=== PATIENT | female | born 1940 | race American Indian/Alaskan Native ===

== ENCOUNTER 2017-03-07 00:56 | Emergency (ER) | payer MEDICARE, BC ==
[2017-03-07 00:58] VITALS: BMI 25.7
[2017-03-07 01:17] VITALS: BP 161/82; PULSE 57; RESP 18; TEMP 97.8; O2SAT 100
--- NOTE | 2017-03-07 01:38 | ED PDOC ---
Arrival/HPI - General Historian: Patient - History of Present Illness Time/Duration: > week Symptom Onset: Gradual Symptom Course: Worsening <Mariajose Ramirez - Last Filed: 03/07/17 01:46> <Ivan Mercedes - Last Filed: 03/07/17 02:29> - General Chief Complaint: Allergic Reaction Time Seen by Provider: 03/07/17 01:20 - History of Present Illness Narrative History of Present Illness (Text): 03/07/17 01:46 Patient is a 76 y/o with pmh of hld, dm, H/O cad with stents presenting with 2 weeks of itchy rash. patient states the itchiness firsts started on the scalp, then moved to the arms. States she bough a cream at the [facility] with no relief. Patient lives by herself, not sure if she has bed bugs or scabies. Patient states the rash started after she visited a dental office. Patient denies new detergent, now soaps or perfume. Denies camping. Patient denies shortness of breath, cp, n/v/d, denies fever or chills. (Mariajose Ramirez) Past Medical History - Provider Review Nursing Documentation Reviewed: Yes - Travel History Have you recently traveled outside [place] w/in the past 3 mons?: No - Past History Past History: No Previous - Infectious Disease Hx of Infectious Diseases: None - Tetanus Immunization Tetanus Immunization: Unknown - Cardiac Hx Cardiac Disorders: Yes Hx Angina: Yes Hx Hypertension: Yes Hx Pacemaker: No - Pulmonary Hx Respiratory Disorders: No Hx Asthma: No Hx Bronchitis: No Hx Chronic Obstructive Pulmonary Disease (COPD): No Hx Emphysema: No Hx Respiratory Aspiration: No Hx Respiratory Tract Infection: No Hx Sleep Apnea: No Hx Tuberculosis: No - Neurological Hx Neurological Disorder: No - HEENT Hx HEENT Disorder: No (tinnitus, [place]) Hx Blind: No Hx Cataracts: No Hx Deafness: No Hx Difficulty Chewing: No Hx Epistaxis: No Hx Glaucoma: No Hx Macular Degeneration: No - Renal Hx Renal Disorder: No Hx Dialysis: No Hx Kidney Stones: No Hx Neurogenic Bladder: No Hx Pyelonephritis: No Hx Renal Cancer: No Hx Renal Failure: No - Endocrine/Metabolic Hx Endocrine Disorders: Yes Hx Adrenal Cancer: No Hx Diabetes Insipidus: No Hx Diabetes Mellitus Type 1: No Hx Diabetes Mellitus Type 2: Yes Hx Hyperthyroidism: Yes Hx Hypothyroidism: No Hx Systemic Lupus Erythematosus: No Other/Comment: thyroid nodule - Hematological/Oncological Hx Blood Disorders: Yes (blood transfusion 2010) Hx AIDS: No Hx Anemia: No Hx Cancer: No Hx Chemotherapy: No Hx Cirrhosis: No Hx Hepatitis A: No Hx Hepatitis B: No Hx Hepatitis C: No Hx Metastasis: No Hx Shingles: No Hx Unexplained Bleeding: No - Integumentary Hx Dermatological Disorder: No Hx Basal Cell Carcinoma: No Hx Eczema: No Hx Melanoma: No Hx Psoriasis: No Hx Squamous Cell Carcinoma: No - Musculoskeletal/Rheumatological Hx Musculoskeletal Disorders: No Hx Falls: No - Gastrointestinal Hx Gastrointestinal Disorders: No Hx Colostomy: No Hx Crohn's Disease: No Hx Diverticulitis: Yes Hx Gall Bladder Disease: No Hx Gastroesophageal Reflux: No Hx Gastrointestinal Ulcer: No Hx Ileostomy: No Hx Liver Failure: No Hx Pancreatitis: No HX Swallowing Problems: No - Genitourinary/Gynecological Hx Genitourinary Disorders: No Hx Hematuria: No Hx Incontinence: No Hx Prostate Problems: No Hx Sexually Transmitted Diseases: No Hx Urinary Tract Infection: No - Psychiatric Hx Psychophysiologic Disorder: No Hx Emotional Abuse: No Hx Physical Abuse: No Hx Substance Use: No - Surgical History Hx Cardiac Catheterization: Yes (stents x3) Hx Gastric Bypass Surgery: Yes (2008) Other/Comment: Thyroid mass - procedure yesterday 03/20/15, had bx. Stents to legs, ptca 2009, 2010 and 2011 total 3 stents - Anesthesia Hx Anesthesia: Yes Hx Anesthesia Reactions: No Hx Malignant Hyperthermia: No - Suicidal Assessment Feels Threatened In Home Enviroment: No <Mariajose Ramirez - Last Filed: 03/07/17 01:46> Family/Social History - Physician Review Nursing Documentation Reviewed: Yes Family/Social History: No Known Family HX Smoking Status: Never Smoked Hx Alcohol Use: No Hx Substance Use: No Hx Substance Use Treatment: No <Mariajose Ramirez - Last Filed: 03/07/17 01:46> Allergies/Home Meds <Mariajose Ramirez - Last Filed: 03/07/17 01:46> <Ivan Mercedes - Last Filed: 03/07/17 02:29> Allergies/Adverse Reactions: Allergies No Known Allergies Allergy (Verified 05/25/16 14:02) Home Medications: Home Meds Medication Instructions Recorded Confirmed Atorvastatin [Lipitor] 10 mg PO HS 03/04/12 05/25/16 Pantoprazole Sodium [Protonix] 40 mg PO QPM 12/02/12 05/25/16 Insulin Regular, Human [Humulin R] 3 units SC DAILY PRN 08/22/13 05/25/16 Enalapril Maleate [Enalapril] 5 mg PO DAILY 10/02/15 05/25/16 Review of Systems - Review of Systems Constitutional: Normal Eyes: Normal ENT: Normal Respiratory: Normal Cardiovascular: Normal Gastrointestinal: Normal Genitourinary Female: Normal Musculoskeletal: Normal Skin: Rash, Pruritis Neurological: Normal Endocrine: Normal Hemo/Lymphatic: Normal Psychiatric: Normal <Mariajose Ramirez - Last Filed: 03/07/17 01:46> Physical Exam Vital Signs Reviewed: Yes Temperature: Afebrile Blood Pressure: Hypertensive Pulse: Regular Respiratory Rate: Normal Appearance: Positive for: Well-Appearing, Non-Toxic, Comfortable Pain Distress: None Mental Status: Positive for: Alert and Oriented X 3 - Systems Exam Head: Present: Atraumatic, Normocephalic Pupils: Present: PERRL Extroacular Muscles: Present: EOMI Conjunctiva: Present: Normal Mouth: Present: Moist Mucous Membranes Neck: Present: Normal Range of Motion Respiratory/Chest: Present: Clear to Auscultation, Good Air Exchange. No: Respiratory Distress, Accessory Muscle Use Cardiovascular: Present: Regular Rate and Rhythm, Normal S1, S2. No: Murmurs Abdomen: Present: Normal Bowel Sounds. No: Tenderness, Distention Upper Extremity: Present: Normal Inspection. No: Cyanosis, Edema Lower Extremity: Present: Normal Inspection. No: Edema Neurological: Present: GCS=15 Skin: Present: Warm, Dry, Rashes (multiple indurated rashes on the forearm, some close to the axillary region, some are healing, minimal drainage. ) <Mariajose Ramirez - Last Filed: 03/07/17 01:46> Medical Decision Making Re-evaluation Time: 01:55 Reassessment Condition: Unchanged <Mariajose Ramirez - Last Filed: 03/07/17 01:46> <Ivan Mercedes - Last Filed: 03/07/17 02:29> ED Course and Treatment: 03/07/17 01:53 76 y/o with pmh of DM presenting with rash and pruritus of the forearm and scalp. Allergic reaction versus bug bites versus MRSA 2nd to compromised skin integrity. Plan: Po doxy, and keflex. Atarax for pruritus. and reevaluate, dispo. Discussed with Dr Mercedes. (Mariajose Ramirez) 03/07/17 02:29 Patient seen and examined with resident. Agree with above. (Iavn Mercedes) - Medication Orders Current Medication Orders: Discontinued Medications Cephalexin Monohydrate (Keflex) 500 mg PO STAT STA PRN Reason: Protocol Stop: 03/07/17 01:37 Last Admin: 03/07/17 01:56 Dose: 500 mg Doxycycline Hyclate (Doryx) 100 mg PO STAT STA PRN Reason: Protocol Stop: 03/07/17 01:37 Last Admin: 03/07/17 01:56 Dose: 100 mg Hydroxyzine HCl (Atarax) 25 mg PO ONCE ONE Stop: 03/07/17 01:39 Last Admin: 03/07/17 01:56 Dose: 25 mg - PA / FILAMENT COIL WINDER / Resident Statement CARROLL has reviewed & agrees with the documentation as recorded. / has examined the patient and agrees with the treatment plan. <Ivan Mercedes - Last Filed: 03/07/17 02:29> Disposition/Present on Arrival - Present on Arrival Any Indicators Present on Arrival: No History of DVT/PE: No History of Uncontrolled Diabetes: No Urinary Catheter: No History of Decub. Ulcer: No History Surgical Site Infection Following: None - Disposition Have Diagnosis and Disposition been Completed?: Yes Disposition Time: 02:00 Patient Plan: Discharge <Mariajose Ramirez - Last Filed: 03/07/17 01:46> <Ivan Mercedes - Last Filed: 03/07/17 02:29> - Disposition Diagnosis: Rash and nonspecific skin eruption Disposition: HOME/ ROUTINE Condition: STABLE Discharge Instructions (ExitCare): Dermatitis (ED) Additional Instructions: Please take the antibiotics as prescribed . Take the antibiotic with yogurt to avoid diarrhea. Take atarax every 6-8 hrs as needed for itchiness. Follow up with PMD Might need to check your house for possibility of bed bugs or scabies. Go to the nearest emergency room if you experience chest pain, fever, if the wound is getting worst, getting bigger or draining pus. Prescriptions: Cephalexin [Keflex] 500 mg PO TID #15 capsule Doxycycline Hyclate 100 mg PO BID #10 cap hydrOXYzine HCl [Atarax] 25 mg PO Q6H PRN #20 tab PRN Reason: Itching / Pruritus
== END 2017-03-07 02:41 | disposition home or self-care (01) ==
LOC: ED 00:56
DX: R21 Rash and other nonspecific skin eruption (principal)

== ENCOUNTER 2018-01-27 11:40 | Observation (INO) | payer MEDICARE, BC ==
[2018-01-27 11:59] VITALS: BMI 27.4
--- NOTE | 2018-01-27 12:07 | ED PDOC ---
Arrival/HPI - General Time Seen by Provider: 01/27/18 11:59 Historian: Patient - History of Present Illness Narrative History of Present Illness (Text): 01/27/18 12:04 77yo female with PMHx of IDDM, hypertension and hyperlipdemia who was bib EMS for syncopal episode this morning. Patient states she had a syncopal episode while eating breakfast in a restaurant this morning. States she had syncope and collapse on top of the table where she was eating. States she did not have any symptoms prior to having the syncopal episode. She admits to tinnitus, but states it has been ongoing for a while now. Denies headache, focal weakness, recent URI, nausea, vomiting, chest pain, SOB, any other complaint. Past Medical History - Provider Review Nursing Documentation Reviewed: Yes - Past History Past History: No Previous - Infectious Disease Hx of Infectious Diseases: None - Tetanus Immunization Tetanus Immunization: Unknown - Cardiac Hx Cardiac Disorders: Yes Hx Angina: Yes Hx Hypertension: Yes Hx Pacemaker: No - Pulmonary Hx Respiratory Disorders: No Hx Asthma: No Hx Bronchitis: No Hx Chronic Obstructive Pulmonary Disease (COPD): No Hx Emphysema: No Hx Respiratory Aspiration: No Hx Respiratory Tract Infection: No Hx Sleep Apnea: No Hx Tuberculosis: No - Neurological Hx Neurological Disorder: No - HEENT Hx HEENT Disorder: No (tinnitus, [place]) Hx Blind: No Hx Cataracts: No Hx Deafness: No Hx Difficulty Chewing: No Hx Epistaxis: No Hx Glaucoma: No Hx Macular Degeneration: No - Renal Hx Renal Disorder: No Hx Dialysis: No Hx Kidney Stones: No Hx Neurogenic Bladder: No Hx Pyelonephritis: No Hx Renal Cancer: No Hx Renal Failure: No - Endocrine/Metabolic Hx Endocrine Disorders: Yes Hx Adrenal Cancer: No Hx Diabetes Insipidus: No Hx Diabetes Mellitus Type 1: No Hx Diabetes Mellitus Type 2: Yes Hx Hyperthyroidism: Yes Hx Hypothyroidism: No Hx Systemic Lupus Erythematosus: No Other/Comment: thyroid nodule - Hematological/Oncological Hx Blood Disorders: Yes (blood transfusion 2010) Hx AIDS: No Hx Anemia: No Hx Cancer: No Hx Chemotherapy: No Hx Cirrhosis: No Hx Hepatitis A: No Hx Hepatitis B: No Hx Hepatitis C: No Hx Metastasis: No Hx Shingles: No Hx Unexplained Bleeding: No - Integumentary Hx Dermatological Disorder: No Hx Basal Cell Carcinoma: No Hx Eczema: No Hx Melanoma: No Hx Psoriasis: No Hx Squamous Cell Carcinoma: No - Musculoskeletal/Rheumatological Hx Musculoskeletal Disorders: No Hx Falls: No - Gastrointestinal Hx Gastrointestinal Disorders: No Hx Colostomy: No Hx Crohn's Disease: No Hx Diverticulitis: Yes Hx Gall Bladder Disease: No Hx Gastroesophageal Reflux: No Hx Gastrointestinal Ulcer: No Hx Ileostomy: No Hx Liver Failure: No Hx Pancreatitis: No HX Swallowing Problems: No - Genitourinary/Gynecological Hx Genitourinary Disorders: No Hx Hematuria: No Hx Incontinence: No Hx Prostate Problems: No Hx Sexually Transmitted Diseases: No Hx Urinary Tract Infection: No - Psychiatric Hx Psychophysiologic Disorder: No Hx Emotional Abuse: No Hx Physical Abuse: No Hx Substance Use: No - Surgical History Hx Cardiac Catheterization: Yes (stents x3) Hx Gastric Bypass Surgery: Yes (2008) Other/Comment: Thyroid mass - procedure yesterday 03/20/15, had bx. Stents to legs, ptca 2009, 2010 and 2011 total 3 stents - Anesthesia Hx Anesthesia: Yes Hx Anesthesia Reactions: No Hx Malignant Hyperthermia: No - Suicidal Assessment Feels Threatened In Home Enviroment: No Family/Social History - Physician Review Nursing Documentation Reviewed: Yes Family/Social History: Unknown Family HX Smoking Status: Never Smoked Hx Alcohol Use: No Hx Substance Use: No Hx Substance Use Treatment: No Allergies/Home Meds Allergies/Adverse Reactions: Allergies No Known Allergies Allergy (Verified 05/25/16 14:02) Home Medications: Home Meds Medication Instructions Recorded Confirmed Atorvastatin [Lipitor] 10 mg PO HS 03/04/12 01/27/18 Insulin Regular, Human [Humulin R] 3 units SC DAILY PRN 08/22/13 01/27/18 Enalapril Maleate [Enalapril] 5 mg PO DAILY 10/02/15 01/27/18 Pantoprazole Sodium [Protonix] 40 mg PO HS 01/27/18 01/27/18 Review of Systems - Physician Review All systems were reviewed & negative as marked: Yes - Review of Systems Constitutional: Normal Eyes: Normal ENT: Normal Respiratory: Normal Cardiovascular: Normal Gastrointestinal: Normal Genitourinary Female: Normal Musculoskeletal: Normal Skin: Normal Neurological: absent: Dizziness (syncope) Endocrine: Normal Hemo/Lymphatic: Normal Psychiatric: Normal Physical Exam Vital Signs Reviewed: Yes Vital Signs Temp Pulse Resp BP Pulse Ox 01/27/18 16:31 59 L 18 138/81 100 01/27/18 14:14 57 L 18 140/94 H 100 01/27/18 12:30 97.9 F 64 17 133/78 98 Temperature: Afebrile Blood Pressure: Normal Pulse: Regular Respiratory Rate: Normal Appearance: Positive for: Well-Appearing, Non-Toxic, Comfortable Pain Distress: None Mental Status: Positive for: Alert and Oriented X 3 - Systems Exam Head: Present: Atraumatic, Normocephalic Pupils: Present: PERRL Extroacular Muscles: Present: EOMI Conjunctiva: Present: Normal Mouth: Present: Moist Mucous Membranes Neck: Present: Normal Range of Motion Respiratory/Chest: Present: Clear to Auscultation, Good Air Exchange. No: Respiratory Distress, Accessory Muscle Use Cardiovascular: Present: Regular Rate and Rhythm, Normal S1, S2. No: Murmurs Abdomen: No: Tenderness, Distention, Peritoneal Signs Back: Present: Normal Inspection Upper Extremity: Present: Normal Inspection. No: Cyanosis, Edema Lower Extremity: Present: Normal Inspection. No: Edema Neurological: Present: GCS=15, CN II-XII Intact, Speech Normal, Motor Func Grossly Intact, Normal Sensory Function, Normal Cerebellar Funct, Norm Deep Tendon Reflexes, Memory Normal, Normal 2Pt Descrimination, Other (No focal neurological deficit) Skin: Present: Warm, Dry, Normal Color. No: Rashes Psychiatric: Present: Alert, Oriented x 3, Normal Insight, Normal Concentration Medical Decision Making ED Course and Treatment: 01/27/18 19:24 PT presented for stated history. She was neurologically intact in ED. Lab was reviewed, H/H was comparable to previous labs. Mild leukocyte was noted in her urine, but she is asymptomatic. Will not treat at this time. Case was DW Dr. Thomas when she was in ED and pt was placed on OBS for syncope. EKG NSR; LVH with nonspecific T wave abnormality @ 75bpm Head CT - Negative CXR NAD - Lab Interpretations Lab Results: 01/27/18 13:57 01/27/18 13:57 Lab Results 01/27/18 13:57: Sodium 144, Potassium 4.3, Chloride 109 H, Carbon Dioxide 25, Anion Gap 15, BUN 27 H, Creatinine 1.1, Est GFR ( Amer) 58, Est GFR (Non- Af Amer) 48, Random Glucose 149 H, Calcium 8.5, Total Bilirubin 0.3, AST 23, ALT 22, Alkaline Phosphatase 78, Lactate Dehydrogenase 532, Total Creatine Kinase 119, Troponin I < 0.01, Total Protein 7.1, Albumin 4.0, Globulin 3.1, Albumin/Globulin Ratio 1.3 01/27/18 13:57: Urine Color Yellow, Urine Appearance Clear, Urine pH 6.0, Ur Specific [place] 1.025, Urine Protein 30 H, Urine Glucose (UA) Negative, Urine Ketones Trace H, Urine Blood Negative, Urine Nitrate Negative, Urine Bilirubin Negative, Urine Urobilinogen 0.2, Ur Leukocyte Esterase Small H, Urine RBC 0 - 2 , Urine WBC 5 - 10, Ur Epithelial Cells 4 - 5, Urine Bacteria Mod 01/27/18 13:57: PT 12.1, INR 1.06, APTT 31.0 01/27/18 13:57: WBC 7.9 D, RBC 3.23 L, Hgb 9.2 L, Hct 29.1 L, MCV 90.1, MCH 28.5, MCHC 31.6, RDW 13.5, Plt Count 207, MPV 10.6, Gran % 84.7 H, Lymph % (Auto ) 10.2 L, [place] % (Auto) 4.9, Eos % (Auto) 0.1 L, Baso % (Auto) 0.1, Gran # 6.72 H, Lymph # (Auto) 0.8 L, [place] # (Auto) 0.4, Eos # (Auto) 0.0, Baso # (Auto) 0.01 01/27/18 12:26: POC Glucose (mg/dL) 175 H - RAD Interpretation Radiology Orders: 01/27/18 12:00 CHEST PORTABLE [RAD] Stat 01/27/18 12:01 HEAD W/O CONTRAST [CT] Stat Disposition/Present on Arrival - Present on Arrival Any Indicators Present on Arrival: No History of DVT/PE: No History of Uncontrolled Diabetes: No Urinary Catheter: No History of Decub. Ulcer: No History Surgical Site Infection Following: None - Disposition Have Diagnosis and Disposition been Completed?: Yes Diagnosis: Syncope, UTI (urinary tract infection), Anemia Disposition: HOSPITALIZED Disposition Time: 14:00 Patient Plan: Admission Patient Problems: Current Active Problems Problem Status Onset Syncope Acute UTI (urinary tract infection) Acute Condition: FAIR
--- NOTE | 2018-01-27 13:43 | CT ---
PROCEDURE: CT HEAD WITHOUT CONTRAST. HISTORY: syncope COMPARISON: 10/02/2015 TECHNIQUE: Axial computed tomography images were obtained through the head/brain without intravenous contrast. Radiation dose: Total exam DLP = 859 mGy-cm. This CT exam was performed using one or more of the following dose reduction techniques: Automated exposure control, adjustment of the mA and/or kV according to patient size, and/or use of iterative reconstruction technique. FINDINGS: HEMORRHAGE: No intracranial hemorrhage. BRAIN: No mass effect or edema. Chronic microvascular changes are seen in the periventricular white matter and basal ganglia. Moderate atrophy. No acute findings VENTRICLES: Unremarkable. No hydrocephalus. CALVARIUM: Unremarkable. PARANASAL SINUSES: Unremarkable as visualized. No significant inflammatory changes. MASTOID AIR CELLS: Unremarkable as visualized. No inflammatory changes. OTHER FINDINGS: None. IMPRESSION: No acute findings
--- NOTE | 2018-01-27 14:21 | RAD ---
HISTORY: admission COMPARISON: 10/02/2015 FINDINGS: LUNGS: No active pulmonary disease. PLEURA: No significant pleural effusion identified, no pneumothorax apparent. CARDIOVASCULAR: Normal. OSSEOUS STRUCTURES: No significant abnormalities. VISUALIZED UPPER ABDOMEN: Normal. OTHER FINDINGS: None. IMPRESSION: No active disease.
[2018-01-27 14:30] LABS: BASO # 0.01 K/mm3 (0.0-2.0); BASO % 0.1 % (0.0-3.0); EOS % 0.1 % (1.5-5.0); GRAN # 6.72 (1.4-6.5); GRAN % 84.7 % (50.0-68.0); HEMOGLOBIN 9.2 g/dL (12.0-16.0); LYMPH # 0.8 (1.2-3.4); LYMPH % 10.2 % (22.0-35.0); MEAN CELL VOLUME 90.1 fl (80.0-105.0); MEAN CORPUSCULAR HEMOGLOBIN 28.5 pg (25.0-35.0); MEAN CORPUSCULAR HGB CONC 31.6 g/dl (31.0-37.0); MEAN PLATELET VOLUME 10.6 fl (7.0-11.0); MONO # 0.4 (0.1-0.6); MONO % 4.9 % (1.0-6.0); RBC 3.23 10^6/uL (3.5-6.1); RED CELL DISTRIBUTION WIDTH 13.5 % (11.5-14.5); WHITE BLOOD COUNT 7.9 10^3/ul (4.5-11.0)
[2018-01-27 14:36] LABS: URINE BILIRUBIN NEGATIVE (NEGATIVE); URINE BLOOD NEGATIVE (NEGATIVE); URINE GLUCOSE (UA) NEGATIVE (NEGATIVE); URINE LEUKOCYTE ESTERASE SMALL Leu/uL (NEGATIVE); URINE PROTEIN 30 mg/dL (<30 mg/dL); URINE UROBILINOGEN 0.2 E.U./dL (<1 E.U./dL)
[2018-01-27 14:40] LABS: INR 1.06 (0.93-1.08); PROTHROMBIN TIME 12.1 SECONDS (9.4-12.5)
[2018-01-27 14:42] LABS: URINE APPEARANCE CLEAR (CLEAR); URINE COLOR YELLOW (YELLOW)
[2018-01-27 14:53] LABS: ALB/GLOB RATIO 1.3 (1.1-1.8); ALT/SGPT 22 U/L (7-56); AST/SGOT 23 U/L (14-36); BLOOD UREA NITROGEN 27 mg/dL (7-21); CALCIUM 8.5 mg/dL (8.4-10.5); GFR AFRICAN-AMERICAN 58; GFR NON-AFRICAN AMERICAN 48
[2018-01-27 14:59] LABS: URINE RBC 0 - 2 /hpf (0-2)
[2018-01-27 15:00] LABS: URINE BACTERIA MOD (NEG)
[2018-01-27 15:04] LABS: TROPONIN I < 0.01 ng/mL
[2018-01-27 20:57] LABS: IRON 57 ug/dL (45-180)
[2018-01-27 21:06] LABS: % IRON SATURATION 16 % (20-55); TOTAL IRON BINDING CAPACITY 367 ug/dL (265-497)
[2018-01-27] MEDS: Insulin Reg-LOW-Coverage SC SCH (21:38)
--- NOTE | 2018-01-27 22:38 | HP ---
DATE OF EXAM: 01/27/2018 PLACE OF EVALUATION: [facility] [place] [facility]. HISTORY OF PRESENT ILLNESS: This 77-year-old female was examined in the [facility] [place] [facility] after presenting with a complaint of syncope; earlier this morning, she was eating breakfast in a restaurant, she collapsed on top of her table where she was eating. She denied any prior symptoms to the syncopal event. She denied chest pain, shortness of breath, palpitation or vertigo. PAST MEDICAL HISTORY: Significant for insulin-dependent diabetes mellitus, hypertension, peripheral vascular disease, stable atherosclerotic heart disease, hyperlipidemia and she is status post a gastric bypass surgery in the distant past. OUTPATIENT MEDICATIONS: Included Protonix, insulin, enalapril and Lipitor. REVIEW OF SYSTEMS: HEAD REVIEW: Denied any seizure or stroke. EYE REVIEW: Denied any change in visual acuity. EAR REVIEW: Denied hearing loss. THROAT REVIEW: Denied swallowing difficulty. NECK REVIEW: Denied stiffness. CARDIAC REVIEW: Has chronic hypertension. PULMONARY: No cough. No hemoptysis. GI: Peptic ulcer disease with GERD status post bariatric surgery for morbid obesity. : No dysuria. SKIN: No rash. VASCULAR: No claudication. PSYCHOLOGICAL: Chronic anxiety. NEUROLOGICAL: No stroke. SOCIAL HISTORY: She is a nondrinker, nonsmoker, non IV drug misuser. 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 SURGICAL HISTORY: Significant for stents in legs for vascular insufficiency, coronary artery stents for atherosclerotic heart disease in the past. FAMILY HISTORY: Noncontributory. ALLERGIES: SHE DENIED ALLERGIES TO MEDICATION. PHYSICAL EXAMINATION: VITAL SIGNS: Temperature 97.9, respirations 17, pulse 64, blood pressure 133/78 with a pulse ox of 98% room air. HEENT: Head was normocephalic, atraumatic. Eyes showed no icterus. Ears clear. Throat, noninjected. NECK: Supple. HEART: Was regular S1, S2. No pathological rubs, murmurs or gallops. LUNGS: Clear to auscultation. ABDOMEN: Was soft, nontender. There was no palpable organomegaly. No rebound, no guarding. No tenderness. EXTREMITIES: Showed no clubbing, no cyanosis, no edema. SKIN: Her skin was without rash. NEUROLOGICAL: Exam was grossly intact. PSYCHOLOGICAL: Alert and oriented x3. VASCULAR: Legs warm to touch. EKG was reviewed. It showed a normal sinus rhythm with nonspecific ST-T waves with a cardiac pulse rate of [address] beats per minute. Head CT was reviewed. It showed no evidence of intracranial hemorrhage or stroke. Chest x-ray was reviewed. It showed no infiltrate, no congestive heart failure, no pneumothorax, no pleural effusions. LABORATORY DATA: Showed sodium 144, K 4.3, chloride 109, bicarb 25, BUN 27, creatinine 1.1, random blood sugar 175. All liver function testings were normal including bilirubin 0.3, AST 23, ALT 22, alk phos 78. CPK was normal at 119 with a troponin less than 0.01. White blood cell count 7900, hemoglobin 9.2, hematocrit 29.1, platelet count 207,000. PT/INR 1.06, PTT 31. Urinalysis was reviewed. It showed 30 mg/dL of protein with moderate bacteria. Urine culture was sent from the ER. IMPRESSION: This 77-year-old female with a syncopal event while eating in a restaurant earlier this morning with no prodromal symptomatology in a woman with history of bariatric surgery for morbid obesity, history of stable atherosclerotic heart disease with coronary artery stents in her past and also with history of hyperlipidemia, chronic hypertension, insulin-dependent diabetes mellitus, now with a normochromic normocytic anemia. PLAN: The plan as outlined with patient, nursing and emergency room staff will be to admit this patient to the cardiac unit. She will have a ferritin, folic acid, iron, TIBC and vitamin B12 level drawn presently. I have requested a hemoglobin A1c level stat as well as a fasting lipid panel to be done 5:00 a.m. in the morning. We will obtain the results of urine culture. She will be started on regular low-dose insulin protocol a.c. meals and at bedtime., Lipitor 20 mg p.o. daily, Pepcid 20 mg p.o. b.i.d., Zestril 5 mg p.o. daily, Tylenol 650 p.o. every 6 hours p.r.n. pain or temperature greater than 101 and Zofran 4 mg IV every 6 hours p.r.n. nausea and vomiting. She will be placed on heart-healthy diet with moderate carbohydrate restriction. Fall risk protocol and physical therapy will be ordered for ambulation safety. A consultation with Neurology has been requested regarding this syncopal event and patient will require hospitalization pending further workup and clearance by Neurology given her presentation earlier today. Greater than 75 minutes was spent in the care management, review of labs, orders, x-rays, scans and outlining of treatment plan for this patient today. All questions were answered. Jacqueline Thomas MD MTDD
[2018-01-27] MEDS ORDERED: Pneumococcal 23-Valent Vaccine IM ONE (23:05)
[2018-01-27] MEDS ORDERED: Sodium Chloride 0.9% 1,000 ML IV SCH (23:45)
[2018-01-28] MEDS ORDERED: Pantoprazole 40 mg EC Tab PO STA (00:23)
[2018-01-28 00:34] LABS: HEMOGLOBIN 7.6 g/dL (12.0-16.0); MEAN CELL VOLUME 89.7 fl (80.0-105.0); MEAN CORPUSCULAR HEMOGLOBIN 28.9 pg (25.0-35.0); MEAN CORPUSCULAR HGB CONC 32.2 g/dl (31.0-37.0); MEAN PLATELET VOLUME 9.7 fl (7.0-11.0); RBC 2.63 10^6/uL (3.5-6.1); RED CELL DISTRIBUTION WIDTH 13.6 % (11.5-14.5); WHITE BLOOD COUNT 5.6 10^3/ul (4.5-11.0)
[2018-01-28] MEDS: Sodium Chloride 0.9% 1,000 ML IV SCH ×3 (01:11→22:33)
[2018-01-28] MEDS: Pantoprazole 40mg/100mL NS 40 MG/100 ML BAG IVPB SCH ×5 (01:16→22:31)
--- NOTE | 2018-01-28 01:34 | CP.PCM.CON ---
<Mariajose Ramirez - Last Filed: 01/28/18 02:20> History of Present Illness - History of Present Illness History of Present Illness: ICU consult note for Dr Salinas. Reason for consult: hematemsis and hematochezia. Patient is a 77 y/o with pmh of CAD with stents? in the past, hld, htn, IDDM, chronic anemia, h/o anastamotic ulcer s/p gastric bypass, esophageal diverticulum ( seen on EGD in 2010) who initially presented s/p syncopal episode while in the restaurant. Patient states in the morning while eating ( toast, eggs and coffee, denies fish), she noticed large amount of blood from her mouth and nose, then she passed out after. Patient was admitted to tele floor. This AM, nurse's aid noted patient vomiting large clots of blood. Patient states she also had bloody bowel movement this morning. Denied pain with defecation. Repeat cbc revealed dropped in h/h by almost 2 units, thus icu is consulted for evaluation. Patient is lying comfortably on the bed, Denies cp or sob. Denies nausea, vomiting or diarrhea. Denies prior episodes of hematemesis or hematochezia. Denies dizziness, admits to feeling fatigued. No headache or weakness. States she felt diaphoretic while on the toiled. Denies history of asa, plavix and other NSAID use for years. States she only takes Tylenol prn for headache. PMHx: as stated above PSHx: gastric bypass, cardiac cath 2011, egd/colonoscopy spanning from 2010 and 2012. Social: denies tobacco, alcohol and illicit drug use. FMHx: non contributory. Home meds: reviewed, as per emr. Review of Systems - Constitutional Constitutional: Fatigue. absent: Anorexia, Chills, Fever, Headache, Lethargy, Malaise, Night Sweats - EENT Eyes: absent: Change in Vision Ears: absent: Disequilibrium, Dizziness Nose/Mouth/Throat: absent: Nasal Discharge, Sore Throat - Cardiovascular Cardiovascular: absent: Chest Pain, Chest Pain at Rest, Claudication, Diaphoresis, Dyspnea, Edema - Respiratory Respiratory: absent: Cough, Dyspnea, Hemoptysis, Wheezing, Snoring, Stridor - Gastrointestinal Gastrointestinal: Hematemesis, Hematochezia. absent: Abdominal Pain, Belching, Bloating, Change in Bowel Habits, Constipation, Cramping, Diarrhea, Dyspepsia, Heartburn, Loose Stools, Melena, Nausea, Vomiting - Genitourinary Genitourinary: Dysuria. absent: Pyuria - Musculoskeletal Musculoskeletal: absent: Back Pain, Muscle Weakness - Integumentary Integumentary: absent: Jaundice - Neurological Neurological: absent: Disequilibrium, Dizziness, Numbness, Headaches - Psychiatric Psychiatric: absent: Anxiety, Change in Appetite, Confusion, Depression - Endocrine Endocrine: absent: Polydipsia, Polyphagia, Polyuria - Hematologic/Lymphatic Hematologic: absent: Easy Bleeding, Easy Bruising Past Patient History - Infectious Disease Hx of Infectious Diseases: None - Tetanus Immunizations Tetanus Immunization: Unknown - Past Social History Smoking Status: Never Smoked Alcohol: None Drugs: Denies Home Situation {Lives}: With Family - CARDIAC Hx Cardiac Disorders: Yes Hx Angina: Yes Hx Hypercholesterolemia: Yes Hx Hypertension: Yes Hx Pacemaker: No - PULMONARY Hx Respiratory Disorders: No Hx Asthma: No Hx Bronchitis: No Hx Chronic Obstructive Pulmonary Disease (COPD): No Hx Emphysema: No Hx Respiratory Aspiration: No Hx Respiratory Tract Infection: No Hx Sleep Apnea: No Hx Tuberculosis: No - NEUROLOGICAL Hx Neurological Disorder: Yes Hx Dizziness: Yes (syncope 5-8-18) - HEENT Hx HEENT Problems: No (tinnitus, knik) Hx Blind: No Hx Cataracts: No Hx Deafness: No Hx Difficulty Chewing: No Hx Epistaxis: No Hx Glaucoma: No Hx Macular Degeneration: No - RENAL Hx Chronic Kidney Disease: No Hx Dialysis: No Hx Kidney Stones: No Hx Neurogenic Bladder: No Hx Pyelonephritis: No Hx Renal (Kidney) Cancer: No Hx Renal Failure: No - ENDOCRINE/METABOLIC Hx Endocrine Disorders: Yes Hx Adrenal Cancer: No Hx Diabetes Insipidus: No Hx Diabetes Mellitus Type 1: No Hx Diabetes Mellitus Type 2: Yes Hx Hyperthyroidism: Yes Hx Hypothyroidism: No Hx Systemic Lupus Erythematosus: No Other/Comment: thyroid nodule-mass with bx - HEMATOLOGICAL/ONCOLOGICAL Hx Blood Disorders: Yes (blood transfusion 2010) Hx AIDS: No Hx Anemia: No Hx Cancer: No Hx Chemotherapy: No Hx Cirrhosis: No Hx Hepatitis A: No Hx Hepatitis B: No Hx Hepatitis C: No Hx Metastesis: No Hx Shingles: No Hx Unexplained Bleeding: No - INTEGUMENTARY Hx Dermatological Problems: No Hx Basil Cell: No Hx Eczema: No Hx Melanoma: No Hx Psoriasis: No Hx Squamous Cell: No - MUSCULOSKELETAL/RHEUMATOLOGICAL Hx Musculoskeletal Disorders: No Hx Falls: No - GASTROINTESTINAL Hx Gastrointestinal Disorders: Yes (gastric bypass-2009 pt denies) Hx Colostomy: No Hx Crohn's Disease: No Hx Diverticulitis: Yes Hx Gall Bladder Disease: No Hx Gastroesophageal Reflux: No Hx Ileostomy: No Hx Liver Failure: No Hx Pancreatitis: No HX Swallowing Problems: No - GENITOURINARY/GYNECOLOGICAL Hx Genitourinary Disorders: No Hx Hematuria: No Hx Incontinence: No Hx Sexually Transmitted Disorders: No Hx Urinary Tract Infection: No - PSYCHIATRIC Hx Psychophysiologic Disorder: No Hx Emotional Abuse: No Hx Physical Abuse: No Hx Substance Use: No - SURGICAL HISTORY Hx Surgeries: Yes Hx Cardiac Catheterization: Yes (stents x3) Hx Gastric Bypass Surgery: Yes (2008) Other/Comment: Thyroid mass - procedure yesterday 03/20/15, had bx. Stents to legs, ptca 2009, 2010 and 2011 total 3 stents - ANESTHESIA Hx Anesthesia: Yes Hx Anesthesia Reactions: No Hx Malignant Hyperthermia: No Meds Allergies/Adverse Reactions: Allergies Allergy/AdvReac Type Severity Reaction Status Date / Time No Known Allergies Allergy Verified 01/27/18 21:25 - Medications Medications: Current Medications Acetaminophen (Tylenol 325mg Tab) 650 mg PO Q6H PRN PRN Reason: Fever >100.4 F Atorvastatin Calcium (Lipitor) 10 mg PO DIN [facility] Last Admin: 01/27/18 20:59 Dose: 10 mg Pantoprazole Sodium (Protonix 40mg Ivpb) 40 mg in 100 mls @ 20 mls/hr IVPB .Q5H [facility] Last Admin: 01/28/18 01:16 Dose: 20 mls/hr Sodium Chloride (Sodium Chloride 0.9%) 1,000 mls @ 150 mls/hr IV .Q6H40M [facility] Last Admin: 01/28/18 01:11 Dose: Not Given Insulin Human Regular (Humulin R Low) 0 units SC ACHS [facility] PRN Reason: Protocol Last Admin: 01/27/18 21:38 Dose: Not Given Levofloxacin/Dextrose (Levaquin 750mg) 750 mg IVPB DAILY [facility] PRN Reason: Protocol Lisinopril (Zestril) 5 mg PO DAILY [facility] Ondansetron HCl (Zofran Inj) 4 mg IVP Q6H PRN PRN Reason: Nausea/Vomiting Physical Exam - Constitutional Appears: No Acute Distress - Head Exam Head Exam: ATRAUMATIC, NORMAL INSPECTION, NORMOCEPHALIC - Eye Exam Eye Exam: EOMI, Normal appearance, PERRL. absent: Scleral icterus (pale sclera. ) - ENT Exam ENT Exam: Mucous Membranes Dry - Neck Exam Neck exam: Positive for: Normal Inspection - Respiratory Exam Respiratory Exam: Clear to Auscultation Bilateral, NORMAL BREATHING PATTERN. absent: Rales, Rhonchi, Wheezes, Respiratory Distress, Stridor - Cardiovascular Exam Cardiovascular Exam: REGULAR RHYTHM, RRR, +S1, +S2. absent: Bradycardia, Tachycardia, Diastolic murmur, Gallop, JVD, Rubs, Systolic Murmur - GI/Abdominal Exam GI & Abdominal Exam: Normal Bowel Sounds, Soft. absent: Bruit, Diminished Bowel Sounds, Distended, Guarding, Hyperactive Bowel Sounds, Rebound, Rigid, Tenderness - Rectal Exam Rectal Exam: Bloody Stool, NORMAL INSPECTION. absent: Hemorrhoids, Fecal Impaction - Extremities Exam Extremities exam: Positive for: normal inspection. Negative for: pedal edema, tenderness - Back Exam Back exam: NORMAL INSPECTION - Neurological Exam Neurological exam: Alert, Oriented x3, Reflexes Normal - Psychiatric Exam Psychiatric exam: Normal Affect, Normal Mood - Skin Skin Exam: Dry, Intact, Pallor, Warm Results - Vital Signs Recent Vital Signs: Last Vital Signs Temp 98.3 F 01/27/18 22:50 Pulse 80 01/27/18 22:50 Resp 17 01/27/18 22:50 BP 127/68 01/27/18 22:50 Pulse Ox 100 01/27/18 18:00 - Labs Result Diagrams: 01/28/18 00:28 01/27/18 13:57 Labs: Laboratory Results - last 24 hr 01/27/18 01/27/18 01/28/18 14:04 21:37 00:28 WBC 5.6 D RBC 2.63 L Hgb 7.6 L Hct 23.6 L MCV 89.7 MCH 28.9 MCHC 32.2 RDW 13.6 Plt Count 167 MPV 9.7 POC Glucose (mg/dL) 152 H 116 H Assessment & Plan - Assessment and Plan (Free Text) Assessment: Patient is a 77 y/o with pmh of CAD with stents? in the past, hld, htn, IDDM, chronic anemia, h/o anastomotic ulcer s/p gastric bypass, esophageal diverticulum ( seen on EGD in 2010), initially admitted post syncopal episode and icu is being consulted due to episodes of hematemesis and hematochezia. Patient was noted to have acute drop in hgb from 9.2 to 7.6. Currently hemodynamically stable. Patient is to be transferred to icu for further monitoring and management. Plan: Neuro: a&ox3, alert and awake, speaking in full sentences. Pulm: stable, supplemental O2 prn to maintain O2 sat above 90%. Head of bed above 30 degrees. Cardiac: h/o CAD with ?stents, and htn- denies asa and plavix. On lipitor. BP currently stable, will maintain MAP above 65%. ID: [id number]- will start levaquin, urine culture pending. GI: Possible upper Gi bleeding likely due to gastric/ duodenal/ esophageal ulcers ,versus variceal bleed, versus fistula, AVM, r/o malignancy, r/o superimposed lower Gi bleeding. - Gi consulted, spoke to Dr Yoder, hold off of gastric lavage. - started on ppi drip, zofran prn for nausea/vomiting, NPO. - Surgery is consulted as per primary. - Patient getting transfuse 2 unites of prbc. Heme- acute on chronic anemia likely due to upper gi bleeding. - acute drop of hgb - will type and cross, and transfuse 2 units of prbc. - plt and coags appears normal, anemia work up sent. - will continue to monitor closely, cbc q4h. ENDO- h/o IDDM2- continue insulin sliding scale. RENAL- stable renal function, will monitor and prevent liza. - On NS hydration at 150 ml/hr. DVT prophylaxis: VTE device. Patient seen, examined and case discussed with Dr Salinas. - Date & Time Date: 01/28/18 Time: 01:50 <Cruz Salinas Q - Last Filed: 01/28/18 03:27> Meds - Medications Medications: Current Medications Acetaminophen (Tylenol 325mg Tab) 650 mg PO Q6H PRN PRN Reason: Fever >100.4 F Atorvastatin Calcium (Lipitor) 10 mg PO DIN [facility] Last Admin: 01/27/18 20:59 Dose: 10 mg Pantoprazole Sodium (Protonix 40mg Ivpb) 40 mg in 100 mls @ 20 mls/hr IVPB .Q5H [facility] Last Admin: 01/28/18 01:16 Dose: 20 mls/hr Sodium Chloride (Sodium Chloride 0.9%) 1,000 mls @ 150 mls/hr IV .Q6H40M [facility] Last Admin: 01/28/18 01:11 Dose: Not Given Insulin Human Regular (Humulin R Low) 0 units SC ACHS [facility] PRN Reason: Protocol Last Admin: 01/27/18 21:38 Dose: Not Given Levofloxacin/Dextrose (Levaquin 750mg) 750 mg IVPB Q48H [facility] PRN Reason: Protocol Last Admin: 01/28/18 02:10 Dose: 750 mg Lisinopril (Zestril) 5 mg PO DAILY [facility] Ondansetron HCl (Zofran Inj) 4 mg IVP Q6H PRN PRN Reason: Nausea/Vomiting Last Admin: 01/28/18 03:09 Dose: 4 mg Results - Vital Signs Recent Vital Signs: Last Vital Signs Temp 98 F 01/28/18 03:15 Pulse 75 01/28/18 03:15 Resp 26 H 01/28/18 03:15 BP 140/73 01/28/18 03:15 Pulse Ox 99 01/28/18 00:01 - Labs Result Diagrams: 01/28/18 00:28 01/27/18 13:57 Labs: Laboratory Results - last 24 hr 01/27/18 01/27/18 01/28/18 14:04 21:37 00:28 WBC 5.6 D RBC 2.63 L Hgb 7.6 L Hct 23.6 L MCV 89.7 MCH 28.9 MCHC 32.2 RDW 13.6 Plt Count 167 MPV 9.7 POC Glucose (mg/dL) 152 H 116 H Blood Type Antibody Screen Crossmatch BBK History Checked 01/28/18 00:28 WBC RBC Hgb Hct MCV MCH MCHC RDW Plt Count MPV POC Glucose (mg/dL) Blood Type O POSITIVE Antibody Screen Negative Crossmatch See Detail BBK History Checked Patient has bt Attending/Attestation - Attestation I have personally seen and examined this patient.: Yes I have fully participated in the care of the patient.: Yes I have reviewed all pertinent clinical information: Yes Notes (Text): 01/28/18 03:27 I agree with the above mentioned note and exam by the resident with the addition /exception of the followin77 y/o female with a PMHx IDDM, htn, CAD + PVD s/p PCI, gastric bypass surgery, history of a GI bleed and peptic ulcer disease was admitted to the hospital earlier today secondary to an episode of unexplained syncope. Patient does not recall the events, however documentation on her medical record appear to show that the patient may have had an episode of hematemesis causing her syncope. Patient had an episode of melena followed by an episode of vomiting of Bright red blood while on the telemetry floor. Her SBP was measured to be in the 130's prior to these episodes and in the low 100's afterwards. Patient was transferred to the ICU for closer monitoring, initiation and maintenance of a PPI IV drip, NPO and is pending evaluation by GI services. The medical unit secretary discussed the case with Dr. Yoder and he recommended not to perform gastric lavage at this time. Patient had an EGD done in 2012 showing esophageal diverticulum and ulcers without signs of bleeding. Patient will be transfused to keep her hgb >8 and monitored closely. Case discussed with Dr. Butt (House doctor) who notified me of the patient's current symptoms labs and images available to me have been reviewed thus far total time of care: 45 minutes
[2018-01-28] MEDS ORDERED: levoFLOXacin 750 mg in D5W 150 ML BAG IVPB SCH (01:40)
--- NOTE | 2018-01-28 01:42 | CP.PCM.PN ---
Subjective - Date & Time of Evaluation Date of Evaluation: 01/27/18 Time of Evaluation: 11:40 - Subjective Subjective: Pt seen at the request of her RN who stated pt had a large amount of bright bloody vomitus with clots of blood followed by a bowel movement with dark blood in it. Pt was admitted for a syncopal episode. VS are stable PMH:CAD,S/P stent placement,gastric bypass,hypercholestrolemia,HTN,thyroid nodule biopsy Objective - Vital Signs/Intake and Output Vital Signs (last 24 hours): Temp Pulse Resp BP Pulse Ox 98.3 F 80 17 127/68 100 01/27/18 22:50 01/27/18 22:50 01/27/18 22:50 01/27/18 22:50 01/27/18 18:00 - Medications Medications: Current Medications Acetaminophen (Tylenol 325mg Tab) 650 mg PO Q6H PRN PRN Reason: Fever >100.4 F Atorvastatin Calcium (Lipitor) 10 mg PO DIN [facility] Last Admin: 01/27/18 20:59 Dose: 10 mg Pantoprazole Sodium (Protonix 40mg Ivpb) 40 mg in 100 mls @ 20 mls/hr IVPB .Q5H [facility] Last Admin: 01/28/18 01:16 Dose: 20 mls/hr Sodium Chloride (Sodium Chloride 0.9%) 1,000 mls @ 150 mls/hr IV .Q6H40M [facility] Last Admin: 01/28/18 01:11 Dose: Not Given Insulin Human Regular (Humulin R Low) 0 units SC ACHS [facility] PRN Reason: Protocol Last Admin: 01/27/18 21:38 Dose: Not Given Levofloxacin/Dextrose (Levaquin 750mg) 750 mg IVPB DAILY [facility] PRN Reason: Protocol Lisinopril (Zestril) 5 mg PO DAILY [facility] Ondansetron HCl (Zofran Inj) 4 mg IVP Q6H PRN PRN Reason: Nausea/Vomiting - Labs Labs: 01/28/18 00:28 PT 12.1 SECONDS (9.4-12.5) 01/27/18 13:57 INR 1.06 (0.93-1.08) 01/27/18 13:57 APTT 31.0 Seconds (25.1-36.5) 01/27/18 13:57 - Constitutional Appears: No Acute Distress, Chronically Ill - Head Exam Head Exam: ATRAUMATIC, NORMAL INSPECTION, NORMOCEPHALIC - Eye Exam Eye Exam: PERRL - ENT Exam ENT Exam: Mucous Membranes Moist - Neck Exam Neck Exam: Normal Inspection - Respiratory Exam Respiratory Exam: Clear to Ausculation Bilateral, NORMAL BREATHING PATTERN - Cardiovascular Exam Cardiovascular Exam: REGULAR RHYTHM - GI/Abdominal Exam GI & Abdominal Exam: Soft, Tenderness, Diminished Bowel Sounds Additional comments: No guarding or rebound - Extremities Exam Extremities Exam: Normal Inspection. absent: Calf Tenderness - Neurological Exam Neurological Exam: Alert, Awake, Oriented x3 - Psychiatric Exam Psychiatric exam: Anxious - Skin Skin Exam: Dry, Warm Assessment and Plan - Assessment and Plan (Free Text) Assessment: GI Bleed. Anemia. Plan: CBC,Blood for type and cross match ordered stat. Normal saline at 100cc/hr started. Pt is to be kept NPO. Protonix ordered. Follow up : Hgb showed a drop from 9.2 to 7.6. Will order blood transfusion. Dr Salinas called to see if he would accept pt to ICU.He saw pt,accepted her to ICU. Dr Thomas notified. Dr Yoder and Dr Carpenter to be consulted.
--- NOTE | 2018-01-28 04:39 | CP.PCM.CON ---
History of Present Illness - History of Present Illness History of Present Illness: General Surgery Consult Note for Dr. Malone (covering for Dr. Carpenter) Reason for consult: GI bleed (hematemesis and hematochezia) 77 F with PMH of CAD, HLD, HTN, DM, chronic anemia, hx of marginal ulcer s/p gastric bypass, esophageal diverticulum who [place] [facility] [place]opal episode yesterday morning while at a restaurant. Patient states she was eating when she noticed large amount of blood from her mouth/nose and subsequently passed out. In the ER, patient was found to be anemic (Hgb 9.2). Patient was admitted to telemetry. Around 1:00, the house doctor was paged for a episode of hematemesis with clots present. At that same time, patient also had an episode of hemaochezia. CBC was drawn and reveal a drop in Hgb from 9.2 to 7.6. Patient was transferred to ICU and ordered two units of PRBC. Admits to fatigue and malaise. Denies fever/chills, chest pain, SOB, abdominal pain. Denies history of plavix use but occasionally takes ASA/Tylenol for headaches and pain. PMD: Dr. Thomas PMH: CAD, HLD, HTN, DM, chronic anemia, hx of marginal ulcer s/p gastric bypass , esophageal diverticulum Meds: As per EMR Allergy: NKDA PSH: gastric bypass, cardiac cath (2011), egd/colonoscopy (2010, 2012). Social: denies tobacco/EtOH/illicit drug use. FH: non-contributory Review of Systems - Review of Systems All systems: reviewed and no additional remarkable complaints except (as per HPI ) Past Patient History - Infectious Disease Hx of Infectious Diseases: None - Tetanus Immunizations Tetanus Immunization: Unknown - Past Social History Smoking Status: Never Smoked Alcohol: None Drugs: Denies Home Situation {Lives}: With Family - CARDIAC Hx Cardiac Disorders: Yes Hx Angina: Yes Hx Hypercholesterolemia: Yes Hx Hypertension: Yes Hx Pacemaker: No - PULMONARY Hx Respiratory Disorders: No Hx Asthma: No Hx Bronchitis: No Hx Chronic Obstructive Pulmonary Disease (COPD): No Hx Emphysema: No Hx Respiratory Aspiration: No Hx Respiratory Tract Infection: No Hx Sleep Apnea: No Hx Tuberculosis: No - NEUROLOGICAL Hx Neurological Disorder: Yes Hx Dizziness: Yes (syncope 5-8-18) - HEENT Hx HEENT Problems: No (tinnitus, eek) Hx Blind: No Hx Cataracts: No Hx Deafness: No Hx Difficulty Chewing: No Hx Epistaxis: No Hx Glaucoma: No Hx Macular Degeneration: No - RENAL Hx Chronic Kidney Disease: No Hx Dialysis: No Hx Kidney Stones: No Hx Neurogenic Bladder: No Hx Pyelonephritis: No Hx Renal (Kidney) Cancer: No Hx Renal Failure: No - ENDOCRINE/METABOLIC Hx Endocrine Disorders: Yes Hx Adrenal Cancer: No Hx Diabetes Insipidus: No Hx Diabetes Mellitus Type 1: No Hx Diabetes Mellitus Type 2: Yes Hx Hyperthyroidism: Yes Hx Hypothyroidism: No Hx Systemic Lupus Erythematosus: No Other/Comment: thyroid nodule-mass with bx - HEMATOLOGICAL/ONCOLOGICAL Hx Blood Disorders: Yes (blood transfusion 2010) Hx AIDS: No Hx Anemia: No Hx Cancer: No Hx Chemotherapy: No Hx Cirrhosis: No Hx Hepatitis A: No Hx Hepatitis B: No Hx Hepatitis C: No Hx Metastesis: No Hx Shingles: No Hx Unexplained Bleeding: No - INTEGUMENTARY Hx Dermatological Problems: No Hx Basil Cell: No Hx Eczema: No Hx Melanoma: No Hx Psoriasis: No Hx Squamous Cell: No - MUSCULOSKELETAL/RHEUMATOLOGICAL Hx Musculoskeletal Disorders: No Hx Falls: No - GASTROINTESTINAL Hx Gastrointestinal Disorders: Yes (gastric bypass-2008 pt denies) Hx Colostomy: No Hx Crohn's Disease: No Hx Diverticulitis: Yes Hx Gall Bladder Disease: No Hx Gastroesophageal Reflux: No Hx Ileostomy: No Hx Liver Failure: No Hx Pancreatitis: No HX Swallowing Problems: No - GENITOURINARY/GYNECOLOGICAL Hx Genitourinary Disorders: No Hx Hematuria: No Hx Incontinence: No Hx Sexually Transmitted Disorders: No Hx Urinary Tract Infection: No - PSYCHIATRIC Hx Psychophysiologic Disorder: No Hx Emotional Abuse: No Hx Physical Abuse: No Hx Substance Use: No - SURGICAL HISTORY Hx Surgeries: Yes Hx Cardiac Catheterization: Yes (stents x3) Hx Gastric Bypass Surgery: Yes (2008) Other/Comment: Thyroid mass - procedure yesterday 03/20/15, had bx. Stents to legs, ptca 2009, 2010 and 2011 total 3 stents - ANESTHESIA Hx Anesthesia: Yes Hx Anesthesia Reactions: No Hx Malignant Hyperthermia: No Meds Allergies/Adverse Reactions: Allergies Allergy/AdvReac Type Severity Reaction Status Date / Time No Known Allergies Allergy Verified 01/27/18 21:25 - Medications Medications: Current Medications Acetaminophen (Tylenol 325mg Tab) 650 mg PO Q6H PRN PRN Reason: Fever >100.4 F Atorvastatin Calcium (Lipitor) 10 mg PO DIN [facility] Last Admin: 01/27/18 20:59 Dose: 10 mg Pantoprazole Sodium (Protonix 40mg Ivpb) 40 mg in 100 mls @ 20 mls/hr IVPB .Q5H [facility] Last Admin: 01/28/18 01:16 Dose: 20 mls/hr Sodium Chloride (Sodium Chloride 0.9%) 1,000 mls @ 150 mls/hr IV .Q6H40M [facility] Last Admin: 01/28/18 01:11 Dose: Not Given Insulin Human Regular (Humulin R Low) 0 units SC ACHS [facility] PRN Reason: Protocol Last Admin: 01/27/18 21:38 Dose: Not Given Levofloxacin/Dextrose (Levaquin 750mg) 750 mg IVPB Q48H [facility] PRN Reason: Protocol Last Admin: 01/28/18 02:10 Dose: 750 mg Lisinopril (Zestril) 5 mg PO DAILY [facility] Ondansetron HCl (Zofran Inj) 4 mg IVP Q6H PRN PRN Reason: Nausea/Vomiting Last Admin: 01/28/18 03:09 Dose: 4 mg Physical Exam - Constitutional Appears: No Acute Distress - Head Exam Head Exam: ATRAUMATIC, NORMOCEPHALIC - Eye Exam Eye Exam: EOMI, Normal appearance Pupil Exam: PERRL - ENT Exam ENT Exam: Mucous Membranes Moist - Neck Exam Neck exam: Positive for: Normal Inspection - Respiratory Exam Respiratory Exam: NORMAL BREATHING PATTERN - Cardiovascular Exam Cardiovascular Exam: REGULAR RHYTHM, +S1, +S2 - GI/Abdominal Exam GI & Abdominal Exam: Normal Bowel Sounds, Soft. absent: Distended, Firm, Rigid , Tenderness Additional comments: scar from previous [employer] surgery - Extremities Exam Extremities exam: Positive for: normal capillary refill, pedal pulses present. Negative for: calf tenderness - Back Exam Back exam: absent: CVA tenderness (L), CVA tenderness (R) - Neurological Exam Neurological exam: Alert, CN II-XII Intact, Oriented x3 - Psychiatric Exam Psychiatric exam: Normal Affect, Normal Mood - Skin Skin Exam: Dry, Intact, Normal Color, Warm Results - Vital Signs Recent Vital Signs: Last Vital Signs Temp 98.2 F 01/28/18 04:15 Pulse 72 01/28/18 04:15 Resp 15 01/28/18 04:15 BP 136/67 01/28/18 04:15 Pulse Ox 100 01/28/18 03:50 - Labs Result Diagrams: 01/28/18 20:10 01/28/18 05:30 Labs: Laboratory Results - last 24 hr 01/27/18 01/27/18 01/28/18 14:04 21:37 00:28 WBC 5.6 D RBC 2.63 L Hgb 7.6 L Hct 23.6 L MCV 89.7 MCH 28.9 MCHC 32.2 RDW 13.6 Plt Count 167 MPV 9.7 POC Glucose (mg/dL) 152 H 116 H Blood Type Antibody Screen Crossmatch BBK History Checked 01/28/18 00:28 WBC RBC Hgb Hct MCV MCH MCHC RDW Plt Count MPV POC Glucose (mg/dL) Blood Type O POSITIVE Antibody Screen Negative Crossmatch See Detail BBK History Checked Patient has bt Assessment & Plan - Assessment and Plan (Free Text) Assessment: 77 F with syncope and GI bleed Plan: -NPO -IV fluids -Monitor Hgb -Transfuse PRN -Strict I's & O's -f/u GI recommendations -Monitor for Bloody bowel movements -Will Discuss with Dr. Malone (covering for Dr. Carpenter) Hunter Kaur PGY1
[2018-01-28 06:54] LABS: MEAN CELL VOLUME 87.6 fl (80.0-105.0); MEAN PLATELET VOLUME 11.5 fl (7.0-11.0); RBC 3.14 10^6/uL (3.5-6.1); RED CELL DISTRIBUTION WIDTH 14.2 % (11.5-14.5); WHITE BLOOD COUNT 5.7 10^3/ul (4.5-11.0)
[2018-01-28 07:01] LABS: HEMOGLOBIN 8.8 g/dL (12.0-16.0)
[2018-01-28 07:04] VITALS: TEMP 98.2
--- NOTE | 2018-01-28 07:06 | CP.PCM.CON ---
History of Present Illness - History of Present Illness History of Present Illness: Neurology Consult note for Dr. Caceres Reason for consult: syncope 77yo female PMHx CAD with stents?, PAD with stents? (not on any anticoagulation at home as per patient), HTN, HLD, IDDM, Chronic anemia, Anastamotic ulcer s/p gastric bypass, esophageal diverticulum (seen on EGD in 2010) who initially presented to [facility] s/p syncopal episode on 01/27. Patient reports she was at a restaurant and eating a regular meal when she noticed a large amount of blood from her mouth and nose. She then tried to get up when she had an episode of LOC and hit her head on the table when doing so. She reported she "blacked out" and does not recall what occurred until EMS came. Patient reports when she " woke up" she was oriented to place and self and was not confused. She denied any biting of the tongue and bladder/bowel incontinence. In the ER patient was found to be anemic (Hgb 9.2) and was admitted to TELE. However when on the floors patient was noted to be vomiting large clots of blood and she had a bloody BM. Patient denied any pain with defecation at that time. STAT CBC was drawn and revealed a drop in Hgb from 9.2 to 7.6. Patient was transferred to ICU and was ordered 2U PRBC to be transfused. This morning patient was seen and examined at bedside. She was lying comfortably at rest and denied any recurrent episodes of hematemesis/ hematochezia. Patient denied any generalized or focal weakness, headaches, dizziness, or blurry vision. Nursing denied any acute events overnight or any episodes of altered mentation in the patient. On complete ROS patient denied fever, chills, chest pain, palpitations, SOB, cough, abdominal pain, nausea, vomiting, bowel/bladder complaints, pain/swelling in her legs bilaterally. She has been NPO and is eager to eat. PMHx: CAD with stents?, PAD with stents? (not on any anticoagulation at home as per patient), HLD, HTN, IDDM, chronic anemia, hx of marginal ulcer s/p gastric bypass, esophageal diverticulum (seen on EGD in 2010) PSurgHx: gastric bypass, cardiac cath 2011, egd/colonoscopy spanning from 2010 and 2012. Meds: pls see chart ALL: NKDA SocHx: denies tobacco, alcohol and illicit drug use. FamHx: non contributory. PMD: Dr. Thomas Review of Systems - Review of Systems All systems: reviewed and no additional remarkable complaints except Review of Systems: as per HPI Past Patient History - Infectious Disease Hx of Infectious Diseases: None - Tetanus Immunizations Tetanus Immunization: Unknown - Past Social History Smoking Status: Never Smoked Alcohol: None Drugs: Denies Home Situation {Lives}: With Family - CARDIAC Hx Cardiac Disorders: Yes Hx Angina: Yes Hx Hypercholesterolemia: Yes Hx Hypertension: Yes Hx Pacemaker: No - PULMONARY Hx Respiratory Disorders: No Hx Asthma: No Hx Bronchitis: No Hx Chronic Obstructive Pulmonary Disease (COPD): No Hx Emphysema: No Hx Respiratory Aspiration: No Hx Respiratory Tract Infection: No Hx Sleep Apnea: No Hx Tuberculosis: No - NEUROLOGICAL Hx Neurological Disorder: Yes Hx Dizziness: Yes (syncope 01-27-18) - HEENT Hx HEENT Problems: No (tinnitus, [place]) Hx Blind: No Hx Cataracts: No Hx Deafness: No Hx Difficulty Chewing: No Hx Epistaxis: No Hx Glaucoma: No Hx Macular Degeneration: No - RENAL Hx Chronic Kidney Disease: No Hx Dialysis: No Hx Kidney Stones: No Hx Neurogenic Bladder: No Hx Pyelonephritis: No Hx Renal (Kidney) Cancer: No Hx Renal Failure: No - ENDOCRINE/METABOLIC Hx Endocrine Disorders: Yes Hx Adrenal Cancer: No Hx Diabetes Insipidus: No Hx Diabetes Mellitus Type 1: No Hx Diabetes Mellitus Type 2: Yes Hx Hyperthyroidism: Yes Hx Hypothyroidism: No Hx Systemic Lupus Erythematosus: No Other/Comment: thyroid nodule-mass with bx - HEMATOLOGICAL/ONCOLOGICAL Hx Blood Disorders: Yes (blood transfusion 2010) Hx AIDS: No Hx Anemia: No Hx Cancer: No Hx Chemotherapy: No Hx Cirrhosis: No Hx Hepatitis A: No Hx Hepatitis B: No Hx Hepatitis C: No Hx Metastesis: No Hx Shingles: No Hx Unexplained Bleeding: No - INTEGUMENTARY Hx Dermatological Problems: No Hx Basil Cell: No Hx Eczema: No Hx Melanoma: No Hx Psoriasis: No Hx Squamous Cell: No - MUSCULOSKELETAL/RHEUMATOLOGICAL Hx Musculoskeletal Disorders: No Hx Falls: No - GASTROINTESTINAL Hx Gastrointestinal Disorders: Yes (gastric bypass-2008 pt denies) Hx Colostomy: No Hx Crohn's Disease: No Hx Diverticulitis: Yes Hx Gall Bladder Disease: No Hx Gastroesophageal Reflux: No Hx Ileostomy: No Hx Liver Failure: No Hx Pancreatitis: No HX Swallowing Problems: No - GENITOURINARY/GYNECOLOGICAL Hx Genitourinary Disorders: No Hx Hematuria: No Hx Incontinence: No Hx Sexually Transmitted Disorders: No Hx Urinary Tract Infection: No - PSYCHIATRIC Hx Psychophysiologic Disorder: No Hx Emotional Abuse: No Hx Physical Abuse: No Hx Substance Use: No - SURGICAL HISTORY Hx Surgeries: Yes Hx Cardiac Catheterization: Yes (stents x3) Hx Gastric Bypass Surgery: Yes (2008) Other/Comment: Thyroid mass - procedure yesterday 03/20/15, had bx. Stents to legs, ptca 2009, 2010 and 2011 total 3 stents - ANESTHESIA Hx Anesthesia: Yes Hx Anesthesia Reactions: No Hx Malignant Hyperthermia: No Meds Allergies/Adverse Reactions: Allergies Allergy/AdvReac Type Severity Reaction Status Date / Time No Known Allergies Allergy Verified 01/27/18 21:25 - Medications Medications: Current Medications Acetaminophen (Tylenol 325mg Tab) 650 mg PO Q6H PRN PRN Reason: Fever >100.4 F Last Admin: 01/28/18 06:44 Dose: 650 mg Atorvastatin Calcium (Lipitor) 10 mg PO DIN [facility] Last Admin: 01/27/18 20:59 Dose: 10 mg Pantoprazole Sodium (Protonix 40mg Ivpb) 40 mg in 100 mls @ 20 mls/hr IVPB .Q5H [facility] Last Admin: 01/28/18 05:47 Dose: 20 mls/hr Sodium Chloride (Sodium Chloride 0.9%) 1,000 mls @ 150 mls/hr IV .Q6H40M [facility] Last Admin: 01/28/18 01:11 Dose: Not Given Insulin Human Regular (Humulin R Low) 0 units SC ACHS [facility] PRN Reason: Protocol Last Admin: 01/27/18 21:38 Dose: Not Given Levofloxacin/Dextrose (Levaquin 750mg) 750 mg IVPB Q48H [facility] PRN Reason: Protocol Last Admin: 01/28/18 02:10 Dose: 750 mg Lisinopril (Zestril) 5 mg PO DAILY [facility] Ondansetron HCl (Zofran Inj) 4 mg IVP Q6H PRN PRN Reason: Nausea/Vomiting Last Admin: 01/28/18 03:09 Dose: 4 mg Physical Exam - Constitutional Appears: Non-toxic, No Acute Distress - Head Exam Head Exam: ATRAUMATIC, NORMAL INSPECTION, NORMOCEPHALIC - Eye Exam Eye Exam: EOMI, Normal appearance, PERRL. absent: Conjunctival injection, Scleral icterus Pupil Exam: NORMAL ACCOMODATION, PERRL - ENT Exam ENT Exam: Mucous Membranes Moist - Neck Exam Neck exam: Positive for: Full Rom, Normal Inspection. Negative for: Lymphadenopathy - Respiratory Exam Respiratory Exam: NORMAL BREATHING PATTERN. absent: Respiratory Distress - Cardiovascular Exam Cardiovascular Exam: +S1, +S2. absent: Bradycardia, Tachycardia - GI/Abdominal Exam GI & Abdominal Exam: Soft. absent: Tenderness - Rectal Exam Rectal Exam: Deferred - Extremities Exam Extremities exam: Positive for: normal capillary refill, normal inspection, pedal pulses present. Negative for: pedal edema, tenderness - Neurological Exam Neurological exam: Alert, CN II-XII Intact, Oriented x3 - Expanded Neurological Exam Expanded Neurological exam: Protecting the Airway Patient oriented to: person, place, time Speech: Fluid Speech Cranial nerves: EOM's Intact: Normal, Facial Palsey w/Forehead Movement: Normal , Facial Palsey w/o Forehead Movement: Normal, Facial Sensation: Normal, Gag Reflex: Normal, Nystagmus: Normal, Tongue Deviation: Normal Cerebellar Function: Finger to Nose: Normal Upper motor neuron: Josue Neglect: Normal, Pronator Drift: Normal, Sensory Extinction: Normal Neuro motor strength exam: Left Upper Extremity: 5, Right Upper Extremity: 5, Left Lower Extremity: 5, Right Lower Extremity: 5 Coma Scale Eye Opening: SPONTANEOUS Coma Scale Motor Response: OBEYS COMMANDS Coma Scale Verbal: Oriented Coma Scale Total: 15 - Psychiatric Exam Psychiatric exam: Normal Affect, Normal Mood - Skin Skin Exam: Dry, Intact, Normal Color, Warm Results - Vital Signs Recent Vital Signs: Last Vital Signs Temp 98.2 F 01/28/18 06:00 Pulse 68 01/28/18 06:50 Resp 23 01/28/18 06:50 BP 148/68 01/28/18 06:00 Pulse Ox 100 01/28/18 06:50 - Labs Result Diagrams: 01/28/18 12:10 01/28/18 05:30 Labs: Laboratory Results - last 24 hr 01/27/18 01/27/18 01/28/18 14:04 21:37 00:28 WBC 5.6 D RBC 2.63 L Hgb 7.6 L Hct 23.6 L MCV 89.7 MCH 28.9 MCHC 32.2 RDW 13.6 Plt Count 167 MPV 9.7 POC Glucose (mg/dL) 152 H 116 H Blood Type Antibody Screen Crossmatch BBK History Checked 01/28/18 01/28/18 00:28 05:30 WBC 5.7 RBC 3.14 L Hgb 8.8 L Hct 27.5 L MCV 87.6 MCH 28.0 MCHC 32.0 RDW 14.2 Plt Count 199 MPV 11.5 H POC Glucose (mg/dL) Blood Type O POSITIVE Antibody Screen Negative Crossmatch See Detail BBK History Checked Patient has bt Assessment & Plan - Assessment and Plan (Free Text) Assessment: 77yo female PMHx CAD with stents?, PAD with stents? (not on any anticoagulation at home as per patient), HTN, HLD, IDDM, Chronic anemia, Anastamotic ulcer s/p gastric bypass, esophageal diverticulum (seen on EGD in 2010) who initially presented to [facility] s/p syncopal episode on 01/27. Patient was originally admitted to [facility] but hospital course was complicated with acute anemia secondary to hematemesis and hematochezia and patient was transferred to ICU. Neurology was consulted for syncopal episode. Plan: -Head CT on admission: unremarkable and no evidence of acute intracranial bleed -syncope likely secondary to acute anemia -patient is on protonix gtt and has responded to PRBC transfusion -continue management as per ICU team Neurology will sign off at this time Please reconsult as needed Discussed with Dr. Morris Buenrostro PGY2
[2018-01-28 07:16] LABS: BLOOD UREA NITROGEN 30 mg/dL (7-21); CALCIUM 8.2 mg/dL (8.4-10.5); GFR AFRICAN-AMERICAN > 60; GFR NON-AFRICAN AMERICAN 54; HDL CHOLESTEROL 34 mg/dL (29-60); INR 1.11 (0.93-1.08); PARTIAL THROMBOPLASTIN TIME 30.2 Seconds (25.1-36.5); PROTHROMBIN TIME 12.8 SECONDS (9.4-12.5)
[2018-01-28 07:26] LABS: LDL CHOLESTEROL 83 mg/dL (0-129)
--- NOTE | 2018-01-28 08:18 | CARD ---
APPROVED REPORT EKG Measurement Heart [id number] <Conclusion> Normal sinus rhythm Voltage criteria for left ventricular hypertrophy PRWP Nonspecific T wave abnormality
[2018-01-28 10:25] LABS: HEMOGLOBIN 9.7 g/dL (12.0-16.0); MEAN CORPUSCULAR HEMOGLOBIN 28.6 pg (25.0-35.0); MEAN CORPUSCULAR HGB CONC 32.9 g/dl (31.0-37.0); RBC 3.39 10^6/uL (3.5-6.1); RED CELL DISTRIBUTION WIDTH 14.3 % (11.5-14.5)
--- NOTE | 2018-01-28 11:28 | CP.PCM.CON ---
<Sujey Tafoya - Last Filed: 01/28/18 14:00> History of Present Illness - History of Present Illness History of Present Illness: Seen and examined at the bedside earlier today, chart was reviewed. Request for GI consult is for GI bleed. HPI: This is a 69-year-old female with a past medical history of diabetes mellitus, hypertension, gastric bypass, chronic anemia and coronary artery disease status post stent brought to [facility] for syncopal episode Friday while at a restaurant. The patient not certain but was told that she vomited large amount at the restaurant it appeared red, the patient reported that she had vásquez Jell -O. Yesterday while on telemetry the patient had an episode of hematemesis with blood clots and also reported abdominal cramps and had bowel movement mixed with blood. The patient denies any nausea, further hematemesis or blood from rectum. No complaints of any abdominal pain except when palpated and epigastric area. No complaints of any shortness of breath, chest pain, dyspepsia or unintentional weight loss. Patient denies any use of NSAIDs, reports using Tylenol to help her sleep. In review of her records her last endoscopy was 01/20/2013 found to have esophageal diverticulum, status post gastric bypass, gastritis and esophagitis. Biopsies were negative for Tinoco' s esophagus and no H. pylori. Colonoscopy was 01/25/2013 found to have diverticulosis. 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 She reports that she has been stressed lately. Ct head is negative for bleed or infarct Past medical history: Hyperlipidemia, hypertension, diabetes mellitus, chronic anemia, coronary artery disease status post stent, history of marginal ulcer, status post gastric bypass Past surgical history: Gastric bypass 2006, cardiac catheterization, EGD/ colonoscopy most recently his 2012 Allergies: No known drug allergies Medications: Reviewed as per MAR Family history: Noncontributory Social history: Denies tobacco use, EtOH or illicit drugs ROS: Systems review took positive findings see HPI Past Patient History - Infectious Disease Hx of Infectious Diseases: None - Tetanus Immunizations Tetanus Immunization: Unknown - Past Social History Smoking Status: Never Smoked Alcohol: None Drugs: Denies Home Situation {Lives}: With Family - CARDIAC Hx Cardiac Disorders: Yes Hx Angina: Yes Hx Hypercholesterolemia: Yes Hx Hypertension: Yes Hx Pacemaker: No - PULMONARY Hx Respiratory Disorders: No Hx Asthma: No Hx Bronchitis: No Hx Chronic Obstructive Pulmonary Disease (COPD): No Hx Emphysema: No Hx Respiratory Aspiration: No Hx Respiratory Tract Infection: No Hx Sleep Apnea: No Hx Tuberculosis: No - NEUROLOGICAL Hx Neurological Disorder: Yes Hx Dizziness: Yes (syncope 5-8-18) - HEENT Hx HEENT Problems: No (tinnitus, [place]) Hx Blind: No Hx Cataracts: No Hx Deafness: No Hx Difficulty Chewing: No Hx Epistaxis: No Hx Glaucoma: No Hx Macular Degeneration: No - RENAL Hx Chronic Kidney Disease: No Hx Dialysis: No Hx Kidney Stones: No Hx Neurogenic Bladder: No Hx Pyelonephritis: No Hx Renal (Kidney) Cancer: No Hx Renal Failure: No - ENDOCRINE/METABOLIC Hx Endocrine Disorders: Yes Hx Adrenal Cancer: No Hx Diabetes Insipidus: No Hx Diabetes Mellitus Type 1: No Hx Diabetes Mellitus Type 2: Yes Hx Hyperthyroidism: Yes Hx Hypothyroidism: No Hx Systemic Lupus Erythematosus: No Other/Comment: thyroid nodule-mass with bx - HEMATOLOGICAL/ONCOLOGICAL Hx Blood Disorders: Yes (blood transfusion 2010) Hx AIDS: No Hx Anemia: No Hx Cancer: No Hx Chemotherapy: No Hx Cirrhosis: No Hx Hepatitis A: No Hx Hepatitis B: No Hx Hepatitis C: No Hx Metastesis: No Hx Shingles: No Hx Unexplained Bleeding: No - INTEGUMENTARY Hx Dermatological Problems: No Hx Basil Cell: No Hx Eczema: No Hx Melanoma: No Hx Psoriasis: No Hx Squamous Cell: No - MUSCULOSKELETAL/RHEUMATOLOGICAL Hx Musculoskeletal Disorders: No Hx Falls: No - GASTROINTESTINAL Hx Gastrointestinal Disorders: Yes (gastric bypass-2008 pt denies) Hx Colostomy: No Hx Crohn's Disease: No Hx Diverticulitis: Yes Hx Gall Bladder Disease: No Hx Gastroesophageal Reflux: No Hx Ileostomy: No Hx Liver Failure: No Hx Pancreatitis: No HX Swallowing Problems: No - GENITOURINARY/GYNECOLOGICAL Hx Genitourinary Disorders: No Hx Hematuria: No Hx Incontinence: No Hx Sexually Transmitted Disorders: No Hx Urinary Tract Infection: No - PSYCHIATRIC Hx Psychophysiologic Disorder: No Hx Emotional Abuse: No Hx Physical Abuse: No Hx Substance Use: No - SURGICAL HISTORY Hx Surgeries: Yes Hx Cardiac Catheterization: Yes (stents x3) Hx Gastric Bypass Surgery: Yes (2008) Other/Comment: Thyroid mass - procedure yesterday 03/20/15, had bx. Stents to legs, ptca 2009, 2010 and 2011 total 3 stents - ANESTHESIA Hx Anesthesia: Yes Hx Anesthesia Reactions: No Hx Malignant Hyperthermia: No Meds Allergies/Adverse Reactions: Allergies Allergy/AdvReac Type Severity Reaction Status Date / Time No Known Allergies Allergy Verified 01/27/18 21:25 - Medications Medications: Current Medications Acetaminophen (Tylenol 325mg Tab) 650 mg PO Q6H PRN PRN Reason: Fever >100.4 F Last Admin: 01/28/18 06:44 Dose: 650 mg Atorvastatin Calcium (Lipitor) 10 mg PO DIN [facility] Last Admin: 01/27/18 20:59 Dose: 10 mg Pantoprazole Sodium (Protonix 40mg Ivpb) 40 mg in 100 mls @ 20 mls/hr IVPB .Q5H [facility] Last Admin: 01/28/18 10:10 Dose: 20 mls/hr Sodium Chloride (Sodium Chloride 0.9%) 1,000 mls @ 150 mls/hr IV .Q6H40M [facility] Last Admin: 01/28/18 01:11 Dose: Not Given Insulin Human Regular (Humulin R Low) 0 units SC ACHS [facility] PRN Reason: Protocol Last Admin: 01/27/18 21:38 Dose: Not Given Levofloxacin/Dextrose (Levaquin 750mg) 750 mg IVPB Q48H [facility] PRN Reason: Protocol Last Admin: 01/28/18 02:10 Dose: 750 mg Lisinopril (Zestril) 5 mg PO DAILY [facility] Ondansetron HCl (Zofran Inj) 4 mg IVP Q6H PRN PRN Reason: Nausea/Vomiting Last Admin: 01/28/18 03:09 Dose: 4 mg Physical Exam - Constitutional Appears: No Acute Distress - Head Exam Head Exam: NORMOCEPHALIC - Eye Exam Eye Exam: Normal appearance. absent: Scleral icterus - ENT Exam ENT Exam: Mucous Membranes Moist - Neck Exam Neck exam: Positive for: Normal Inspection - Respiratory Exam Respiratory Exam: NORMAL BREATHING PATTERN. absent: Respiratory Distress - Cardiovascular Exam Cardiovascular Exam: +S1, +S2 - GI/Abdominal Exam GI & Abdominal Exam: Normal Bowel Sounds, Soft, Tenderness (epigastric). absent : Guarding, Organomegaly, Rebound - Rectal Exam Rectal Exam: absent: Black Stool, Bloody Stool Additional comments: no mass palpated, stool on glove appear dark, no melena - Extremities Exam Extremities exam: Positive for: pedal pulses present. Negative for: calf tenderness, pedal edema - Neurological Exam Neurological exam: Alert, Oriented x3 - Skin Skin Exam: Dry, Warm Results - Vital Signs Recent Vital Signs: Last Vital Signs Temp 98.2 F 01/28/18 06:00 Pulse 68 01/28/18 06:50 Resp 23 01/28/18 06:50 BP 148/68 01/28/18 06:00 Pulse Ox 100 01/28/18 06:50 - Labs Result Diagrams: 01/28/18 12:10 01/28/18 05:30 Labs: Laboratory Results - last 24 hr 01/27/18 01/27/18 01/28/18 14:04 21:37 00:28 WBC 5.6 D RBC 2.63 L Hgb 7.6 L Hct 23.6 L MCV 89.7 MCH 28.9 MCHC 32.2 RDW 13.6 Plt Count 167 MPV 9.7 PT INR APTT Sodium Potassium Chloride Carbon Dioxide Anion Gap BUN Creatinine Est GFR ( Amer) Est GFR (Non-Af Amer) POC Glucose (mg/dL) 152 H 116 H Random Glucose Calcium Magnesium Triglycerides Cholesterol LDL Cholesterol Direct HDL Cholesterol Blood Type Antibody Screen Crossmatch BBK History Checked 01/28/18 01/28/18 01/28/18 00:28 05:30 05:30 WBC 5.7 RBC 3.14 L Hgb 8.8 L Hct 27.5 L MCV 87.6 MCH 28.0 MCHC 32.0 RDW 14.2 Plt Count 199 MPV 11.5 H PT INR APTT Sodium 144 Potassium 4.5 Chloride 108 H Carbon Dioxide 26 Anion Gap 15 BUN 30 H Creatinine 1.0 Est GFR ( Amer) > 60 Est GFR (Non-Af Amer) 54 POC Glucose (mg/dL) Random Glucose 176 H Calcium 8.2 L Magnesium 1.9 Triglycerides 158 Cholesterol 153 LDL Cholesterol Direct 83 HDL Cholesterol 34 Blood Type O POSITIVE Antibody Screen Negative Crossmatch See Detail BBK History Checked Patient has bt 01/28/18 01/28/18 05:30 06:00 WBC 6.0 RBC 3.39 L Hgb 9.7 L Hct 29.5 L MCV 87.0 MCH 28.6 MCHC 32.9 RDW 14.3 Plt Count 171 MPV 11.0 PT 12.8 H INR 1.11 H APTT 30.2 Sodium Potassium Chloride Carbon Dioxide Anion Gap BUN Creatinine Est GFR ( Amer) Est GFR (Non-Af Amer) POC Glucose (mg/dL) Random Glucose Calcium Magnesium Triglycerides Cholesterol LDL Cholesterol Direct HDL Cholesterol Blood Type Antibody Screen Crossmatch BBK History Checked Assessment & Plan - Assessment and Plan (Free Text) Assessment: Assessment: Syncopal episode GI bleed, status post hematemesis/hematochezia, differential PUD, angiodyspalsia Acute on chronic anemia, status post 2 units of packed RBC History of gastric bypass, w/ h/o of anastomotic ulcer esophageal diverticulum Coronary artery disease status post stent Hypertension Diabetes mellitus Plan: Nothing by mouth, continue IV fluids for hydration On protonix drip Monitor H&H and for overt GI bleed on IV antibiotics Follow-up urine culture Plan for EGD for further evaluation Discussed plan with patient in ICU team. Thank you for this consult and for allowing us to participate in your patient's care, further recommendations based on clinical course. Seen and discussed with Dr. Yoder. <Paige Yoder V - Last Filed: 01/29/18 12:34> Meds - Medications Medications: Current Medications Acetaminophen (Tylenol 325mg Tab) 650 mg PO Q6H PRN PRN Reason: Fever >100.4 F Last Admin: 01/28/18 06:44 Dose: 650 mg Atorvastatin Calcium (Lipitor) 10 mg PO DIN [facility] Last Admin: 01/28/18 15:59 Dose: 10 mg Pantoprazole Sodium (Protonix 40mg Ivpb) 40 mg in 100 mls @ 20 mls/hr IVPB .Q5H [facility] Last Admin: 01/28/18 22:31 Dose: 20 mls/hr Sodium Chloride (Sodium Chloride 0.9%) 1,000 mls @ 150 mls/hr IV .Q6H40M [facility] Last Admin: 01/28/18 22:33 Dose: 150 mls/hr Insulin Human Regular (Humulin R Low) 0 units SC ACHS [facility] PRN Reason: Protocol Last Admin: 01/28/18 22:46 Dose: Not Given Levofloxacin/Dextrose (Levaquin 750mg) 750 mg IVPB Q48H [facility] PRN Reason: Protocol Last Admin: 01/28/18 02:10 Dose: 750 mg Lisinopril (Zestril) 5 mg PO DAILY [facility] Ondansetron HCl (Zofran Inj) 4 mg IVP Q6H PRN PRN Reason: Nausea/Vomiting Last Admin: 01/28/18 03:09 Dose: 4 mg Results - Vital Signs Recent Vital Signs: Last Vital Signs Temp 98.2 F 01/28/18 18:00 Pulse 67 01/28/18 22:00 Resp 18 01/28/18 18:00 BP 145/48 L 01/28/18 18:00 Pulse Ox 100 01/28/18 18:00 - Labs Result Diagrams: 01/28/18 20:10 01/28/18 05:30 Labs: Laboratory Results - last 24 hr 01/28/18 01/28/18 01/28/18 00:28 00:28 05:30 WBC 5.6 D RBC 2.63 L Hgb 7.6 L Hct 23.6 L MCV 89.7 MCH 28.9 MCHC 32.2 RDW 13.6 Plt Count 167 MPV 9.7 PT INR APTT Sodium 144 Potassium 4.5 Chloride 108 H Carbon Dioxide 26 Anion Gap 15 BUN 30 H Creatinine 1.0 Est GFR ( Amer) > 60 Est GFR (Non-Af Amer) 54 POC Glucose (mg/dL) Random Glucose 176 H Calcium 8.2 L Magnesium 1.9 Triglycerides 158 Cholesterol 153 LDL Cholesterol Direct 83 HDL Cholesterol 34 Blood Type O POSITIVE Antibody Screen Negative Crossmatch See Detail BBK History Checked Patient has bt 01/28/18 01/28/18 01/28/18 05:30 05:30 06:00 WBC 5.7 6.0 RBC 3.14 L 3.39 L Hgb 8.8 L 9.7 L Hct 27.5 L 29.5 L MCV 87.6 87.0 MCH 28.0 28.6 MCHC 32.0 32.9 RDW 14.2 14.3 Plt Count 199 171 MPV 11.5 H 11.0 PT 12.8 H INR 1.11 H APTT 30.2 Sodium Potassium Chloride Carbon Dioxide Anion Gap BUN Creatinine Est GFR ( Amer) Est GFR (Non-Af Amer) POC Glucose (mg/dL) Random Glucose Calcium Magnesium Triglycerides Cholesterol LDL Cholesterol Direct HDL Cholesterol Blood Type Antibody Screen Crossmatch BBK History Checked 01/28/18 01/28/18 01/28/18 11:42 12:10 16:52 WBC 5.8 RBC 3.32 L Hgb 9.5 L Hct 28.8 L MCV 86.7 MCH 28.6 MCHC 33.0 RDW 14.3 Plt Count 160 MPV 11.3 H PT INR APTT Sodium Potassium Chloride Carbon Dioxide Anion Gap BUN Creatinine Est GFR ( Amer) Est GFR (Non-Af Amer) POC Glucose (mg/dL) 107 94 Random Glucose Calcium Magnesium Triglycerides Cholesterol LDL Cholesterol Direct HDL Cholesterol Blood Type Antibody Screen Crossmatch BBK History Checked 01/28/18 20:10 WBC 5.9 RBC 3.35 L Hgb 9.8 L Hct 29.1 L MCV 86.9 MCH 29.3 MCHC 33.7 RDW 14.4 Plt Count 159 MPV 10.9 PT INR APTT Sodium Potassium Chloride Carbon Dioxide Anion Gap BUN Creatinine Est GFR ( Amer) Est GFR (Non-Af Amer) POC Glucose (mg/dL) Random Glucose Calcium Magnesium Triglycerides Cholesterol LDL Cholesterol Direct HDL Cholesterol Blood Type Antibody Screen Crossmatch BBK History Checked Attending/Attestation - Attestation I have personally seen and examined this patient.: Yes I have fully participated in the care of the patient.: Yes I have reviewed all pertinent clinical information: Yes Notes (Text): This is an addendum to GI progress report dictated by Sujey Tafoya APN.The patient was seen and examined earlier. Medical records, lab studies, imagings were reviewed. Last 24 hours events reviewed. Agreed with the above treatment plan as outlined in Sujey Tafoya APN's notes the with the addition of the following History of anastomotic ulcers Status post gastric bypass History of anemia On examination abdomen soft no tenderness. 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
[2018-01-28 12:07] LABS: FERRITIN 10.8 ng/mL
[2018-01-28 12:38] LABS: HEMOGLOBIN 9.5 g/dL (12.0-16.0); MEAN CELL VOLUME 86.7 fl (80.0-105.0); MEAN CORPUSCULAR HEMOGLOBIN 28.6 pg (25.0-35.0); MEAN PLATELET VOLUME 11.3 fl (7.0-11.0); RBC 3.32 10^6/uL (3.5-6.1); RED CELL DISTRIBUTION WIDTH 14.3 % (11.5-14.5); WHITE BLOOD COUNT 5.8 10^3/ul (4.5-11.0)
--- NOTE | 2018-01-28 13:08 | CP.CCUPN ---
<Joey Baird - Last Filed: 01/28/18 13:00> CCU Subjective - Physician Review Subjective (Free Text): ICU Progress Note Pt seen and examined at bedside. No acute events since ICU admission. Pt denies any further episodes of hematemesis or BRBPR in ICU. Pt denied CP, SOB, n/v/d, abdominal pain, fever, chills, GONZALES, dizziness, or fatigue. CCU Objective - Vital Signs / Intake & Output Intake and Output (Last 8hrs): Intake & Output 01/27/18 01/28/18 01/28/18 22:59 06:59 14:59 Intake Total 325 0 Output Total 200 Balance 125 0 Weight 72.575 kg 68.266 kg Intake: Blood Product 325 0 Red Blood Cells Cpd As1 325 Lr Unit [id number] Red Blood Cells Cpd As1 0 0 Lr Unit [id number] Output: Urine 200 Urine, Voided 200 Other: Voiding Method Toilet # Voids Urine, Voided 2 - Physical Exam Head: Positive for: Atraumatic, Normocephalic Pupils: Positive for: PERRL Extroacular Muscles: Positive for: EOMI Conjunctiva: Positive for: Normal Mouth: Positive for: Moist Mucous Membranes Neck: Positive for: Normal Range of Motion Respiratory/Chest: Positive for: Clear to Auscultation, Good Air Exchange. Negative for: Respiratory Distress, Accessory Muscle Use, Wheezes, Rales Cardiovascular: Positive for: Regular Rate and Rhythm, Normal S1, S2. Negative for: Murmurs Abdomen: Negative for: Tenderness, Distention, Peritoneal Signs Back: Positive for: Normal Inspection Upper Extremity: Positive for: Normal Inspection. Negative for: Cyanosis, Edema Lower Extremity: Positive for: Normal Inspection. Negative for: Edema Neurological: Positive for: GCS=15, CN II-XII Intact, Speech Normal, Motor Func Grossly Intact, Normal Sensory Function, Normal Cerebellar Funct, Norm Deep Tendon Reflexes, Memory Normal, Normal 2Pt Descrimination, Other (No focal neurological deficit) Skin: Positive for: Warm, Dry, Normal Color. Negative for: Rashes Psychiatric: Positive for: Alert, Oriented x 3, Normal Insight, Normal Concentration - Medications Active Medications: Active Medications Generic Name Dose Route Start Last Admin Trade Name Freq PRN Reason Stop Dose Admin Acetaminophen 650 mg 01/27/18 19:58 01/28/18 06:44 Tylenol 325mg Tab PO 650 mg Q6H PRN Administration Fever >100.4 F Atorvastatin Calcium 10 mg 01/27/18 20:00 01/27/18 20:59 Lipitor PO 10 mg DIN AKI Administration Pantoprazole Sodium 40 mg in 100 mls @ 20 mls/hr 01/28/18 01:15 01/28/18 10: 10 Protonix 40mg Ivpb IVPB 20 mls/hr .Q5H AKI Administration Sodium Chloride 1,000 mls @ 150 mls/hr 01/28/18 01:08 01/28/18 01:11 Sodium Chloride 0.9% IV Not Given .Q6H40M [facility] Insulin Human Regular 0 units 01/27/18 22:00 01/27/18 21:38 Humulin R Low SC Not Given ACHS [facility] Protocol Levofloxacin/Dextrose 750 mg 01/28/18 01:40 01/28/18 02:10 Levaquin 750mg IVPB 750 mg Q48H [facility] Administration Protocol Lisinopril 5 mg 01/28/18 10:00 Zestril PO DAILY [facility] Ondansetron HCl 4 mg 01/27/18 19:58 01/28/18 03:09 Zofran Inj IVP 4 mg Q6H PRN Administration Nausea/Vomiting - Patient Studies Lab Studies: Lab Studies 01/28/18 01/28/18 01/28/18 Range/Units 12:10 11:42 06:00 WBC 5.8 6.0 (4.5-11.0) 10^3/ul RBC 3.32 L 3.39 L (3.5-6.1) 10^6/uL Hgb 9.5 L 9.7 L (12.0-16.0) g/dL Hct 28.8 L 29.5 L (36.0-48.0) % MCV 86.7 87.0 (80.0-105.0) fl MCH 28.6 28.6 (25.0-35.0) pg MCHC 33.0 32.9 (31.0-37.0) g/dl RDW 14.3 14.3 (11.5-14.5) % Plt Count 160 171 (120.0-450.0) 10^3/uL MPV 11.3 H 11.0 (7.0-11.0) fl PT (9.4-12.5) SECONDS INR (0.93-1.08) APTT (25.1-36.5) Seconds Sodium (132-148) mmol/L Potassium (3.6-5.0) mmol/L Chloride (98-107) mmol/L Carbon Dioxide (21-33) mmol/L Anion Gap (10-20) BUN (7-21) mg/dL Creatinine (0.7-1.2) mg/dl Est GFR ( Amer) Est GFR (Non-Af Amer) POC Glucose (mg/dL) 107 (65-110) mg/dL Random Glucose (70-110) mg/dL Calcium (8.4-10.5) mg/dL Magnesium (1.7-2.2) mg/dL Triglycerides (35-160) mg/dL Cholesterol (130-200) mg/dL LDL Cholesterol Direct (0-129) mg/dL HDL Cholesterol (29-60) mg/dL Blood Type Antibody Screen Crossmatch BBK History Checked 01/28/1818 01/28/18 Range/Units 05:30 05:30 05:30 WBC 5.7 (4.5-11.0) 10^3/ul RBC 3.14 L (3.5-6.1) 10^6/uL Hgb 8.8 L (12.0-16.0) g/dL Hct 27.5 L (36.0-48.0) % MCV 87.6 (80.0-105.0) fl MCH 28.0 (25.0-35.0) pg MCHC 32.0 (31.0-37.0) g/dl RDW 14.2 (11.5-14.5) % Plt Count 199 (120.0-450.0) 10^3/uL MPV 11.5 H (7.0-11.0) fl PT 12.8 H (9.4-12.5) SECONDS INR 1.11 H (0.93-1.08) APTT 30.2 (25.1-36.5) Seconds Sodium 144 (132-148) mmol/L Potassium 4.5 (3.6-5.0) mmol/L Chloride 108 H (98-107) mmol/L Carbon Dioxide 26 (21-33) mmol/L Anion Gap 15 (10-20) BUN 30 H (7-21) mg/dL Creatinine 1.0 (0.7-1.2) mg/dl Est GFR ( Amer) > 60 Est GFR (Non-Af Amer) 54 POC Glucose (mg/dL) (65-110) mg/dL Random Glucose 176 H (70-110) mg/dL Calcium 8.2 L (8.4-10.5) mg/dL Magnesium 1.9 (1.7-2.2) mg/dL Triglycerides 158 (35-160) mg/dL Cholesterol 153 (130-200) mg/dL LDL Cholesterol Direct 83 (0-129) mg/dL HDL Cholesterol 34 (29-60) mg/dL Blood Type Antibody Screen Crossmatch BBK History Checked 01/28/18 01/28/18 01/27/18 Range/Units 00:28 00:28 21:37 WBC 5.6 D (4.5-11.0) 10^3/ul RBC 2.63 L (3.5-6.1) 10^6/uL Hgb 7.6 L (12.0-16.0) g/dL Hct 23.6 L (36.0-48.0) % MCV 89.7 (80.0-105.0) fl MCH 28.9 (25.0-35.0) pg MCHC 32.2 (31.0-37.0) g/dl RDW 13.6 (11.5-14.5) % Plt Count 167 (120.0-450.0) 10^3/uL MPV 9.7 (7.0-11.0) fl PT (9.4-12.5) SECONDS INR (0.93-1.08) APTT (25.1-36.5) Seconds Sodium (132-148) mmol/L Potassium (3.6-5.0) mmol/L Chloride (98-107) mmol/L Carbon Dioxide (21-33) mmol/L Anion Gap (10-20) BUN (7-21) mg/dL Creatinine (0.7-1.2) mg/dl Est GFR ( Amer) Est GFR (Non-Af Amer) POC Glucose (mg/dL) 116 H (65-110) mg/dL Random Glucose (70-110) mg/dL Calcium (8.4-10.5) mg/dL Magnesium (1.7-2.2) mg/dL Triglycerides (35-160) mg/dL Cholesterol (130-200) mg/dL LDL Cholesterol Direct (0-129) mg/dL HDL Cholesterol (29-60) mg/dL Blood Type O POSITIVE Antibody Screen Negative Crossmatch See Detail BBK History Checked Patient has bt 01/27/18 Range/Units 14:04 WBC (4.5-11.0) 10^3/ul RBC (3.5-6.1) 10^6/uL Hgb (12.0-16.0) g/dL Hct (36.0-48.0) % MCV (80.0-105.0) fl MCH (25.0-35.0) pg MCHC (31.0-37.0) g/dl RDW (11.5-14.5) % Plt Count (120.0-450.0) 10^3/uL MPV (7.0-11.0) fl PT (9.4-12.5) SECONDS INR (0.93-1.08) APTT (25.1-36.5) Seconds Sodium (132-148) mmol/L Potassium (3.6-5.0) mmol/L Chloride (98-107) mmol/L Carbon Dioxide (21-33) mmol/L Anion Gap (10-20) BUN (7-21) mg/dL Creatinine (0.7-1.2) mg/dl Est GFR ( Amer) Est GFR (Non-Af Amer) POC Glucose (mg/dL) 152 H (65-110) mg/dL Random Glucose (70-110) mg/dL Calcium (8.4-10.5) mg/dL Magnesium (1.7-2.2) mg/dL Triglycerides (35-160) mg/dL Cholesterol (130-200) mg/dL LDL Cholesterol Direct (0-129) mg/dL HDL Cholesterol (29-60) mg/dL Blood Type Antibody Screen Crossmatch BBK History Checked Laboratory Results - last 24 hr 01/27/18 01/27/18 01/28/18 14:04 21:37 00:28 WBC 5.6 D RBC 2.63 L Hgb 7.6 L Hct 23.6 L MCV 89.7 MCH 28.9 MCHC 32.2 RDW 13.6 Plt Count 167 MPV 9.7 PT INR APTT Sodium Potassium Chloride Carbon Dioxide Anion Gap BUN Creatinine Est GFR ( Amer) Est GFR (Non-Af Amer) POC Glucose (mg/dL) 152 H 116 H Random Glucose Calcium Magnesium Triglycerides Cholesterol LDL Cholesterol Direct HDL Cholesterol Blood Type Antibody Screen Crossmatch BBK History Checked 01/28/18 01/28/18 01/28/18 00:28 05:30 05:30 WBC 5.7 RBC 3.14 L Hgb 8.8 L Hct 27.5 L MCV 87.6 MCH 28.0 MCHC 32.0 RDW 14.2 Plt Count 199 MPV 11.5 H PT INR APTT Sodium 144 Potassium 4.5 Chloride 108 H Carbon Dioxide 26 Anion Gap 15 BUN 30 H Creatinine 1.0 Est GFR ( Amer) > 60 Est GFR (Non-Af Amer) 54 POC Glucose (mg/dL) Random Glucose 176 H Calcium 8.2 L Magnesium 1.9 Triglycerides 158 Cholesterol 153 LDL Cholesterol Direct 83 HDL Cholesterol 34 Blood Type O POSITIVE Antibody Screen Negative Crossmatch See Detail BBK History Checked Patient has bt 01/28/18 01/28/18 01/28/18 05:30 06:00 11:42 WBC 6.0 RBC 3.39 L Hgb 9.7 L Hct 29.5 L MCV 87.0 MCH 28.6 MCHC 32.9 RDW 14.3 Plt Count 171 MPV 11.0 PT 12.8 H INR 1.11 H APTT 30.2 Sodium Potassium Chloride Carbon Dioxide Anion Gap BUN Creatinine Est GFR ( Amer) Est GFR (Non-Af Amer) POC Glucose (mg/dL) 107 Random Glucose Calcium Magnesium Triglycerides Cholesterol LDL Cholesterol Direct HDL Cholesterol Blood Type Antibody Screen Crossmatch BBK History Checked 01/28/18 12:10 WBC 5.8 RBC 3.32 L Hgb 9.5 L Hct 28.8 L MCV 86.7 MCH 28.6 MCHC 33.0 RDW 14.3 Plt Count 160 MPV 11.3 H PT INR APTT Sodium Potassium Chloride Carbon Dioxide Anion Gap BUN Creatinine Est GFR ( Amer) Est GFR (Non-Af Amer) POC Glucose (mg/dL) Random Glucose Calcium Magnesium Triglycerides Cholesterol LDL Cholesterol Direct HDL Cholesterol Blood Type Antibody Screen Crossmatch BBK History Checked Fingerstick Blood Sugar Results: 116 Critical Care Progress Note - Nutrition Nutrition: Nutrition Category Date Time Status NPO Diet [DIET] Diets 01/28/18 Breakfast Ordered Assessment/Plan - Assessment and Plan (Free Text) Assessment: Patient is a 77 y/o with pmh of CAD with stents? in the past, hld, htn, IDDM, chronic anemia, h/o anastomotic ulcer s/p gastric bypass, esophageal diverticulum ( seen on EGD in 2010), initially admitted post syncopal episode. Patient transferred to the ICU for hypovolemic shock 2/2 hematemesis and hematochezia. Patient was noted to have acute drop in hgb from 9.2 to 7.6 and was transfused 2 units appropriate response. Currently hemodynamically stable and awaiting endscopy with GI. Plan: Neuro: - a&ox3, alert and awake, speaking in full sentences - Maintain normothermia Pulm: - stable, supplemental O2 prn to maintain O2 sat above 90%. - Head of bed above 30 degrees. CV: - h/o CAD with ?stents and htn- denies asa and plavix - Cont lipitor - Holding lisinopril - BP currently stable, will maintain MAP above 65% - Cont NS at 150 ml/hr ID: - UA shows mild UTI - Urine cultures pending - Levaquin Day 1 GI: - Possible upper GI bleed - EGD in 2010 showed anastomic ulcer s/p gastric bypass and esophageal diverticulum - Colonscopy in 2012 showed diverticulosis - GI consulted, endoscopy pending - Cont PPI drip, zofran prn for nausea/vomiting - NPO - Surgery is consulted as per primary Heme: - Transfused 2 units pRBC with appropriate response - Monitor H/H, cbc q4h - SCDs for DVT PPx - Hemodynamically stable Endo: - h/o IDDM2- continue insulin sliding scale. - Maintiain euglycemia Renal: - On NS hydration at 150 ml/hr. - Maintain euvolemia Patient seen, examined and case discussed with Dr. Caro. Brenton Baird, PGY1 <Idris Caro - Last Filed: 01/28/18 15:29> CCU Objective - Vital Signs / Intake & Output Vital Signs (Last 4 hours): Vital Signs Temp Pulse Resp BP Pulse Ox 01/28/18 14:36 73 19 113/62 100 01/28/18 14:06 98.2 F 59 L 20 150/75 100 01/28/18 13:46 98.1 F 68 15 142/68 01/28/18 13:29 98.2 F 59 L 16 139/64 01/28/18 13:10 66 L 01/28/18 13:00 159/69 H 100 01/28/18 12:50 100 01/28/18 12:40 100 01/28/18 12:30 93 L 01/28/18 12:20 100 01/28/18 12:10 65 L 01/28/18 12:00 130/62 100 01/28/18 11:50 93 L 01/28/18 11:40 97 01/28/18 11:30 100 Intake and Output (Last 8hrs): Intake & Output 01/28/18 01/28/18 01/28/18 06:59 14:59 22:59 Intake Total 325 0 Output Total 200 Balance 125 0 Weight 150 lb 8 oz Intake: Blood Product 325 0 Red Blood Cells Cpd As1 0 Lr Unit [id number] Red Blood Cells Cpd As1 325 Lr Unit [id number] Red Blood Cells Cpd As1 0 0 Lr Unit [id number] Output: Urine 200 Urine, Voided 200 Other: # Voids Urine, Voided 2 - Medications Active Medications: Active Medications Generic Name Dose Route Start Last Admin Trade Name Freq PRN Reason Stop Dose Admin Acetaminophen 650 mg 01/27/18 19:58 01/28/18 06:44 Tylenol 325mg Tab PO 650 mg Q6H PRN Administration Fever >100.4 F Atorvastatin Calcium 10 mg 01/27/18 20:00 01/27/18 20:59 Lipitor PO 10 mg DIN AKI Administration Pantoprazole Sodium 40 mg in 100 mls @ 20 mls/hr 01/28/18 01:15 01/28/18 10: 10 Protonix 40mg Ivpb IVPB 20 mls/hr .Q5H [facility] Administration Sodium Chloride 1,000 mls @ 150 mls/hr 01/28/18 01:08 01/28/18 01:11 Sodium Chloride 0.9% IV Not Given .Q6H40M [facility] Insulin Human Regular 0 units 01/27/18 22:00 01/28/18 14:58 Humulin R Low SC Not Given ACHS [facility] Protocol Levofloxacin/Dextrose 750 mg 01/28/18 01:40 01/28/18 02:10 Levaquin 750mg IVPB 750 mg Q48H [facility] Administration Protocol Lisinopril 5 mg 01/28/18 10:00 Zestril PO DAILY [facility] Ondansetron HCl 4 mg 01/27/18 19:58 01/28/18 03:09 Zofran Inj IVP 4 mg Q6H PRN Administration Nausea/Vomiting - Patient Studies Lab Studies: Lab Studies 01/28/18 01/28/18 01/28/18 Range/Units 12:10 11:42 06:00 WBC 5.8 6.0 (4.5-11.0) 10^3/ul RBC 3.32 L 3.39 L (3.5-6.1) 10^6/uL Hgb 9.5 L 9.7 L (12.0-16.0) g/dL Hct 28.8 L 29.5 L (36.0-48.0) % MCV 86.7 87.0 (80.0-105.0) fl MCH 28.6 28.6 (25.0-35.0) pg MCHC 33.0 32.9 (31.0-37.0) g/dl RDW 14.3 14.3 (11.5-14.5) % Plt Count 160 171 (120.0-450.0) 10^3/uL MPV 11.3 H 11.0 (7.0-11.0) fl PT (9.4-12.5) SECONDS INR (0.93-1.08) APTT (25.1-36.5) Seconds Sodium (132-148) mmol/L Potassium (3.6-5.0) mmol/L Chloride (98-107) mmol/L Carbon Dioxide (21-33) mmol/L Anion Gap (10-20) BUN (7-21) mg/dL Creatinine (0.7-1.2) mg/dl Est GFR ( Amer) Est GFR (Non-Af Amer) POC Glucose (mg/dL) 107 (65-110) mg/dL Random Glucose (70-110) mg/dL Calcium (8.4-10.5) mg/dL Magnesium (1.7-2.2) mg/dL Triglycerides (35-160) mg/dL Cholesterol (130-200) mg/dL LDL Cholesterol Direct (0-129) mg/dL HDL Cholesterol (29-60) mg/dL Blood Type Antibody Screen Crossmatch BBK History Checked 01/28/18 01/28/18 01/28/18 Range/Units 05:30 05:30 05:30 WBC 5.7 (4.5-11.0) 10^3/ul RBC 3.14 L (3.5-6.1) 10^6/uL Hgb 8.8 L (12.0-16.0) g/dL Hct 27.5 L (36.0-48.0) % MCV 87.6 (80.0-105.0) fl MCH 28.0 (25.0-35.0) pg MCHC 32.0 (31.0-37.0) g/dl RDW 14.2 (11.5-14.5) % Plt Count 199 (120.0-450.0) 10^3/uL MPV 11.5 H (7.0-11.0) fl PT 12.8 H (9.4-12.5) SECONDS INR 1.11 H (0.93-1.08) APTT 30.2 (25.1-36.5) Seconds Sodium 144 (132-148) mmol/L Potassium 4.5 (3.6-5.0) mmol/L Chloride 108 H (98-107) mmol/L Carbon Dioxide 26 (21-33) mmol/L Anion Gap 15 (10-20) BUN 30 H (7-21) mg/dL Creatinine 1.0 (0.7-1.2) mg/dl Est GFR ( Amer) > 60 Est GFR (Non-Af Amer) 54 POC Glucose (mg/dL) (65-110) mg/dL Random Glucose 176 H (70-110) mg/dL Calcium 8.2 L (8.4-10.5) mg/dL Magnesium 1.9 (1.7-2.2) mg/dL Triglycerides 158 (35-160) mg/dL Cholesterol 153 (130-200) mg/dL LDL Cholesterol Direct 83 (0-129) mg/dL HDL Cholesterol 34 (29-60) mg/dL Blood Type Antibody Screen Crossmatch BBK History Checked 01/28/18 01/28/18 01/27/18 Range/Units 00:28 00:28 21:37 WBC 5.6 D (4.5-11.0) 10^3/ul RBC 2.63 L (3.5-6.1) 10^6/uL Hgb 7.6 L (12.0-16.0) g/dL Hct 23.6 L (36.0-48.0) % MCV 89.7 (80.0-105.0) fl MCH 28.9 (25.0-35.0) pg MCHC 32.2 (31.0-37.0) g/dl RDW 13.6 (11.5-14.5) % Plt Count 167 (120.0-450.0) 10^3/uL MPV 9.7 (7.0-11.0) fl PT (9.4-12.5) SECONDS INR (0.93-1.08) APTT (25.1-36.5) Seconds Sodium (132-148) mmol/L Potassium (3.6-5.0) mmol/L Chloride (98-107) mmol/L Carbon Dioxide (21-33) mmol/L Anion Gap (10-20) BUN (7-21) mg/dL Creatinine (0.7-1.2) mg/dl Est GFR ( Amer) Est GFR (Non-Af Amer) POC Glucose (mg/dL) 116 H (65-110) mg/dL Random Glucose (70-110) mg/dL Calcium (8.4-10.5) mg/dL Magnesium (1.7-2.2) mg/dL Triglycerides (35-160) mg/dL Cholesterol (130-200) mg/dL LDL Cholesterol Direct (0-129) mg/dL HDL Cholesterol (29-60) mg/dL Blood Type O POSITIVE Antibody Screen Negative Crossmatch See Detail BBK History Checked Patient has bt Laboratory Results - last 24 hr 01/27/18 01/28/18 01/28/18 21:37 00:28 00:28 WBC 5.6 D RBC 2.63 L Hgb 7.6 L Hct 23.6 L MCV 89.7 MCH 28.9 MCHC 32.2 RDW 13.6 Plt Count 167 MPV 9.7 PT INR APTT Sodium Potassium Chloride Carbon Dioxide Anion Gap BUN Creatinine Est GFR ( Amer) Est GFR (Non-Af Amer) POC Glucose (mg/dL) 116 H Random Glucose Calcium Magnesium Triglycerides Cholesterol LDL Cholesterol Direct HDL Cholesterol Blood Type O POSITIVE Antibody Screen Negative Crossmatch See Detail BBK History Checked Patient has bt 01/28/18 01/28/18 01/28/18 05:30 05:30 05:30 WBC 5.7 RBC 3.14 L Hgb 8.8 L Hct 27.5 L MCV 87.6 MCH 28.0 MCHC 32.0 RDW 14.2 Plt Count 199 MPV 11.5 H PT 12.8 H INR 1.11 H APTT 30.2 Sodium 144 Potassium 4.5 Chloride 108 H Carbon Dioxide 26 Anion Gap 15 BUN 30 H Creatinine 1.0 Est GFR ( Amer) > 60 Est GFR (Non-Af Amer) 54 POC Glucose (mg/dL) Random Glucose 176 H Calcium 8.2 L Magnesium 1.9 Triglycerides 158 Cholesterol 153 LDL Cholesterol Direct 83 HDL Cholesterol 34 Blood Type Antibody Screen Crossmatch BBK History Checked 01/28/18 01/28/18 01/28/18 06:00 11:42 12:10 WBC 6.0 5.8 RBC 3.39 L 3.32 L Hgb 9.7 L 9.5 L Hct 29.5 L 28.8 L MCV 87.0 86.7 MCH 28.6 28.6 MCHC 32.9 33.0 RDW 14.3 14.3 Plt Count 171 160 MPV 11.0 11.3 H PT INR APTT Sodium Potassium Chloride Carbon Dioxide Anion Gap BUN Creatinine Est GFR ( Amer) Est GFR (Non-Af Amer) POC Glucose (mg/dL) 107 Random Glucose Calcium Magnesium Triglycerides Cholesterol LDL Cholesterol Direct HDL Cholesterol Blood Type Antibody Screen Crossmatch BBK History Checked Critical Care Progress Note - Nutrition Nutrition: Nutrition Category Date Time Status NPO Diet [DIET] Diets 01/28/18 Breakfast Ordered Attending/Attestation - Attestation I have personally seen and examined this patient.: Yes I have fully participated in the care of the patient.: Yes I have reviewed all pertinent clinical information: Yes Notes (Text): 01/28/18 15:27 77 yo female with massive upper GI bleed, now fluid resuscitated, 2 U PRBC transfused, Hb stabilzied, EGD done. 3 high risk lesions. Continue protonix drip , NPO, IVF, serial CBC. At present time hemodynamically and respiratory stanley stable. ccm time 40 min
[2018-01-28] MEDS ORDERED: Propofol 10 mg/ml Inj (20 ML) ONE (14:08)
[2018-01-28] MEDS ORDERED: Midazolam 2 MG/2 ML VIAL ONE (14:08)
[2018-01-28 14:16] VITALS: O2SAT 100
[2018-01-28] MEDS: Insulin Reg-LOW-Coverage SC SCH ×4 (14:57→22:46)
--- NOTE | 2018-01-28 18:09 | PN ---
DATE: 01/28/2018 CRITICAL CARE PROGRESS NOTE SUBJECTIVE: This 77-year-old female was examined in bed 6 of the Critical Care Unit in the presence of her nurse Aruna, registered nurse. The patient was transferred to the Intensive Care last evening after experiencing hematemesis and melena, having been admitted with a syncopal episode and also being noted to be markedly weak and deconditioned. The patient at present is lying in her bed. She is receiving 2 units of packed red blood cells. She is in normal sinus rhythm on the [employer] and is complaining of weakness and fatigue. PHYSICAL EXAMINATION: VITAL SIGNS: Temperature 98.2, respirations 24, pulse 68, blood pressure 148/68 and pulse ox 100%, 2 liters nasal O2. HEENT: Head: Normocephalic, atraumatic. Eyes: No icterus. Ears: Clear. Throat: Noninjected. NECK: Supple. HEART: Regular S1, S2. LUNGS: Clear. ABDOMEN: Soft. EXTREMITIES: No edema. SKIN: Without rash. NEUROLOGICAL: Grossly intact. PSYCHOLOGIC: Anxiety. VASCULAR: Legs warm to touch. LABORATORY DATA: White count 5600, hemoglobin 7.6, hematocrit 23.6, platelets 167,000. PT/INR 1.11, PTT 30.2. Chemistry: Sodium 144, K 4.5, chloride 108, bicarb 26, BUN 30, creatinine 1, random blood sugar 176. Iron 57, TIBC 367, percent saturation 16, ferritin 10.8, cholesterol 153, LDL 83, HDL 34, triglycerides 158, magnesium level normal at 1.9. Urinalysis showed moderate bacteria. Urine cultures are pending. Head CT was reviewed, it showed no evidence of hemorrhage or infarct. EKG was reviewed, it showed normal sinus rhythm with nonspecific ST-T wave changes and chest x-ray was reviewed showed no infiltrate, no atelectasis, no congestive heart failure, no pleural effusions or pneumothorax. IMPRESSION AND PLAN: This is a 77-year-old female admitted with syncope and iron-deficiency anemia, who had an episode of hematemesis and melena last night and now feels weak, deconditioned and is in need of blood cell transfusion as well as endoscopic evaluation by Gastroenterology to determine source of bleeding, also the patient will require surgical consultation. Patient is in the Critical Care Unit. She will have CBC every 4 hours x3. She will have blood cell transfusion as indicated. We are awaiting the results of urine culture and MRSA culture of the nares. She will continue on regular low-dose insulin protocol before meals and at bedtime, Lipitor 10 mg p.o. daily, Protonix 40 mg IV drip. She was resuscitated with 0.9 saline at 150 mL/hour. She will continue on Zestril 5 mg p.o. daily, Zofran 4 mg IV every 6 hours p.r.n. nausea and vomiting. She remains n.p.o. She remains on fall and aspiration precautions and is wearing antiembolism stockings to both lower extremities. Based on her clinical progress, additional testing and interventions will be entertained. Greater than 60 minutes was spent in the care management, review of labs, orders, x-rays and discussion with consultants as outlined above. All questions were answered. Jacqueline Thomas MD MTDD
[2018-01-28 20:21] LABS: HEMOGLOBIN 9.8 g/dL (12.0-16.0); MEAN CELL VOLUME 86.9 fl (80.0-105.0); MEAN CORPUSCULAR HEMOGLOBIN 29.3 pg (25.0-35.0); MEAN CORPUSCULAR HGB CONC 33.7 g/dl (31.0-37.0); MEAN PLATELET VOLUME 10.9 fl (7.0-11.0); RBC 3.35 10^6/uL (3.5-6.1); RED CELL DISTRIBUTION WIDTH 14.4 % (11.5-14.5); WHITE BLOOD COUNT 5.9 10^3/ul (4.5-11.0)
[2018-01-29 04:48] VITALS: BP 137/73; PULSE 66; RESP 102
--- NOTE | 2018-01-29 04:49 | CP.PCM.PN ---
Subjective - Date & Time of Evaluation Date of Evaluation: 01/29/18 Time of Evaluation: 04:00 - Subjective Subjective: AMA Note Patient was seen and examined at bedside. Pt is adamant about leaving against medical advice. She claims she has been disrespected and mistreated, however the nursing staff has been attentive to any calls for help and offered services that the patient refused at times. Pt has insight into her illness and is aware of the conditions that have been closely monitored in the ICU. Pt son was called and made aware of the patient's decision and attempts were made by the staff and the son in encouraging the patient to remain in the ICU to continue treatments and care. Patient was counselled on her condition and the treatments being provided to her, and that any abrupt cessation of close monitoring and treatment could result in grave harm, including ultimately . The patient understood the risks of leaving against medical advice. The nursing staff witnessed these conversations. However, the patient remained adamant about leaving and ultimately did so. Patient was walked to the security desk where a cab was called on her behalf. Objective - Vital Signs/Intake and Output Vital Signs (last 24 hours): Temp Pulse Resp BP Pulse Ox 98.2 F 67 18 145/48 L 100 01/28/18 18:00 01/28/18 22:00 01/28/18 18:00 01/28/18 18:00 01/28/18 18:00 Intake and Output: 01/28/18 01/29/18 18:59 06:59 Intake Total 2150 Balance 2150 - Medications Medications: Current Medications Acetaminophen (Tylenol 325mg Tab) 650 mg PO Q6H PRN PRN Reason: Fever >100.4 F Last Admin: 01/28/18 06:44 Dose: 650 mg Atorvastatin Calcium (Lipitor) 10 mg PO DIN [facility] Last Admin: 01/28/18 15:59 Dose: 10 mg Pantoprazole Sodium (Protonix 40mg Ivpb) 40 mg in 100 mls @ 20 mls/hr IVPB .Q5H [facility] Last Admin: 01/28/18 22:31 Dose: 20 mls/hr Sodium Chloride (Sodium Chloride 0.9%) 1,000 mls @ 150 mls/hr IV .Q6H40M [facility] Last Admin: 01/28/18 22:33 Dose: 150 mls/hr Insulin Human Regular (Humulin R Low) 0 units SC ACHS AKI PRN Reason: Protocol Last Admin: 01/28/18 22:46 Dose: Not Given Levofloxacin/Dextrose (Levaquin 750mg) 750 mg IVPB Q48H AKI PRN Reason: Protocol Last Admin: 01/28/18 02:10 Dose: 750 mg Lisinopril (Zestril) 5 mg PO DAILY [facility] Ondansetron HCl (Zofran Inj) 4 mg IVP Q6H PRN PRN Reason: Nausea/Vomiting Last Admin: 01/28/18 03:09 Dose: 4 mg - Labs Labs: 01/28/18 20:10 01/28/18 05:30 PT 12.8 SECONDS (9.4-12.5) H 01/28/18 05:30 INR 1.11 (0.93-1.08) H 01/28/18 05:30 APTT 30.2 Seconds (25.1-36.5) 01/28/18 05:30 - Constitutional Appears: No Acute Distress - Head Exam Head Exam: ATRAUMATIC, NORMAL INSPECTION, NORMOCEPHALIC - Eye Exam Eye Exam: EOMI, Normal appearance, PERRL Pupil Exam: NORMAL ACCOMODATION, PERRL - ENT Exam ENT Exam: Mucous Membranes Moist, Normal Exam - Respiratory Exam Respiratory Exam: Clear to Ausculation Bilateral, NORMAL BREATHING PATTERN - Cardiovascular Exam Cardiovascular Exam: REGULAR RHYTHM, +S1, +S2. absent: Murmur - GI/Abdominal Exam GI & Abdominal Exam: Soft, Normal Bowel Sounds. absent: Tenderness - Extremities Exam Extremities Exam: Full ROM, Normal Capillary Refill, Normal Inspection. absent : Joint Swelling, Pedal Edema - Neurological Exam Neurological Exam: Alert, Awake, CN II-XII Intact, Normal Gait, Oriented x3 - Psychiatric Exam Psychiatric exam: Agitated - Skin Skin Exam: Dry, Intact, Normal Color, Warm
--- NOTE | 2018-01-30 08:12 | DS ---
DATE OF EVALUATION: 01/29/2018 DISCHARGE SUMMARY: According to the medical record, at 04:23 a.m this morning, Shaista Baker who was in ICU bed 6, signed AMA. She was evaluated by Dr. Silver and Dr. Moon, who did evaluate the patient at bedside, explained the risks of signing AMA, and patient nonetheless signed paperwork and walked out of the unit. Jacqueline Thomas MD MTDD
== END 2018-01-29 05:05 | disposition left against medical advice (07) ==
LOC: ED 11:40 → ERH 14:02 → 2RSO 17:44 → CCU 01-28 02:47
PROVIDERS: ADMIT Internal Medicine; ATTEND Internal Medicine
DX: K92.0 Hematemesis (principal); K92.1 Melena; R55 Syncope and collapse; K28.9 Gastrojejunal ulcer, unspecified as acute or chronic, without hemorrhage or perforation; N39.0 Urinary tract infection, site not specified; D62 Acute posthemorrhagic anemia; K44.9 Diaphragmatic hernia without obstruction or gangrene; E11.51 Type 2 diabetes mellitus with diabetic peripheral angiopathy without gangrene; I25.10 Atherosclerotic heart disease of native coronary artery without angina pectoris; I10 Essential (primary) hypertension; E78.5 Hyperlipidemia, unspecified; Z95.5 Presence of coronary angioplasty implant and graft; Z87.11 Personal history of peptic ulcer disease; Z79.4 Long term (current) use of insulin; Z98.84 Bariatric surgery status
CPT/HCPCS: 36415; 36430; 43235; 70450; 71045; 80048; 80053; 80061; 81001; 82550; 82607; 82728; 82746; 82948; 83036; 83540; 83550; 83615; 83735; 84484; 85025; 85027; 85610; 85730; 86850; 86900; 86920; 87081; 87086; 93005; 96374; 96375; 96376; 97161; 97530; 99285; C9113; G0378; G8978; G8979; J2250; J2405; J2704; J3010; J7040; P9016

== ENCOUNTER 2018-02-06 05:45 | Inpatient (IN) | payer MEDICARE, BC ==
--- NOTE | 2018-02-06 06:10 | ED PDOC ---
Arrival/HPI - General Chief Complaint: Trauma Time Seen by Provider: 02/06/18 05:58 Historian: Patient EM Caveat: Acuity of Condition - Critical Care Critical Care Minutes: 30 minutes - History of Present Illness Narrative History of Present Illness (Text): 02/06/18 06:07 77 year old female whose past medical history includes diabetes, hypertension, and GI bleed presents to the emergency department following fall at home. Patient with rectal bleeding arrived to the ER appearing to be lethargic pale. HPI and ROS limited due to patient's current acuity of condition. Context: Tripped Past Medical History - Provider Review Nursing Documentation Reviewed: Yes - Past History Past History: No Previous - Infectious Disease Hx of Infectious Diseases: None - Tetanus Immunization Tetanus Immunization: Unknown - Cardiac Hx Circulatory Problems: Yes (stents in right leg) Hx Hypertension: Yes Hx Peripheral Vascular Disease: Yes - Pulmonary Hx Respiratory Disorders: No - Neurological Hx Neurological Disorder: No - HEENT Hx HEENT Disorder: No Other/Comment: reading glasses - Renal Hx Renal Disorder: No - Endocrine/Metabolic Hx Endocrine Disorders: Yes Hx Diabetes Mellitus Type 2: Yes - Hematological/Oncological Hx Blood Disorders: Yes Hx Anemia: Yes - Integumentary Hx Dermatological Disorder: No - Musculoskeletal/Rheumatological Hx Falls: Yes - Gastrointestinal Hx Gastrointestinal Disorders: Yes Other/Comment: Gi Bleed - Genitourinary/Gynecological Hx Hematuria: Yes - Psychiatric Hx Psychophysiologic Disorder: No Hx Substance Use: No - Surgical History Hx Cardiac Catheterization: Yes (cardiac stents) Hx Coronary Stent: Yes Hx Gastric Bypass Surgery: Yes - Anesthesia Hx Anesthesia: Yes - Suicidal Assessment Feels Threatened In Home Enviroment: No Family/Social History - Physician Review Nursing Documentation Reviewed: Yes Family/Social History: No Known Family HX Smoking Status: Former Smoker Hx Alcohol Use: No Hx Substance Use: No Hx Substance Use Treatment: No Allergies/Home Meds Allergies/Adverse Reactions: Allergies No Known Allergies Allergy (Verified 01/27/18 21:25) Home Medications: Home Meds Medication Instructions Recorded Confirmed Atorvastatin [Lipitor] 10 mg PO HS 03/04/12 01/29/18 Insulin Regular, Human [Humulin R] 3 units SC DAILY PRN 08/22/13 01/29/18 Enalapril Maleate 5 mg PO DAILY 10/02/15 01/29/18 Review of Systems - Physician Review All systems were reviewed & negative as marked: Yes - Review of Systems Systems not reviewed;Unavailable: Acuity of Condition Physical Exam Vital Signs Reviewed: Yes Vital Signs Temp Pulse Resp BP Pulse Ox 02/06/18 07:21 96 H 16 122/60 02/06/18 07:11 95.5 F L 100 H 21 122/60 02/06/18 06:52 144 H 26 H 55/34 L 02/06/18 05:52 63 26 H 87/41 L 100 Blood Pressure: Hypotensive Appearance: Positive for: Well-Appearing, Non-Toxic, Comfortable Pain Distress: None Mental Status: Positive for: Lethargic (but arousable) - Systems Exam Head: Present: Atraumatic, Normocephalic Pupils: Present: PERRL Extroacular Muscles: Present: EOMI Conjunctiva: Present: Normal Mouth: Present: Dry Neck: Present: Normal Range of Motion Respiratory/Chest: Present: Clear to Auscultation, Good Air Exchange. No: Respiratory Distress, Accessory Muscle Use Cardiovascular: Present: Normal S1, S2, Tachycardic. No: Murmurs Abdomen: No: Tenderness, Distention, Peritoneal Signs Rectal: Present: Other (Bleeding Rectally ) Back: Present: Normal Inspection Upper Extremity: Present: Normal Inspection. No: Cyanosis, Edema Lower Extremity: Present: Normal Inspection. No: Edema Neurological: Present: GCS=15, CN II-XII Intact, Speech Normal Skin: Present: Diaphoretic, Other (Conjunctival Pallor). No: Rashes Psychiatric: Present: Alert, Oriented x 3, Normal Insight, Normal Concentration Medical Decision Making ED Course and Treatment: 02/06/18 06:13 Impression: 77 year old female presents following fall at home. Patient presents lethargic pale, with active rectal bleeding. Plan: -- Labs -- EKG -- Chest X-ray -- Reassess and disposition Prior Visits: Notes and results from previous visits were reviewed. Patient was last seen in the emergency department on 01/29/18 presents s/p leaving against medical advice from the ICU when sent to the emergency department by here GI doctor for her GI Bleed. Patient was admitted. Progress Notes: 02/06/18 06:15 Patient with active rectal bleeding and hypotensive. IV fluids was given. Stat blood ordered O negative for immediate transfusion. 02/06/18 06:30 CXR Impression: As read by me, no acute process. 02/06/18 06:34 EKG shows atrial fibrillation at 76 BPM with LVH inferior infarct. Anterior infract. Interpreted by me. 02/06/18 07:00 Pt.became bradypneic requiring immediate endotracheal intubation. Pt. 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 admitted to ICU.Currently still in Emergency department receiving acute care.Case was endorsed to who will continue care for patient along with here in the Emergency department. 02/06/18 07:25 Case had been discussed earlier with PMD who accepted to her service.Call was placed to . - Critical Care Critical Care Minutes: 30 minutes - Lab Interpretations Lab Results: 02/06/18 06:00 02/06/18 06:00 Lab Results 02/06/18 06:15: Blood Type Pending, Antibody Screen Pending, Crossmatch See Detail, BBK History Checked Patient has bt 02/06/18 06:07: POC Glucose (mg/dL) 322 H 02/06/18 06:00: WBC 8.4 D, RBC 2.00 L, Hgb 5.8 L* D, Hct 17.6 L*, MCV 88.0, MCH 29.0, MCHC 33.0, RDW 14.5, Plt Count 219, MPV 11.0 02/06/18 06:00: Sodium 142, Potassium 3.7, Chloride 111 H, Carbon Dioxide 20 L, Anion Gap 15, BUN 25 H, Creatinine 1.0, Est GFR ( Amer) > 60, Est GFR ( Non-Af Amer) 54, Random Glucose 286 H, Calcium 7.6 L, Total Bilirubin 0.3, AST 24, ALT 21, Alkaline Phosphatase 54, Lactate Dehydrogenase 393, Total Creatine Kinase 88, Troponin I 0.03 D, Total Protein 4.8 L, Albumin 2.5 L, Globulin 2.3 , Albumin/Globulin Ratio 1.1 02/06/18 06:00: PT 13.5 H, INR 1.17 H, APTT 25.8 I have reviewed the lab results: Yes - RAD Interpretation Radiology Orders: 02/06/18 06:07 CHEST PORTABLE [RAD] Stat 02/06/18 07:19 CHEST PORTABLE [RAD] Stat - EKG Interpretation Interpreted by ED Physician: Yes Type: 12 lead EKG - Medication Orders Current Medication Orders: NOREPINEPHRINE BIT/0.9 % NACL (Levophed 4 Mg/ 250 Ml Ns Premixed) 4 mg in 250 mls @ 15 mls/hr IV .[id number] PRN; Protocol; 4 MCG/MIN PRN Reason: TITRATE PER MD ORDER Midazolam 100 mg/100ml in NS (Midazolam 100 Mg/100ml In Ns) 100 mg in 100 mls @ 1 mls/hr IV .Q24H PRN; Protocol; 1 MG/HR PRN Reason: Sedation Sodium Chloride (Sodium Chloride 0.9%) 1,000 mls @ 999 mls/hr IV .Q1H1M STA Stop: 02/06/18 08:15 Pantoprazole Sodium (Protonix 40mg Ivpb) 40 mg in 100 mls @ 20 mls/hr IVPB .Q5H AKI Discontinued Medications Pantoprazole Sodium (Protonix Inj) 40 mg IVP STAT STA Stop: 02/06/18 07:25 - Scribe Statement The provider has reviewed the documentation as recorded by the Meka Gage Provider Scribe Attestation: All medical record entries made by the Meka were at my direction and personally dictated by me. I have reviewed the chart and agree that the record accurately reflects my personal performance of the history, physical exam, medical decision making, and the department course for this patient. I have also personally directed, reviewed, and agree with the discharge instructions and disposition. Disposition/Present on Arrival - Present on Arrival Any Indicators Present on Arrival: No History of DVT/PE: No History of Uncontrolled Diabetes: Yes Urinary Catheter: No History of Decub. Ulcer: No History Surgical Site Infection Following: None - Disposition Have Diagnosis and Disposition been Completed?: Yes Diagnosis: GI bleed, Hypotension, Respiratory failure Disposition: HOSPITALIZED Disposition Time: 07:27 Patient Plan: Admission Patient Problems: Current Active Problems Problem Status Onset GI bleed Acute Hypotension Acute Respiratory failure Acute Condition: CRITICAL
[2018-02-06 06:18] LABS: RED CELL DISTRIBUTION WIDTH 14.5 % (11.5-14.5); WHITE BLOOD COUNT 8.4 10^3/ul (4.5-11.0)
[2018-02-06 06:21] LABS: HEMOGLOBIN 5.8 g/dL (12.0-16.0)
[2018-02-06 06:35] LABS: INR 1.17 (0.93-1.08); PARTIAL THROMBOPLASTIN TIME 25.8 Seconds (25.1-36.5); PROTHROMBIN TIME 13.5 SECONDS (9.4-12.5)
[2018-02-06 06:52] LABS: ALB/GLOB RATIO 1.1 (1.1-1.8); ALBUMIN 2.5 g/dL (3.0-4.8); ALT/SGPT 21 U/L (7-56); AST/SGOT 24 U/L (14-36); BLOOD UREA NITROGEN 25 mg/dL (7-21); CALCIUM 7.6 mg/dL (8.4-10.5); GFR AFRICAN-AMERICAN > 60; GFR NON-AFRICAN AMERICAN 54
[2018-02-06 07:00] LABS: TROPONIN I 0.03 ng/mL
[2018-02-06] MEDS ORDERED: Etomidate 20 mg/10ml Inj IV ONE (07:01)
[2018-02-06] MEDS ORDERED: NOREPINEPHRINE BIT/0.9 % NACL 4 MG/250 ML BAG IV PRN (07:12)
[2018-02-06] MEDS ORDERED: Sodium Chloride 0.9% 1,000 ML IV STA (07:15)
[2018-02-06] MEDS ORDERED: Midazolam 100 mg/100ml in NS 100 MG/100 ML SOL IV PRN (07:15)
[2018-02-06] MEDS ORDERED: NOREPINEPHRINE BIT/0.9 % NACL 4 MG/250 ML BAG IV ONE (07:15)
[2018-02-06] MEDS ORDERED: Etomidate 20 mg/10ml Inj IVP STA (07:27)
--- NOTE | 2018-02-06 07:49 | PCM.PROC ---
Procedures Attestation:: I certify that I have explained the specified Operation(s) or Procedure(s), risks, benefits and reasonable alternatives to the Patient and/or other person responsible. The opportunity was given to ask questions and all questions answered - Intubation Additional comments: PROCEDURE: INTUBATION Performed by the emergency provider Dr. Kim Time: 07:00 Consent: Discussion of the risks, benefits, and alternatives to the procedure, along with informed consent was precluded by the urgency of the procedure and the patient condition. Timeout: A timeout to verify the correct patient, procedure, and site was performed. Pre-oxygenation: [id number] Medications: See MAR for details. ETT Size: 7.3 Confirmation: Cords directly visualized as tube passed, good bilateral breath sounds, positive CO2 detector color change, tube fogging, adequate chest rise, improving pulse oximetry reading, improved skin color, and absence of gastric sounds,. ETT Secured: The cuff was inflated and the tube was secured appropriately. Post-Procedure: There were no immediate complications. CXR Confirmation: follow up
[2018-02-06] MEDS ORDERED: Propofol 10 mg/ml 1,000 MG/100 ML VIAL ONE (08:05)
[2018-02-06] MEDS: Propofol 10 mg/ml 1,000 MG/100 ML VIAL IV PRN ×2 (08:10→20:35)
--- NOTE | 2018-02-06 09:17 | CP.PCM.CON ---
History of Present Illness - History of Present Illness History of Present Illness: PGY-1 Surgery Consult Note for Dr. Malone covering for Dr. Carpenter Reason for consult: GI Bleed This is a 77 year old female with PMHx recent GI bleed with noted ulceration around the gastrojejunal anastomosis, erosion, one nonbleeding jejunal ulcer with visible vessel s/p clips, HTN, HLD, DM, chronic anemia, CAD s/p stents, gastric bypass surgery who presented to the hospital after syncopal episode and found with melanotic stools per staff. All history obtained from medical records and staff providers because the patient required intubation to maintain her airway. Patient was seen by surgical team on prior admission, but the patient signed out AMA before following up with Dr. Yoder in his office. At the office, the patient was pale which prompted her to be sent to the ED where she was eventually discharged after making sure that she was not bleeding at the time. Patient was seen and examined in both the ED and the ICU. She is intubated, and therefore ROS is unobtainable. Per review of the EMR: PMHx: Hyperlipidemia, hypertension, diabetes mellitus, chronic anemia, coronary artery disease s/p stents, history of marginal ulcer, gastric bypass PSHx: Gastric bypass 2006, cardiac catheterization, multiple EGD/colonoscopies Allergies: No known drug allergies Social history: Denies tobacco use, EtOH or illicit drugs Review of Systems - Review of Systems Systems not reviewed;Unavailable: Acuity of Condition, Intubated Past Patient History - Infectious Disease Hx of Infectious Diseases: None - Tetanus Immunizations Tetanus Immunization: Unknown - Past Social History Smoking Status: Former Smoker - CARDIAC Hx Circulatory Problems: Yes (stents in right leg) Hx Hypertension: Yes Hx Peripheral Vascular Disease: Yes - PULMONARY Hx Respiratory Disorders: No - NEUROLOGICAL Hx Neurological Disorder: No - HEENT Hx HEENT Problems: No Other/Comment: reading glasses - RENAL Hx Chronic Kidney Disease: No - ENDOCRINE/METABOLIC Hx Endocrine Disorders: Yes Hx Diabetes Mellitus Type 2: Yes - HEMATOLOGICAL/ONCOLOGICAL Hx Blood Disorders: Yes Hx Anemia: Yes - INTEGUMENTARY Hx Dermatological Problems: No - MUSCULOSKELETAL/RHEUMATOLOGICAL Hx Falls: Yes - GASTROINTESTINAL Hx Gastrointestinal Disorders: Yes Other/Comment: Gi Bleed - GENITOURINARY/GYNECOLOGICAL Hx Hematuria: Yes - PSYCHIATRIC Hx Psychophysiologic Disorder: No Hx Substance Use: No - SURGICAL HISTORY Hx Cardiac Catheterization: Yes (cardiac stents) Hx Coronary Stent: Yes Hx Gastric Bypass Surgery: Yes - ANESTHESIA Hx Anesthesia: Yes Meds Allergies/Adverse Reactions: Allergies Allergy/AdvReac Type Severity Reaction Status Date / Time No Known Allergies Allergy Verified 01/27/18 21:25 - Medications Medications: Current Medications NOREPINEPHRINE BIT/0.9 % NACL (Levophed 4 Mg/ 250 Ml Ns Premixed) 4 mg in 250 mls @ 15 mls/hr IV .[id number] PRN; Protocol; 4 MCG/MIN PRN Reason: TITRATE PER MD ORDER Last Admin: 02/06/18 07:30 Dose: 15 mls/hr Midazolam 100 mg/100ml in NS (Midazolam 100 Mg/100ml In Ns) 100 mg in 100 mls @ 1 mls/hr IV .Q24H PRN; Protocol; 1 MG/HR PRN Reason: Sedation Pantoprazole Sodium (Protonix 40mg Ivpb) 40 mg in 100 mls @ 20 mls/hr IVPB .Q5H AKI Propofol (Diprivan) 1,000 mg in 100 mls @ 2.177 mls/hr IV .Q24H PRN; Protocol; 5 MCG/KG/MIN PRN Reason: TITRATE PER MD ORDER Last Admin: 02/06/18 08:10 Dose: 5 mcg/kg/min, 2.177 mls/hr Physical Exam - Constitutional Appears: Chronically Ill - Head Exam Head Exam: ATRAUMATIC, NORMOCEPHALIC - Eye Exam Eye Exam: Normal appearance - ENT Exam ENT Exam: Mucous Membranes Dry - Neck Exam Additional comments: Right IJ TLC in place - Respiratory Exam Additional comments: Currently on the ventilator - Cardiovascular Exam Cardiovascular Exam: +S1, +S2 - GI/Abdominal Exam GI & Abdominal Exam: Soft. absent: Distended, Tenderness - Extremities Exam Extremities exam: Negative for: pedal edema - Neurological Exam Neurological exam: Altered - Skin Skin Exam: Dry, Warm Results - Vital Signs Recent Vital Signs: Last Vital Signs Temp 95.5 F L 02/06/18 07:11 Pulse 97 H 02/06/18 08:15 Resp 26 H 02/06/18 08:15 BP 77/40 L 02/06/18 08:15 Pulse Ox 100 02/06/18 05:52 - Labs Result Diagrams: 02/06/18 10:40 02/06/18 13:30 Assessment & Plan - Assessment and Plan (Free Text) Assessment: This is a 77 year old female with massive GI bleed requiring rapid transfusion protocol Plan: Rapid transfusion protocol including 4 units of pRBCs, 2 units FFP, 2 units platelets Monitor urine output Q1H H/H monitoring Q4H No obvious signs of bleeding on bedside EGD. Another clip was placed. Repeat H/H in four hours. If the patient still has active bleeding, order a bleeding scan. Continue to monitor for now Discussed with Dr. Faisal Acevedo PGY-1
[2018-02-06 09:34] LABS: ARTERIAL BLOOD GAS HCO3 12.1 mmol/L (21-28); ARTERIAL BLOOD GAS O2 SAT 99.4 % (95-98); ARTERIAL BLOOD GAS PCO2 24 mm/Hg (35-45); ARTERIAL BLOOD GAS PH 7.31 (7.35-7.45); ARTERIAL BLOOD GAS TCO2 12.8 mmol.L (22-28)
--- NOTE | 2018-02-06 09:41 | RAD ---
HISTORY: fever COMPARISON: 01/29/2018 FINDINGS: LUNGS: No active pulmonary disease. PLEURA: No significant pleural effusion identified, no pneumothorax apparent. CARDIOVASCULAR: Normal. OSSEOUS STRUCTURES: No significant abnormalities. VISUALIZED UPPER ABDOMEN: Normal. OTHER FINDINGS: None. IMPRESSION: No active disease.
--- NOTE | 2018-02-06 09:53 | RAD ---
HISTORY: post intubation COMPARISON: 02/06/2018 FINDINGS: LUNGS: No active pulmonary disease. PLEURA: No significant pleural effusion identified, no pneumothorax apparent. CARDIOVASCULAR: Normal. OSSEOUS STRUCTURES: No significant abnormalities. VISUALIZED UPPER ABDOMEN: Normal. OTHER FINDINGS: None. IMPRESSION: The endotracheal tube is in satisfactory position
--- NOTE | 2018-02-06 10:10 | RAD ---
HISTORY: s/p central line and ET tube COMPARISON: 02/06/2018 FINDINGS: LUNGS: No active pulmonary disease. PLEURA: No significant pleural effusion identified, no pneumothorax apparent. CARDIOVASCULAR: Normal. OSSEOUS STRUCTURES: No significant abnormalities. VISUALIZED UPPER ABDOMEN: Normal. OTHER FINDINGS: Endotracheal tube in satisfactory position IMPRESSION: There is a right IJ line that terminates at the junction of the SVC and right atrium. There is no pneumothorax.
[2018-02-06 10:49] LABS: HEMOGLOBIN 10.3 g/dL (12.0-16.0); MEAN CELL VOLUME 84.9 fl (80.0-105.0); MEAN CORPUSCULAR HEMOGLOBIN 28.9 pg (25.0-35.0); MEAN PLATELET VOLUME 11.5 fl (7.0-11.0); RBC 3.57 10^6/uL (3.5-6.1); RED CELL DISTRIBUTION WIDTH 14.4 % (11.5-14.5); WHITE BLOOD COUNT 12.1 10^3/ul (4.5-11.0)
--- NOTE | 2018-02-06 10:51 | CP.PCM.CON ---
<Joey Baird - Last Filed: 02/06/18 11:40> History of Present Illness - History of Present Illness History of Present Illness: ICU Consult Note Pt is a 77 yo F with PMH of HLD, HTN, DM, chronic anemia, CAD s/p stent, marginal ulcer, gastric bypass presented to [facility] ED due to a fall at home. Patient had recently been admitted to the ICU on 01/27/18 for hypotensive shock 2/ 2 upper GI bleed requiring transfusions. EGD was performed and patient was found to have a gastric bypass pouch, gastroesophageal anastomosis characterized by ulceration, hiatal hernia, and 1 non-bleeding ulcer with a non- bleeding visible vessel that was clipped. However, she signed out AMA during that admission. On the same day of AMA, patient was sent by Dr. Yoder from his office to the ED due to weakness to be readmitted. Patient was followed by GI during that admission, stabilized, and discharged. Today, on arrival, patient was noted to have active rectal bleeding, was hypotensive, and had decreased respirations. Patient was given IVF, transfused with O negative blood , placed on pressors, intubated, and sedated. Further HPI and ROS limited due to patient's current mental status. PMH: HLD, HTN, DM, chronic anemia, CAD s/p stent, marginal ulcer, gastric bypass Surg: Gastric bypass (2006), cardiac catherization, EGD/colonscopy All: NKDA SH: Per EMR, no tobacco, EtOH, or illicit drug use FHx: Non-contributory PMD: William Review of Systems - Review of Systems Review of Systems: ROS limited due to patient's current mental status. Past Patient History - Infectious Disease Hx of Infectious Diseases: None - Tetanus Immunizations Tetanus Immunization: Unknown - Past Social History Smoking Status: Former Smoker - CARDIAC Hx Circulatory Problems: Yes (stents in right leg) Hx Hypertension: Yes Hx Peripheral Vascular Disease: Yes - PULMONARY Hx Respiratory Disorders: No - NEUROLOGICAL Hx Neurological Disorder: No - HEENT Hx HEENT Problems: No Other/Comment: reading glasses - RENAL Hx Chronic Kidney Disease: No - ENDOCRINE/METABOLIC Hx Endocrine Disorders: Yes Hx Diabetes Mellitus Type 2: Yes - HEMATOLOGICAL/ONCOLOGICAL Hx Blood Disorders: Yes Hx Anemia: Yes - INTEGUMENTARY Hx Dermatological Problems: No - MUSCULOSKELETAL/RHEUMATOLOGICAL Hx Falls: Yes - GASTROINTESTINAL Hx Gastrointestinal Disorders: Yes Other/Comment: Gi Bleed - GENITOURINARY/GYNECOLOGICAL Hx Hematuria: Yes - PSYCHIATRIC Hx Psychophysiologic Disorder: No Hx Substance Use: No - SURGICAL HISTORY Hx Cardiac Catheterization: Yes (cardiac stents) Hx Coronary Stent: Yes Hx Gastric Bypass Surgery: Yes - ANESTHESIA Hx Anesthesia: Yes Meds Allergies/Adverse Reactions: Allergies Allergy/AdvReac Type Severity Reaction Status Date / Time No Known Allergies Allergy Verified 01/27/18 21:25 - Medications Medications: Current Medications NOREPINEPHRINE BIT/0.9 % NACL (Levophed 4 Mg/ 250 Ml Ns Premixed) 4 mg in 250 mls @ 15 mls/hr IV .[id number] PRN; Protocol; 4 MCG/MIN PRN Reason: TITRATE PER MD ORDER Last Admin: 02/06/18 07:30 Dose: 15 mls/hr Midazolam 100 mg/100ml in NS (Midazolam 100 Mg/100ml In Ns) 100 mg in 100 mls @ 1 mls/hr IV .Q24H PRN; Protocol; 1 MG/HR PRN Reason: Sedation Pantoprazole Sodium (Protonix 40mg Ivpb) 40 mg in 100 mls @ 20 mls/hr IVPB .Q5H AKI Propofol (Diprivan) 1,000 mg in 100 mls @ 2.177 mls/hr IV .Q24H PRN; Protocol; 5 MCG/KG/MIN PRN Reason: TITRATE PER MD ORDER Last Admin: 02/06/18 08:10 Dose: 5 mcg/kg/min, 2.177 mls/hr Insulin Human Regular (Humulin R Med) 0 units SC ACHS AKI PRN Reason: Protocol Physical Exam - Constitutional Appears: In Acute Distress - Head Exam Head Exam: NORMAL INSPECTION - Eye Exam Eye Exam: Normal appearance - ENT Exam Additional comments: ET tube in place - Neck Exam Neck exam: Positive for: Normal Inspection - Respiratory Exam Respiratory Exam: Clear to Auscultation Bilateral. absent: Rales, Rhonchi, Wheezes - Cardiovascular Exam Cardiovascular Exam: Irregular Rhythm, +S1, +S2. absent: Diastolic murmur, Gallop, Rubs, Systolic Murmur - GI/Abdominal Exam GI & Abdominal Exam: Soft. absent: Firm, Guarding, Rebound, Rigid, Tenderness - Extremities Exam Extremities exam: Positive for: normal inspection - Neurological Exam Neurological exam: Alert - Skin Skin Exam: Dry, Intact, Normal Color, Warm Results - Vital Signs Recent Vital Signs: Last Vital Signs Temp 95.5 F L 02/06/18 07:11 Pulse 97 H 02/06/18 08:15 Resp 26 H 02/06/18 08:15 BP 77/40 L 02/06/18 08:15 Pulse Ox 100 02/06/18 05:52 - Labs Result Diagrams: 02/06/18 10:40 02/06/18 06:00 Labs: Laboratory Results - last 24 hr 02/06/18 09:30 pCO2 24 L pO2 563.0 H HCO3 12.1 L ABG pH 7.31 L ABG Total CO2 12.8 L ABG O2 Saturation 99.4 H ABG Base Excess -12.3 L ABG Potassium 3.5 L Sodium 139.0 Chloride 118.0 H Glucose 293 H Lactate 2.7 H Mechanical Rate 18 FiO2 100.0 Tidal Volume 450 PEEP 5 Arterial Blood Potassium 3.5 L Assessment & Plan - Assessment and Plan (Free Text) Assessment: 77 yo F with PMH of HLD, HTN, DM, chronic anemia, CAD s/p stent, marginal ulcer , gastric bypass presented to ED due fall at home was found to be hypotensive, bradypnic, and have active bleeding per rectum. Patient was transfused, placed on pressors, intubated, and sedated. Patient admitted to the ICU due to hypotensive shock 2/2 suspected GI bleed. Plan: Neuro: - Sedated on propofol gtt - Maintain normothermia CV: - EKG shows atrial fibrillation at 76 BPM - Central venous access obtained, placement confirmed with CXR - A-line placed for BP monitoring - Cont Levophed - Maintain MAP > 65 Pulm: - ABG reviewed - ET tube in place, placement confirmed with CXR - Mechanical ventilation at 40/5/14/450 - Maintain O2 > 90% GI: - Emergent EGD today, surgery vs IR pending results - Protonix gtt - GI consulted - Surgery consulted Renal: - Maintain euvolemia - Strict I's and O's Heme: - Transfused 4 units pRBC, 2 units FFP, 2 units platelets - Hgb 5.8 on admission, 10.3 after 4 u pRBC - CBC Q4H - Cont to monitor H/H, PT/INR, PTT Endo: - ISS-med - Accuchecks - Maintain euglycemia ID: - F/u MRSA screen Pt seen and discussed in detail with Dr. Umanzor. Brenton Baird, PGY1 <Scott Umanzor - Last Filed: 02/06/18 12:01> Meds - Medications Medications: Current Medications NOREPINEPHRINE BIT/0.9 % NACL (Levophed 4 Mg/ 250 Ml Ns Premixed) 4 mg in 250 mls @ 15 mls/hr IV .[id number] PRN; Protocol; 4 MCG/MIN PRN Reason: TITRATE PER MD ORDER Last Admin: 02/06/18 07:30 Dose: 15 mls/hr Midazolam 100 mg/100ml in NS (Midazolam 100 Mg/100ml In Ns) 100 mg in 100 mls @ 1 mls/hr IV .Q24H PRN; Protocol; 1 MG/HR PRN Reason: Sedation Pantoprazole Sodium (Protonix 40mg Ivpb) 40 mg in 100 mls @ 20 mls/hr IVPB .Q5H AKI Propofol (Diprivan) 1,000 mg in 100 mls @ 2.177 mls/hr IV .Q24H PRN; Protocol; 5 MCG/KG/MIN PRN Reason: TITRATE PER MD ORDER Last Admin: 02/06/18 08:10 Dose: 5 mcg/kg/min, 2.177 mls/hr Insulin Human Regular (Humulin R Med) 0 units SC ACHS AKI PRN Reason: Protocol Morphine Sulfate (Morphine) 2 mg IVP Q3H PRN PRN Reason: Pain, moderate (4-7) Results - Vital Signs Recent Vital Signs: Last Vital Signs Temp 95.5 F L 02/06/18 07:11 Pulse 97 H 02/06/18 08:15 Resp 26 H 02/06/18 08:15 BP 77/40 L 02/06/18 08:15 Pulse Ox 100 02/06/18 05:52 - Labs Result Diagrams: 02/06/18 10:40 02/06/18 06:00 Labs: Laboratory Results - last 24 hr 02/06/18 02/06/18 09:30 10:40 WBC 12.1 H D RBC 3.57 Hgb 10.3 L D Hct 30.3 L MCV 84.9 D MCH 28.9 MCHC 34.0 RDW 14.4 Plt Count 134 MPV 11.5 H pCO2 24 L pO2 563.0 H HCO3 12.1 L ABG pH 7.31 L ABG Total CO2 12.8 L ABG O2 Saturation 99.4 H ABG Base Excess -12.3 L ABG Potassium 3.5 L Sodium 139.0 Chloride 118.0 H Glucose 293 H Lactate 2.7 H Mechanical Rate 18 FiO2 100.0 Tidal Volume 450 PEEP 5 Arterial Blood Potassium 3.5 L Attending/Attestation - Attestation I have personally seen and examined this patient.: Yes I have fully participated in the care of the patient.: Yes I have reviewed all pertinent clinical information: Yes Notes (Text): 02/06/18 11:57 The patient was seen and examined at the bedside. Patient care was discussed with resident Medical records, lab studies were reviewed and management issues were discussed and formulated. Last 24H events reviewed. Agree with above treatment plans as outlined in ' s note with addition of the following: Acute respiratory failure \ hypoxemia \ Hypovolemic shock \ GI bleed \ Blood loss anemia \ DM 2 \ -hemodynamic monitoring and vasopressor support to maintain MAP>65; continue to titrate levophed -mechanical ventilation and o2 supplementation to maintain Spo2 >90 Pao2>60 -monitor for TV 6ml\kg IBW and plateau pressure <30; CXR and ABG reviewed -f\u Bun\Cr and U\o -GI team seeing pt for EGD as pt is known to them from previous admission with GI bleed -continue PPi IV -f\u serial H\H -s\p 4 PRBC and 1 FFP -monitor and replace e-lites -surgical and IR team consulted on the case -NPO diet and aspiration precautions -ISS and BGM monitoring -DVT \ PUD prophylaxis CCM time excluding teaching and procedures 42min
--- NOTE | 2018-02-06 11:02 | PCM.PROC ---
<AmbrizJaya du - Last Filed: 02/06/18 10:58> Procedures Attestation:: I certify that I have explained the specified Operation(s) or Procedure(s), risks, benefits and reasonable alternatives to the Patient and/or other person responsible. The opportunity was given to ask questions and all questions answered - Arterial Line Right Femoral Aseptic technique was employed throughout the procedure: Hand Hygiene done prior to procedure, Full sterile barriers (mask, hair cover, sterile gown, sterile gloves), Full body sterile drape, Chloraprep Antiseptic: 2 minute prep for Femoral Time Out Performed: Yes Pt. placed on Pulse Ox Monitor: Yes Central Line Prep: Chlorhexidine-Alcohol Combination Local Anesthesia Used: Lidocaine 1% Amount of Anesthesia Used (mls): 5 Ultrasound Used for Placement: Yes Gauge (Size): 20 gauge Technique Used: Guide Wire Technique Secured by: Suture Post procedure dressing: Clear vapor permeable, Chlorhexidine disc (Biopatch) Patient Tolerated Procedure: no complications Immediate Complications: none Additional Comments: Performed by Dr. Brenton Rivers PGY-1 under my direct supervision with attending physician also present. - Central Line Placement Right Internal Jugular Triple Lumen Catheter Aseptic technique was employed throughout the procedure: Hand Hygiene done prior to procedure, Full sterile barriers (mask, hair cover, sterile gown, sterile gloves), Full body sterile drape, Chloraprep Antiseptic: 30 second prep for IJ or SC sites CVP Time Out Performed: Yes Pt. Placed on Pulse Ox Monitor: Yes Central Line Prep: Chlorhexidine-Alcohol Combination Local Anesthesia Used: Lidocaine 1% Amount of Anesthesia Used (mls): 5 Ultrasound Used for Placement: Yes Central Line Lumen Inserted: triple Central Line Length: 20 cm Post Procedure: Sutured in Place, Good Blood Return, All Ports Aspirated, Flushed, Capped, Sterile Dressing Applied Secured by: Securement device (and suture) Post procedure dressing: Clear vapor permeable, Chlorhexidine disc (Biopatch) Post Procedure X-Ray: Yes Patient Tolerated Procedure: Well, No Complications Immediate Complications: None Additional Comments: Performed by me with the assistance of Dr. Brenton Rivers PGY-[address] Scott Umanzor present. <Scott Umanzor - Last Filed: 02/06/18 12:03> Attending/Attestation - Attestation I have personally seen and examined this patient.: Yes I have fully participated in the care of the patient.: Yes I have reviewed all pertinent clinical information, including history, physical exam and plan: Yes Notes (Text): 02/06/18 12:02 I was present and supervised the placement of Emergent right IJ central line and right femoral arterial line.
[2018-02-06] MEDS ORDERED: Morphine 4 mg/ml ISec IVP PRN (11:11)
--- NOTE | 2018-02-06 11:20 | CP.PCM.CON ---
<Hilary Velez - Last Filed: 02/06/18 14:42> History of Present Illness - History of Present Illness History of Present Illness: PGY-[address] Yoder's service 77 yo female with PMH of HLD, HTN, DM, chronic anemia, CAD s/p stent, marginal ulcer, gastric bypass presented [place] [facility] [place] to a fall at home. Patient is intubated on propofol in ICU, history taken from chart. Per ED note patient had recently fall at home and was found to have rectal bleeding upon arrival to the ED. In the ED patient was hypotensive with bradypneic, he was then intubated and admitted to the ICU. Patient was previously admitted to the on 01/27/18 for hypotensive shock 2/2 upper GI bleed requiring transfusions. At that time EGD was performed and patient was found to have a gastric bypass pouch, gastroesophageal anastomosis characterized by ulceration, hiatal hernia, and 1 non-bleeding ulcer with a non-bleeding visible vessel that was clipped. Overnigth in the ED patient was given IVF, transfused with O negative blood, placed on pressors. Further HPI and ROS limited due to intubation. PMH: HLD, HTN, DM, chronic anemia, CAD s/p stent, marginal ulcer, gastric bypass Surg: Gastric bypass (2006), cardiac catherization, EGD/colonscopy All: NKDA Social History: Per EMR, no tobacco, EtOH, or illicit drug use Review of Systems - Review of Systems Systems not reviewed;Unavailable: Intubated Past Patient History - Infectious Disease Hx of Infectious Diseases: None - Tetanus Immunizations Tetanus Immunization: Unknown - Past Social History Smoking Status: Former Smoker - CARDIAC Hx Circulatory Problems: Yes (stents in right leg) Hx Hypertension: Yes Hx Peripheral Vascular Disease: Yes - PULMONARY Hx Respiratory Disorders: No - NEUROLOGICAL Hx Neurological Disorder: No - HEENT Hx HEENT Problems: No Other/Comment: reading glasses - RENAL Hx Chronic Kidney Disease: No - ENDOCRINE/METABOLIC Hx Endocrine Disorders: Yes Hx Diabetes Mellitus Type 2: Yes - HEMATOLOGICAL/ONCOLOGICAL Hx Blood Disorders: Yes Hx Anemia: Yes - INTEGUMENTARY Hx Dermatological Problems: No - MUSCULOSKELETAL/RHEUMATOLOGICAL Hx Falls: Yes - GASTROINTESTINAL Hx Gastrointestinal Disorders: Yes Other/Comment: Gi Bleed - GENITOURINARY/GYNECOLOGICAL Hx Hematuria: Yes - PSYCHIATRIC Hx Psychophysiologic Disorder: No Hx Substance Use: No - SURGICAL HISTORY Hx Cardiac Catheterization: Yes (cardiac stents) Hx Coronary Stent: Yes Hx Gastric Bypass Surgery: Yes - ANESTHESIA Hx Anesthesia: Yes Meds Allergies/Adverse Reactions: Allergies Allergy/AdvReac Type Severity Reaction Status Date / Time No Known Allergies Allergy Verified 01/27/18 21:25 - Medications Medications: Current Medications NOREPINEPHRINE BIT/0.9 % NACL (Levophed 4 Mg/ 250 Ml Ns Premixed) 4 mg in 250 mls @ 15 mls/hr IV .[id number] PRN; Protocol; 4 MCG/MIN PRN Reason: TITRATE PER MD ORDER Last Admin: 02/06/18 07:30 Dose: 15 mls/hr Midazolam 100 mg/100ml in NS (Midazolam 100 Mg/100ml In Ns) 100 mg in 100 mls @ 1 mls/hr IV .Q24H PRN; Protocol; 1 MG/HR PRN Reason: Sedation Pantoprazole Sodium (Protonix 40mg Ivpb) 40 mg in 100 mls @ 20 mls/hr IVPB .Q5H AKI Propofol (Diprivan) 1,000 mg in 100 mls @ 2.177 mls/hr IV .Q24H PRN; Protocol; 5 MCG/KG/MIN PRN Reason: TITRATE PER MD ORDER Last Admin: 02/06/18 08:10 Dose: 5 mcg/kg/min, 2.177 mls/hr Insulin Human Regular (Humulin R Med) 0 units SC ACHS AKI PRN Reason: Protocol Morphine Sulfate (Morphine) 2 mg IVP Q3H PRN PRN Reason: Pain, moderate (4-7) Physical Exam - Constitutional Additional comments: sedated - ENT Exam Additional comments: intubated - Respiratory Exam Respiratory Exam: Clear to Auscultation Bilateral, NORMAL BREATHING PATTERN. absent: Decreased Breath Sounds, Rales, Rhonchi, Wheezes, Respiratory Distress - Cardiovascular Exam Cardiovascular Exam: REGULAR RHYTHM, +S1, +S2. absent: Bradycardia, Tachycardia , Systolic Murmur - GI/Abdominal Exam GI & Abdominal Exam: Normal Bowel Sounds, Soft. absent: Distended, Firm, Guarding - Extremities Exam Extremities exam: Positive for: normal inspection. Negative for: pedal edema, tenderness - Neurological Exam Neurological exam: Alert Additional comments: sedated, responding to verbal stimuli - Skin Skin Exam: Dry, Intact, Pallor, Warm Results - Vital Signs Recent Vital Signs: Last Vital Signs Temp 95.5 F L 02/06/18 07:11 Pulse 97 H 02/06/18 08:15 Resp 26 H 02/06/18 08:15 BP 77/40 L 02/06/18 08:15 Pulse Ox 100 02/06/18 05:52 - Labs Result Diagrams: 02/06/18 10:40 02/06/18 06:00 Labs: Laboratory Results - last 24 hr 02/06/18 02/06/18 09:30 10:40 WBC 12.1 H D RBC 3.57 Hgb 10.3 L D Hct 30.3 L MCV 84.9 D MCH 28.9 MCHC 34.0 RDW 14.4 Plt Count 134 MPV 11.5 H pCO2 24 L pO2 563.0 H HCO3 12.1 L ABG pH 7.31 L ABG Total CO2 12.8 L ABG O2 Saturation 99.4 H ABG Base Excess -12.3 L ABG Potassium 3.5 L Sodium 139.0 Chloride 118.0 H Glucose 293 H Lactate 2.7 H Mechanical Rate 18 FiO2 100.0 Tidal Volume 450 PEEP 5 Arterial Blood Potassium 3.5 L Assessment & Plan - Assessment and Plan (Free Text) Assessment: 77 yo F with PMH of HLD, HTN, DM, chronic anemia, CAD s/p stent, marginal ulcer , gastric bypass presented to ED due fall at home was found to be hypotensive, bradypnic, and have active bleeding per rectum. Patient in the ICU due to hypotensive shock 2/2 suspected GI bleed. GI bleed, status post hematemesis/hematochezia, Acute on chronic anemia, status post 4 units of packed RBC History of gastric bypass, w/ h/o of anastomotic ulcer esophageal diverticulum Coronary artery disease status post stent Hypertension Diabetes mellitus Plan: - Patient placed on pressors, intubated, and sedated - Hgb 5.8 on admission - transfused 3 units pRBC - will recieved 5 more pRBC, as well as FFP nad platelets - Maintain MAP > 65 - Emergent EGD at bedside once patient has recieved 4 units pRBC - May require surgery or IR pending results - continue Protonix drip - Surgery consulted - CBC Q4H - Cont to monitor H/H, PT/INR, PTT - continue care per ICU team case reviewed and discussed with Dr. Yoder. <Paige Yoder V - Last Filed: 02/07/18 02:41> Meds - Medications Medications: Current Medications NOREPINEPHRINE BIT/0.9 % NACL (Levophed 4 Mg/ 250 Ml Ns Premixed) 4 mg in 250 mls @ 15 mls/hr IV .[id number] PRN; Protocol; 4 MCG/MIN PRN Reason: TITRATE PER MD ORDER Last Titration: 02/06/18 10:00 Dose: 0 mcg/min, 0 mls/hr Midazolam 100 mg/100ml in NS (Midazolam 100 Mg/100ml In Ns) 100 mg in 100 mls @ 1 mls/hr IV .Q24H PRN; Protocol; 1 MG/HR PRN Reason: Sedation Pantoprazole Sodium (Protonix 40mg Ivpb) 40 mg in 100 mls @ 20 mls/hr IVPB .Q5H AKI Last Admin: 02/06/18 22:50 Dose: 20 mls/hr Propofol (Diprivan) 1,000 mg in 100 mls @ 2.177 mls/hr IV .Q24H PRN; Protocol; 5 MCG/KG/MIN PRN Reason: TITRATE PER MD ORDER Last Titration: 02/06/18 15:35 Dose: 35 mcg/kg/min, 15.241 mls/hr Insulin Human Regular (Humulin R Med) 0 units SC Q4H AKI PRN Reason: Protocol Last Admin: 02/06/18 22:18 Dose: Not Given Morphine Sulfate (Morphine) 2 mg IVP Q3H PRN PRN Reason: Pain, moderate (4-7) Results - Vital Signs Recent Vital Signs: Last Vital Signs Temp 98.4 F 02/06/18 18:00 Pulse 76 02/06/18 19:00 Resp 36 H 02/06/18 14:00 BP 102/55 L 02/06/18 14:00 Pulse Ox 100 02/06/18 18:00 - Labs Result Diagrams: 02/06/18 21:15 02/06/18 13:30 Labs: Laboratory Results - last 24 hr 02/06/18 02/06/18 02/06/18 09:30 10:40 13:30 WBC 12.1 H D RBC 3.57 Hgb 10.3 L D Hct 30.3 L MCV 84.9 D MCH 28.9 MCHC 34.0 RDW 14.4 Plt Count 134 MPV 11.5 H PT INR APTT pCO2 24 L pO2 563.0 H HCO3 12.1 L ABG pH 7.31 L ABG Total CO2 12.8 L ABG O2 Saturation 99.4 H ABG Base Excess -12.3 L ABG Potassium 3.5 L Sodium 139.0 144 Chloride 118.0 H 113 H Glucose 293 H Lactate 2.7 H Mechanical Rate 18 FiO2 100.0 Tidal Volume 450 PEEP 5 Potassium 4.2 Carbon Dioxide 22 Anion Gap 14 BUN 23 H Creatinine 0.9 Est GFR ( Amer) > 60 Est GFR (Non-Af Amer) > 60 POC Glucose (mg/dL) Random Glucose 226 H Calcium 7.4 L Phosphorus 3.6 Magnesium 1.7 Total Bilirubin 0.7 AST 671 H D ALT 88 H Alkaline Phosphatase 58 Total Protein 5.4 L Albumin 3.0 Globulin 2.4 Albumin/Globulin Ratio 1.2 Arterial Blood Potassium 3.5 L 02/06/18 02/06/18 02/06/18 13:30 15:45 18:03 WBC 11.0 RBC 3.37 L Hgb 9.8 L Hct 28.4 L MCV 84.3 MCH 29.1 MCHC 34.5 RDW 14.8 H Plt Count 128 MPV 10.5 PT 12.8 H INR 1.11 H APTT 27.9 pCO2 pO2 HCO3 ABG pH ABG Total CO2 ABG O2 Saturation ABG Base Excess ABG Potassium Sodium Chloride Glucose Lactate Mechanical Rate FiO2 Tidal Volume PEEP Potassium Carbon Dioxide Anion Gap BUN Creatinine Est GFR ( Amer) Est GFR (Non-Af Amer) POC Glucose (mg/dL) 149 H Random Glucose Calcium Phosphorus Magnesium Total Bilirubin AST ALT Alkaline Phosphatase Total Protein Albumin Globulin Albumin/Globulin Ratio Arterial Blood Potassium 02/06/18 02/06/18 21:15 21:59 WBC 11.0 RBC 3.56 Hgb 10.5 L Hct 30.0 L MCV 84.3 MCH 29.5 MCHC 35.0 RDW 15.0 H Plt Count 129 MPV 11.2 H PT INR APTT pCO2 pO2 HCO3 ABG pH ABG Total CO2 ABG O2 Saturation ABG Base Excess ABG Potassium Sodium Chloride Glucose Lactate Mechanical Rate FiO2 Tidal Volume PEEP Potassium Carbon Dioxide Anion Gap BUN Creatinine Est GFR ( Amer) Est GFR (Non-Af Amer) POC Glucose (mg/dL) 136 H Random Glucose Calcium Phosphorus Magnesium Total Bilirubin AST ALT Alkaline Phosphatase Total Protein Albumin Globulin Albumin/Globulin Ratio Arterial Blood Potassium Attending/Attestation - Attestation I have personally seen and examined this patient.: Yes I have fully participated in the care of the patient.: Yes I have reviewed all pertinent clinical information: Yes Notes (Text): 02/07/18 02:40 p
[2018-02-06] MEDS ORDERED: Insulin Reg-MEDIUM-Coverage SC SCH (11:30)
[2018-02-06] MEDS ORDERED: Propofol 10 mg/ml Inj (20 ML) ONE (13:45)
[2018-02-06] MEDS ORDERED: ePHEDrine 50 mg/ml Inj ONE ×3 (14:01→14:17)
[2018-02-06 14:07] LABS: ALB/GLOB RATIO 1.2 (1.1-1.8); ALT/SGPT 88 U/L (7-56); AST/SGOT 671 U/L (14-36); BLOOD UREA NITROGEN 23 mg/dL (7-21); CALCIUM 7.4 mg/dL (8.4-10.5); GFR AFRICAN-AMERICAN > 60; GFR NON-AFRICAN AMERICAN > 60; INR 1.11 (0.93-1.08); PARTIAL THROMBOPLASTIN TIME 27.9 Seconds (25.1-36.5); PROTHROMBIN TIME 12.8 SECONDS (9.4-12.5)
[2018-02-06 15:50] LABS: HEMOGLOBIN 9.8 g/dL (12.0-16.0); MEAN CELL VOLUME 84.3 fl (80.0-105.0); MEAN CORPUSCULAR HEMOGLOBIN 29.1 pg (25.0-35.0); MEAN CORPUSCULAR HGB CONC 34.5 g/dl (31.0-37.0); MEAN PLATELET VOLUME 10.5 fl (7.0-11.0); RBC 3.37 10^6/uL (3.5-6.1); RED CELL DISTRIBUTION WIDTH 14.8 % (11.5-14.5)
--- NOTE | 2018-02-06 16:52 | CARD ---
APPROVED REPORT EKG Measurement Heart [id number] <Conclusion> Sinus Rhythm with frequent APCs consider old inferior infarct Anterior ST segment elevation, Consider Acute injury pattern ICU was notified Abnormal ECG
[2018-02-06 17:22] VITALS: BMI 26.6
[2018-02-06] MEDS: Insulin Reg-MEDIUM-Coverage SC SCH ×2 (18:30→22:18)
--- NOTE | 2018-02-06 20:06 | CARD ---
APPROVED REPORT EKG Measurement Heart [id number] <Conclusion> Normal sinus rhythm with sinus arrhythmia Left axis deviation Inferior infarct, age undetermined Anterolateral infarct, age undetermined Abnormal ECG
[2018-02-06 21:40] LABS: HEMOGLOBIN 10.5 g/dL (12.0-16.0); MEAN CELL VOLUME 84.3 fl (80.0-105.0); MEAN CORPUSCULAR HEMOGLOBIN 29.5 pg (25.0-35.0); MEAN PLATELET VOLUME 11.2 fl (7.0-11.0); RBC 3.56 10^6/uL (3.5-6.1)
[2018-02-06] MEDS: Pantoprazole 40mg/100mL NS 40 MG/100 ML BAG IVPB SCH (22:50)
[2018-02-07] MEDS: Insulin Reg-MEDIUM-Coverage SC SCH ×6 (02:30→20:26)
[2018-02-07 03:11] LABS: HEMOGLOBIN 10.7 g/dL (12.0-16.0); MEAN CELL VOLUME 84.8 fl (80.0-105.0); MEAN CORPUSCULAR HGB CONC 34.2 g/dl (31.0-37.0); MEAN PLATELET VOLUME 10.5 fl (7.0-11.0); RBC 3.69 10^6/uL (3.5-6.1); RED CELL DISTRIBUTION WIDTH 15.1 % (11.5-14.5); WHITE BLOOD COUNT 11.1 10^3/ul (4.5-11.0)
[2018-02-07 03:28] LABS: ALB/GLOB RATIO 1.2 (1.1-1.8); ALBUMIN 3.1 g/dL (3.0-4.8); ALT/SGPT 110 U/L (7-56); AST/SGOT 695 U/L (14-36); BLOOD UREA NITROGEN 20 mg/dL (7-21); CALCIUM 8.5 mg/dL (8.4-10.5); GFR AFRICAN-AMERICAN > 60; GFR NON-AFRICAN AMERICAN 54
--- NOTE | 2018-02-07 04:10 | HP ---
DATE OF EXAM: 02/06/2018 HISTORY OF PRESENT ILLNESS: This 77-year-old female who was examined in the Critical Care Unit, bed 6, CCU, [facility] today. She presented earlier with unresponsive deconditioned state with hypotension, severe anemia, rectal bleeding and is currently intubated and on IV Diprivan and IV Levophed for sedation, on ventilator and blood pressure support. In the emergency room, she was begun on blood transfusion for initial hemoglobin of 5.8 with a hematocrit of 17.6 with active rectal bleeding. She is awaiting GI evaluation by Dr. Paige Yoder with history of previous angiodysplastic bleeding requiring endoscopy, clipping and cauterization as well as history of gastric ulcer and gastric bypass surgery in the distant past. PAST MEDICAL HISTORY: Also significant for insulin-dependent diabetes mellitus, chronic hypertension and hyperlipidemia. OUTPATIENT MEDICATIONS: Included Protonix, Humulin, regular insulin coverage, Vasotec and Lipitor. ALLERGIES: THE PATIENT HAS NO KNOWN ALLERGIES TO MEDICATION. 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 FAMILY HISTORY: Noncontributory. REVIEW OF SYSTEMS: HEAD REVIEW: There were no reports of head trauma. EYE REVIEW: No change in visual acuity. EAR REVIEW: No hearing loss. THROAT REVIEW: No swallowing difficulty. NECK REVIEW: No stiffness. CARDIAC REVIEW: History of coronary artery stents in her past. PULMONARY: No cough. No hemoptysis. GI: As per HPI. : No dysuria. SKIN: No rash. VASCULAR: No history of claudication. PSYCHOLOGICAL: Chronic anxiety. NEUROLOGICAL: No knowledge of stroke. PHYSICAL EXAMINATION: VITAL SIGNS: At the time of evaluation, showed a temperature of 99, respirations 20, pulse 92, blood pressure was 102/55, on IV Levophed with patient being intubated on ventilator at present. HEENT: Head, normocephalic and atraumatic. Eyes, no icterus. Ears, clear. Throat, noninjected. NECK: Supple. HEART: Regular S1, S2. LUNGS: No wheezing. ABDOMEN: Soft. EXTREMITIES: No edema. SKIN: No rash. VASCULAR: No claudication. PSYCHOLOGIC: Cannot be assessed. NEUROLOGIC: Cannot be assessed. SKIN: Without breakdown. LABORATORY DATA: White count initially 8400, hemoglobin 5.8, hematocrit 17.6, platelets 219,000. Post transfusion, white count 11,000, hemoglobin 9.8, hematocrit 28.4, platelets 128,000. PT/INR 1.1, PTT 27.9. Sodium 144, K 4.2, chloride 113, bicarb 22, BUN 23, creatinine 0.9, random blood sugar 322. Phosphorous 3.6. Bilirubin 0.7, ALT 88, alk phos 58. Blood gas, pH 7.31, PO2 of 563, pCO2 of 24, bicarb 12 on 100% FIO2 with a tidal volume of 450 and PEEP of 5. Chest x-ray was reviewed. It showed no active pulmonary infiltrate, pneumothorax, effusion or congestive heart failure. Her right internal jugular line terminated at the junction of the superior vena cava and the right atrium on x-ray. Her endotracheal tube is in proper position on x-ray. EKG was reviewed. It showed a normal sinus rhythm with nonspecific ST-T wave changes. IMPRESSION: A 77-year-old female, now on ventilatory support, status post hemorrhagic shock secondary to active gastrointestinal bleeding, history of gastric ulcer and angiodysplastic bleeding in the past, status post gastric bypass surgery, now with advanced anemia and hypotension requiring blood transfusion and ventilatory support. Patient will be seen by shoe maker, Dr. Scott Umanzor and Dr. Paige Yoder from GI who needs to perform an endoscopy to see if this can be managed with cauterization and clipping or will require surgical intervention by Dr. Malone, surgeon on consultation as well. The patient will be continued on insulin coverage, norepinephrine, blood pressure support, IV Diprivan for sedation, IV Protonix and has a Santana catheter inserted for fluid inputs and outputs and will have comprehensive metabolic panel, magnesium level, phosphorous level and CBCs monitored serially. Greater than 75 minutes was spent in the care management, review of labs, orders, x-rays and discussion of this case with Intensive Care, physician, nurses and Dr. Paige Yoder from GI. All questions were answered. Jacqueline Thomas MD [facility] # [id number] MARTY
[2018-02-07] MEDS: Pantoprazole 40mg/100mL NS 40 MG/100 ML BAG IVPB SCH ×6 (04:55→22:39)
--- NOTE | 2018-02-07 05:10 | CP.PCM.PN ---
Subjective - Date & Time of Evaluation Date of Evaluation: 02/07/18 Time of Evaluation: 04:15 - Subjective Subjective: Patient seen and examined at bedside. Yesterday patient received 4uPRBC, 2u FFP , and 1 unit of platelets. Patient had no further melena or signs of GI bleed and her blood pressure and heart rate have remained stable with adequate UOP. Patient underwent bedside EGD which showed the area with prior clips on the jejunal ulcer with no active GI bleeding. There was a small area of oozing nearby but that was not thought to be the source of the GI bleed and a new clip was placed on the previously clipped ulcer. Patient is resting comfortably, sedated with propofol Objective - Vital Signs/Intake and Output Vital Signs (last 24 hours): Temp Pulse Resp BP Pulse Ox 98.4 F 76 36 H 102/55 L 100 02/06/18 18:00 02/06/18 19:00 02/06/18 14:00 02/06/18 14:00 02/06/18 18:00 Intake and Output: 02/06/18 02/07/18 18:59 06:59 Intake Total 2253 Output Total 580 Balance 1673 - Medications Medications: Current Medications NOREPINEPHRINE BIT/0.9 % NACL (Levophed 4 Mg/ 250 Ml Ns Premixed) 4 mg in 250 mls @ 15 mls/hr IV .[id number] PRN; Protocol; 4 MCG/MIN PRN Reason: TITRATE PER MD ORDER Last Titration: 02/06/18 10:00 Dose: 0 mcg/min, 0 mls/hr Midazolam 100 mg/100ml in NS (Midazolam 100 Mg/100ml In Ns) 100 mg in 100 mls @ 1 mls/hr IV .Q24H PRN; Protocol; 1 MG/HR PRN Reason: Sedation Pantoprazole Sodium (Protonix 40mg Ivpb) 40 mg in 100 mls @ 20 mls/hr IVPB .Q5H AKI Last Admin: 02/07/18 04:55 Dose: 20 mls/hr Propofol (Diprivan) 1,000 mg in 100 mls @ 2.177 mls/hr IV .Q24H PRN; Protocol; 5 MCG/KG/MIN PRN Reason: TITRATE PER MD ORDER Last Titration: 02/06/18 15:35 Dose: 35 mcg/kg/min, 15.241 mls/hr Insulin Human Regular (Humulin R Med) 0 units SC Q4H AKI PRN Reason: Protocol Last Admin: 02/07/18 02:30 Dose: Not Given Morphine Sulfate (Morphine) 2 mg IVP Q3H PRN PRN Reason: Pain, moderate (4-7) - Labs Labs: 02/07/18 03:00 02/07/18 03:00 PT 12.8 SECONDS (9.4-12.5) H 02/06/18 13:30 INR 1.11 (0.93-1.08) H 02/06/18 13:30 APTT 27.9 Seconds (25.1-36.5) 02/06/18 13:30 - Constitutional Appears: Non-toxic, No Acute Distress - Head Exam Head Exam: ATRAUMATIC, NORMOCEPHALIC - Eye Exam Eye Exam: Normal appearance. absent: Conjunctival injection, Scleral icterus - ENT Exam ENT Exam: Mucous Membranes Moist, Normal Oropharynx - Respiratory Exam Respiratory Exam: NORMAL BREATHING PATTERN. absent: Accessory Muscle Use, Respiratory Distress - GI/Abdominal Exam GI & Abdominal Exam: Soft. absent: Distended, Tenderness - Neurological Exam Neurological Exam: Altered (sedated) - Psychiatric Exam Additional comments: chemically sedated - Skin Skin Exam: Dry, Intact, Normal Color, Warm Assessment and Plan - Assessment and Plan (Free Text) Assessment: 77F with large GI bleed, currently resolved Plan: Continue to monitor vitals, UOP, and abdominal exam closely UOP is adequate but decreasing--may consider adding maintenance IVF Continue the protonix drip Follow up GI recs--may recommend a colonoscopy to rule out lower GI bleed if deemed beneficial by GI H/H stable this AM. Continue to monitor No surgical intervention indicated at this time but will continue to monitor closely Will discuss with Dr. Faisal Alvarez, PGY2
[2018-02-07 06:14] LABS: ARTERIAL BLOOD GAS HCO3 17.4 mmol/L (21-28); ARTERIAL BLOOD GAS HEMOGLOBIN 10.3 g/dL (11.7-17.4); ARTERIAL BLOOD GAS O2 CAPACITY 14.6 mL/dl (16-24); ARTERIAL BLOOD GAS O2 CONTENT 14.5 ML/dl (15-23); ARTERIAL BLOOD GAS PCO2 25 mm/Hg (35-45); ARTERIAL BLOOD GAS PH 7.45 (7.35-7.45); ARTERIAL BLOOD GAS TCO2 18.2 mmol.L (22-28)
[2018-02-07] MEDS: Propofol 10 mg/ml 1,000 MG/100 ML VIAL IV PRN (06:40)
[2018-02-07 10:27] LABS: HEMOGLOBIN 10.8 g/dL (12.0-16.0); MEAN CELL VOLUME 85.1 fl (80.0-105.0); MEAN CORPUSCULAR HEMOGLOBIN 29.3 pg (25.0-35.0); MEAN CORPUSCULAR HGB CONC 34.5 g/dl (31.0-37.0); MEAN PLATELET VOLUME 11.8 fl (7.0-11.0); RBC 3.68 10^6/uL (3.5-6.1); RED CELL DISTRIBUTION WIDTH 15.4 % (11.5-14.5); WHITE BLOOD COUNT 11.4 10^3/ul (4.5-11.0)
--- NOTE | 2018-02-07 12:15 | CP.CCUPN ---
<Joey Baird - Last Filed: 02/07/18 12:11> CCU Subjective - Physician Review Subjective (Free Text): ICU Progress Note Pt seen and examined at bedside. No acute overnight events. Patient intubated on sedation. Hgb stable overnight. Vital signs stable overnight. ROS unobtainable due to patient's mental status. CCU Objective - Vital Signs / Intake & Output Intake and Output (Last 8hrs): Intake & Output 02/06/18 02/07/18 02/07/18 22:59 06:59 14:59 Intake Total 2218 400 Output Total 580 600 Balance 1638 -200 Weight 75.296 kg Intake: IV 80 400 Right Hand 300 Oral 0 Tube Feeding 0 Blood Product 2138 0 Output: Urine 580 600 Urethral ([place]) 580 600 Stool 0 - Physical Exam Head: Positive for: Atraumatic, Normocephalic Pupils: Positive for: PERRL Extroacular Muscles: Positive for: EOMI Conjunctiva: Positive for: Normal Mouth: Positive for: Moist Mucous Membranes, Other (ETT in place) Neck: Positive for: Normal Range of Motion Respiratory/Chest: Positive for: Clear to Auscultation, Good Air Exchange. Negative for: Respiratory Distress, Accessory Muscle Use, Wheezes, Rales, Rhonchi Cardiovascular: Positive for: Regular Rate and Rhythm, Normal S1, S2. Negative for: Murmurs Abdomen: Negative for: Tenderness, Distention, Peritoneal Signs, Rebound, Guarding Back: Positive for: Normal Inspection Upper Extremity: Positive for: Normal Inspection. Negative for: Cyanosis, Edema Lower Extremity: Positive for: Normal Inspection. Negative for: Edema Skin: Positive for: Warm, Dry, Normal Color. Negative for: Rashes - Medications Active Medications: Active Medications Generic Name Dose Route Start Last Admin Trade Name Freq PRN Reason Stop Dose Admin NOREPINEPHRINE BIT/0.9 % NACL 4 mg in 250 mls @ 15 mls/hr 02/06/18 07:12 10:00 Levophed 4 Mg/ 250 Ml Ns Premixed IV 0 mcg/min .[id number] PRN 0 mls/hr TITRATE PER MD ORDER Titration Protocol 4 MCG/MIN Midazolam 100 mg/100ml in NS 100 mg in 100 mls @ 1 mls/hr 02/06/18 07:15 Midazolam 100 Mg/100ml In Ns IV .Q24H PRN Sedation Protocol 1 MG/HR Pantoprazole Sodium 40 mg in 100 mls @ 20 mls/hr 02/06/18 07:30 02/07/18 10: 31 Protonix 40mg Ivpb IVPB 20 mls/hr .Q5H AKI Administration Propofol 1,000 mg in 100 mls @ 2.177 mls/hr 02/06/18 08:50 02/07/18 06:40 Diprivan IV 35 mcg/kg/min .Q24H PRN 15.241 mls/hr TITRATE PER MD ORDER Administration Protocol 5 MCG/KG/MIN Lactated Ringer's 1,000 ml/ IV 1,000 mls @ 100 mls/hr 02/07/18 10:02 10:28 SUPPLIES IV 02/07/18 20:01 100 mls/hr ONCE ONE Administration Insulin Human Regular 0 units 02/07/18 08:00 02/07/18 09:22 Humulin R Med SC Not Given Q6H AKI Protocol Morphine Sulfate 2 mg 02/06/18 11:11 Morphine IVP Q3H PRN Pain, moderate (4-7) - Patient Studies Lab Studies: Lab Studies 02/07/18 02/07/18 02/07/18 Range/Units 09:00 08:58 06:45 WBC 11.4 H (4.5-11.0) 10^3/ul RBC 3.68 (3.5-6.1) 10^6/uL Hgb 10.8 L (12.0-16.0) g/dL Hct 31.3 L (36.0-48.0) % MCV 85.1 (80.0-105.0) fl MCH 29.3 (25.0-35.0) pg MCHC 34.5 (31.0-37.0) g/dl RDW 15.4 H (11.5-14.5) % Plt Count 127 (120.0-450.0) 10^3/uL MPV 11.8 H (7.0-11.0) fl PT (9.4-12.5) SECONDS INR (0.93-1.08) APTT (25.1-36.5) Seconds pCO2 (35-45) mm/Hg pO2 (80-100) mm/Hg HCO3 (21-28) mmol/L ABG pH (7.35-7.45) ABG Total CO2 (22-28) mmol.L ABG O2 Saturation (95-98) % ABG O2 Content (15-23) ML/dl ABG Base Excess (-2.0-3.0) mmol/L ABG Hemoglobin (11.7-17.4) g/dL ABG Carboxyhemoglobin (0.5-1.5) % POC ABG HHb (Measured) (0-5) % ABG Methemoglobin (0.0-3.0) % ABG O2 Capacity (16-24) mL/dl Hgb O2 Saturation (95.0-98.0) % FiO2 % Sodium (132-148) mmol/L Potassium (3.6-5.0) mmol/L Chloride (98-107) mmol/L Carbon Dioxide (21-33) mmol/L Anion Gap (10-20) BUN (7-21) mg/dL Creatinine (0.7-1.2) mg/dl Est GFR ( Amer) Est GFR (Non-Af Amer) POC Glucose (mg/dL) 159 H 129 H (65-110) mg/dL Random Glucose (70-110) mg/dL Calcium (8.4-10.5) mg/dL Phosphorus (2.5-4.5) mg/dL Magnesium (1.7-2.2) mg/dL Total Bilirubin (0.2-1.3) mg/dL AST (14-36) U/L ALT (7-56) U/L Alkaline Phosphatase (38-126) U/L Total Protein (5.8-8.3) g/dL Albumin (3.0-4.8) g/dL Globulin gm/dL Albumin/Globulin Ratio (1.1-1.8) 02/07/18 02/07/18 02/07/18 Range/Units 06:00 03:00 03:00 WBC 11.1 H (4.5-11.0) 10^3/ul RBC 3.69 (3.5-6.1) 10^6/uL Hgb 10.7 L (12.0-16.0) g/dL Hct 31.3 L (36.0-48.0) % MCV 84.8 (80.0-105.0) fl MCH 29.0 (25.0-35.0) pg MCHC 34.2 (31.0-37.0) g/dl RDW 15.1 H (11.5-14.5) % Plt Count 123 (120.0-450.0) 10^3/uL MPV 10.5 (7.0-11.0) fl PT (9.4-12.5) SECONDS INR (0.93-1.08) APTT (25.1-36.5) Seconds pCO2 25 L (35-45) mm/Hg pO2 198.0 H (80-100) mm/Hg HCO3 17.4 L (21-28) mmol/L ABG pH 7.45 (7.35-7.45) ABG Total CO2 18.2 L (22-28) mmol.L ABG O2 Saturation 99.0 H (95-98) % ABG O2 Content 14.5 L (15-23) ML/dl ABG Base Excess -5.4 L (-2.0-3.0) mmol/L ABG Hemoglobin 10.3 L (11.7-17.4) g/dL ABG Carboxyhemoglobin 1.2 (0.5-1.5) % POC ABG HHb (Measured) 1.0 (0-5) % ABG Methemoglobin 1.2 (0.0-3.0) % ABG O2 Capacity 14.6 L (16-24) mL/dl Hgb O2 Saturation 96.6 (95.0-98.0) % FiO2 40.0 % Sodium 144 (132-148) mmol/L Potassium 4.4 (3.6-5.0) mmol/L Chloride 115 H (98-107) mmol/L Carbon Dioxide 22 (21-33) mmol/L Anion Gap 12 (10-20) BUN 20 (7-21) mg/dL Creatinine 1.0 (0.7-1.2) mg/dl Est GFR ( Amer) > 60 Est GFR (Non-Af Amer) 54 POC Glucose (mg/dL) (65-110) mg/dL Random Glucose 162 H (70-110) mg/dL Calcium 8.5 (8.4-10.5) mg/dL Phosphorus 3.9 (2.5-4.5) mg/dL Magnesium 1.8 (1.7-2.2) mg/dL Total Bilirubin 0.8 (0.2-1.3) mg/dL AST 695 H (14-36) U/L ALT 110 H (7-56) U/L Alkaline Phosphatase 63 (38-126) U/L Total Protein 5.8 (5.8-8.3) g/dL Albumin 3.1 (3.0-4.8) g/dL Globulin 2.6 gm/dL Albumin/Globulin Ratio 1.2 (1.1-1.8) 02/07/18 02/06/18 02/06/18 Range/Units 02:01 21:59 21:15 WBC 11.0 (4.5-11.0) 10^3/ul RBC 3.56 (3.5-6.1) 10^6/uL Hgb 10.5 L (12.0-16.0) g/dL Hct 30.0 L (36.0-48.0) % MCV 84.3 (80.0-105.0) fl MCH 29.5 (25.0-35.0) pg MCHC 35.0 (31.0-37.0) g/dl RDW 15.0 H (11.5-14.5) % Plt Count 129 (120.0-450.0) 10^3/uL MPV 11.2 H (7.0-11.0) fl PT (9.4-12.5) SECONDS INR (0.93-1.08) APTT (25.1-36.5) Seconds pCO2 (35-45) mm/Hg pO2 (80-100) mm/Hg HCO3 (21-28) mmol/L ABG pH (7.35-7.45) ABG Total CO2 (22-28) mmol.L ABG O2 Saturation (95-98) % ABG O2 Content (15-23) ML/dl ABG Base Excess (-2.0-3.0) mmol/L ABG Hemoglobin (11.7-17.4) g/dL ABG Carboxyhemoglobin (0.5-1.5) % POC ABG HHb (Measured) (0-5) % ABG Methemoglobin (0.0-3.0) % ABG O2 Capacity (16-24) mL/dl Hgb O2 Saturation (95.0-98.0) % FiO2 % Sodium (132-148) mmol/L Potassium (3.6-5.0) mmol/L Chloride (98-107) mmol/L Carbon Dioxide (21-33) mmol/L Anion Gap (10-20) BUN (7-21) mg/dL Creatinine (0.7-1.2) mg/dl Est GFR ( Amer) Est GFR (Non-Af Amer) POC Glucose (mg/dL) 139 H 136 H (65-110) mg/dL Random Glucose (70-110) mg/dL Calcium (8.4-10.5) mg/dL Phosphorus (2.5-4.5) mg/dL Magnesium (1.7-2.2) mg/dL Total Bilirubin (0.2-1.3) mg/dL AST (14-36) U/L ALT (7-56) U/L Alkaline Phosphatase (38-126) U/L Total Protein (5.8-8.3) g/dL Albumin (3.0-4.8) g/dL Globulin gm/dL Albumin/Globulin Ratio (1.1-1.8) 02/06/18 02/06/18 02/06/18 Range/Units 18:03 15:45 13:30 WBC 11.0 (4.5-11.0) 10^3/ul RBC 3.37 L (3.5-6.1) 10^6/uL Hgb 9.8 L (12.0-16.0) g/dL Hct 28.4 L (36.0-48.0) % MCV 84.3 (80.0-105.0) fl MCH 29.1 (25.0-35.0) pg MCHC 34.5 (31.0-37.0) g/dl RDW 14.8 H (11.5-14.5) % Plt Count 128 (120.0-450.0) 10^3/uL MPV 10.5 (7.0-11.0) fl PT 12.8 H (9.4-12.5) SECONDS INR 1.11 H (0.93-1.08) APTT 27.9 (25.1-36.5) Seconds pCO2 (35-45) mm/Hg pO2 (80-100) mm/Hg HCO3 (21-28) mmol/L ABG pH (7.35-7.45) ABG Total CO2 (22-28) mmol.L ABG O2 Saturation (95-98) % ABG O2 Content (15-23) ML/dl ABG Base Excess (-2.0-3.0) mmol/L ABG Hemoglobin (11.7-17.4) g/dL ABG Carboxyhemoglobin (0.5-1.5) % POC ABG HHb (Measured) (0-5) % ABG Methemoglobin (0.0-3.0) % ABG O2 Capacity (16-24) mL/dl Hgb O2 Saturation (95.0-98.0) % FiO2 % Sodium (132-148) mmol/L Potassium (3.6-5.0) mmol/L Chloride (98-107) mmol/L Carbon Dioxide (21-33) mmol/L Anion Gap (10-20) BUN (7-21) mg/dL Creatinine (0.7-1.2) mg/dl Est GFR ( Amer) Est GFR (Non-Af Amer) POC Glucose (mg/dL) 149 H (65-110) mg/dL Random Glucose (70-110) mg/dL Calcium (8.4-10.5) mg/dL Phosphorus (2.5-4.5) mg/dL Magnesium (1.7-2.2) mg/dL Total Bilirubin (0.2-1.3) mg/dL AST (14-36) U/L ALT (7-56) U/L Alkaline Phosphatase (38-126) U/L Total Protein (5.8-8.3) g/dL Albumin (3.0-4.8) g/dL Globulin gm/dL Albumin/Globulin Ratio (1.1-1.8) /18/18 Range/Units 13:30 WBC (4.5-11.0) 10^3/ul RBC (3.5-6.1) 10^6/uL Hgb (12.0-16.0) g/dL Hct (36.0-48.0) % MCV (80.0-105.0) fl MCH (25.0-35.0) pg MCHC (31.0-37.0) g/dl RDW (11.5-14.5) % Plt Count (120.0-450.0) 10^3/uL MPV (7.0-11.0) fl PT (9.4-12.5) SECONDS INR (0.93-1.08) APTT (25.1-36.5) Seconds pCO2 (35-45) mm/Hg pO2 (80-100) mm/Hg HCO3 (21-28) mmol/L ABG pH (7.35-7.45) ABG Total CO2 (22-28) mmol.L ABG O2 Saturation (95-98) % ABG O2 Content (15-23) ML/dl ABG Base Excess (-2.0-3.0) mmol/L ABG Hemoglobin (11.7-17.4) g/dL ABG Carboxyhemoglobin (0.5-1.5) % POC ABG HHb (Measured) (0-5) % ABG Methemoglobin (0.0-3.0) % ABG O2 Capacity (16-24) mL/dl Hgb O2 Saturation (95.0-98.0) % FiO2 % Sodium 144 (132-148) mmol/L Potassium 4.2 (3.6-5.0) mmol/L Chloride 113 H (98-107) mmol/L Carbon Dioxide 22 (21-33) mmol/L Anion Gap 14 (10-20) BUN 23 H (7-21) mg/dL Creatinine 0.9 (0.7-1.2) mg/dl Est GFR ( Amer) > 60 Est GFR (Non-Af Amer) > 60 POC Glucose (mg/dL) (65-110) mg/dL Random Glucose 226 H (70-110) mg/dL Calcium 7.4 L (8.4-10.5) mg/dL Phosphorus 3.6 (2.5-4.5) mg/dL Magnesium 1.7 (1.7-2.2) mg/dL Total Bilirubin 0.7 (0.2-1.3) mg/dL AST 671 H D (14-36) U/L ALT 88 H (7-56) U/L Alkaline Phosphatase 58 (38-126) U/L Total Protein 5.4 L (5.8-8.3) g/dL Albumin 3.0 (3.0-4.8) g/dL Globulin 2.4 gm/dL Albumin/Globulin Ratio 1.2 (1.1-1.8) Laboratory Results - last 24 hr 02/06/18 02/06/18 02/06/18 13:30 13:30 15:45 WBC 11.0 RBC 3.37 L Hgb 9.8 L Hct 28.4 L MCV 84.3 MCH 29.1 MCHC 34.5 RDW 14.8 H Plt Count 128 MPV 10.5 PT 12.8 H INR 1.11 H APTT 27.9 pCO2 pO2 HCO3 ABG pH ABG Total CO2 ABG O2 Saturation ABG O2 Content ABG Base Excess ABG Hemoglobin ABG Carboxyhemoglobin POC ABG HHb (Measured) ABG Methemoglobin ABG O2 Capacity Hgb O2 Saturation FiO2 Sodium 144 Potassium 4.2 Chloride 113 H Carbon Dioxide 22 Anion Gap 14 BUN 23 H Creatinine 0.9 Est GFR ( Amer) > 60 Est GFR (Non-Af Amer) > 60 POC Glucose (mg/dL) Random Glucose 226 H Calcium 7.4 L Phosphorus 3.6 Magnesium 1.7 Total Bilirubin 0.7 AST 671 H D ALT 88 H Alkaline Phosphatase 58 Total Protein 5.4 L Albumin 3.0 Globulin 2.4 Albumin/Globulin Ratio 1.2 02/06/18 02/06/18 02/06/18 18:03 21:15 21:59 WBC 11.0 RBC 3.56 Hgb 10.5 L Hct 30.0 L MCV 84.3 MCH 29.5 MCHC 35.0 RDW 15.0 H Plt Count 129 MPV 11.2 H PT INR APTT pCO2 pO2 HCO3 ABG pH ABG Total CO2 ABG O2 Saturation ABG O2 Content ABG Base Excess ABG Hemoglobin ABG Carboxyhemoglobin POC ABG HHb (Measured) ABG Methemoglobin ABG O2 Capacity Hgb O2 Saturation FiO2 Sodium Potassium Chloride Carbon Dioxide Anion Gap BUN Creatinine Est GFR ( Amer) Est GFR (Non-Af Amer) POC Glucose (mg/dL) 149 H 136 H Random Glucose Calcium Phosphorus Magnesium Total Bilirubin AST ALT Alkaline Phosphatase Total Protein Albumin Globulin Albumin/Globulin Ratio 02/07/18 02/07/1802/07/18 02:01 03:00 03:00 WBC 11.1 H RBC 3.69 Hgb 10.7 L Hct 31.3 L MCV 84.8 MCH 29.0 MCHC 34.2 RDW 15.1 H Plt Count 123 MPV 10.5 PT INR APTT pCO2 pO2 HCO3 ABG pH ABG Total CO2 ABG O2 Saturation ABG O2 Content ABG Base Excess ABG Hemoglobin ABG Carboxyhemoglobin POC ABG HHb (Measured) ABG Methemoglobin ABG O2 Capacity Hgb O2 Saturation FiO2 Sodium 144 Potassium 4.4 Chloride 115 H Carbon Dioxide 22 Anion Gap 12 BUN 20 Creatinine 1.0 Est GFR ( Amer) > 60 Est GFR (Non-Af Amer) 54 POC Glucose (mg/dL) 139 H Random Glucose 162 H Calcium 8.5 Phosphorus 3.9 Magnesium 1.8 Total Bilirubin 0.8 AST 695 H ALT 110 H Alkaline Phosphatase 63 Total Protein 5.8 Albumin 3.1 Globulin 2.6 Albumin/Globulin Ratio 1.2 02/07/18 02/07/18 02/07/18 06:00 06:45 08:58 WBC RBC Hgb Hct MCV MCH MCHC RDW Plt Count MPV PT INR APTT pCO2 25 L pO2 198.0 H HCO3 17.4 L ABG pH 7.45 ABG Total CO2 18.2 L ABG O2 Saturation 99.0 H ABG O2 Content 14.5 L ABG Base Excess -5.4 L ABG Hemoglobin 10.3 L ABG Carboxyhemoglobin 1.2 POC ABG HHb (Measured) 1.0 ABG Methemoglobin 1.2 ABG O2 Capacity 14.6 L Hgb O2 Saturation 96.6 FiO2 40.0 Sodium Potassium Chloride Carbon Dioxide Anion Gap BUN Creatinine Est GFR ( Amer) Est GFR (Non-Af Amer) POC Glucose (mg/dL) 129 H 159 H Random Glucose Calcium Phosphorus Magnesium Total Bilirubin AST ALT Alkaline Phosphatase Total Protein Albumin Globulin Albumin/Globulin Ratio 02/07/18 09:00 WBC 11.4 H RBC 3.68 Hgb 10.8 L Hct 31.3 L MCV 85.1 MCH 29.3 MCHC 34.5 RDW 15.4 H Plt Count 127 MPV 11.8 H PT INR APTT pCO2 pO2 HCO3 ABG pH ABG Total CO2 ABG O2 Saturation ABG O2 Content ABG Base Excess ABG Hemoglobin ABG Carboxyhemoglobin POC ABG HHb (Measured) ABG Methemoglobin ABG O2 Capacity Hgb O2 Saturation FiO2 Sodium Potassium Chloride Carbon Dioxide Anion Gap BUN Creatinine Est GFR ( Amer) Est GFR (Non-Af Amer) POC Glucose (mg/dL) Random Glucose Calcium Phosphorus Magnesium Total Bilirubin AST ALT Alkaline Phosphatase Total Protein Albumin Globulin Albumin/Globulin Ratio EKG/Cardiology Studies: Cardiology / EKG Studies 02/06/18 16:47 EKG [ELECTROCARDIOGRAM] Stat Comment: Reason For Exam: follow up Fingerstick Blood Sugar Results: 149 Assessment/Plan - Assessment and Plan (Free Text) Assessment: 77 yo F with PMH of HLD, HTN, DM, chronic anemia, CAD s/p stent, marginal ulcer , gastric bypass presented to ED due fall at home was found to be hypotensive, bradypnic, and have active bleeding per rectum. Patient admitted to the ICU due to hypotensive shock 2/2 GI bleed. Hgb stable overnight. Patient extubated. Plan: Neuro: - Off sedation - AAOx1 - Maintain normothermia CV: - Hemodynamically stable - EKG shows atrial fibrillation at 76 BPM, repeat EKG showed NSR - Central venous access obtained, placement confirmed with CXR - A-line placed for BP monitoring - Off pressors - Maintain MAP > 65 Pulm: - ABG reviewed - Extubated - Maintain O2 > 90% GI: - EGD on 02/06: one clipped placed, no active bleeding visualized - Protonix gtt - Swallow eval and treat - GI consulted - Surgery consulted Renal: - Maintain euvolemia - Strict I's and O's Heme: - Transfused 4 units pRBC, 2 units FFP, 2 units platelets overall - Hgb stable overnight - CBC Q6H - Cont to monitor H/H Endo: - ISS-med - Accuchecks - Maintain euglycemia ID: - F/u MRSA screen Pt seen and discussed in detail with Dr. Caro. Brenton Baird, PGY1 <Idris Caro - Last Filed: 02/07/18 15:07> CCU Objective - Vital Signs / Intake & Output Intake and Output (Last 8hrs): Intake & Output 02/07/18 02/07/18 02/07/18 06:59 14:59 22:59 Intake Total 400 Output Total 600 Balance -200 Weight 166 lb Intake: IV 400 Right Hand 300 Oral 0 Tube Feeding 0 Blood Product 0 Output: Urine 600 Urethral ([place]) 600 Stool 0 - Medications Active Medications: Active Medications Generic Name Dose Route Start Last Admin Trade Name Freq PRN Reason Stop Dose Admin NOREPINEPHRINE BIT/0.9 % NACL 4 mg in 250 mls @ 15 mls/hr 02/06/18 07:12 10:00 Levophed 4 Mg/ 250 Ml Ns Premixed IV 0 mcg/min .[id number] PRN 0 mls/hr TITRATE PER MD ORDER Titration Protocol 4 MCG/MIN Midazolam 100 mg/100ml in NS 100 mg in 100 mls @ 1 mls/hr 02/06/18 07:15 Midazolam 100 Mg/100ml In Ns IV .Q24H PRN Sedation Protocol 1 MG/HR Pantoprazole Sodium 40 mg in 100 mls @ 20 mls/hr 02/06/18 07:30 02/07/18 10: 31 Protonix 40mg Ivpb IVPB 20 mls/hr .Q5H AKI Administration Propofol 1,000 mg in 100 mls @ 2.177 mls/hr 02/06/18 08:50 02/07/18 06:40 Diprivan IV 35 mcg/kg/min .Q24H PRN 15.241 mls/hr TITRATE PER MD ORDER Administration Protocol 5 MCG/KG/MIN Lactated Ringer's 1,000 ml/ IV 1,000 mls @ 100 mls/hr 02/07/18 10:02 10:28 SUPPLIES IV 02/07/18 20:01 100 mls/hr ONCE ONE Administration Insulin Human Regular 0 units 02/07/18 08:00 02/07/18 09:22 Humulin R Med SC Not Given Q6H AKI Protocol Morphine Sulfate 2 mg 02/06/18 11:11 Morphine IVP Q3H PRN Pain, moderate (4-7) - Patient Studies Lab Studies: Lab Studies 02/07/18 02/07/18 02/07/18 Range/Units 09:00 08:58 06:45 WBC 11.4 H (4.5-11.0) 10^3/ul RBC 3.68 (3.5-6.1) 10^6/uL Hgb 10.8 L (12.0-16.0) g/dL Hct 31.3 L (36.0-48.0) % MCV 85.1 (80.0-105.0) fl MCH 29.3 (25.0-35.0) pg MCHC 34.5 (31.0-37.0) g/dl RDW 15.4 H (11.5-14.5) % Plt Count 127 (120.0-450.0) 10^3/uL MPV 11.8 H (7.0-11.0) fl pCO2 (35-45) mm/Hg pO2 (80-100) mm/Hg HCO3 (21-28) mmol/L ABG pH (7.35-7.45) ABG Total CO2 (22-28) mmol.L ABG O2 Saturation (95-98) % ABG O2 Content (15-23) ML/dl ABG Base Excess (-2.0-3.0) mmol/L ABG Hemoglobin (11.7-17.4) g/dL ABG Carboxyhemoglobin (0.5-1.5) % POC ABG HHb (Measured) (0-5) % ABG Methemoglobin (0.0-3.0) % ABG O2 Capacity (16-24) mL/dl Hgb O2 Saturation (95.0-98.0) % FiO2 % Sodium (132-148) mmol/L Potassium (3.6-5.0) mmol/L Chloride (98-107) mmol/L Carbon Dioxide (21-33) mmol/L Anion Gap (10-20) BUN (7-21) mg/dL Creatinine (0.7-1.2) mg/dl Est GFR ( Amer) Est GFR (Non-Af Amer) POC Glucose (mg/dL) 159 H 129 H (65-110) mg/dL Random Glucose (70-110) mg/dL Calcium (8.4-10.5) mg/dL Phosphorus (2.5-4.5) mg/dL Magnesium (1.7-2.2) mg/dL Total Bilirubin (0.2-1.3) mg/dL AST (14-36) U/L ALT (7-56) U/L Alkaline Phosphatase (38-126) U/L Total Protein (5.8-8.3) g/dL Albumin (3.0-4.8) g/dL Globulin gm/dL Albumin/Globulin Ratio (1.1-1.8) 02/07/18 02/07/18 02/07/18 Range/Units 06:00 03:00 03:00 WBC 11.1 H (4.5-11.0) 10^3/ul RBC 3.69 (3.5-6.1) 10^6/uL Hgb 10.7 L (12.0-16.0) g/dL Hct 31.3 L (36.0-48.0) % MCV 84.8 (80.0-105.0) fl MCH 29.0 (25.0-35.0) pg MCHC 34.2 (31.0-37.0) g/dl RDW 15.1 H (11.5-14.5) % Plt Count 123 (120.0-450.0) 10^3/uL MPV 10.5 (7.0-11.0) fl pCO2 25 L (35-45) mm/Hg pO2 198.0 H (80-100) mm/Hg HCO3 17.4 L (21-28) mmol/L ABG pH 7.45 (7.35-7.45) ABG Total CO2 18.2 L (22-28) mmol.L ABG O2 Saturation 99.0 H (95-98) % ABG O2 Content 14.5 L (15-23) ML/dl ABG Base Excess -5.4 L (-2.0-3.0) mmol/L ABG Hemoglobin 10.3 L (11.7-17.4) g/dL ABG Carboxyhemoglobin 1.2 (0.5-1.5) % POC ABG HHb (Measured) 1.0 (0-5) % ABG Methemoglobin 1.2 (0.0-3.0) % ABG O2 Capacity 14.6 L (16-24) mL/dl Hgb O2 Saturation 96.6 (95.0-98.0) % FiO2 40.0 % Sodium 144 (132-148) mmol/L Potassium 4.4 (3.6-5.0) mmol/L Chloride 115 H (98-107) mmol/L Carbon Dioxide 22 (21-33) mmol/L Anion Gap 12 (10-20) BUN 20 (7-21) mg/dL Creatinine 1.0 (0.7-1.2) mg/dl Est GFR ( Amer) > 60 Est GFR (Non-Af Amer) 54 POC Glucose (mg/dL) (65-110) mg/dL Random Glucose 162 H (70-110) mg/dL Calcium 8.5 (8.4-10.5) mg/dL Phosphorus 3.9 (2.5-4.5) mg/dL Magnesium 1.8 (1.7-2.2) mg/dL Total Bilirubin 0.8 (0.2-1.3) mg/dL AST 695 H (14-36) U/L ALT 110 H (7-56) U/L Alkaline Phosphatase 63 (38-126) U/L Total Protein 5.8 (5.8-8.3) g/dL Albumin 3.1 (3.0-4.8) g/dL Globulin 2.6 gm/dL Albumin/Globulin Ratio 1.2 (1.1-1.8) 02/07/18 02/06/18 02/06/18 Range/Units 02:01 21:59 21:15 WBC 11.0 (4.5-11.0) 10^3/ul RBC 3.56 (3.5-6.1) 10^6/uL Hgb 10.5 L (12.0-16.0) g/dL Hct 30.0 L (36.0-48.0) % MCV 84.3 (80.0-105.0) fl MCH 29.5 (25.0-35.0) pg MCHC 35.0 (31.0-37.0) g/dl RDW 15.0 H (11.5-14.5) % Plt Count 129 (120.0-450.0) 10^3/uL MPV 11.2 H (7.0-11.0) fl pCO2 (35-45) mm/Hg pO2 (80-100) mm/Hg HCO3 (21-28) mmol/L ABG pH (7.35-7.45) ABG Total CO2 (22-28) mmol.L ABG O2 Saturation (95-98) % ABG O2 Content (15-23) ML/dl ABG Base Excess (-2.0-3.0) mmol/L ABG Hemoglobin (11.7-17.4) g/dL ABG Carboxyhemoglobin (0.5-1.5) % POC ABG HHb (Measured) (0-5) % ABG Methemoglobin (0.0-3.0) % ABG O2 Capacity (16-24) mL/dl Hgb O2 Saturation (95.0-98.0) % FiO2 % Sodium (132-148) mmol/L Potassium (3.6-5.0) mmol/L Chloride (98-107) mmol/L Carbon Dioxide (21-33) mmol/L Anion Gap (10-20) BUN (7-21) mg/dL Creatinine (0.7-1.2) mg/dl Est GFR ( Amer) Est GFR (Non-Af Amer) POC Glucose (mg/dL) 139 H 136 H (65-110) mg/dL Random Glucose (70-110) mg/dL Calcium (8.4-10.5) mg/dL Phosphorus (2.5-4.5) mg/dL Magnesium (1.7-2.2) mg/dL Total Bilirubin (0.2-1.3) mg/dL AST (14-36) U/L ALT (7-56) U/L Alkaline Phosphatase (38-126) U/L Total Protein (5.8-8.3) g/dL Albumin (3.0-4.8) g/dL Globulin gm/dL Albumin/Globulin Ratio (1.1-1.8) 02/06/18 02/06/18 Range/Units 18:03 15:45 WBC 11.0 (4.5-11.0) 10^3/ul RBC 3.37 L (3.5-6.1) 10^6/uL Hgb 9.8 L (12.0-16.0) g/dL Hct 28.4 L (36.0-48.0) % MCV 84.3 (80.0-105.0) fl MCH 29.1 (25.0-35.0) pg MCHC 34.5 (31.0-37.0) g/dl RDW 14.8 H (11.5-14.5) % Plt Count 128 (120.0-450.0) 10^3/uL MPV 10.5 (7.0-11.0) fl pCO2 (35-45) mm/Hg pO2 (80-100) mm/Hg HCO3 (21-28) mmol/L ABG pH (7.35-7.45) ABG Total CO2 (22-28) mmol.L ABG O2 Saturation (95-98) % ABG O2 Content (15-23) ML/dl ABG Base Excess (-2.0-3.0) mmol/L ABG Hemoglobin (11.7-17.4) g/dL ABG Carboxyhemoglobin (0.5-1.5) % POC ABG HHb (Measured) (0-5) % ABG Methemoglobin (0.0-3.0) % ABG O2 Capacity (16-24) mL/dl Hgb O2 Saturation (95.0-98.0) % FiO2 % Sodium (132-148) mmol/L Potassium (3.6-5.0) mmol/L Chloride (98-107) mmol/L Carbon Dioxide (21-33) mmol/L Anion Gap (10-20) BUN (7-21) mg/dL Creatinine (0.7-1.2) mg/dl Est GFR ( Amer) Est GFR (Non-Af Amer) POC Glucose (mg/dL) 149 H (65-110) mg/dL Random Glucose (70-110) mg/dL Calcium (8.4-10.5) mg/dL Phosphorus (2.5-4.5) mg/dL Magnesium (1.7-2.2) mg/dL Total Bilirubin (0.2-1.3) mg/dL AST (14-36) U/L ALT (7-56) U/L Alkaline Phosphatase (38-126) U/L Total Protein (5.8-8.3) g/dL Albumin (3.0-4.8) g/dL Globulin gm/dL Albumin/Globulin Ratio (1.1-1.8) Laboratory Results - last 24 hr 02/06/18 02/06/18 02/06/18 15:45 18:03 21:15 WBC 11.0 11.0 RBC 3.37 L 3.56 Hgb 9.8 L 10.5 L Hct 28.4 L 30.0 L MCV 84.3 84.3 MCH 29.1 29.5 MCHC 34.5 35.0 RDW 14.8 H 15.0 H Plt Count 128 129 MPV 10.5 11.2 H pCO2 pO2 HCO3 ABG pH ABG Total CO2 ABG O2 Saturation ABG O2 Content ABG Base Excess ABG Hemoglobin ABG Carboxyhemoglobin POC ABG HHb (Measured) ABG Methemoglobin ABG O2 Capacity Hgb O2 Saturation FiO2 Sodium Potassium Chloride Carbon Dioxide Anion Gap BUN Creatinine Est GFR ( Amer) Est GFR (Non-Af Amer) POC Glucose (mg/dL) 149 H Random Glucose Calcium Phosphorus Magnesium Total Bilirubin AST ALT Alkaline Phosphatase Total Protein Albumin Globulin Albumin/Globulin Ratio 02/06/18 02/07/18 02/07/18 21:59 02:01 03:00 WBC RBC Hgb Hct MCV MCH MCHC RDW Plt Count MPV pCO2 pO2 HCO3 ABG pH ABG Total CO2 ABG O2 Saturation ABG O2 Content ABG Base Excess ABG Hemoglobin ABG Carboxyhemoglobin POC ABG HHb (Measured) ABG Methemoglobin ABG O2 Capacity Hgb O2 Saturation FiO2 Sodium 144 Potassium 4.4 Chloride 115 H Carbon Dioxide 22 Anion Gap 12 BUN 20 Creatinine 1.0 Est GFR ( Amer) > 60 Est GFR (Non-Af Amer) 54 POC Glucose (mg/dL) 136 H 139 H Random Glucose 162 H Calcium 8.5 Phosphorus 3.9 Magnesium 1.8 Total Bilirubin 0.8 AST 695 H ALT 110 H Alkaline Phosphatase 63 Total Protein 5.8 Albumin 3.1 Globulin 2.6 Albumin/Globulin Ratio 1.2 02/07/18 02/07/18 02/07/18 03:00 06:00 06:45 WBC 11.1 H RBC 3.69 Hgb 10.7 L Hct 31.3 L MCV 84.8 MCH 29.0 MCHC 34.2 RDW 15.1 H Plt Count 123 MPV 10.5 pCO2 25 L pO2 198.0 H HCO3 17.4 L ABG pH 7.45 ABG Total CO2 18.2 L ABG O2 Saturation 99.0 H ABG O2 Content 14.5 L ABG Base Excess -5.4 L ABG Hemoglobin 10.3 L ABG Carboxyhemoglobin 1.2 POC ABG HHb (Measured) 1.0 ABG Methemoglobin 1.2 ABG O2 Capacity 14.6 L Hgb O2 Saturation 96.6 FiO2 40.0 Sodium Potassium Chloride Carbon Dioxide Anion Gap BUN Creatinine Est GFR ( Amer) Est GFR (Non-Af Amer) POC Glucose (mg/dL) 129 H Random Glucose Calcium Phosphorus Magnesium Total Bilirubin AST ALT Alkaline Phosphatase Total Protein Albumin Globulin Albumin/Globulin Ratio 02/07/18 02/07/18 08:58 09:00 WBC 11.4 H RBC 3.68 Hgb 10.8 L Hct 31.3 L MCV 85.1 MCH 29.3 MCHC 34.5 RDW 15.4 H Plt Count 127 MPV 11.8 H pCO2 pO2 HCO3 ABG pH ABG Total CO2 ABG O2 Saturation ABG O2 Content ABG Base Excess ABG Hemoglobin ABG Carboxyhemoglobin POC ABG HHb (Measured) ABG Methemoglobin ABG O2 Capacity Hgb O2 Saturation FiO2 Sodium Potassium Chloride Carbon Dioxide Anion Gap BUN Creatinine Est GFR ( Amer) Est GFR (Non-Af Amer) POC Glucose (mg/dL) 159 H Random Glucose Calcium Phosphorus Magnesium Total Bilirubin AST ALT Alkaline Phosphatase Total Protein Albumin Globulin Albumin/Globulin Ratio EKG/Cardiology Studies: Cardiology / EKG Studies 02/06/18 16:47 EKG [ELECTROCARDIOGRAM] Stat Comment: Reason For Exam: follow up Attending/Attestation - Attestation I have personally seen and examined this patient.: Yes I have fully participated in the care of the patient.: Yes I have reviewed all pertinent clinical information: Yes Notes (Text): 02/07/18 15:06 77 yo female recovered from hemorrhagic shock, successfully extubated. Hb stable. GI *Dr. Yoder) wanted to continue NPO. Continue protonix drip. serial cbc, ivf ccm time 40 min
[2018-02-07 15:18] LABS: HEMOGLOBIN 10.9 g/dL (12.0-16.0); MEAN CELL VOLUME 85.7 fl (80.0-105.0); MEAN CORPUSCULAR HEMOGLOBIN 29.4 pg (25.0-35.0); MEAN CORPUSCULAR HGB CONC 34.3 g/dl (31.0-37.0); MEAN PLATELET VOLUME 11.1 fl (7.0-11.0); RBC 3.71 10^6/uL (3.5-6.1); RED CELL DISTRIBUTION WIDTH 15.3 % (11.5-14.5); WHITE BLOOD COUNT 12.8 10^3/ul (4.5-11.0)
--- NOTE | 2018-02-08 00:10 | PN ---
DATE: 02/07/2018 CRITICAL CARE PROGRESS NOTE SUBJECTIVE: This 77-year-old female was examined in CCU, bed 6, [facility] ICU today. The patient was admitted with hemorrhagic shock, rectal bleeding, metabolic encephalopathy and respiratory failure. 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 The patient remains weak and deconditioned. She is presently extubated and remains anxious and confused to her recent events that caused her to be hospitalized. PHYSICAL EXAMINATION: VITAL SIGNS: Temperature is 98.4, respirations 26, pulse 77, blood pressure 109/70 with a pulse ox of 100% on 40% FIO2. HEENT: Head: Normocephalic, atraumatic. Eyes: No icterus. Ears clear. Throat: Noninjected. NECK: Supple. HEART: Regular S1, S2. LUNGS: Clear. ABDOMEN: Soft. EXTREMITIES: No edema. SKIN: No rash. VASCULAR: Legs warm to touch. PSYCHOLOGICAL: Alert, but confused. NEUROLOGIC: Deconditioned. LABORATORY DATA: White count 12,800, hemoglobin 10.9, hematocrit 31.8, platelets 118,000. PT/INR 1.11, PTT 27.9. Sodium 144, K 4.4, chloride 115, bicarb 22, BUN 20, creatinine 1, random blood sugar 162. Magnesium 1.8. Bilirubin 0.8, AST 695, ALT 110, alk phos 63. Previous bilirubin 0.3, AST 24, ALT 21 and alk phos 54. 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 PLAN: Plan is discussed with Dr. Caro, Phone Operator, will be to maintain this patient in Critical Care while monitoring comprehensive metabolic panel, magnesium, phosphorous and CBCs. She will have blood cell transfusion as needed. She continues on medium insulin coverage a.c. mealtime and at bedtime while receiving IV fluids of lactated Ringer's, saline 1000 mL as outlined for blood pressure support. She will have Protonix ip continued at 20 mL per hour. She remains n.p.o. as per Dr. Yoder from GI. She is ordered to have serial labs and probably will require repeat endoscopy to ensure stability of angiodysplastic bleeding and as discussed with the patient, nursing and Dr. Caro, her diet will not be advanced until cleared by GI. Greater than 60 minutes was spent in the care management, review of labs, orders, x-rays and discussion of this patient's case with GI, nursing, Intensive Care and herself. All questions were answered. Jacqueline Thomas MD MTDD
[2018-02-08] MEDS: Insulin Reg-MEDIUM-Coverage SC SCH ×4 (02:43→19:17)
--- NOTE | 2018-02-08 02:54 | PN ---
DATE: 02/07/2018 SUBJECTIVE: This patient was seen and evaluated earlier today. Patient is extubated, comfortable, remains no further episodes of vomiting or melena. PHYSICAL EXAMINATION: VITAL SIGNS: Temperature is 98.4, blood pressure 102/55, pulse rate is 98. HEENT: Atraumatic, anicteric. NECK: Supple. HEART: S1 and S2 heard. LUNGS: Bilateral air entry present. ABDOMEN: Soft. There is no tenderness. EXTREMITIES: No edema. No cyanosis. LABORATORY DATA: Hemoglobin 10.9, hematocrit 31.8, WBC 12.8, platelets 118. BUN 20, creatinine 1. AST is mildly elevated 695, ALT is 110. IMPRESSION: This is a 77-year-old patient with status post gastric bypass and recently discharged from the hospital, following upper gastrointestinal bleeding, status post clipping. Hemodynamically was stable, and hematocrit was stable. Discharged home on 02/01/2018 with a hemoglobin of 11.3. Patient was admitted with massive bleeding, melena and a hemoglobin of 5.8. Patient underwent an upper gastrointestinal endoscopy, which found to have [address] There was pigmented spot vs visible vessel noticed at the ulcer margin, and another additional clip was placed. Careful examination did not reveal any other source. Examination of the jejunum did not reveal any obvious source. RECOMMENDATIONS: I would recommend: 1. Continue the proton pump inhibitor with increased dose to twice a day, continue the high dose proton pump inhibitor. 2. Close followup of the hemoglobin and hematocrit. Patient will get colonoscopy to rule out any colonic source of blood loss and also consider bleeding scan if there is any active bleeding. If we see any further recurrence of the bleeding in spite after the above workup, would consider enteroscopy to evaluate the bypassed gastric antrum and also duodenal area. Patient had a colonoscopy done about more than 7 years ago, found to have only hemorrhoids. Patient's other comorbidities include dyslipidemia, hypertension, arthritis, diabetes mellitus. We will continue to closely follow up with her care and suggest further management based on the clinical course. Patient is presently on Protonix drip. Thank you very much for allowing us to participate in the care of the patient. Paige Yoder MD [facility] # [id number] MARTY
[2018-02-08] MEDS: Pantoprazole 40mg/100mL NS 40 MG/100 ML BAG IVPB SCH ×3 (03:33→13:44)
[2018-02-08 05:45] LABS: HEMOGLOBIN 9.2 g/dL (12.0-16.0); MEAN CELL VOLUME 86.8 fl (80.0-105.0); MEAN CORPUSCULAR HEMOGLOBIN 29.7 pg (25.0-35.0); MEAN CORPUSCULAR HGB CONC 34.2 g/dl (31.0-37.0); MEAN PLATELET VOLUME 11.3 fl (7.0-11.0); RBC 3.1 10^6/uL (3.5-6.1); RED CELL DISTRIBUTION WIDTH 15.2 % (11.5-14.5); WHITE BLOOD COUNT 8.8 10^3/ul (4.5-11.0)
[2018-02-08 05:54] LABS: ALB/GLOB RATIO 1.1 (1.1-1.8); ALBUMIN 2.6 g/dL (3.0-4.8); ALT/SGPT 73 U/L (7-56); AST/SGOT 233 U/L (14-36); BLOOD UREA NITROGEN 17 mg/dL (7-21); GFR AFRICAN-AMERICAN > 60; GFR NON-AFRICAN AMERICAN 54
[2018-02-08] MEDS ORDERED: Magnesium Sulfate 2 GM in Sodium Chloride 0.9% 100 ML IVPB ONE (08:05)
--- NOTE | 2018-02-08 09:27 | CP.PCM.PN ---
Subjective - Date & Time of Evaluation Date of Evaluation: 02/08/18 Time of Evaluation: 08:45 - Subjective Subjective: General surgery progress note for Dr. Shirley Bah, PGY-1 Pt S & E at bedside at 0845 Pt reports some LUQ ab pain, dizziness. States that she had some bleeding per rectum, however nursing denies bleeding per rectum or melena. Denies N & V, hematemesis. UOP 47.9-adequate. Objective - Vital Signs/Intake and Output Vital Signs (last 24 hours): Temp Pulse Resp BP Pulse Ox 98.4 F 76 17 106/63 100 02/06/18 18:00 02/08/18 08:00 02/08/18 08:00 02/08/18 08:00 02/08/18 08:00 Intake and Output: 02/08/18 02/08/18 06:59 18:59 Intake Total 840 Output Total 600 Balance 240 - Medications Medications: Current Medications Pantoprazole Sodium (Protonix 40mg Ivpb) 40 mg in 100 mls @ 20 mls/hr IVPB .Q5H AKI Last Admin: 02/08/18 03:33 Dose: 20 mls/hr Insulin Human Regular (Humulin R Med) 0 units SC Q6 AKI PRN Reason: Protocol Morphine Sulfate (Morphine) 2 mg IVP Q3H PRN PRN Reason: Pain, moderate (4-7) - Labs Labs: 02/08/18 05:30 02/08/18 05:30 PT 12.8 SECONDS (9.4-12.5) H 02/06/18 13:30 INR 1.11 (0.93-1.08) H 02/06/18 13:30 APTT 27.9 Seconds (25.1-36.5) 02/06/18 13:30 - Constitutional Appears: Non-toxic, No Acute Distress - Head Exam Head Exam: ATRAUMATIC, NORMAL INSPECTION, NORMOCEPHALIC - Eye Exam Eye Exam: EOMI, Normal appearance - ENT Exam ENT Exam: Mucous Membranes Moist, Normal Exam - Neck Exam Neck Exam: Full ROM, Normal Inspection - Respiratory Exam Respiratory Exam: NORMAL BREATHING PATTERN - Cardiovascular Exam Cardiovascular Exam: REGULAR RHYTHM, +S1, +S2 - GI/Abdominal Exam GI & Abdominal Exam: Soft, Tenderness (LUQ, mild). absent: Distended, Firm, Guarding, Rigid - Extremities Exam Extremities Exam: Normal Inspection. absent: Pedal Edema - Neurological Exam Neurological Exam: Alert, Awake, CN II-XII Intact - Psychiatric Exam Psychiatric exam: Normal Affect, Normal Mood - Skin Skin Exam: Dry, Intact, Normal Color, Warm Assessment and Plan - Assessment and Plan (Free Text) Assessment: 77F w/massive GI bleed- resolving Plan: Monitor VS Monitor UOP Monitor ab exam CLD for now Monitor H/H Hgb 9.2 from 10.9 Monitor for bleeding Therapeutic PPI GI following- will do colonoscopy, bleeding scan if any active bleeding, may consider enteroscopy if recurrence of bleeding No surgery intervention at this time Will LOYDA attending Niurka, PGY-1
--- NOTE | 2018-02-08 10:16 | CP.CCUPN ---
<Jaya Ambriz - Last Filed: 02/08/18 10:49> CCU Subjective - Physician Review Subjective (Free Text): 02/08/18 10:14 Jaya Ambriz D.O. PGY-2, Internal Medicine Resident, Critical Care Progress Note 77 year old female with a PMH of HLD, HTN, DM, chronic anemia, CAD s/p stent, marginal ulcer s/p gastric bypass who presented to [facility] ER due to a fall at home , was found to have hemorrhagic shock and was admitted to ICU. Patient was seen and examined at bedside. Patient doing much better, extubated, comfortable. No acute complaints. CCU Objective - Vital Signs / Intake & Output Vital Signs (Last 4 hours): Vital Signs Pulse Resp BP Pulse Ox 02/08/18 08:00 76 17 106/63 100 02/08/18 07:50 89 26 H 100 02/08/18 07:40 82 18 100 02/08/18 07:30 80 18 100 02/08/18 07:20 77 18 100 02/08/18 07:10 77 19 100 02/08/18 07:00 75 19 114/65 100 02/08/18 06:50 85 22 100 02/08/18 06:40 75 18 100 02/08/18 06:30 75 18 100 02/08/18 06:20 74 17 100 Intake and Output (Last 8hrs): Intake & Output 02/07/18 02/08/18 02/08/18 22:59 06:59 14:59 Intake Total 1050 840 Output Total 550 600 Balance 500 240 Intake: IV 1050 840 Right External Jugular 840 Right Hand 1050 Oral 0 Tube Feeding 0 Blood Product 0 Output: Urine 550 600 Urethral ([place]) 550 600 Stool 0 Other: # Bowel Movements 1 - Physical Exam Head: Positive for: Atraumatic, Normocephalic Pupils: Positive for: PERRL Extroacular Muscles: Positive for: EOMI Conjunctiva: Positive for: Normal Mouth: Positive for: Moist Mucous Membranes Pharnyx: Positive for: Normal Nose (External): Positive for: Atraumatic Neck: Positive for: Normal Range of Motion Respiratory/Chest: Positive for: Clear to Auscultation, Good Air Exchange. Negative for: Respiratory Distress, Accessory Muscle Use, Wheezes, Rales, Rhonchi Cardiovascular: Positive for: Regular Rate and Rhythm, Normal S1, S2. Negative for: Murmurs Abdomen: Positive for: Normal Bowel Sounds. Negative for: Tenderness, Distention, Peritoneal Signs, Rebound, Guarding Back: Positive for: Normal Inspection Upper Extremity: Positive for: Normal Inspection. Negative for: Cyanosis, Edema Lower Extremity: Positive for: Normal Inspection. Negative for: Edema Neurological: Positive for: GCS=15, CN II-XII Intact, Speech Normal Skin: Positive for: Warm, Dry, Normal Color. Negative for: Rashes Psychiatric: Positive for: Alert, Oriented x 3, Normal Insight, Normal Concentration - Medications Active Medications: Active Medications Generic Name Dose Route Start Last Admin Trade Name Freq PRN Reason Stop Dose Admin Pantoprazole Sodium 40 mg in 100 mls @ 20 mls/hr 02/06/18 07:30 02/08/18 03: 33 Protonix 40mg Ivpb IVPB 20 mls/hr .Q5H AKI Administration Insulin Human Regular 0 units 02/08/18 12:00 Humulin R Med SC Q6 AKI Protocol Morphine Sulfate 2 mg 02/06/18 11:11 Morphine IVP Q3H PRN Pain, moderate (4-7) - Patient Studies Lab Studies: Microbiology Studies 02/06/18 09:44 MRSA Culture (Admit) - Final Nose MRSA NOT DETECTED Lab Studies 02/08/18 02/08/18 02/08/18 Range/Units 05:30 05:30 05:23 WBC 8.8 D (4.5-11.0) 10^3/ul RBC 3.10 L (3.5-6.1) 10^6/uL Hgb 9.2 L (12.0-16.0) g/dL Hct 26.9 L (36.0-48.0) % MCV 86.8 (80.0-105.0) fl MCH 29.7 (25.0-35.0) pg MCHC 34.2 (31.0-37.0) g/dl RDW 15.2 H (11.5-14.5) % Plt Count 112 L (120.0-450.0) 10^3/uL MPV 11.3 H (7.0-11.0) fl Sodium 142 (132-148) mmol/L Potassium 3.7 (3.6-5.0) mmol/L Chloride 112 H (98-107) mmol/L Carbon Dioxide 25 (21-33) mmol/L Anion Gap 9 L (10-20) BUN 17 (7-21) mg/dL Creatinine 1.0 (0.7-1.2) mg/dl Est GFR ( Amer) > 60 Est GFR (Non-Af Amer) 54 POC Glucose (mg/dL) 142 H (65-110) mg/dL Random Glucose 127 H (70-110) mg/dL Calcium 8.0 L (8.4-10.5) mg/dL Phosphorus 3.0 (2.5-4.5) mg/dL Magnesium 1.7 (1.7-2.2) mg/dL Total Bilirubin 0.8 (0.2-1.3) mg/dL AST 233 H D (14-36) U/L ALT 73 H (7-56) U/L Alkaline Phosphatase 58 (38-126) U/L Total Protein 5.1 L (5.8-8.3) g/dL Albumin 2.6 L (3.0-4.8) g/dL Globulin 2.4 gm/dL Albumin/Globulin Ratio 1.1 (1.1-1.8) 02/08/18 02/07/18 02/07/18 Range/Units 02:42 15:08 09:00 WBC 12.8 H 11.4 H (4.5-11.0) 10^3/ul RBC 3.71 3.68 (3.5-6.1) 10^6/uL Hgb 10.9 L 10.8 L (12.0-16.0) g/dL Hct 31.8 L 31.3 L (36.0-48.0) % MCV 85.7 85.1 (80.0-105.0) fl MCH 29.4 29.3 (25.0-35.0) pg MCHC 34.3 34.5 (31.0-37.0) g/dl RDW 15.3 H 15.4 H (11.5-14.5) % Plt Count 118 L 127 (120.0-450.0) 10^3/uL MPV 11.1 H 11.8 H (7.0-11.0) fl Sodium (132-148) mmol/L Potassium (3.6-5.0) mmol/L Chloride (98-107) mmol/L Carbon Dioxide (21-33) mmol/L Anion Gap (10-20) BUN (7-21) mg/dL Creatinine (0.7-1.2) mg/dl Est GFR ( Amer) Est GFR (Non-Af Amer) POC Glucose (mg/dL) 124 H (65-110) mg/dL Random Glucose (70-110) mg/dL Calcium (8.4-10.5) mg/dL Phosphorus (2.5-4.5) mg/dL Magnesium (1.7-2.2) mg/dL Total Bilirubin (0.2-1.3) mg/dL AST (14-36) U/L ALT (7-56) U/L Alkaline Phosphatase (38-126) U/L Total Protein (5.8-8.3) g/dL Albumin (3.0-4.8) g/dL Globulin gm/dL Albumin/Globulin Ratio (1.1-1.8) 02/07/18 02/07/18 02/07/18 Range/Units 08:58 06:45 02:01 WBC (4.5-11.0) 10^3/ul RBC (3.5-6.1) 10^6/uL Hgb (12.0-16.0) g/dL Hct (36.0-48.0) % MCV (80.0-105.0) fl MCH (25.0-35.0) pg MCHC (31.0-37.0) g/dl RDW (11.5-14.5) % Plt Count (120.0-450.0) 10^3/uL MPV (7.0-11.0) fl Sodium (132-148) mmol/L Potassium (3.6-5.0) mmol/L Chloride (98-107) mmol/L Carbon Dioxide (21-33) mmol/L Anion Gap (10-20) BUN (7-21) mg/dL Creatinine (0.7-1.2) mg/dl Est GFR ( Amer) Est GFR (Non-Af Amer) POC Glucose (mg/dL) 159 H 129 H 139 H (65-110) mg/dL Random Glucose (70-110) mg/dL Calcium (8.4-10.5) mg/dL Phosphorus (2.5-4.5) mg/dL Magnesium (1.7-2.2) mg/dL Total Bilirubin (0.2-1.3) mg/dL AST (14-36) U/L ALT (7-56) U/L Alkaline Phosphatase (38-126) U/L Total Protein (5.8-8.3) g/dL Albumin (3.0-4.8) g/dL Globulin gm/dL Albumin/Globulin Ratio (1.1-1.8) Laboratory Results - last 24 hr 02/07/18 02/07/18 02/07/18 02:01 06:45 08:58 WBC RBC Hgb Hct MCV MCH MCHC RDW Plt Count MPV Sodium Potassium Chloride Carbon Dioxide Anion Gap BUN Creatinine Est GFR ( Amer) Est GFR (Non-Af Amer) POC Glucose (mg/dL) 139 H 129 H 159 H Random Glucose Calcium Phosphorus Magnesium Total Bilirubin AST ALT Alkaline Phosphatase Total Protein Albumin Globulin Albumin/Globulin Ratio 02/07/18 02/07/18 02/08/18 09:00 15:08 02:42 WBC 11.4 H 12.8 H RBC 3.68 3.71 Hgb 10.8 L 10.9 L Hct 31.3 L 31.8 L MCV 85.1 85.7 MCH 29.3 29.4 MCHC 34.5 34.3 RDW 15.4 H 15.3 H Plt Count 127 118 L MPV 11.8 H 11.1 H Sodium Potassium Chloride Carbon Dioxide Anion Gap BUN Creatinine Est GFR ( Amer) Est GFR (Non-Af Amer) POC Glucose (mg/dL) 124 H Random Glucose Calcium Phosphorus Magnesium Total Bilirubin AST ALT Alkaline Phosphatase Total Protein Albumin Globulin Albumin/Globulin Ratio 02/08/18 02/08/18 02/08/18 05:23 05:30 05:30 WBC 8.8 D RBC 3.10 L Hgb 9.2 L Hct 26.9 L MCV 86.8 MCH 29.7 MCHC 34.2 RDW 15.2 H Plt Count 112 L MPV 11.3 H Sodium 142 Potassium 3.7 Chloride 112 H Carbon Dioxide 25 Anion Gap 9 L BUN 17 Creatinine 1.0 Est GFR ( Amer) > 60 Est GFR (Non-Af Amer) 54 POC Glucose (mg/dL) 142 H Random Glucose 127 H Calcium 8.0 L Phosphorus 3.0 Magnesium 1.7 Total Bilirubin 0.8 AST 233 H D ALT 73 H Alkaline Phosphatase 58 Total Protein 5.1 L Albumin 2.6 L Globulin 2.4 Albumin/Globulin Ratio 1.1 Fingerstick Blood Sugar Results: 124 Critical Care Progress Note - Nutrition Nutrition: Nutrition Category Date Time Status Liquid Diet [DIET] Diets 02/08/18 Lunch Ordered Assessment/Plan - Assessment and Plan (Free Text) Assessment: 77 year old female with a PMH of HLD, HTN, DM, chronic anemia, CAD s/p stent, marginal ulcer s/p gastric bypass who presented to [facility] ER due to a fall at home , was found to have hemorrhagic shock and was admitted to ICU. Plan: Neurologic AAOx4, nonfocal Cardiovascular Hemorrhagic shock resolved HD stable No longer on vasopressor support Monitor Pulmonary Extubated, protecting airway, satting well on room air PRN 2L O2 via NC Maintain O2 Sat >92% Gastrointestinal S/p EGD on 02/06, one clipped placed over previous clip site, no active bleeding visualized GI following, recs appreciated Surgery also following Cont protonix gtt Per GI will advance to CLD Renal/Electrolytes Maintain euvolemia Cont strict I's and O's Hematologic S/p 3U PRBC, 2U FFP, 1U platelets HD stable Hgb stable No active bleeding noted Endocrine Cont RISS-med and accuchecks Maintain euglycemia Dispo: patient resuscitated, extubated, and overall condition improved, patient to be transferred to telemetry Patient was seen and examined and case was discussed at length with attending physician. - Date & Time Date: 02/08/18 Time: 07:00 <Idris Caro - Last Filed: 02/08/18 13:51> CCU Objective - Vital Signs / Intake & Output Vital Signs (Last 4 hours): Vital Signs Temp Pulse Resp Pulse Ox 02/08/18 12:00 97.6 F 02/08/18 10:20 80 14 94 L 02/08/18 10:10 81 15 96 02/08/18 10:00 90 22 96 02/08/18 09:50 88 12 97 02/08/18 09:40 88 27 H 98 Intake and Output (Last 8hrs): Intake & Output 02/07/18 02/08/18 02/08/18 22:59 06:59 14:59 Intake Total 1050 840 Output Total 550 600 Balance 500 240 Intake: IV 1050 840 Right External Jugular 840 Right Hand 1050 Oral 0 Tube Feeding 0 Blood Product 0 Output: Urine 550 600 Urethral ([place]) 550 600 Stool 0 Other: # Bowel Movements 1 - Medications Active Medications: Active Medications Generic Name Dose Route Start Last Admin Trade Name Freq PRN Reason Stop Dose Admin Pantoprazole Sodium 40 mg in 100 mls @ 20 mls/hr 02/06/18 07:30 02/08/18 03: 33 Protonix 40mg Ivpb IVPB 20 mls/hr .Q5H AKI Administration Insulin Human Regular 0 units 02/08/18 12:00 Humulin R Med SC Q6 AKI Protocol Morphine Sulfate 2 mg 02/06/18 11:11 Morphine IVP Q3H PRN Pain, moderate (4-7) - Patient Studies Lab Studies: Microbiology Studies 02/06/18 09:44 MRSA Culture (Admit) - Final Nose MRSA NOT DETECTED Lab Studies 02/08/18 02/08/18 02/08/18 Range/Units 13:04 05:30 05:30 WBC 8.8 D (4.5-11.0) 10^3/ul RBC 3.10 L (3.5-6.1) 10^6/uL Hgb 9.2 L (12.0-16.0) g/dL Hct 26.9 L (36.0-48.0) % MCV 86.8 (80.0-105.0) fl MCH 29.7 (25.0-35.0) pg MCHC 34.2 (31.0-37.0) g/dl RDW 15.2 H (11.5-14.5) % Plt Count 112 L (120.0-450.0) 10^3/uL MPV 11.3 H (7.0-11.0) fl Sodium 142 (132-148) mmol/L Potassium 3.7 (3.6-5.0) mmol/L Chloride 112 H (98-107) mmol/L Carbon Dioxide 25 (21-33) mmol/L Anion Gap 9 L (10-20) BUN 17 (7-21) mg/dL Creatinine 1.0 (0.7-1.2) mg/dl Est GFR ( Amer) > 60 Est GFR (Non-Af Amer) 54 POC Glucose (mg/dL) 111 H (65-110) mg/dL Random Glucose 127 H (70-110) mg/dL Calcium 8.0 L (8.4-10.5) mg/dL Phosphorus 3.0 (2.5-4.5) mg/dL Magnesium 1.7 (1.7-2.2) mg/dL Total Bilirubin 0.8 (0.2-1.3) mg/dL AST 233 H D (14-36) U/L ALT 73 H (7-56) U/L Alkaline Phosphatase 58 (38-126) U/L Total Protein 5.1 L (5.8-8.3) g/dL Albumin 2.6 L (3.0-4.8) g/dL Globulin 2.4 gm/dL Albumin/Globulin Ratio 1.1 (1.1-1.8) 02/08/18 02/08/18 02/07/18 Range/Units 05:23 02:42 15:08 WBC 12.8 H (4.5-11.0) 10^3/ul RBC 3.71 (3.5-6.1) 10^6/uL Hgb 10.9 L (12.0-16.0) g/dL Hct 31.8 L (36.0-48.0) % MCV 85.7 (80.0-105.0) fl MCH 29.4 (25.0-35.0) pg MCHC 34.3 (31.0-37.0) g/dl RDW 15.3 H (11.5-14.5) % Plt Count 118 L (120.0-450.0) 10^3/uL MPV 11.1 H (7.0-11.0) fl Sodium (132-148) mmol/L Potassium (3.6-5.0) mmol/L Chloride (98-107) mmol/L Carbon Dioxide (21-33) mmol/L Anion Gap (10-20) BUN (7-21) mg/dL Creatinine (0.7-1.2) mg/dl Est GFR ( Amer) Est GFR (Non-Af Amer) POC Glucose (mg/dL) 142 H 124 H (65-110) mg/dL Random Glucose (70-110) mg/dL Calcium (8.4-10.5) mg/dL Phosphorus (2.5-4.5) mg/dL Magnesium (1.7-2.2) mg/dL Total Bilirubin (0.2-1.3) mg/dL AST (14-36) U/L ALT (7-56) U/L Alkaline Phosphatase (38-126) U/L Total Protein (5.8-8.3) g/dL Albumin (3.0-4.8) g/dL Globulin gm/dL Albumin/Globulin Ratio (1.1-1.8) Laboratory Results - last 24 hr 02/07/18 02/08/18 02/08/18 15:08 02:42 05:23 WBC 12.8 H RBC 3.71 Hgb 10.9 L Hct 31.8 L MCV 85.7 MCH 29.4 MCHC 34.3 RDW 15.3 H Plt Count 118 L MPV 11.1 H Sodium Potassium Chloride Carbon Dioxide Anion Gap BUN Creatinine Est GFR ( Amer) Est GFR (Non-Af Amer) POC Glucose (mg/dL) 124 H 142 H Random Glucose Calcium Phosphorus Magnesium Total Bilirubin AST ALT Alkaline Phosphatase Total Protein Albumin Globulin Albumin/Globulin Ratio 02/08/18 02/08/18 02/08/18 05:30 05:30 13:04 WBC 8.8 D RBC 3.10 L Hgb 9.2 L Hct 26.9 L MCV 86.8 MCH 29.7 MCHC 34.2 RDW 15.2 H Plt Count 112 L MPV 11.3 H Sodium 142 Potassium 3.7 Chloride 112 H Carbon Dioxide 25 Anion Gap 9 L BUN 17 Creatinine 1.0 Est GFR ( Amer) > 60 Est GFR (Non-Af Amer) 54 POC Glucose (mg/dL) 111 H Random Glucose 127 H Calcium 8.0 L Phosphorus 3.0 Magnesium 1.7 Total Bilirubin 0.8 AST 233 H D ALT 73 H Alkaline Phosphatase 58 Total Protein 5.1 L Albumin 2.6 L Globulin 2.4 Albumin/Globulin Ratio 1.1 Critical Care Progress Note - Nutrition Nutrition: Nutrition Category Date Time Status Liquid Diet [DIET] Diets 02/08/18 Lunch Ordered Attending/Attestation - Attestation I have personally seen and examined this patient.: Yes I have fully participated in the care of the patient.: Yes I have reviewed all pertinent clinical information: Yes Notes (Text): 02/08/18 13:47 77 yo recovered from hemorrhagic shock. Hemodynamically stable, successfully extubated yesterday-->uneventful night. Tolerated full liquids in am well. Hb is relatively stable, no signs of intra or extraluminal bleeding. Ok to downgrade to tele ccm time 40 min
--- NOTE | 2018-02-08 22:29 | PN ---
DATE: 02/08/2018 SUBJECTIVE: This 77-year-old female was examined in the CCU bed 6 in the presence of her family. The patient is status post hemorrhagic shock requiring intubation, IV fluids, IV pressors and IV blood transfusion for severe anemia secondary to rectal bleeding. The patient on endoscopy was found to have bleeding blood vessels including angiodysplastic bleeding of her stomach and recurrent bleeding at an anastomotic site in a gastric ulcer on recent endoscopy. The patient has received approximately 5 units of packed red blood cells and at present remains hemodynamically more stable. She has been extubated and has been advanced to clear liquids and remains on insulin coverage regular low-dose Humulin medium protocol before meals and at bedtime with IV Protonix drip of 20 mL/hour. The patient is being observed closely for any evidence of hypotension or rectal bleeding. PHYSICAL EXAMINATION: VITAL SIGNS: On physical exam, he was in a normal sinus rhythm on the quality assurance monitor final with a temperature of 97.6, respirations 14, pulse 80 and blood pressure 106/63 with pulse ox of 99%. GENERAL: She denies fever, chills, chest pain or shortness of breath. HEAD: Normocephalic, atraumatic. Eyes: No icterus. Ears: Clear. Throat: Noninjected. NECK: Supple. HEART: Regular S1, S2. LUNGS: Clear. ABDOMEN: Soft. No rebound, no guarding. No tenderness. EXTREMITIES: No edema. SKIN: Without rash. NEUROLOGICAL: Deconditioned. VASCULAR: Legs warm to touch. PSYCHOLOGICAL: Alert and oriented x3. NEUROLOGIC: Moves all four extremities. Deconditioned. LABORATORY DATA: White count 8800, hemoglobin 9.2, previously 5.8, hematocrit 26.9, previously 17.6. Platelets are 112,000. Sodium 142, K 3.7, chloride 112, bicarb 25, BUN 17, creatinine 1, random blood sugar 125. Bilirubin 0.8, AST 233, ALT 73, alk phos 58. Phosphorous 3. Magnesium 1.7. IMPRESSION: A 77-year-old female status post rectal bleeding, hemorrhagic shock, respiratory failure requiring intubation and ventilatory support. Also, she received 5 units of packed red blood cells, had endoscopy with clipping of angiodysplastic bleeding in her stomach and at present remains on an IV Protonix drip, insulin coverage and clear liquid diet only. PLAN: To continue medications as outlined. She will be reevaluated in the a.m. with comprehensive metabolic panel, magnesium, phosphorus and CBC. Elevated liver function testings are probably on the basis of shock and hypotension with decreased perfusion to her liver and these enzymes will be monitored closely. Greater than 60 minutes was spent in the care management, review of labs, orders, x-rays and outlining of treatment and discussion with the patient and family at bedside. All questions were answered. Jacqueline Thomas MD MTDAwa
[2018-02-09] MEDS: Insulin Reg-MEDIUM-Coverage SC SCH ×3 (00:32→12:00)
[2018-02-09 06:34] LABS: HEMOGLOBIN 9.9 g/dL (12.0-16.0); MEAN CELL VOLUME 87.5 fl (80.0-105.0); MEAN CORPUSCULAR HEMOGLOBIN 29.4 pg (25.0-35.0); MEAN CORPUSCULAR HGB CONC 33.6 g/dl (31.0-37.0); MEAN PLATELET VOLUME 11.6 fl (7.0-11.0); RBC 3.37 10^6/uL (3.5-6.1); RED CELL DISTRIBUTION WIDTH 14.8 % (11.5-14.5); WHITE BLOOD COUNT 8.4 10^3/ul (4.5-11.0)
[2018-02-09 07:29] LABS: ALB/GLOB RATIO 1.1 (1.1-1.8); ALBUMIN 3.1 g/dL (3.0-4.8); CALCIUM 8.1 mg/dL (8.4-10.5)
--- NOTE | 2018-02-09 08:08 | PN ---
DATE: 02/07/2018 SUBJECTIVE: The patient is seen and examined at the bedside. She is comfortable. She is intubated. However, presently on pressure support trial 5/5 with FiO2 of 40%. Her rapid shallow breathing index varies between 70 and 90. She appears to be waking up and follow commands. She is off propofol; however, still on Protonix drip. She is off all pressors. OBJECTIVE: VITAL SIGNS: Blood pressure 136/71, heart rate 81, end-tidal CO2 on the monitor 35, respiratory rate 26. ENT, HEAD, AND NECK: Atraumatic. LUNGS: Clear to auscultation bilaterally. HEART: Regular rate. ABDOMEN: Soft, non-tender . MUSCULOSKELETAL: No C/C/E. NEUROLOGIC: The patient moves all extremities spontaneously. SKIN: Moist. PSYCH: The patient is alert and awake . LABORATORY DATA: WBC 11.1; hemoglobin 10.7, up from 10.5 as of yesterday without any blood transfusion; platelet count 123. Sodium 144, chloride 115. BUN 20, creatinine 1. Glucose 162. AST 695, ALT 110, total bilirubin 0.8. MEDICATIONS: Morphine p.r.n., propofol and Protonix drip. ASSESSMENT AND PLAN: This is a 77-year-old lady who initially was admitted to intensive care unit with hemorrhagic shock due to massive upper gastrointestinal bleed. Patient was fluid resuscitated. Blood products were transfused. She attained and maintained her hemodynamic stability. At the present time, she tolerates pressure support trial very well and if passed, will be extubated. I spoke to Dr. Yoder who said that no further procedure planned We will continue with head of bed elevated >35 degrees, oral hygiene, n.p.o. for now, serial CBC, IV fluids. We will maintain mean arterial pressure more than 65. We will avoid nephrotoxins and try to avoid hypochloremia. Patient will be on lactated Ringer for maintenance of IV fluids. We will continue with deep venous thrombosis and gastrointestinal prophylaxis. ccm time 40 min Idris Caro MD MARTY
--- NOTE | 2018-02-09 08:24 | CP.PCM.PN ---
Subjective - Date & Time of Evaluation Date of Evaluation: 02/09/18 Time of Evaluation: 07:10 - Subjective Subjective: Patient seen and examined at bedside this AM. No adverse events overnight. Patient reports tolerating her clear liquid diet, has had no further GI bleeding but has not resumed bowel function, denies nausea, vomiting, or abdominal pain, is voiding freely Objective - Vital Signs/Intake and Output Vital Signs (last 24 hours): Temp Pulse Resp BP Pulse Ox 99.4 F 103 H 13 125/79 96 02/08/18 17:00 02/09/18 06:10 02/09/18 06:10 02/09/18 04:00 02/09/18 06:10 Intake and Output: 02/09/18 02/09/18 06:59 18:59 Intake Total 200 Balance 200 - Medications Medications: Current Medications Insulin Human Regular (Humulin R Med) 0 units SC Q6 AKI PRN Reason: Protocol Last Admin: 02/09/18 00:32 Dose: Not Given Morphine Sulfate (Morphine) 2 mg IVP Q3H PRN PRN Reason: Pain, moderate (4-7) Pantoprazole Sodium (Protonix Inj) 40 mg IVP DAILY AKI - Labs Labs: 02/09/18 05:40 02/09/18 05:40 PT 12.8 SECONDS (9.4-12.5) H 02/06/18 13:30 INR 1.11 (0.93-1.08) H 02/06/18 13:30 APTT 27.9 Seconds (25.1-36.5) 02/06/18 13:30 - Constitutional Appears: Well, Non-toxic, No Acute Distress - Head Exam Head Exam: ATRAUMATIC, NORMOCEPHALIC - Eye Exam Eye Exam: Normal appearance. absent: Conjunctival injection, Scleral icterus - ENT Exam ENT Exam: Mucous Membranes Moist, Normal Oropharynx - Respiratory Exam Respiratory Exam: NORMAL BREATHING PATTERN. absent: Accessory Muscle Use, Respiratory Distress - Cardiovascular Exam Cardiovascular Exam: Tachycardia, REGULAR RHYTHM - GI/Abdominal Exam GI & Abdominal Exam: Soft. absent: Distended, Tenderness - Extremities Exam Extremities Exam: absent: Calf Tenderness, Pedal Edema, Tenderness - Neurological Exam Neurological Exam: Alert, Awake, Oriented x3 - Psychiatric Exam Psychiatric exam: Normal Affect, Normal Mood - Skin Skin Exam: Dry, Intact, Normal Color, Warm Assessment and Plan - Assessment and Plan (Free Text) Assessment: 77F with GI bleed now resolved Plan: Continue to trend H/H Monitor closely for bowel function and signs of re-bleeding Advance diet per GI recs PRN pain and nausea medication Patient should be out of bed and ambulating PT, incentive spirometer, SCD's No surgical intervention indicated at this time Discussed with Dr. Faisal Alvarez, PGY2
--- NOTE | 2018-02-09 10:55 | CP.PCM.PN ---
<Hilary Velez - Last Filed: 02/09/18 17:03> Subjective - Date & Time of Evaluation Date of Evaluation: 02/09/18 Time of Evaluation: 10:00 - Subjective Subjective: PGY-[address] Yoder's service Patient seen and examined at bedside in ICU. Patient states that she had bowel movement with blood. Per nursing aid patient has BM with samll amount of dark blood. Patient denies pain. She is tolerating diet. Patient is transferred to telemetry Objective - Vital Signs/Intake and Output Vital Signs (last 24 hours): Temp Pulse Resp BP Pulse Ox 99.4 F 103 H 13 125/79 96 02/08/18 17:00 02/09/18 06:10 02/09/18 06:10 02/09/18 04:00 02/09/18 06:10 Intake and Output: 02/09/18 02/09/18 06:59 18:59 Intake Total 200 Balance 200 - Medications Medications: Current Medications Insulin Human Regular (Humulin R Med) 0 units SC Q6 AKI PRN Reason: Protocol Last Admin: 02/09/18 06:34 Dose: Not Given Morphine Sulfate (Morphine) 2 mg IVP Q3H PRN PRN Reason: Pain, moderate (4-7) Pantoprazole Sodium (Protonix Inj) 40 mg IVP DAILY AKI - Labs Labs: 02/09/18 05:40 02/09/18 05:40 PT 12.8 SECONDS (9.4-12.5) H 02/06/18 13:30 INR 1.11 (0.93-1.08) H 02/06/18 13:30 APTT 27.9 Seconds (25.1-36.5) 02/06/18 13:30 - Constitutional Appears: Well, No Acute Distress - Head Exam Head Exam: ATRAUMATIC, NORMOCEPHALIC - Eye Exam Eye Exam: EOMI, Normal appearance - ENT Exam ENT Exam: Mucous Membranes Moist - Respiratory Exam Respiratory Exam: Clear to Ausculation Bilateral, NORMAL BREATHING PATTERN. absent: Respiratory Distress - Cardiovascular Exam Cardiovascular Exam: REGULAR RHYTHM. absent: Bradycardia, Tachycardia - GI/Abdominal Exam GI & Abdominal Exam: Soft, Normal Bowel Sounds. absent: Distended, Firm, Tenderness - Extremities Exam Extremities Exam: Normal Inspection - Neurological Exam Neurological Exam: Alert, Oriented x3 - Skin Skin Exam: Dry, Intact, Normal Color, Warm Assessment and Plan - Assessment and Plan (Free Text) Assessment: 77 yo F with PMH of HLD, HTN, DM, chronic anemia, CAD s/p stent, marginal ulcer , gastric bypass presented to ED due fall at home was found to be hypotensive, bradypnic, and have active bleeding per rectum. Patient was placed in the ICU due to hypotensive shock 2/2 suspected GI bleed. GI bleed, status post hematemesis/hematochezia, Acute on chronic anemia, status post 4 units of packed RBC History of gastric bypass, w/ h/o of anastomotic ulcer esophageal diverticulum Coronary artery disease status post stent Hypertension Diabetes mellitus Plan: - Patient is off pressors, extubated - Hgb 5.8 on admission, improved to 9.9 - transfused total 3 units pRBC - continue PPI bid - continue to trend h&h, motor for overt bleeding - consider bleeding scan if active bleeding - consider colonscopy to rule out colonic source of blood loss, and endoscopy to evaluate bypass gastric antrum - advance diet to full liquid case reviewed and discussed with Dr. Yoder. <Paige Yoder V - Last Filed: 02/10/18 00:00> Objective - Vital Signs/Intake and Output Vital Signs (last 24 hours): Temp Pulse Resp BP Pulse Ox 99.4 F 90 9 L 130/74 95 02/08/18 17:00 02/09/18 18:30 02/09/18 18:30 02/09/18 16:00 02/09/18 18:30 Intake and Output: 02/09/18 02/10/18 18:59 06:59 Intake Total 620 Output Total 450 Balance 170 - Medications Medications: Current Medications Insulin Human Regular (Humulin R Med) 0 units SC Q6 AKI PRN Reason: Protocol Last Admin: 02/09/18 12:00 Dose: Not Given Morphine Sulfate (Morphine) 2 mg IVP Q3H PRN PRN Reason: Pain, moderate (4-7) Pantoprazole Sodium (Protonix Inj) 40 mg IVP DAILY [facility] Last Admin: 02/09/18 10:40 Dose: 40 mg - Labs Labs: 02/09/18 05:40 02/09/18 05:40 PT 12.8 SECONDS (9.4-12.5) H 02/06/18 13:30 INR 1.11 (0.93-1.08) H 02/06/18 13:30 APTT 27.9 Seconds (25.1-36.5) 02/06/18 13:30 Attending/Attestation - Attestation I have personally seen and examined this patient.: Yes I have fully participated in the care of the patient.: Yes I have reviewed all pertinent clinical information, including history, physical exam and plan: Yes Notes (Text): p 02/10/18 00:00
[2018-02-09 12:46] LABS: HEPATITIS B SURFACE AG Negative (NEGATIVE)
[2018-02-09 12:52] LABS: HEPATITIS A IGM NEGATIVE (NEGATIVE); HEPATITIS B CORE AB NEGATIVE (NEGATIVE)
[2018-02-09 13:04] LABS: HEPATITIS C ANTIBODY NEGATIVE (NEGATIVE)
--- NOTE | 2018-02-09 21:22 | PN ---
DATE: 02/09/2018 CRITICAL CARE PROGRESS NOTE SUBJECTIVE: This 77-year-old female was examined in CCU, bed 6. She remains hospitalized status post hemorrhagic shock, rectal bleeding and metabolic encephalopathy, requiring intubation, packed red blood cell transfusion and IV pressor support with norepinephrine. At present, the patient is extubated. She remains weak and deconditioned, has had no further rectal bleeding and is status post endoscopy for cauterization of angiodysplastic blood vessel bleeding where certain blood vessels were also clipped. PHYSICAL EXAMINATION: GENERAL: The patient remains in a sinus tachycardia at times with a temperature of 99.4, respirations 20, pulse 86 and blood pressure 125/79 and pulse ox 98%. HEENT: Head: Normocephalic, atraumatic. Eyes: No icterus. Ears: Clear. Throat: Noninjected. NECK: Supple. HEART: S1, S2. LUNGS: Clear. ABDOMEN: Soft. EXTREMITIES: No edema. SKIN: Without rash. NEUROLOGICAL: Deconditioned. VASCULAR: Legs warm to touch. PSYCHOLOGICAL: Alert. LABORATORY DATA: White count 8400, hemoglobin 9.9, hematocrit 29.5, previously 5.8 hemoglobin and hematocrit 17.6, current platelets are 129,000. PT/INR 1.11, PTT 27.9. Sodium 143, K 3.9, chloride 109, bicarb 25, BUN 15, creatinine 1.1, random blood sugar 130. Bilirubin 1, AST 140, ALT 55 and alk phos 72. Hepatitis A, B, C serologies are negative. IMPRESSION: A 77-year-old female with gastrointestinal bleeding causing hemorrhagic shock, requiring intubation, intravenous blood transfusions, intravenous pressor support in this diabetic, hypertensive, hyperlipidemic patient. PLAN: She is currently extubated and plan will be to continue clear liquid diet until advanced by GI, Dr. Paige Yoder. She continued on medium Humulin regular insulin protocol coverage a.c. mealtime and at bedtime, morphine 2 mg IV every 3 hours p.r.n. severe pain and Protonix 40 mg IV daily. She is scheduled to have a CBC, phosphorous, magnesium and comprehensive metabolic panel in the a.m. Ultimate plan will be to transfer her to the Cardiac Step-Down Unit where she will receive physical therapy for reconditioning and gait training while being monitored for additional GI bleeding and having medication and diet adjusted. Greater than 35 minutes were spent in the care management, review of labs, orders, x-rays and consultations with GI hazardous materials waste technician and the patient as well as family members. All questions were answered. Jacqueline Thomas MD MARTY
[2018-02-10 06:35] LABS: HEMOGLOBIN 9.7 g/dL (12.0-16.0); MEAN CELL VOLUME 87.7 fl (80.0-105.0); MEAN CORPUSCULAR HEMOGLOBIN 29.2 pg (25.0-35.0); MEAN CORPUSCULAR HGB CONC 33.3 g/dl (31.0-37.0); MEAN PLATELET VOLUME 11.4 fl (7.0-11.0); RBC 3.32 10^6/uL (3.5-6.1); RED CELL DISTRIBUTION WIDTH 14.5 % (11.5-14.5); WHITE BLOOD COUNT 7.3 10^3/ul (4.5-11.0)
[2018-02-10 07:22] LABS: ALB/GLOB RATIO 1.1 (1.1-1.8); ALBUMIN 3.1 g/dL (3.0-4.8); ALT/SGPT 48 U/L (7-56); AST/SGOT 80 U/L (14-36); BLOOD UREA NITROGEN 12 mg/dL (7-21); CALCIUM 8.3 mg/dL (8.4-10.5); GFR AFRICAN-AMERICAN > 60; GFR NON-AFRICAN AMERICAN 54
--- NOTE | 2018-02-10 07:57 | CP.PCM.PN ---
Subjective - Date & Time of Evaluation Date of Evaluation: 02/10/18 Time of Evaluation: 07:00 - Subjective Subjective: Patient seen and examined at bedside thsi AM. Patient had one melenic solid BM yesterday but denies abdominal pain, nausea, vomiting, tolerating FLD. persistent mild tachycardia. Patient complains of left sided rib pain from when she fell at home prior to admission Objective - Vital Signs/Intake and Output Vital Signs (last 24 hours): Temp Pulse Resp BP Pulse Ox 99.4 F 90 9 L 130/74 95 02/08/18 17:00 02/09/18 18:30 02/09/18 18:30 02/09/18 16:00 02/09/18 18:30 - Medications Medications: Current Medications Insulin Human Regular (Humulin R Med) 0 units SC Q6 AKI PRN Reason: Protocol Last Admin: 02/09/18 12:00 Dose: Not Given Morphine Sulfate (Morphine) 2 mg IVP Q3H PRN PRN Reason: Pain, moderate (4-7) Pantoprazole Sodium (Protonix Inj) 40 mg IVP DAILY [facility] Last Admin: 02/09/18 10:40 Dose: 40 mg - Labs Labs: 02/10/18 05:20 02/10/18 05:20 PT 12.8 SECONDS (9.4-12.5) H 02/06/18 13:30 INR 1.11 (0.93-1.08) H 02/06/18 13:30 APTT 27.9 Seconds (25.1-36.5) 02/06/18 13:30 - Constitutional Appears: Well, Non-toxic, No Acute Distress - Head Exam Head Exam: ATRAUMATIC, NORMOCEPHALIC - Eye Exam Eye Exam: Normal appearance. absent: Conjunctival injection, Scleral icterus - ENT Exam ENT Exam: Mucous Membranes Moist, Normal Oropharynx - Respiratory Exam Respiratory Exam: NORMAL BREATHING PATTERN. absent: Accessory Muscle Use, Respiratory Distress - Cardiovascular Exam Cardiovascular Exam: Tachycardia, REGULAR RHYTHM Additional comments: Tenderness to palpation over the ribs of the left anterior chest no overlying ecchymosis - GI/Abdominal Exam GI & Abdominal Exam: absent: Distended, Soft, Tenderness - Neurological Exam Neurological Exam: Alert, Awake, Oriented x3 - Psychiatric Exam Psychiatric exam: Normal Affect, Normal Mood Assessment and Plan - Assessment and Plan (Free Text) Assessment: 77F with GI bleed, now resolved, hgb stable. Plan: Continue to trend H/H Monitor for further signs of GI bleed--melena yesterday probably residual blood from prior bleed, but monitor closely May advance diet per GI recs Recommend colonoscopy to assess for lower GI bleed since active upper GI bleed not identified on EGD if deemed beneficial by GI team Repeat EGD at some future date Reach out to surgical team for any further questions or concerns Discussed with Dr. Prerna Alvarez, PGY2
[2018-02-10] MEDS: Insulin Reg-MEDIUM-Coverage SC SCH ×2 (11:41→16:08)
--- NOTE | 2018-02-10 12:05 | CP.PCM.PN ---
Subjective - Date & Time of Evaluation Date of Evaluation: 02/10/18 Time of Evaluation: 09:55 - Subjective Subjective: Seen and examined at the bedside earlier today, chart review. Patient reported having a bowel movement yesterday, as per nursing and was reported to be a smear of bright red blood. Patient does have some abdominal discomfort but no acute distress tolerated full liquids denies nausea, vomiting. Denies shortness of breath or chest pain. Hemoglobin remained stable. No acute overnight events reported. Objective - Vital Signs/Intake and Output Vital Signs (last 24 hours): Temp Pulse Resp BP Pulse Ox 98.5 F 105 H 31 H 125/82 97 02/10/18 07:30 02/10/18 08:00 02/10/18 08:00 02/10/18 08:00 02/10/18 08:00 - Medications Medications: Current Medications Insulin Human Regular (Humulin R Med) 0 units SC ACHS AKI PRN Reason: Protocol Last Admin: 02/10/18 11:41 Dose: 1 units Morphine Sulfate (Morphine) 2 mg IVP Q3H PRN PRN Reason: Pain, moderate (4-7) Pantoprazole Sodium (Protonix Inj) 40 mg IVP DAILY [facility] Last Admin: 02/10/18 09:00 Dose: 40 mg - Labs Labs: 02/10/18 05:20 02/10/18 05:20 PT 12.8 SECONDS (9.4-12.5) H 02/06/18 13:30 INR 1.11 (0.93-1.08) H 02/06/18 13:30 APTT 27.9 Seconds (25.1-36.5) 02/06/18 13:30 - Constitutional Appears: No Acute Distress - Head Exam Head Exam: NORMOCEPHALIC - Eye Exam Eye Exam: Normal appearance. absent: Scleral icterus - ENT Exam ENT Exam: Mucous Membranes Moist - Neck Exam Neck Exam: Normal Inspection - Respiratory Exam Respiratory Exam: NORMAL BREATHING PATTERN. absent: Respiratory Distress - Cardiovascular Exam Cardiovascular Exam: +S1, +S2 - GI/Abdominal Exam GI & Abdominal Exam: Soft, Tenderness (mid abdomen diffuse, no rebound or guarding), Normal Bowel Sounds. absent: Guarding, Organomegaly, Rebound - Extremities Exam Extremities Exam: Normal Capillary Refill. absent: Calf Tenderness, Pedal Edema - Neurological Exam Neurological Exam: Alert, Awake, Oriented x3 - Skin Skin Exam: Dry, Warm Assessment and Plan - Assessment and Plan (Free Text) Assessment: ASSESSMENT: S/P hypotensive shock 2/2 suspected GI bleed. GI bleed, status post hematemesis/hematochezia, Acute on chronic anemia, status post 4 units of packed RBC History of gastric bypass, w/ h/o of anastomotic ulcer esophageal diverticulum Coronary artery disease status post stent Hypertension Diabetes mellitus Plan: s/p transfused total 3 units pRBC continue PPI bid continue to trend h&h, motor for overt bleeding consider bleeding scan if active bleeding consider colonscopy to rule out colonic source of blood loss, and endoscopy to evaluate bypass gastric antrum continue full liquid Seen and discussed w/ Dr. Yoder.
--- NOTE | 2018-02-10 15:35 | PN ---
DATE: 02/10/2018 CRITICAL CARE PROGRESS NOTE SUBJECTIVE: This 77-year-old female was examined at the bedside in critical care unit bed 6. She is status post admission for hypotensive hemorrhagic shock where she was noted to have rectal bleeding, hypotension, metabolic encephalopathy and required intubation. 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 She remains in a normal sinus rhythm on the playground monitor and today denied any chest pain or shortness of breath. She did have a bowel movement that was markedly tarry and black in appearance, probably secondary to recent upper intestinal gastrointestinal bleeding. PHYSICAL EXAMINATION: VITAL SIGNS: Temperature is 98.5, respirations 20, pulse 98 and blood pressure 125/82 with pulse ox 97% on room air. playground monitor showed normal sinus rhythm. HEENT: Head normocephalic, atraumatic. Eyes: No icterus. Ears: Clear. Throat: Noninjected. NECK: Supple. HEART: Was regular S1, S2. LUNGS: Clear. ABDOMEN: Soft. EXTREMITIES: No edema. SKIN: Without rash. NEUROLOGICAL: Deconditioned. VASCULAR: Legs warm to touch. PSYCHOLOGICAL: Alert and oriented x3. SKIN: Without rash. LABORATORY DATA: White count 7300; hemoglobin 9.7, previously 10.7 and on admission 5.8; current hematocrit 29.1, on admission 17.1. PT/INR 1.11, PTT 27.9. Sodium 141, K 3.9, chloride 108, bicarb 24, BUN 12, creatinine 1, random blood sugar 191, bilirubin 1.1, AST 80, ALT 48 and alk phos 78. Hepatitis A, B, C serologies are negative. IMPRESSION: A 77-year-old female status post gastrointestinal bleeding, hemorrhagic shock, metabolic encephalopathy improved, respiratory failure improved, now off ventilator with comorbidities of chronic hypertension, insulin-dependent diabetes mellitus, hyperlipidemia, status post gastric bypass for morbid obesity in her past. PLAN: The plan is discussed with intensive care nursing and the patient at bedside will be to continue medium Humulin insulin coverage before meals and at bedtime. She remains on Protonix 40 mg IV daily. She will have her diet advanced to full liquid moderate consistency carbohydrate by dinner time today and we will have serial CBCs given her admission presentation and black stools on physical exam today. She is also scheduled for a comprehensive metabolic panel, magnesium and phosphorus level and is ordered to have physical therapy for reconditioning and gait training. All of the above was discussed in detail with the patient and her nurse, Royce Alicia, registered nurse. Greater than 35 minutes was spent in the intensive care management of this patient today. All questions were answered. Jacqueline Thomas MD MTDD
[2018-02-10] MEDS ORDERED: Oxycodone/Acetaminophen 5/325 mg Tab PO PRN (16:25)
[2018-02-10 16:40] LABS: HEMOGLOBIN 9.7 g/dL (12.0-16.0)
[2018-02-11 07:03] LABS: HEMOGLOBIN 9.8 g/dL (12.0-16.0); MEAN CELL VOLUME 87.8 fl (80.0-105.0); MEAN CORPUSCULAR HEMOGLOBIN 28.6 pg (25.0-35.0); MEAN CORPUSCULAR HGB CONC 32.6 g/dl (31.0-37.0); MEAN PLATELET VOLUME 11.8 fl (7.0-11.0); RBC 3.43 10^6/uL (3.5-6.1); RED CELL DISTRIBUTION WIDTH 14.6 % (11.5-14.5); WHITE BLOOD COUNT 6.8 10^3/ul (4.5-11.0)
[2018-02-11 07:54] LABS: ALB/GLOB RATIO 1.1 (1.1-1.8); ALBUMIN 3.1 g/dL (3.0-4.8); ALT/SGPT 38 U/L (7-56); AST/SGOT 70 U/L (14-36); BLOOD UREA NITROGEN 12 mg/dL (7-21); CALCIUM 8.4 mg/dL (8.4-10.5); GFR AFRICAN-AMERICAN > 60; GFR NON-AFRICAN AMERICAN 54
[2018-02-11] MEDS: Insulin Reg-MEDIUM-Coverage SC SCH ×2 (08:26→12:38)
[2018-02-11 10:37] VITALS: O2SAT 95
--- NOTE | 2018-02-11 11:09 | CP.PCM.PN ---
<Hilary Velez - Last Filed: 02/11/18 15:40> Subjective - Date & Time of Evaluation Date of Evaluation: 02/11/18 Time of Evaluation: 09:00 - Subjective Subjective: PGY-[address] Yoder's service Patient seen and examined at bedside in ICU, telemetry hold. No acute events overnight, chart reviewed. Patient states that she had bowel movement with blood , however less then previous, most likely old blood. Patient denies pain. She is tolerating diet. Objective - Vital Signs/Intake and Output Vital Signs (last 24 hours): Temp Pulse Resp BP Pulse Ox 98.5 F 104 H 22 122/84 95 02/10/18 07:30 02/11/18 10:17 02/11/18 10:17 02/11/18 10:17 02/11/18 10:14 Intake and Output: 02/11/18 02/11/18 06:59 18:59 Intake Total 250 Balance 250 - Medications Medications: Current Medications Acetaminophen (Tylenol 325mg Tab) 650 mg PO Q6H PRN PRN Reason: Headache, or Pain, mild (1-3) Last Admin: 02/10/18 16:41 Dose: 650 mg Insulin Human Regular (Humulin R Med) 0 units SC ACHS AKI PRN Reason: Protocol Last Admin: 02/11/18 08:26 Dose: Not Given Morphine Sulfate (Morphine) 2 mg IVP Q3H PRN PRN Reason: Pain, moderate (4-7) Oxycodone/Acetaminophen (Percocet 5/325 Mg Tab) 1 tab PO Q8 PRN PRN Reason: breakthrough pain Stop: 02/13/18 16:31 Pantoprazole Sodium (Protonix Inj) 40 mg IVP DAILY [facility] Last Admin: 02/11/18 09:35 Dose: Not Given - Labs Labs: 02/11/18 06:00 02/11/18 06:00 PT 12.8 SECONDS (9.4-12.5) H 02/06/18 13:30 INR 1.11 (0.93-1.08) H 02/06/18 13:30 APTT 27.9 Seconds (25.1-36.5) 02/06/18 13:30 - Constitutional Appears: No Acute Distress - Head Exam Head Exam: ATRAUMATIC, NORMOCEPHALIC - Eye Exam Eye Exam: EOMI, Normal appearance - ENT Exam ENT Exam: Mucous Membranes Moist - Respiratory Exam Respiratory Exam: NORMAL BREATHING PATTERN. absent: Respiratory Distress - GI/Abdominal Exam GI & Abdominal Exam: Soft. absent: Distended, Firm, Guarding, Tenderness - Extremities Exam Extremities Exam: Normal Inspection. absent: Pedal Edema, Tenderness - Neurological Exam Neurological Exam: Alert, Awake, Oriented x3 - Skin Skin Exam: Dry, Intact, Normal Color, Warm Assessment and Plan - Assessment and Plan (Free Text) Assessment: 77 yo F with PMH of HLD, HTN, DM, chronic anemia, CAD s/p stent, marginal ulcer , gastric bypass presented to ED due fall at home was found to be hypotensive, bradypnic, and have active bleeding per rectum. Patient was placed in the ICU due to hypotensive shock 2/2 suspected GI bleed. GI bleed, status post hematemesis/hematochezia, Acute on chronic anemia, status post 4 units of packed RBC History of gastric bypass, w/ h/o of anastomotic ulcer esophageal diverticulum Coronary artery disease status post stent Hypertension Diabetes mellitus Plan: s/p transfused total 3 units pRBC continue PPI bid continue to trend h&h, monitor for overt bleeding consider bleeding scan if active bleeding colonscopy later this week to rule out colonic source of blood loss, and endoscopy to evaluate bypass gastric antrum tolerating diet, continue full liquid diet Seen and discussed w/ Dr. Yoder. <Paige Yoder V - Last Filed: 02/11/18 23:41> Objective - Vital Signs/Intake and Output Vital Signs (last 24 hours): Temp Pulse Resp BP Pulse Ox 98.6 F 109 H 22 129/66 95 02/11/18 12:00 02/11/18 12:33 02/11/18 12:33 02/11/18 12:00 02/11/18 10:14 - Labs Labs: 02/11/18 06:00 02/11/18 06:00 PT 12.8 SECONDS (9.4-12.5) H 02/06/18 13:30 INR 1.11 (0.93-1.08) H 02/06/18 13:30 APTT 27.9 Seconds (25.1-36.5) 02/06/18 13:30 Attending/Attestation - Attestation I have personally seen and examined this patient.: Yes I have fully participated in the care of the patient.: Yes I have reviewed all pertinent clinical information, including history, physical exam and plan: Yes Notes (Text): This is an addendum to GI progress report dictated by the Garment Liner.The patient was seen and examined earlier. Medical records, lab studies, imagings were reviewed. Last 24 hours events reviewed. Agreed with the above treatment plan as outlined in Garment Liner 's notes the with the addition of the following 02/11/18 23:36
[2018-02-11 13:02] VITALS: BP 129/66; PULSE 109; RESP 22; TEMP 98.6
--- NOTE | 2018-02-13 09:32 | DS ---
DATE OF EVALUATION; 02/11/2018 HOSPITAL COURSE: The patient left [facility] from the Critical Care Unit on 02/11/2018 AMA. The patient was seen at bedside by Dr. Hu the house physician who also was present with Dr. Richard who works with Dr. Paige Yoder from . The patient signed out against medical advice. She was fully aware of the risks of continued GI bleeding as well as . She was being scheduled for an endoscopy, colonoscopy by Dr. Yoder for 02/13/2018; however, she insisted on discharge and left AMA on the afternoon of 02/11/2018. Jacqueline Thomas MD MTDD
== END 2018-02-11 16:31 | disposition left against medical advice (07) | DRG 377 ==
LOC: ED 05:45 → ERH 07:16 → CCU 08:22
PROVIDERS: ADMIT Internal Medicine; ATTEND Internal Medicine
PROC: 0BH17EZ Insertion of Endotracheal Airway into Trachea, Via Natural or Artificial Opening (ICD-10-PCS; 2018-02-06)
PROC: 05HM33Z Insertion of Infusion Device into Right Internal Jugular Vein, Percutaneous Approach (ICD-10-PCS; 2018-02-06)
PROC: B543ZZA Ultrasonography of Right Jugular Veins, Guidance (ICD-10-PCS; 2018-02-06)
PROC: 3E033XZ Introduction of Vasopressor into Peripheral Vein, Percutaneous Approach (ICD-10-PCS; 2018-02-06)
PROC: 30233K1 Transfusion of Nonautologous Frozen Plasma into Peripheral Vein, Percutaneous Approach (ICD-10-PCS; 2018-02-06)
PROC: 30233N1 Transfusion of Nonautologous Red Blood Cells into Peripheral Vein, Percutaneous Approach (ICD-10-PCS; 2018-02-06)
PROC: 30233R1 Transfusion of Nonautologous Platelets into Peripheral Vein, Percutaneous Approach (ICD-10-PCS; 2018-02-06)
PROC: 0DJ08ZZ Inspection of Upper Intestinal Tract, Via Natural or Artificial Opening Endoscopic (ICD-10-PCS; 2018-02-06)
PROC: 5A1935Z Respiratory Ventilation, Less than 24 Consecutive Hours (ICD-10-PCS; principal; 2018-02-06 12:45)
DX: K31.811 Angiodysplasia of stomach and duodenum with bleeding (principal); G93.41 Metabolic encephalopathy; J96.01 Acute respiratory failure with hypoxia; R57.1 Hypovolemic shock; K72.00 Acute and subacute hepatic failure without coma; R57.8 Other shock; K25.4 Chronic or unspecified gastric ulcer with hemorrhage; I10 Essential (primary) hypertension; E11.51 Type 2 diabetes mellitus with diabetic peripheral angiopathy without gangrene; K28.9 Gastrojejunal ulcer, unspecified as acute or chronic, without hemorrhage or perforation; K21.9 Gastro-esophageal reflux disease without esophagitis; K44.9 Diaphragmatic hernia without obstruction or gangrene; K22.5 Diverticulum of esophagus, acquired; I25.10 Atherosclerotic heart disease of native coronary artery without angina pectoris; M19.90 Unspecified osteoarthritis, unspecified site; E78.5 Hyperlipidemia, unspecified; Z87.891 Personal history of nicotine dependence; Z79.4 Long term (current) use of insulin; Z98.84 Bariatric surgery status; Z95.5 Presence of coronary angioplasty implant and graft

== ENCOUNTER 2018-02-17 12:27 | Inpatient (IN) | payer MEDICARE, BC ==
[2018-02-17 13:12] LABS: BASO # 0.01 K/mm3 (0.0-2.0); BASO % 0.2 % (0.0-3.0); EOS # 0.1 (0.0-0.7); EOS % 0.9 % (1.5-5.0); GRAN # 4.78 (1.4-6.5); GRAN % 75.1 % (50.0-68.0); HEMOGLOBIN 10.3 g/dL (12.0-16.0); LYMPH # 0.8 (1.2-3.4); LYMPH % 13.1 % (22.0-35.0); MEAN CELL VOLUME 88.4 fl (80.0-105.0); MEAN CORPUSCULAR HEMOGLOBIN 29.3 pg (25.0-35.0); MEAN CORPUSCULAR HGB CONC 33.1 g/dl (31.0-37.0); MEAN PLATELET VOLUME 11.3 fl (7.0-11.0); MONO # 0.7 (0.1-0.6); MONO % 10.7 % (1.0-6.0); RBC 3.52 10^6/uL (3.5-6.1); RED CELL DISTRIBUTION WIDTH 14.6 % (11.5-14.5); WHITE BLOOD COUNT 6.4 10^3/ul (4.5-11.0)
[2018-02-17 13:21] LABS: INR 1.17 (0.93-1.08); PROTHROMBIN TIME 13.5 SECONDS (9.4-12.5)
[2018-02-17 13:22] LABS: PARTIAL THROMBOPLASTIN TIME 33.5 Seconds (25.1-36.5)
[2018-02-17 13:24] LABS: ALB/GLOB RATIO 1.3 (1.1-1.8); ALBUMIN 3.5 g/dL (3.0-4.8); CALCIUM 8.7 mg/dL (8.4-10.5)
--- NOTE | 2018-02-17 13:26 | RAD ---
HISTORY: chest pain COMPARISON: 02/06/2018 FINDINGS: LUNGS: No active pulmonary disease. PLEURA: No significant pleural effusion identified, no pneumothorax apparent. CARDIOVASCULAR: Increasing vascular and interstitial congestion OSSEOUS STRUCTURES: No significant abnormalities. VISUALIZED UPPER ABDOMEN: Normal. OTHER FINDINGS: None. IMPRESSION: Increasing vascular and interstitial congestion
--- NOTE | 2018-02-17 13:31 | ED PDOC ---
Arrival/HPI - General Chief Complaint: Chest Pain Time Seen by Provider: 02/17/18 12:31 Historian: Patient - History of Present Illness Narrative History of Present Illness (Text): 02/17/18 13:25 Patient is a 77 yo female, past medical history of recent gastrointestinal hemorrhage, history of prior cad with stents, presents to Emergency Department transferred from [facility] ER with history of abnormal EKG and positive troponin. History obtained from Emergency Physician from outside facility, review of records, and patient. Patient states that she has had dizziness intermittently for several weeks. States that she fell and hit herself "a week ago". States she has been having left sided chest discomfort "since I was in the hospital last time". She is vague on whether she continues to have this discomfort, but states that she has been getting dizzy for several weeks. When questioned if this chest discomfort has changed or gotten worse, she states that "I've been feeling this since the last time I was here". She denies headache. She denies shortness of breath currently. Denies dizziness or lightheadedness. She denies dark or bloody stools. PMD: Dr. Jacqueline Thomas Time/Duration: > week Past Medical History - Past History Past History: No Previous - Infectious Disease Hx of Infectious Diseases: None - Tetanus Immunization Tetanus Immunization: Unknown - Cardiac Hx Hypertension: Yes - Pulmonary Hx Respiratory Disorders: No - Neurological Hx Neurological Disorder: No - HEENT Hx HEENT Disorder: No Other/Comment: reading glasses - Renal Hx Renal Disorder: No - Endocrine/Metabolic Hx Diabetes Mellitus Type 2: Yes - Hematological/Oncological Hx Blood Disorders: Yes Hx Anemia: Yes - Integumentary Hx Dermatological Disorder: No - Musculoskeletal/Rheumatological Hx Falls: Yes - Gastrointestinal Hx Gastrointestinal Disorders: Yes (GI bleed) Other/Comment: Gi Bleed - Genitourinary/Gynecological Hx Hematuria: Yes - Psychiatric Hx Psychophysiologic Disorder: No Hx Substance Use: No - Surgical History Hx Cardiac Catheterization: Yes (cardiac stents) Hx Coronary Stent: Yes Hx Gastric Bypass Surgery: Yes - Anesthesia Hx Anesthesia: Yes - Suicidal Assessment Feels Threatened In Home Enviroment: No Family/Social History Family/Social History: Unknown Family HX Smoking Status: Former Smoker Hx Alcohol Use: No Hx Substance Use: No Hx Substance Use Treatment: No Allergies/Home Meds Allergies/Adverse Reactions: Allergies No Known Allergies Allergy (Verified 02/17/18 12:37) Home Medications: Home Meds Medication Instructions Recorded Confirmed Atorvastatin [Lipitor] 10 mg PO HS 03/04/01/29/18 Insulin Regular, Human [Humulin R] 3 units SC DAILY PRN 08/22/13 01/29/18 Enalapril Maleate 5 mg PO DAILY 10/02/15 01/29/18 Review of Systems - Review of Systems Constitutional: Fatigue. absent: Fevers Respiratory: absent: SOB Cardiovascular: Chest Pain, SANDERS. absent: Edema Gastrointestinal: absent: Abdominal Pain, Diarrhea, Nausea, Vomiting, Hematochezia, Hematemesis Genitourinary Female: absent: Dysuria Musculoskeletal: absent: Back Pain Skin: absent: Rash Neurological: Dizziness. absent: Headache, Focal Weakness Endocrine: absent: Polyuria Hemo/Lymphatic: Easy Bleeding Physical Exam Vital Signs Reviewed: Yes Vital Signs Temp Pulse Resp BP Pulse Ox 02/17/18 15:42 87 18 120/82 100 02/17/18 12:58 96 H 135/90 02/17/18 12:37 98.4 F 100 H 20 135/90 98 Temperature: Afebrile Appearance: Positive for: Well-Appearing, Non-Toxic Pain Distress: Mild Mental Status: Positive for: Alert and Oriented X 3 - Systems Exam Head: Present: Atraumatic Pupils: Present: PERRL Mouth: Present: Moist Mucous Membranes Pharnyx: No: ERYTHEMA Neck: Present: Normal Range of Motion. No: Meningeal Signs Respiratory/Chest: Present: Clear to Auscultation. No: Respiratory Distress Cardiovascular: Present: Regular Rate and Rhythm, Murmurs Abdomen: Present: Normal Bowel Sounds. No: Tenderness, Peritoneal Signs Rectal: No: Gross Blood Back: No: CVA Tenderness Upper Extremity: No: Cyanosis, Edema Lower Extremity: No: Edema, CALF TENDERNESS Neurological: Present: Motor Func Grossly Intact, Normal Sensory Function Skin: Present: Warm Psychiatric: Present: Alert, Oriented x 3 Medical Decision Making ED Course and Treatment: 02/17/18 13:34 Patient's history supplemented by review of her latest admission to CCU in [place], where she was treated for GI bleed and signed out AMA. Patient states she has been having chest pain intermittently for several days/weeks. EKG obtained upon arrival reveals normal sinus rhythm rate of 100, there anterolateral infarct age undetermined. She has stable blood pressure and heart rate and on re-exam denies discomfort. EKG reviewed directly with her academic affairs specialist Dr. Sanchez. She received aspirin and plavix at 1130 at outside facility. Currently denies melena or bloody stools. Given high risks of bleeding from previous admission, anticoagulation reviewed with PMD and academic affairs specialist. Will consult GI. Plan to admit patient to ICU, will review with instantizer operator. 02/17/2018 13:24 Chest X-ray IMPRESSION: Increasing vascular and interstitial congestion. Dictator: Kingston Crow MD 02/17/2018 15:[address] IMPRESSION: No acute findings. Dictator: Kingston Crow MD 02/17/2018 15:10 Ribs X-Ray IMPRESSION: No evidence of left rib fracture. Dictator: Rick Muro MD On re-exam, patient is comfortable. At rest, no chest pain or shortness of breath. Case reviewed with PMD Dr. Thomas. Troponin remains elevated. As she is significant risk of bleeding, and after consultation with consultants , patient will receive aspirin, plavix and beta renée, all given to patient already. Heart rate is 82. As patient with elevated troponin and multiple associated comorbities, will admit to ICU, accepted by Dr. Caro. - Critical Care Critical Care Minutes: 30 minutes - Lab Interpretations Lab Results: 02/17/18 13:07 02/17/18 13:07 Lab Results 02/17/18 13:07: Sodium 140, Potassium 4.5, Chloride 107, Carbon Dioxide 23, Anion Gap 16, BUN 13, Creatinine 1.1, Est GFR ( Amer) 58, Est GFR (Non- Af Amer) 48, Random Glucose 132 H, Calcium 8.7, Total Bilirubin 0.6, AST 36 D, ALT 38, Alkaline Phosphatase 91, Lactate Dehydrogenase 1602 H, Total Creatine Kinase 130, Troponin I 0.82 H* D, NT-Pro-B Natriuret Pep 52318 H, Total Protein 6.4, Albumin 3.5, Globulin 2.8, Albumin/Globulin Ratio 1.3 02/17/18 13:07: PT 13.5 H, INR 1.17 H, APTT 33.5 02/17/18 13:07: WBC 6.4, RBC 3.52, Hgb 10.3 L, Hct 31.1 L, MCV 88.4, MCH 29.3, MCHC 33.1, RDW 14.6 H, Plt Count 313, MPV 11.3 H, Gran % 75.1 H, Lymph % (Auto) 13.1 L, [place] % (Auto) 10.7 H, Eos % (Auto) 0.9 L, Baso % (Auto) 0.2, Gran # 4.78 , Lymph # (Auto) 0.8 L, [place] # (Auto) 0.7 H, Eos # (Auto) 0.1, Baso # (Auto) 0.01 02/17/18 12:40: Blood Type O POSITIVE, Antibody Screen Negative, BBK History Checked Patient has bt I have reviewed the lab results: Yes - RAD Interpretation Radiology Orders: 02/17/18 12:44 CHEST PORTABLE [RAD] Stat Chair Car Driver: Radiologist - EKG Interpretation EKG Interpretation (Text): 02/17/18 17:31 EKG at 12:32 normal sinus rhythm rate of100 with left axis deviation, low voltage qrs, anterolateral infarct age undetermined Interpreted by ED Physician: Yes Type: 12 lead EKG Comparison: Different from prev. EKG - Medication Orders Current Medication Orders: Nitroglycerin/Dextrose (Nitroglycerin 50 Mg/250 Ml D5w) 50 mg in 250 mls @ 1.5 mls/hr IV .Q24H PRN; Protocol; 5 MCG/MIN PRN Reason: chest pain Last Admin: 02/17/18 15:13 Dose: 5 mcg/min, 1.5 mls/hr eMAR Start Stop Document 02/17/18 15:13 SRE (Rec: 02/17/18 15:22 SRE [id number]) Intravenous Solution Start Date 02/17/18 Start Time 15:22 MAR Pulse and Blood Pressure Document 02/17/18 15:13 SRE (Rec: 02/17/18 15:22 SRE [id number]) Pulse Pulse Rate (60-90 beats/min) 85 Blood Pressure Blood Pressure (100/60-150/90 mm Hg) 120/82 Titration Intervention Document 02/17/18 15:13 SRE (Rec: 02/17/18 15:22 SRE [id number]) Titration Intake Waste Amount 0 Container Volume 250 Titration Dosing Titration Dose 5 IV Rate 1.5 Intake/Decrease Started Pantoprazole Sodium (Protonix Inj) 40 mg IVP DAILY AKI Last Admin: 02/17/18 15:13 Dose: 40 mg IVP Administration Document 02/17/18 15:13 SRE (Rec: 02/17/18 15:13 SRE [id number]) Charges for Administration # of IVP Administrations 1 Discontinued Medications Atorvastatin Calcium (Lipitor) 40 mg PO STAT STA Stop: 02/17/18 14:57 Metoprolol Tartrate (Lopressor) 25 mg PO STAT STA Stop: 02/17/18 12:55 Last Admin: 02/17/18 12:58 Dose: 25 mg MAR Pulse and Blood Pressure Document 02/17/18 12:58 SRE (Rec: 02/17/18 12:58 SRE [id number]) Pulse Pulse Rate (60-90 beats/min) 96 Blood Pressure Blood Pressure (100/60-150/90 mm Hg) 135/90 Disposition/Present on Arrival - Present on Arrival Any Indicators Present on Arrival: Yes History of DVT/PE: No History of Uncontrolled Diabetes: No Urinary Catheter: No History of Decub. Ulcer: No History Surgical Site Infection Following: None - Disposition Have Diagnosis and Disposition been Completed?: Yes Diagnosis: Myocardial infarction, Congestive heart failure Disposition: HOSPITALIZED Disposition Time: 13:37 Patient Plan: Admission, ICU Patient Problems: Current Active Problems Problem Status Onset Congestive heart failure Acute Myocardial infarction Acute Condition: CRITICAL
[2018-02-17 14:07] LABS: TROPONIN I 0.82 ng/mL
[2018-02-17] MEDS ORDERED: Nitroglycerin 50mg in D5W 50 MG/250 ML BOTTLE IV PRN (14:57)
--- NOTE | 2018-02-17 15:06 | CT ---
PROCEDURE: CT HEAD WITHOUT CONTRAST. HISTORY: fall COMPARISON: None available. TECHNIQUE: Axial computed tomography images were obtained through the head/brain without intravenous contrast. Radiation dose: Total exam DLP = 719 mGy-cm. This CT exam was performed using one or more of the following dose reduction techniques: Automated exposure control, adjustment of the mA and/or kV according to patient size, and/or use of iterative reconstruction technique. FINDINGS: HEMORRHAGE: No intracranial hemorrhage. BRAIN: No mass effect or edema. Chronic microvascular changes are seen in the periventricular white matter. VENTRICLES: Unremarkable. No hydrocephalus. CALVARIUM: Unremarkable. PARANASAL SINUSES: Unremarkable as visualized. No significant inflammatory changes. MASTOID AIR CELLS: Unremarkable as visualized. No inflammatory changes. OTHER FINDINGS: None. IMPRESSION: No acute findings
--- NOTE | 2018-02-17 15:12 | RAD ---
PROCEDURE: X-ray left ribs HISTORY: fall COMPARISON: None available. TECHNIQUE: Multiple views of the left ribs are submitted. FINDINGS: There is no rib fracture identified. There is no lytic or blastic osseous lesions seen. IMPRESSION: No evidence of left rib fracture.
--- NOTE | 2018-02-17 21:39 | CARD ---
APPROVED REPORT EKG Measurement Heart [id number] <Conclusion> Normal sinus rhythm Left axis deviation Low voltage QRS Inferior infarct, age undetermined Anterolateral infarct, age undetermined Abnormal ECG
--- NOTE | 2018-02-17 21:57 | HP ---
DATE OF EXAM: 02/17/2018 CRITICAL CARE ADMISSION HISTORY OF PRESENT ILLNESS: This 77-year-old female is admitted to critical care at the [facility] after presenting earlier today to the [facility] emergency room in [place], [place], where she complained of chest discomfort. There she was noted to have EKG changes with an elevated troponin requiring further evaluation at which point the patient asked for transfer to the [facility] emergency room. There she was evaluated by Dr. Tristan Woo with whom I have discussed this case in detail. The patient has had a recent gastrointestinal hemorrhage x2, was recently hospitalized at [facility] ICU where she signed AMA prior to clearance by GI who was planning on performing a repeat endoscopy prior to resuming cardiac medication including Ecotrin. She has a history of atherosclerotic heart disease with coronary artery disease and stents under the followup of Dr. Wesley Sanchez from Cardiology. Earlier today, she complained of dizziness and weakness with left-sided chest discomfort which is vague in quality. She states that she has been feeling weak and deconditioned since her last AMA from the [facility] last week and denied any new findings of hematemesis or melena since her most recent hospitalization. PAST MEDICAL HISTORY: Significant for gastric bypass, gastrointestinal hemorrhage x2, insulin-dependent diabetes mellitus, hypertension, anemia and hyperlipidemia. MEDICATIONS: Outpatient medications included Protonix, insulin, enalapril and Lipitor. ALLERGIES: THE PATIENT DENIES ANY MEDICATION ALLERGIES. FAMILY HISTORY: Noncontributory. SOCIAL HISTORY: She is a current nondrinker, nonsmoker, non IV drug misuser. 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 REVIEW OF SYSTEMS: CONSTITUTIONAL REVIEW: Denied fever or chills. HEENT: Head review, denied any loss of consciousness or recent head trauma. Eye review, denied change in visual acuity. Ear review, no hearing loss. Throat review, no swallowing difficulty. NECK REVIEW: No stiffness. CARDIAC REVIEW: Has a history of atherosclerotic heart disease and coronary artery stents. She was found to have an elevated troponin of 0.6 at the [facility] ER earlier this morning. PULMONARY: No cough. No hemoptysis. GI: As per HPI. : No dysuria. SKIN: No rash. No ulcerations. VASCULAR: No claudication. PSYCHOLOGICAL: Chronic anxiety. NEUROLOGICAL: No knowledge of stroke. PHYSICAL EXAMINATION: VITAL SIGNS: At present, temperature 98.4, respirations 20, pulse 96, blood pressure 135/90 with a pulse ox of 98%. HEENT: Head: Normocephalic, atraumatic. Eyes: No icterus. Ears: Clear. Throat: Noninjected. NECK: Supple. HEART: Regular S1, S2. LUNGS: Clear. ABDOMEN: Obese, nontender. No palpable organomegaly. No rebound, no guarding. No tenderness. EXTREMITIES: No edema. SKIN: Without rash. NEUROLOGICAL: Intact. PSYCHOLOGICAL: Alert and oriented. VASCULAR: Legs warm to touch. LABORATORY DATA: White count 6400, hemoglobin 10.3, hematocrit 31.1, platelets 313,000. PT/INR 1.17, PTT 33.5. Sodium 140, K 4.5, chloride 107, bicarb 23, BUN 13, creatinine 1.1, random blood sugar 132. Bilirubin 0.6, AST 36, ALT 38, alk phos 91. CPK 130, normal. Troponin is pending. BNP 14,100. Chest x-ray was reviewed, it shows no active disease, no infiltrate, no pneumonia, no pneumothorax, no pleural effusion. EKG was reviewed with Dr. Woo, it shows a normal sinus rhythm with a pulse rate of approximately 100 with anterior lateral infarct wave changes. This was reviewed with Dr. Sanchez from Cardiology. PLAN: The patient did receive aspirin and Plavix at 11:30 a.m. at [facility] ER and after discussion with Dr. Sanchez and Dr. Woo, the patient will be admitted to critical care. She will have serial CPK, troponins. She will receive metoprolol tartrate 25 mg p.o. x1 dose and will have consultations with Dr. Wesley Sanchez from Cardiology and Dr. Paige Yoder from GI. An appropriate plan of action will probably be to pursue endoscopy and decide on the patient's tolerance for anticoagulation with possible cardiac cath to be timed by Dr. Sanchez from Cardiology. Greater than 75 minutes was spent in the care management, review of labs, orders and x-rays, discussions with ER, the patient, GI and Cardiology consults. All questions were answered. Jacqueline Thomas MD [facility] # [id number] MARTY
[2018-02-18 01:07] VITALS: BMI 26.4
--- NOTE | 2018-02-18 01:09 | CON ---
DATE: 02/17/2018 HISTORY OF PRESENT ILLNESS: The patient is seen and examined at the bedside. She is a 77-year-old lady who was admitted to [facility] several times prior to this admission with massive upper GI bleed complicated by hemorrhagic shock, requiring pressor support, multiple blood product transfusion, intubation for airway protection and serial endoscopies. At this time, the patient came 2 weeks after last episode of upper GI bleed. She is complaining on left-sided chest pain, which unclear whether constant or not. It is changes from dull to sharp. The patient is a poor historian and unable to clearly define quality, aggravating or alleviating factors, but it appears that the patient is having this constant pain for over 2 weeks since she has been discharged last time. Pain is not associated with exertion, physical activity or changing in the position. It is not associated with shortness of breath. The patient does not have cough, fever, chills, sweats, nausea, vomiting, diarrhea. PAST MEDICAL HISTORY: Diabetes type 2, GI bleed, CAD/coronary stents in the past, gastric bypass surgery. SOCIAL HISTORY: No alcohol or illicit drug abuse. The patient is ex-tobacco smoking. HOME MEDICATIONS: Lipitor, insulin, enalapril. ALLERGIES: NKDA. FAMILY HISTORY: Noncontributory. REVIEW OF SYSTEMS: Review of 12-point system other than mentioned in history of present illness is negative. PHYSICAL EXAMINATION: VITAL SIGNS: Blood pressure 135/90, heart rate 96, temperature 98.4, oxygen saturation 98%, respiratory rate 20. HEENT: Head and neck atraumatic. LUNGS: Clear to auscultation bilaterally. HEART: Regular rate and rhythm. S1 and S2 normal. ABDOMEN: Soft, nontender, nondistended. MUSCULOSKELETAL: No C/C/E. Trace to 1+ bilateral pedal and ankle edema. NEUROLOGIC: The patient moves all extremities spontaneously. SKIN: Moist. PSYCHIATRIC: Patient looks tired, but alert and awake. LABORATORY DATA: WBC 6.4, hemoglobin 10.3, platelet count 313. Sodium 140, potassium 4.5, chloride 107, carbon dioxide 23, BUN 13, creatinine 1.1, troponin 0.82. ProBNP 14,100. INR 1.17. ASSESSMENT AND PLAN: This is a 77-year-old lady who presented with troponin leak, EKG changes and presumably cardiac chest pain. After preliminary consultation with Commercial Attorney (as per Emergency Room doctor), Dr. Sanchez decided to avoid TAC out of concern for recent massive upper gastrointestinal bleed with hemorrhagic shock component, patient experienced recently. At present time, the patient will be on aspirin, Plavix (started at [facility], patient is not actively bleeding), beta-blockers, statins. The patient will be evaluated by Gastroenterology and Cardiology service. Risk and benefit of any invasive procedure at present time has to be carefully weighed against each other. The patient is not in cardiogenic or hemorrhagic shock at present time and is not actively bleeding. Whether or not to proceed with cardiac catheterization first or endoscopy first to ascertain lack of high-risk gastric or duodenal ulcer will be deferred to conversation between Cardiology and Gastroenterology service. Meanwhile, the patient is hemodynamically stable. She still has chest pain, however, the pain she had for over 2 weeks. Will start nitroglycerin drip. ccm time 40 min Idris Caro MD MARTY
[2018-02-18 07:07] LABS: BASO # 0.01 K/mm3 (0.0-2.0); BASO % 0.1 % (0.0-3.0); EOS # 0.1 (0.0-0.7); EOS % 1.4 % (1.5-5.0); GRAN # 5.46 (1.4-6.5); GRAN % 74.2 % (50.0-68.0); HEMOGLOBIN 10.1 g/dL (12.0-16.0); LYMPH # 1.2 (1.2-3.4); LYMPH % 15.6 % (22.0-35.0); MEAN CELL VOLUME 88.6 fl (80.0-105.0); MEAN CORPUSCULAR HEMOGLOBIN 28.7 pg (25.0-35.0); MEAN CORPUSCULAR HGB CONC 32.4 g/dl (31.0-37.0); MEAN PLATELET VOLUME 11.4 fl (7.0-11.0); MONO # 0.6 (0.1-0.6); MONO % 8.7 % (1.0-6.0); RBC 3.52 10^6/uL (3.5-6.1); RED CELL DISTRIBUTION WIDTH 14.5 % (11.5-14.5); WHITE BLOOD COUNT 7.4 10^3/ul (4.5-11.0)
[2018-02-18 07:24] LABS: ALB/GLOB RATIO 1.1 (1.1-1.8); ALBUMIN 3.5 g/dL (3.0-4.8); CALCIUM 8.4 mg/dL (8.4-10.5)
--- NOTE | 2018-02-18 10:26 | CP.CCUPN ---
<Joey Baird - Last Filed: 02/18/18 10:21> CCU Subjective - Physician Review Subjective (Free Text): ICU Progress Note Pt seen and examined at bedside. No acute overnight events. Patient states that CP and SOB has resolved. Pt denied CP, SOB, n/v/d, abdominal pain, fever, chills , GONZALES, or dizziness. CCU Objective - Vital Signs / Intake & Output Intake and Output (Last 8hrs): Intake & Output 02/17/18 02/18/18 02/18/18 22:59 06:59 14:59 Intake Total 30 Output Total 300 Balance -270 Weight 69.91 kg Intake: IV 30 Right Antecubital 15 Output: Urine 300 Urine, Voided 300 Other: Voiding Method Bedpan - Physical Exam Head: Positive for: Atraumatic Pupils: Positive for: PERRL Mouth: Positive for: Moist Mucous Membranes Pharnyx: Negative for: ERYTHEMA Neck: Positive for: Normal Range of Motion. Negative for: Meningeal Signs Respiratory/Chest: Positive for: Clear to Auscultation. Negative for: Respiratory Distress, Wheezes, Rales, Rhonchi Cardiovascular: Positive for: Regular Rate and Rhythm, Murmurs. Negative for: Rub, Gallop Abdomen: Positive for: Normal Bowel Sounds. Negative for: Tenderness, Peritoneal Signs Rectal: Negative for: Gross Blood Back: Negative for: CVA Tenderness Upper Extremity: Positive for: Normal Inspection. Negative for: Cyanosis, Edema Lower Extremity: Positive for: Normal Inspection. Negative for: Edema, CALF TENDERNESS Neurological: Positive for: GCS=15, CN II-XII Intact, Motor Func Grossly Intact , Normal Sensory Function Skin: Positive for: Warm Psychiatric: Positive for: Alert, Oriented x 3 - Medications Active Medications: Active Medications Generic Name Dose Route Start Last Admin Trade Name Freq PRN Reason Stop Dose Admin Atorvastatin Calcium 40 mg 02/18/18 17:00 Lipitor PO DIN AKI Metoprolol Tartrate 25 mg 02/18/18 17:00 Lopressor PO BRKDIN AKI Metoprolol Tartrate 25 mg 02/18/18 10:14 Lopressor PO 02/18/18 10:15 ONCE ONE Ondansetron HCl 4 mg 02/18/18 01:36 02/18/18 01:44 Zofran Inj IVP 4 mg Q4H PRN Administration Nausea/Vomiting Pantoprazole Sodium 40 mg 05/29/18 15:00 02/18/18 09:48 Protonix Inj IVP 40 mg DAILY AIK Administration - Patient Studies Lab Studies: Lab Studies 02/18/18 02/18/18 02/18/18 Range/Units 07:27 06:00 06:00 WBC 7.4 (4.5-11.0) 10^3/ul RBC 3.52 (3.5-6.1) 10^6/uL Hgb 10.1 L (12.0-16.0) g/dL Hct 31.2 L (36.0-48.0) % MCV 88.6 (80.0-105.0) fl MCH 28.7 (25.0-35.0) pg MCHC 32.4 (31.0-37.0) g/dl RDW 14.5 (11.5-14.5) % Plt Count 318 (120.0-450.0) 10^3/uL MPV 11.4 H (7.0-11.0) fl Gran % 74.2 H (50.0-68.0) % Lymph % (Auto) 15.6 L (22.0-35.0) % [place] % (Auto) 8.7 H (1.0-6.0) % Eos % (Auto) 1.4 L (1.5-5.0) % Baso % (Auto) 0.1 (0.0-3.0) % Gran # 5.46 (1.4-6.5) Lymph # (Auto) 1.2 (1.2-3.4) [place] # (Auto) 0.6 (0.1-0.6) Eos # (Auto) 0.1 (0.0-0.7) Baso # (Auto) 0.01 (0.0-2.0) K/mm3 Sodium 141 (132-148) mmol/L Potassium 4.2 (3.6-5.0) mmol/L Chloride 107 (98-107) mmol/L Carbon Dioxide 21 (21-33) mmol/L Anion Gap 17 (10-20) BUN 13 (7-21) mg/dL Creatinine 1.1 (0.7-1.2) mg/dl Est GFR ( Amer) 58 Est GFR (Non-Af Amer) 48 POC Glucose (mg/dL) 114 H (65-110) mg/dL Random Glucose 120 H (70-110) mg/dL Calcium 8.4 (8.4-10.5) mg/dL Total Bilirubin 0.4 (0.2-1.3) mg/dL AST 31 (14-36) U/L ALT 34 (7-56) U/L Alkaline Phosphatase 96 (38-126) U/L Troponin I ng/mL Total Protein 6.8 (5.8-8.3) g/dL Albumin 3.5 (3.0-4.8) g/dL Globulin 3.3 gm/dL Albumin/Globulin Ratio 1.1 (1.1-1.8) 02/17/18 02/17/18 Range/Units 22:45 17:56 WBC (4.5-11.0) 10^3/ul RBC (3.5-6.1) 10^6/uL Hgb (12.0-16.0) g/dL Hct (36.0-48.0) % MCV (80.0-105.0) fl MCH (25.0-35.0) pg MCHC (31.0-37.0) g/dl RDW (11.5-14.5) % Plt Count (120.0-450.0) 10^3/uL MPV (7.0-11.0) fl Gran % (50.0-68.0) % Lymph % (Auto) (22.0-35.0) % [place] % (Auto) (1.0-6.0) % Eos % (Auto) (1.5-5.0) % Baso % (Auto) (0.0-3.0) % Gran # (1.4-6.5) Lymph # (Auto) (1.2-3.4) [place] # (Auto) (0.1-0.6) Eos # (Auto) (0.0-0.7) Baso # (Auto) (0.0-2.0) K/mm3 Sodium (132-148) mmol/L Potassium (3.6-5.0) mmol/L Chloride (98-107) mmol/L Carbon Dioxide (21-33) mmol/L Anion Gap (10-20) BUN (7-21) mg/dL Creatinine (0.7-1.2) mg/dl Est GFR ( Amer) Est GFR (Non-Af Amer) POC Glucose (mg/dL) (65-110) mg/dL Random Glucose (70-110) mg/dL Calcium (8.4-10.5) mg/dL Total Bilirubin (0.2-1.3) mg/dL AST (14-36) U/L ALT (7-56) U/L Alkaline Phosphatase (38-126) U/L Troponin I 0.65 H* 0.70 H* ng/mL Total Protein (5.8-8.3) g/dL Albumin (3.0-4.8) g/dL Globulin gm/dL Albumin/Globulin Ratio (1.1-1.8) Laboratory Results - last 24 hr 02/17/18 02/17/18 02/18/18 17:56 22:45 06:00 WBC 7.4 RBC 3.52 Hgb 10.1 L Hct 31.2 L MCV 88.6 MCH 28.7 MCHC 32.4 RDW 14.5 Plt Count 318 MPV 11.4 H Gran % 74.2 H Lymph % (Auto) 15.6 L [place] % (Auto) 8.7 H Eos % (Auto) 1.4 L Baso % (Auto) 0.1 Gran # 5.46 Lymph # (Auto) 1.2 [place] # (Auto) 0.6 Eos # (Auto) 0.1 Baso # (Auto) 0.01 Sodium Potassium Chloride Carbon Dioxide Anion Gap BUN Creatinine Est GFR ( Amer) Est GFR (Non-Af Amer) POC Glucose (mg/dL) Random Glucose Calcium Total Bilirubin AST ALT Alkaline Phosphatase Troponin I 0.70 H* 0.65 H* Total Protein Albumin Globulin Albumin/Globulin Ratio 02/18/18 02/18/18 06:00 07:27 WBC RBC Hgb Hct MCV MCH MCHC RDW Plt Count MPV Gran % Lymph % (Auto) [place] % (Auto) Eos % (Auto) Baso % (Auto) Gran # Lymph # (Auto) [place] # (Auto) Eos # (Auto) Baso # (Auto) Sodium 141 Potassium 4.2 Chloride 107 Carbon Dioxide 21 Anion Gap 17 BUN 13 Creatinine 1.1 Est GFR ( Amer) 58 Est GFR (Non-Af Amer) 48 POC Glucose (mg/dL) 114 H Random Glucose 120 H Calcium 8.4 Total Bilirubin 0.4 AST 31 ALT 34 Alkaline Phosphatase 96 Troponin I Total Protein 6.8 Albumin 3.5 Globulin 3.3 Albumin/Globulin Ratio 1.1 EKG/Cardiology Studies: Cardiology / EKG Studies 02/18/18 EKG [ELECTROCARDIOGRAM] Routine Comment: Reason For Exam: [place] Critical Care Progress Note - Nutrition Nutrition: Nutrition Category Date Time Status Heart Healthy Diet [DIET] Diets 02/17/18 Dinner Active Assessment/Plan - Assessment and Plan (Free Text) Assessment: 77 yo F with PMH of recent GI bleed, HLD, HTN, DM, chronic anemia, CAD s/p stent , marginal ulcer, and gastric bypass was admitted to ICU due to NSTEMI in the setting of recent GI bleed. Cardiology was consulted and determined no AC at this time due to the recent GI bleed. Patient will be transferred to telemetry per cardiology pending stress test and medical management. Plan: Neuro: - AAOx3 - Maintain normothermia CV: - Hemodynamically stable - Troponin 0.82, 0.70, 0.65 - Off nitroglycerin gtt, asymptomatic - Cont Lipitor, Lopressor - Holding ASA at this time due to recent GI bleed - Pending stress test - Echo ordered - Maintain MAP > 65 - Cardiology consulted Pulm: - Maintain O2 > 90% - O2 via NC prn GI: - Protonix for GI PPx - Heart healthy diet Renal: - Monitor electrolytes and replete as needed - Maintain euvolemia Endo: - ISS-low - Accuchecks ACHS - Maintain euglycemia Heme: - Monitor H/H - No AC for DVT PPx at this time due to recent GI bleed Pt seen and discussed in detail with Dr. Perez. Brenton Baird, PGY1 <Jaden Perez - Last Filed: 02/18/18 12:55> CCU Objective - Vital Signs / Intake & Output Intake and Output (Last 8hrs): Intake & Output 02/17/18 02/18/18 02/18/18 22:59 06:59 14:59 Intake Total 30 Output Total 300 Balance -270 Weight 154 lb 2 oz Intake: IV 30 Right Antecubital 15 Output: Urine 300 Urine, Voided 300 Other: Voiding Method Bedpan - Medications Active Medications: Active Medications Generic Name Dose Route Start Last Admin Trade Name Freq PRN Reason Stop Dose Admin Atorvastatin Calcium 40 mg 02/18/18 17:00 Lipitor PO DIN [facility] Insulin Human Regular 0 units 02/18/18 11:30 Humulin R Low SC ACHS [facility] Protocol Metoprolol Tartrate 25 mg 02/18/18 17:00 Lopressor PO BRKDIN [facility] Ondansetron HCl 4 mg 02/18/18 01:36 02/18/18 01:44 Zofran Inj IVP 4 mg Q4H PRN Administration Nausea/Vomiting Pantoprazole Sodium 40 mg 02/19/18 07:30 Protonix Ec Tab PO ACB [facility] - Patient Studies Lab Studies: Lab Studies 02/18/18 02/18/18 02/18/18 Range/Units 11:18 07:27 06:00 WBC (4.5-11.0) 10^3/ul RBC (3.5-6.1) 10^6/uL Hgb (12.0-16.0) g/dL Hct (36.0-48.0) % MCV (80.0-105.0) fl MCH (25.0-35.0) pg MCHC (31.0-37.0) g/dl RDW (11.5-14.5) % Plt Count (120.0-450.0) 10^3/uL MPV (7.0-11.0) fl Gran % (50.0-68.0) % Lymph % (Auto) (22.0-35.0) % [place] % (Auto) (1.0-6.0) % Eos % (Auto) (1.5-5.0) % Baso % (Auto) (0.0-3.0) % Gran # (1.4-6.5) Lymph # (Auto) (1.2-3.4) [place] # (Auto) (0.1-0.6) Eos # (Auto) (0.0-0.7) Baso # (Auto) (0.0-2.0) K/mm3 Sodium 141 (132-148) mmol/L Potassium 4.2 (3.6-5.0) mmol/L Chloride 107 (98-107) mmol/L Carbon Dioxide 21 (21-33) mmol/L Anion Gap 17 (10-20) BUN 13 (7-21) mg/dL Creatinine 1.1 (0.7-1.2) mg/dl Est GFR ( Amer) 58 Est GFR (Non-Af Amer) 48 POC Glucose (mg/dL) 183 H 114 H (65-110) mg/dL Random Glucose 120 H (70-110) mg/dL Calcium 8.4 (8.4-10.5) mg/dL Total Bilirubin 0.4 (0.2-1.3) mg/dL AST 31 (14-36) U/L ALT 34 (7-56) U/L Alkaline Phosphatase 96 (38-126) U/L Troponin I ng/mL Total Protein 6.8 (5.8-8.3) g/dL Albumin 3.5 (3.0-4.8) g/dL Globulin 3.3 gm/dL Albumin/Globulin Ratio 1.1 (1.1-1.8) 02/18/18 02/17/18 02/17/18 Range/Units 06:00 22:45 17:56 WBC 7.4 (4.5-11.0) 10^3/ul RBC 3.52 (3.5-6.1) 10^6/uL Hgb 10.1 L (12.0-16.0) g/dL Hct 31.2 L (36.0-48.0) % MCV 88.6 (80.0-105.0) fl MCH 28.7 (25.0-35.0) pg MCHC 32.4 (31.0-37.0) g/dl RDW 14.5 (11.5-14.5) % Plt Count 318 (120.0-450.0) 10^3/uL MPV 11.4 H (7.0-11.0) fl Gran % 74.2 H (50.0-68.0) % Lymph % (Auto) 15.6 L (22.0-35.0) % [place] % (Auto) 8.7 H (1.0-6.0) % Eos % (Auto) 1.4 L (1.5-5.0) % Baso % (Auto) 0.1 (0.0-3.0) % Gran # 5.46 (1.4-6.5) Lymph # (Auto) 1.2 (1.2-3.4) [place] # (Auto) 0.6 (0.1-0.6) Eos # (Auto) 0.1 (0.0-0.7) Baso # (Auto) 0.01 (0.0-2.0) K/mm3 Sodium (132-148) mmol/L Potassium (3.6-5.0) mmol/L Chloride (98-107) mmol/L Carbon Dioxide (21-33) mmol/L Anion Gap (10-20) BUN (7-21) mg/dL Creatinine (0.7-1.2) mg/dl Est GFR ( Amer) Est GFR (Non-Af Amer) POC Glucose (mg/dL) (65-110) mg/dL Random Glucose (70-110) mg/dL Calcium (8.4-10.5) mg/dL Total Bilirubin (0.2-1.3) mg/dL AST (14-36) U/L ALT (7-56) U/L Alkaline Phosphatase (38-126) U/L Troponin I 0.65 H* 0.70 H* ng/mL Total Protein (5.8-8.3) g/dL Albumin (3.0-4.8) g/dL Globulin gm/dL Albumin/Globulin Ratio (1.1-1.8) Laboratory Results - last 24 hr 02/17/18 02/17/18 02/18/18 17:56 22:45 06:00 WBC 7.4 RBC 3.52 Hgb 10.1 L Hct 31.2 L MCV 88.6 MCH 28.7 MCHC 32.4 RDW 14.5 Plt Count 318 MPV 11.4 H Gran % 74.2 H Lymph % (Auto) 15.6 L [place] % (Auto) 8.7 H Eos % (Auto) 1.4 L Baso % (Auto) 0.1 Gran # 5.46 Lymph # (Auto) 1.2 [place] # (Auto) 0.6 Eos # (Auto) 0.1 Baso # (Auto) 0.01 Sodium Potassium Chloride Carbon Dioxide Anion Gap BUN Creatinine Est GFR ( Amer) Est GFR (Non-Af Amer) POC Glucose (mg/dL) Random Glucose Calcium Total Bilirubin AST ALT Alkaline Phosphatase Troponin I 0.70 H* 0.65 H* Total Protein Albumin Globulin Albumin/Globulin Ratio 02/18/18 02/18/18 02/18/18 06:00 07:27 11:18 WBC RBC Hgb Hct MCV MCH MCHC RDW Plt Count MPV Gran % Lymph % (Auto) [place] % (Auto) Eos % (Auto) Baso % (Auto) Gran # Lymph # (Auto) [place] # (Auto) Eos # (Auto) Baso # (Auto) Sodium 141 Potassium 4.2 Chloride 107 Carbon Dioxide 21 Anion Gap 17 BUN 13 Creatinine 1.1 Est GFR ( Amer) 58 Est GFR (Non-Af Amer) 48 POC Glucose (mg/dL) 114 H 183 H Random Glucose 120 H Calcium 8.4 Total Bilirubin 0.4 AST 31 ALT 34 Alkaline Phosphatase 96 Troponin I Total Protein 6.8 Albumin 3.5 Globulin 3.3 Albumin/Globulin Ratio 1.1 EKG/Cardiology Studies: Cardiology / EKG Studies 02/18/18 EKG [ELECTROCARDIOGRAM] Routine Comment: Reason For Exam: [place] Critical Care Progress Note - Nutrition Nutrition: Nutrition Category Date Time Status Heart Healthy Diet [DIET] Diets 02/17/18 Dinner Active Assessment/Plan - Assessment and Plan (Free Text) Plan: Patient seen and examined on rounds with resident, agree with note with following additions/exceptions: Patient is 77 yo F with PMH of recent GI bleed, HLD, HTN, DM, chronic anemia, CAD s/p stent, marginal ulcer, and gastric bypass was admitted to ICU for minimally elevated troponins. Labs, and imaging reviewed Patient afebrile, HD stable, comfortable in NAD. Troponin, now downtrending, pt denies CP, SOB. Hgb stable, no active signs of bleeding. DC nitro, HOLD ASA due hx of GIB Follow up cardiology follow up ECHO Stable, transfer to telemetry
[2018-02-18] MEDS: Insulin Reg-LOW-Coverage SC SCH ×3 (11:30→22:17)
--- NOTE | 2018-02-18 12:23 | CP.PCM.CON ---
<Sujey Tafoya - Last Filed: 02/18/18 12:18> History of Present Illness - History of Present Illness History of Present Illness: Seen and examined at the bedside earlier today, chart reviewed. Request for GI consult is for history of GI bleed/VT. HPI: This is a 77-year-old female with a past medical history of diabetes mellitus, GI bleed, hypertension , this patient is known to our .service on previous admissions. This patient came to the emergency room with complaints of chest discomfort, patient endorses that she's been having this discomfort for a while, in the emergency room she was noted to have elevated troponin and EKG changes. This patient has recently been followed by our service. Initially this patient was seen by our service on , patient was admitted with syncopal episode and had an episode of hematocrit nieces. The patient had an endoscopy on 01/29/18 found to have nonbleeding jejunal ulcer with visible vessel status post clips. The patient had complained of hearing construction working in was abdomen on leaving and left AMA. The patient was then admitted back on 01/29/2018 for GI bleed, the patient was evaluated and sent stable for discharge home on 02/01/2018 to follow up outpatient. On the patient returned to the emergency room with complaints of rectal bleeding became hypotensive was intubated and in ICU. She was extubated and status improved and transferred out. She had a repeat endoscopy on 02/06 found to have GI bleed, the patient was to be scheduled for colonoscopy for further evaluation and patient abdomen again on leaving left AMA on 02/11/2018. Patient endorsed that she fell at home, no LOC, rib xray was negative for fracture and ct ehad was negativ for bleed or infarct. Currently patient denies any nausea, vomiting, shortness of breath or chest pain. No complaints of hematemesis or melena or bright red blood per rectum. Her last bowel movement was at least 3 days ago it was a small amount as per patient because she wasn't eating much but it was brown in color. So far this morning she tolerated her breakfast with no complaints. It was noted in PCP note, patient did receive Aspirin and Plavix at [facility]. PMH: HLD, HTN, DM, chronic anemia, CAD s/p stent, marginal ulcer, gastric bypass Surg: Gastric bypass (2006), cardiac catherization, EGD/colonscopy All: NKDA Medications: Reviewed as per MAR Family history: Noncontributory Social history: Denies tobacco use, EtOH or illicit drugs ROS: Systems review took positive findings see HPI Past Patient History - Infectious Disease Hx of Infectious Diseases: None - Tetanus Immunizations Tetanus Immunization: Unknown - Past Social History Smoking Status: Never Smoked - CARDIAC Hx Angina: Yes Hx Hypercholesterolemia: Yes Hx Hypertension: Yes Hx Peripheral Vascular Disease: Yes - PULMONARY Hx Asthma: Yes Hx Pneumonia: Yes - NEUROLOGICAL Hx Dizziness: Yes (syncope) - HEENT Hx HEENT Problems: No Other/Comment: reading glasses, with upper and lower dentures - RENAL Hx Chronic Kidney Disease: No - ENDOCRINE/METABOLIC Hx Endocrine Disorders: Yes Hx Diabetes Mellitus Type 2: Yes Hx Hyperthyroidism: Yes - HEMATOLOGICAL/ONCOLOGICAL Hx Blood Disorders: Yes Hx Anemia: Yes Other/Comment: had blood transfusion 2010 - INTEGUMENTARY Hx Dermatological Problems: No - MUSCULOSKELETAL/RHEUMATOLOGICAL Hx Arthritis: Yes Hx Back Pain: Yes Hx Falls: Yes - GASTROINTESTINAL Hx Gastrointestinal Disorders: Yes (GI bleed) Other/Comment: Gi Bleed - GENITOURINARY/GYNECOLOGICAL Hx Hematuria: Yes - PSYCHIATRIC Hx Psychophysiologic Disorder: No - SURGICAL HISTORY Hx Cardiac Catheterization: Yes (cardiac stents) Hx Coronary Stent: Yes Hx Gastric Bypass Surgery: Yes Other/Comment: cardiac cath - ANESTHESIA Hx Anesthesia: Yes Meds Allergies/Adverse Reactions: Allergies Allergy/AdvReac Type Severity Reaction Status Date / Time No Known Allergies Allergy Verified 02/17/18 12:37 - Medications Medications: Current Medications Atorvastatin Calcium (Lipitor) 40 mg PO DIN KAI Insulin Human Regular (Humulin R Low) 0 units SC ACHS AKI PRN Reason: Protocol Metoprolol Tartrate (Lopressor) 25 mg PO BRKDIN AKI Ondansetron HCl (Zofran Inj) 4 mg IVP Q4H PRN PRN Reason: Nausea/Vomiting Last Admin: 02/18/18 01:44 Dose: 4 mg Pantoprazole Sodium (Protonix Ec Tab) 40 mg PO ACB [facility] Physical Exam - Constitutional Appears: No Acute Distress - Head Exam Head Exam: NORMOCEPHALIC - Eye Exam Eye Exam: Normal appearance. absent: Scleral icterus - ENT Exam ENT Exam: Mucous Membranes Moist - Neck Exam Neck exam: Positive for: Normal Inspection - Respiratory Exam Respiratory Exam: Clear to Auscultation Bilateral, NORMAL BREATHING PATTERN. absent: Respiratory Distress - Cardiovascular Exam Cardiovascular Exam: +S1, +S2 - GI/Abdominal Exam GI & Abdominal Exam: Normal Bowel Sounds, Soft, Tenderness (mid lower abdomen). absent: Guarding, Organomegaly, Rebound - Extremities Exam Extremities exam: Positive for: pedal edema, pedal pulses present. Negative for : calf tenderness - Neurological Exam Neurological exam: Alert, Oriented x3 - Skin Skin Exam: Dry, Warm Results - Vital Signs Recent Vital Signs: Last Vital Signs Temp 97.9 F 02/18/18 04:00 Pulse 90 02/18/18 06:00 Resp 17 02/18/18 06:00 BP 116/77 02/18/18 06:00 Pulse Ox 100 02/18/18 06:00 - Labs Result Diagrams: 02/18/18 06:00 02/18/18 06:00 Labs: Laboratory Results - last 24 hr 02/17/18 02/17/18 02/18/18 17:56 22:45 06:00 WBC 7.4 RBC 3.52 Hgb 10.1 L Hct 31.2 L MCV 88.6 MCH 28.7 MCHC 32.4 RDW 14.5 Plt Count 318 MPV 11.4 H Gran % 74.2 H Lymph % (Auto) 15.6 L Gladwin % (Auto) 8.7 H Eos % (Auto) 1.4 L Baso % (Auto) 0.1 Gran # 5.46 Lymph # (Auto) 1.2 Gladwin # (Auto) 0.6 Eos # (Auto) 0.1 Baso # (Auto) 0.01 Sodium Potassium Chloride Carbon Dioxide Anion Gap BUN Creatinine Est GFR ( Amer) Est GFR (Non-Af Amer) POC Glucose (mg/dL) Random Glucose Calcium Total Bilirubin AST ALT Alkaline Phosphatase Troponin I 0.70 H* 0.65 H* Total Protein Albumin Globulin Albumin/Globulin Ratio 02/18/18 02/18/18 02/18/18 06:00 07:27 11:18 WBC RBC Hgb Hct MCV MCH MCHC RDW Plt Count MPV Gran % Lymph % (Auto) Gladwin % (Auto) Eos % (Auto) Baso % (Auto) Gran # Lymph # (Auto) Gladwin # (Auto) Eos # (Auto) Baso # (Auto) Sodium 141 Potassium 4.2 Chloride 107 Carbon Dioxide 21 Anion Gap 17 BUN 13 Creatinine 1.1 Est GFR ( Amer) 58 Est GFR (Non-Af Amer) 48 POC Glucose (mg/dL) 114 H 183 H Random Glucose 120 H Calcium 8.4 Total Bilirubin 0.4 AST 31 ALT 34 Alkaline Phosphatase 96 Troponin I Total Protein 6.8 Albumin 3.5 Globulin 3.3 Albumin/Globulin Ratio 1.1 Assessment & Plan - Assessment and Plan (Free Text) Assessment: Assessment: Myocardial infarction CHF History of GI bleed/jejunal ulcer with visible vessel status post clips Anemia Hypertension Insulin-dependent diabetes mellitus Plan: Diet as tolerated Trend H&H and monitor for overt GI bleed Continue PPI as per Cardiology pending echo Patient will need anticoagulation, this patient has history of jejunal ulcer w/ visible vessel w/ clips. Last admission patient was planned for colonoscopy but left AMA. This patient will be high risk due to current events for any GI procedure, will have to discuss with cardiology. Thank you for this consult and for lactose of participate in your patient's care , further recommendations based upon clinical course. Seen and discussed with Dr. Yoder. <Paige Yoder V - Last Filed: 02/18/18 22:11> Meds - Medications Medications: Current Medications Atorvastatin Calcium (Lipitor) 40 mg PO DIN [facility] Last Admin: 02/18/18 18:13 Dose: 40 mg Insulin Human Regular (Humulin R Low) 0 units SC ACHS [facility] PRN Reason: Protocol Last Admin: 02/18/18 16:30 Dose: Not Given Metoprolol Tartrate (Lopressor) 25 mg PO BRKDIN [facility] Last Admin: 02/18/18 18:13 Dose: 25 mg Ondansetron HCl (Zofran Inj) 4 mg IVP Q4H PRN PRN Reason: Nausea/Vomiting Last Admin: 02/18/18 01:44 Dose: 4 mg Pantoprazole Sodium (Protonix Ec Tab) 40 mg PO ACB [facility] Results - Vital Signs Recent Vital Signs: Last Vital Signs Temp 97.9 F 02/18/18 04:00 Pulse 85 02/18/18 20:50 Resp 22 02/18/18 20:50 BP 107/63 02/18/18 18:13 Pulse Ox 92 L 02/18/18 20:50 - Labs Result Diagrams: 02/18/18 06:00 02/18/18 06:00 Labs: Laboratory Results - last 24 hr 02/17/18 02/18/18 02/18/18 22:45 06:00 06:00 WBC 7.4 RBC 3.52 Hgb 10.1 L Hct 31.2 L MCV 88.6 MCH 28.7 MCHC 32.4 RDW 14.5 Plt Count 318 MPV 11.4 H Gran % 74.2 H Lymph % (Auto) 15.6 L Gladwin % (Auto) 8.7 H Eos % (Auto) 1.4 L Baso % (Auto) 0.1 Gran # 5.46 Lymph # (Auto) 1.2 Gladwin # (Auto) 0.6 Eos # (Auto) 0.1 Baso # (Auto) 0.01 Sodium 141 Potassium 4.2 Chloride 107 Carbon Dioxide 21 Anion Gap 17 BUN 13 Creatinine 1.1 Est GFR ( Amer) 58 Est GFR (Non-Af Amer) 48 POC Glucose (mg/dL) Random Glucose 120 H Calcium 8.4 Total Bilirubin 0.4 AST 31 ALT 34 Alkaline Phosphatase 96 Troponin I 0.65 H* Total Protein 6.8 Albumin 3.5 Globulin 3.3 Albumin/Globulin Ratio 1.1 02/18/18 02/18/18 02/18/18 07:27 11:18 16:11 WBC RBC Hgb Hct MCV MCH MCHC RDW Plt Count MPV Gran % Lymph % (Auto) Gladwin % (Auto) Eos % (Auto) Baso % (Auto) Gran # Lymph # (Auto) Gladwin # (Auto) Eos # (Auto) Baso # (Auto) Sodium Potassium Chloride Carbon Dioxide Anion Gap BUN Creatinine Est GFR ( Amer) Est GFR (Non-Af Amer) POC Glucose (mg/dL) 114 H 183 H 171 H Random Glucose Calcium Total Bilirubin AST ALT Alkaline Phosphatase Troponin I Total Protein Albumin Globulin Albumin/Globulin Ratio Attending/Attestation - Attestation I have personally seen and examined this patient.: Yes I have fully participated in the care of the patient.: Yes I have reviewed all pertinent clinical information: Yes Notes (Text): This is an addendum to GI consult report dictated by Sujey Tafoya APN.The patient was seen and examined earlier. Medical records, lab studies, imagings were reviewed. Last 24 hours events reviewed. 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 Patient would benefit from coy to further evaluate the cause of anemia in addition to the above ulcer and to rule out any colonicof blood loss. Would consider colonoscopic evaluation on Friday if optimized by the cardiology 02/18/18 22:01
--- NOTE | 2018-02-18 13:06 | PN ---
DATE: 02/18/2018 CRITICAL CARE PROGRESS NOTE SUBJECTIVE: This 77-year-old female remains in critical care unit bed #4 at the [facility]. She was admitted with chest pain and has comorbidities of chronic hypertension, hyperlipidemia, insulin-dependent diabetes mellitus and a recent critical care hospitalization for hemorrhagic stroke that was life-threatening. During that previous hospital stay 1 week ago, the patient was intubated on IV pressors and received blood transfusions as well as endoscopy and cauterization and clipping of bleeding gastric blood vessels. The patient left AMA on that visit and re-presented to the [facility] ER with complaints of chest discomfort. The patient does have a significant past medical history of atherosclerotic heart disease and is status post coronary artery stenting in her past. PHYSICAL EXAMINATION: GENERAL: At present, the patient remains alert and oriented x3. VITAL SIGNS: Temperature of 97.9, respirations 17, pulse 90 and blood pressure 116/77 with a pulse ox of 100% on room air. HEENT: Head is normocephalic, atraumatic. Eyes: No icterus. Ears: Clear. Throat: Noninjected. NECK: Supple. HEART: Regular S1, S2. LUNGS: Clear. ABDOMEN: Obese. EXTREMITIES: No edema. SKIN: Without rash. NEUROLOGICAL: Intact. PSYCHOLOGICAL: Alert and anxious. VASCULAR: Legs warm to touch. LABORATORY DATA: White count 7400, hemoglobin 10.1, hematocrit 31.2, platelets 318,000. PT/INR 1.17, PTT 33.5. Sodium 141, K 4.2, chloride 107, bicarb 21, BUN 13, creatinine 1.1, random blood sugar 120. Bilirubin 0.4, AST 31, ALT 34, alk phos 96. Troponin #1 of 0.82. Troponin #2 of 0.70. Troponin #3 of 0.65. Chest x-ray was reviewed. It showed no active disease. No infiltrate, no effusion, no pneumothorax, no congestive heart failure. EKG was reviewed. It shows signs of an anterior lateral wall infarct, age undetermined. Head CT was reviewed. It showed no acute findings. No intracranial hemorrhage. No hydrocephalous. No mass effect or edema. Left anterior rib x-rays were reviewed. There was no fracture identified. No lytic or blastic osseous lesions were seen. IMPRESSION: A 77-year-old female admitted with chest pain, rule out unstable angina, rule out subendocardial and myocardial infarction with comorbidities of recent hemorrhagic shock secondary to gastrointestinal bleeding for which the patient was admitted to this intensive care unit last week and signed against medical advice and still requires Gastroenterology evaluation with endoscopy and push enteroscopy as per Dr. Paige Yoder from . Also with comorbidities of history of coronary artery stents, hyperlipidemia, hypertension, peptic ulcer disease with gastroesophageal reflux disease and insulin-dependent diabetes mellitus. PLAN: My plans are to continue Lipitor 40 mg p.o. at dinnertime, Lopressor 25 mg p.o. b.i.d., Protonix 40 mg IV daily and regular low-dose insulin protocol before mealtime and at bedtime. The patient is scheduled for a comprehensive metabolic panel and CBC in the a.m. She is ordered to have a 2-D echocardiogram for evaluation of wall motion and ejection fraction. She continues on a heart-healthy soft bland diabetic diet and is to be scheduled for endoscopy and colonoscopy by Dr. Paige Yoder from once cleared by Cardiology, Dr. Sanchez for this admission with chest pain and elevated troponins. All of the above was discussed in detail with Dr. Sanchez, Dr. Yoder, Dr. Caro, spring encaser and patient. Greater than 60 minutes was spent in the critical care management of this patient today, outlining of orders and discussion with co-consultants and the patient. All questions were answered. Jacqueline Thomas MD MARTY
--- NOTE | 2018-02-18 16:44 | CARD ---
APPROVED REPORT EKG Measurement Heart [id number] <Conclusion> Sinus rhythm with premature atrial complexes Left axis deviation Inferior infarct, age undetermined Anterolateral infarct, age undetermined Prolonged QT Abnormal ECG
--- NOTE | 2018-02-18 17:50 | CON ---
DATE: 02/18/2018 REQUESTING PHYSICIAN: Jacqueline Thomas MD. REASON FOR CONSULTATION: Myocardial infarction. HISTORY: This is a 77-year-old woman, well-known to me with coronary artery disease, status post prior multivessel PCI and recent gastrointestinal bleeding, who presented to [facility] Emergency Room yesterday with complaints of chest discomfort. Troponin was noted to be elevated and an electrocardiogram showed possible recent anterior wall myocardial infarction and she was transferred to the emergency room for admission. She states that she has been having chest pain on and off for the past several weeks. She seems somewhat distracted when answering questions and gives variable answers. She denies any chest pain at present. She was admitted earlier this month with gastrointestinal bleeding requiring transfusion. Her hemoglobin had fallen to 5.8. She signed out against medical advice and did not have her GI workup completed. Based upon her presentation, Dr. Yoder had recommended avoidance of all antiplatelet therapy agents and remains off aspirin. Her initial troponin was 0.82 and repeat is 0.65. She has a longstanding history of coronary artery disease and has undergone prior multivessel PCI. She also has a history of peripheral vascular disease with prior interventions as well. She also has undergone prior gastric bypass surgery with significant weight loss. She does have a longstanding hypertension, diabetes as well as chronic peptic ulcer disease. She has required transfusions multiple times in the past. She also has a history of hyperlipidemia and diverticulosis. CURRENT MEDICATIONS: Include Protonix and Zofran. To this point in time, she has not been placed on a beta-renée. ALLERGIES: NONE. SOCIAL HISTORY: She is a former smoker. She denies alcohol use. FAMILY HISTORY: Both parents from age-related illness. REVIEW OF SYSTEMS: A 10-point review of systems is notable for mainly the problems mentioned above. PHYSICAL EXAMINATION: GENERAL: She is an elderly woman, appears comfortable at rest, but appears somewhat confused at times. VITAL SIGNS: Her blood pressure 116/76 with a pulse of 90, respirations are 16. She is in sinus rhythm and she is afebrile. HEENT: Head normocephalic, atraumatic. NECK: Supple. No JVD noted. CHEST: Few scattered rhonchi heard. HEART: PMI displaced laterally with soft systolic murmur present at left sternal border. ABDOMEN: Soft and nontender. Normoactive bowel sounds. EXTREMITIES: Trace ankle edema. SKIN: Warm and dry. PSYCHIATRIC: Normal mood and affect. NEUROLOGIC: Alert and oriented to person and place. She initially thought that it was December. SKIN: Warm and dry. DIAGNOSTIC DATA: Potassium 4.5, BUN and creatinine 13 and 1.1, glucose 132, CK 130. Troponin 0.82, followed by 0.70 and 0.65. BNP 14,100. PT, PTT 13.5 and 33.5. White count 6.4, hemoglobin and hematocrit 10.3 and 31.1 with a platelet count of 313,000. Electrocardiogram reveals sinus rhythm with loss of R waves across the precordium consistent with a recent anterolateral wall myocardial infarction pattern. A prior inferior wall myocardial infarction pattern cannot be excluded either. Chest x-ray reveals normal cardiac silhouette with mildly increased vascular markings. IMPRESSION: 1. Subacute anterior wall myocardial infarction, currently with no chest pain. Management is going to be extremely limited because of recent major gastrointestinal bleeding and inability to safely administer antiplatelet therapy. With this in mind, cardiac catheterization will be deferred for now. 2. History of hypertension and diabetes. 3. Recurrent gastrointestinal bleeding, source remains unclear at present. Rest of problems as above. RECOMMENDATIONS: Initiation of beta-renée therapy is advised at this time. Maximization of dosing to the point allowed by her blood pressure is advised as well. An echocardiogram will be obtained to evaluate LV size and function. Wall motion abnormalities will be evaluated as well. A pharmacologic stress test will be recommended to assess the size of her infarct and screen for any residual ischemia. GI evaluation for her cause of bleeding is advised. If there is any possible intervention which can be performed to address her GI bleeding, this would be preferable. If she were to be able to take antiplatelet therapy, cardiac catheterization can be reconsidered. The need for medical compliance and compliance with the recommendation of her doctors was discussed with her as well. Thank you for this consultation. We will be happy to follow long throughout her hospital course. Wesley Sanchez MD
[2018-02-19 07:32] LABS: BASO # 0.01 K/mm3 (0.0-2.0); BASO % 0.1 % (0.0-3.0); EOS # 0.1 (0.0-0.7); EOS % 0.7 % (1.5-5.0); GRAN # 5.84 (1.4-6.5); GRAN % 78.1 % (50.0-68.0); HEMOGLOBIN 10.7 g/dL (12.0-16.0); LYMPH % 12.7 % (22.0-35.0); MEAN CELL VOLUME 88.3 fl (80.0-105.0); MEAN CORPUSCULAR HEMOGLOBIN 28.5 pg (25.0-35.0); MEAN CORPUSCULAR HGB CONC 32.2 g/dl (31.0-37.0); MEAN PLATELET VOLUME 11.3 fl (7.0-11.0); MONO # 0.6 (0.1-0.6); MONO % 8.4 % (1.0-6.0); RBC 3.76 10^6/uL (3.5-6.1); RED CELL DISTRIBUTION WIDTH 14.5 % (11.5-14.5); WHITE BLOOD COUNT 7.5 10^3/ul (4.5-11.0)
[2018-02-19] MEDS ORDERED: Aminophylline 25 mg/ml Inj ONE (07:36)
[2018-02-19 07:39] LABS: ALB/GLOB RATIO 1.2 (1.1-1.8); ALBUMIN 3.9 g/dL (3.0-4.8); CALCIUM 8.8 mg/dL (8.4-10.5)
--- NOTE | 2018-02-19 07:44 | CARD ---
APPROVED REPORT EXAM: Two-dimensional and M-mode echocardiogram with Doppler and color Doppler. Other Information Quality : GoodRhythm : INDICATION Dyspnea Chest Pain , RECENT ACUTE MO 2D DIMENSIONS Left Atrium (2D)4.1 (1.6-4.0cm)IVSd1.4 (0.7-1.1cm) LVDd5.4 (3.9-5.9cm)PWd1.2 (0.7-1.1cm) LVDs4.8 (2.5-4.0cm)FS (%) 10.8 % LVEF (%)23.4 (>50%) M-Mode DIMENSIONS Aortic Root2.60 (2.2-3.7cm)Aortic Cusp Exc.1.50 (1.5-2.0cm) Aortic Valve AoV Peak Lulzmsog155.0cm/Lisa Peak GR.7mmHg Mitral Valve MV E Imtfjrdp20.8cm/sMV A Uncvgulq61.1cm/sE/A ratio1.2 TDI E/Lateral E'0.0E/Medial E'0.0 Tricuspid Valve TR Peak Vyaytanz241oj/sRAP [id number] Peak Gr.37mmHg [id number] LEFT VENTRICLE The left ventricle is normal size. There is normal left ventricular wall thickness except the septum appears thinned. Left ventricle systolic function is severely impaired. The Ejection Fraction is 20-25%. There is severe global hypokinesis. RIGHT VENTRICLE The right ventricle is normal size. ATRIA The left atrium is mildly dilated. The right atrium size is normal. The interatrial septum is intact with no evidence for an atrial septal defect. AORTIC VALVE The aortic valve is normal in structure. There is trace aortic regurgitation. MITRAL VALVE The mitral valve is normal in structure. Mitral regurgitation is moderate. TRICUSPID VALVE The tricuspid valve is normal in structure. There is moderate tricuspid regurgitation. There is moderate pulmonary hypertension. There is mild-moderate pulmonary hypertension. PULMONIC VALVE The pulmonary valve is normal in structure. GREAT VESSELS The aortic root is normal in size. PERICARDIAL EFFUSION Pleural effusion present There is no pericardial effusion. <Conclusion> The left ventricle is normal size. There is normal left ventricular wall thickness except the septum appears thinned. Left ventricle systolic function is severely impaired. The Ejection Fraction is 20-25%. There is severe global hypokinesis. Mitral regurgitation is moderate. There is moderate tricuspid regurgitation. There is mild-moderate pulmonary hypertension. Pleural effusion present
--- NOTE | 2018-02-19 07:58 | CP.PCM.PN ---
Subjective - Date & Time of Evaluation Date of Evaluation: 02/19/18 Time of Evaluation: 07:00 - Subjective Subjective: Stable on 2R. She feels OK. Still some vague chest discomforts on and off. SOB is better. ETT planned for today. V/S noted. RSR/S. Tachy. PE: Lungs: rhonchi Cor.: S1S2 Abd.: soft Ext.: no edema Neuro.: alert I/O= 720/352 recorded Labs 02/18 noted. trops noted. Echo: Sev. LVD, EF ~ 20 - 25% with global severe HK. The septum appears thinned and echo dense c/w [place]. Moderate MR and TR. Mild to mod. PH. See report. ECGs noted. Objective - Vital Signs/Intake and Output Vital Signs (last 24 hours): Temp Pulse Resp BP Pulse Ox 98.6 F 98 H 20 121/84 97 02/19/18 06:33 02/19/18 06:33 02/19/18 06:33 02/19/18 06:33 02/19/18 06:33 Intake and Output: 02/19/18 02/19/18 06:59 18:59 Intake Total 0 Output Total 2 Balance -2 - Medications Medications: Current Medications Atorvastatin Calcium (Lipitor) 40 mg PO DIN [facility] Last Admin: 02/18/18 18:13 Dose: 40 mg Insulin Human Regular (Humulin R Low) 0 units SC ACHS [facility] PRN Reason: Protocol Last Admin: 02/18/18 22:17 Dose: Not Given Metoprolol Tartrate (Lopressor) 25 mg PO BRKDIN [facility] Last Admin: 02/18/18 18:13 Dose: 25 mg Ondansetron HCl (Zofran Inj) 4 mg IVP Q4H PRN PRN Reason: Nausea/Vomiting Last Admin: 02/18/18 01:44 Dose: 4 mg Pantoprazole Sodium (Protonix Ec Tab) 40 mg PO ACB [facility] - Labs Labs: 02/19/18 07:00 02/19/18 07:00 PT 13.5 SECONDS (9.4-12.5) H 02/17/18 13:07 INR 1.17 (0.93-1.08) H 02/17/18 13:07 APTT 33.5 Seconds (25.1-36.5) 02/17/18 13:07 Assessment and Plan - Assessment and Plan (Free Text) Assessment: Chest Pain and SOB + trops c/w subacute [place] CAD/PCIs GIB/Anemia PAD/PVIs HBP Diabetes PUD/GIBs/Trabsfusions Diverticulosis Gastric Bypass surgery Former Smoker Plan: Nuclear stress test today. GI Evaluation and F/U with endoscopies planned Continue metoprolol and atorvastatin. Add lasix 20/day and Isosorbide 30/day. Hold antiplatelet agents in view of GIB hx., pending GI evaluation. Increased cardiac risk for GI procedures given recent [place] and CAD. Monitor: I/O, sats., H/H, Stool for OB, labs, etc. Will follow.
[2018-02-19] MEDS: Insulin Reg-LOW-Coverage SC SCH ×3 (11:52→21:36)
--- NOTE | 2018-02-19 13:38 | CP.PCM.PN ---
<Sujey Tafoya - Last Filed: 02/19/18 13:34> Subjective - Date & Time of Evaluation Date of Evaluation: 02/19/18 Time of Evaluation: 11:06 - Subjective Subjective: Seen and examined earlier today, chart review. Patient was awaiting to go to stress test. Patient denies nausea vomiting or abdominal pain. No reports of overt GI bleed. No reports of acute overnight events. Objective - Vital Signs/Intake and Output Vital Signs (last 24 hours): Temp Pulse Resp BP Pulse Ox 98.6 F 98 H 20 121/84 97 02/19/18 06:33 02/19/18 06:33 02/19/18 06:33 02/19/18 06:33 02/19/18 06:33 Intake and Output: 02/19/18 02/19/18 06:59 18:59 Intake Total 0 Output Total 2 Balance -2 - Medications Medications: Current Medications Atorvastatin Calcium (Lipitor) 40 mg PO DIN [facility] Last Admin: 02/18/18 18:13 Dose: 40 mg Furosemide (Lasix) 20 mg PO DAILY [facility] Insulin Human Regular (Humulin R Low) 0 units SC ACHS [facility] PRN Reason: Protocol Last Admin: 02/18/18 22:17 Dose: Not Given Isosorbide Mononitrate (Imdur Er) 30 mg PO DAILY [facility] Metoprolol Tartrate (Lopressor) 25 mg PO BRKDIN [facility] Last Admin: 02/18/18 18:13 Dose: 25 mg Ondansetron HCl (Zofran Inj) 4 mg IVP Q4H PRN PRN Reason: Nausea/Vomiting Last Admin: 02/18/18 01:44 Dose: 4 mg Pantoprazole Sodium (Protonix Ec Tab) 40 mg PO ACB [facility] Polyethylene Glycol/Electrolytes (Golytely) 4,000 ml PO ONCE ONE Stop: 02/19/18 15:01 - Labs Labs: 02/19/18 07:00 02/19/18 07:00 PT 13.5 SECONDS (9.4-12.5) H 02/17/18 13:07 INR 1.17 (0.93-1.08) H 02/17/18 13:07 APTT 33.5 Seconds (25.1-36.5) 02/17/18 13:07 - Constitutional Appears: No Acute Distress - Eye Exam Eye Exam: Normal appearance. absent: Scleral icterus - ENT Exam ENT Exam: Mucous Membranes Moist - Neck Exam Neck Exam: Normal Inspection - Respiratory Exam Respiratory Exam: NORMAL BREATHING PATTERN. absent: Respiratory Distress - Cardiovascular Exam Cardiovascular Exam: +S1, +S2 - GI/Abdominal Exam GI & Abdominal Exam: Soft, Normal Bowel Sounds. absent: Guarding, Tenderness, Organomegaly, Rebound - Extremities Exam Extremities Exam: absent: Calf Tenderness, Pedal Edema - Neurological Exam Neurological Exam: Alert, Awake, Oriented x3 - Skin Skin Exam: Dry, Warm Assessment and Plan - Assessment and Plan (Free Text) Assessment: Assessment: Myocardial infarction CHF History of GI bleed/jejunal ulcer with visible vessel status post clips Anemia Hypertension Insulin-dependent diabetes mellitus Plan: change diet to clear liquid Trend H&H and monitor for overt GI bleed Continue PPI as per Cardiology for stress test today, fu results Discussed with patient regarding colonoscopy for 02/20/2018 patient agree after much discussion, GoLYTELY preparation ordered and nothing by mouth postmidnight , see orders. Labs in am CBC/CMP Seen and discussed with Dr. Yoder. <Paige Yoder V - Last Filed: 02/19/18 22:18> Objective - Vital Signs/Intake and Output Vital Signs (last 24 hours): Temp Pulse Resp BP Pulse Ox 98.6 F 89 20 114/71 97 02/19/18 06:33 02/19/18 18:33 02/19/18 06:33 02/19/18 18:33 02/19/18 06:33 Intake and Output: 02/19/18 02/20/18 18:59 06:59 Intake Total 120 Output Total 0 Balance 120 - Medications Medications: Current Medications Atorvastatin Calcium (Lipitor) 40 mg PO DIN [facility] Last Admin: 02/19/18 18:32 Dose: 40 mg Furosemide (Lasix) 20 mg PO DAILY [facility] Last Admin: 02/19/18 14:15 Dose: 20 mg Insulin Human Regular (Humulin R Low) 0 units SC ACHS [facility] PRN Reason: Protocol Last Admin: 02/19/18 21:36 Dose: Not Given Isosorbide Mononitrate (Imdur Er) 30 mg PO DAILY [facility] Last Admin: 02/19/18 14:15 Dose: 30 mg Metoprolol Tartrate (Lopressor) 25 mg PO BRKDIN [facility] Last Admin: 02/19/18 18:33 Dose: 25 mg Ondansetron HCl (Zofran Inj) 4 mg IVP Q4H PRN PRN Reason: Nausea/Vomiting Last Admin: 02/18/18 01:44 Dose: 4 mg Pantoprazole Sodium (Protonix Ec Tab) 40 mg PO ACB [facility] Last Admin: 02/19/18 14:15 Dose: 40 mg - Labs Labs: 02/19/18 07:00 02/19/18 07:00 PT 13.5 SECONDS (9.4-12.5) H 02/17/18 13:07 INR 1.17 (0.93-1.08) H 02/17/18 13:07 APTT 33.5 Seconds (25.1-36.5) 02/17/18 13:07 Attending/Attestation - Attestation I have personally seen and examined this patient.: Yes I have fully participated in the care of the patient.: Yes I have reviewed all pertinent clinical information, including history, physical exam and plan: Yes Notes (Text): This is an addendum to GI progress report dictated by Sujey Tafoya APN.The patient was seen and examined earlier. Medical records, lab studies, imagings were reviewed. Last 24 hours events reviewed. Agreed with the above treatment plan as outlined in Sujey Tafoya APN's notes the with the addition of the following 02/19/18 22:18
[2018-02-19] MEDS: Pantoprazole 40 mg EC Tab PO SCH (14:15)
[2018-02-19] MEDS ORDERED: Peg-Electrolyte Oral Soln 4L (Golytely) PO ONE (15:00)
--- NOTE | 2018-02-19 16:24 | PN ---
DATE: 02/19/2018 CRITICAL CARE PROGRESS NOTE SUBJECTIVE: This 77-year-old female remains in critical care unit bed #4 at the [facility]. This case was reviewed in detail with Dr. Gandhi from Cardiology and Dr. Paige Yoder from GI. She is being readied for an exercise treadmill stress test today under the direction of Dr. Stew Gandhi. She was admitted with chest pain and shortness of breath and positive cardiac enzymes consistent with a subacute myocardial infarction. The patient at present remains weak and deconditioned, and is status post a critical care unit admission last week for a life-threatening hemorrhagic gastrointestinal bleed which caused her to be placed on ventilatory support while receiving blood transfusions and emergency endoscopy where she required clipping and cauterization of gastrointestinal bleeding. At present, the patient is on no anticoagulation because of her previous life threatening hemorrhage and is being evaluated by Cardiology for clearance for followup endoscopy for better medical management. The patient at present denies fever, chills, shortness of breath, or chest pain. PHYSICAL EXAMINATION: VITAL SIGNS: She is in a normal sinus rhythm on the night monitor with temperature of 98.6, respirations 20, pulse 98, blood pressure 121/84. Pulse ox 97%. HEENT: Head: Normocephalic, atraumatic. Eyes: No icterus. Ears: Clear. Throat: Noninjected. NECK: Supple. HEART: Regular, S1 and S2. LUNGS: Clear. ABDOMEN: Obese. No rebound, no guarding, no tenderness. EXTREMITIES: No clubbing, no cyanosis, no edema. SKIN: Without rash. NEUROLOGIC: Intact. PSYCHOLOGIC: Anxious. VASCULAR: Legs warm to touch. LABORATORY DATA: White count 7500, hemoglobin 10.7, hematocrit 33.2, and platelets 337,000. PT/INR 1.17, PTT 33.5. Sodium 142, K 4.5, chloride 104, bicarb 25. BUN 15, creatinine 1.2. Random blood sugar 147. Bilirubin 0.6, AST 35, ALT 37, alk phos 111. Her echocardiogram was reviewed. This was completed on 02/18/2018. It shows her left ventricle is normal in size with normal left ventricular wall thickness, but left ventricular systolic function was noted to be severely impaired with an ejection fraction of approximately 20% to 25% with global hypokinesia. She has moderate mitral regurgitation. She has moderate tricuspid regurgitation with mild pulmonary hypertension and pleural effusion present. IMPRESSION: A 77-year-old female admitted with subendocardial myocardial infarction with history of hemorrhagic gastrointestinal bleeding that previously required blood cell transfusion, ventilatory support, during which hospital stay, the patient signed against medical advice and is now readmitted with subendocardial myocardial infarction and reduced ejection fraction on recent echocardiogram. Also with history of chronic hypertension, obesity, status post gastric bypass, history of insulin-dependent diabetes mellitus, and hyperlipidemia. PLAN: The plan as discussed with Cardiology and GI will be to perform a Lexiscan stress test today. She continues on clear liquid diet as per GI. She is receiving Zofran 4 mg IV every 4 hours p.r.n. nausea and vomiting, Protonix 40 mg p.o. daily, Lopressor 25 mg p.o. b.i.d., Lipitor 40 mg p.o. at dinner time, Lasix 20 mg p.o. daily, Imdur 30 mg p.o. daily, regular low-dose insulin coverage before meals and at bedtime. The patient is also being preemptively prepped with GoLYTELY preparation for endoscopy and colonoscopy once cleared by Cardiology. She will be scheduled for comprehensive metabolic panel and CBC in a.m. and remains in critical care given her recent events. Greater than 60 minutes was spent in the care management, review of labs, orders, x-rays, and discussion of this patient with Cardiology, Gastroenterology, and digital cartographic technician, Dr. Perez. All questions were answered. Jacqueline Thomas MD MARTY
--- NOTE | 2018-02-19 22:07 | CARD ---
APPROVED REPORT Protocol: LEXISCAN Test Type: Lexiscan Sestamibi Stress Test Attending Physician: Dr. Stew Gandhi Referring Physician: Dr. Jacqueline Thomas Test Indications: Recent OH. Height:5 ft 4 in Weight:154lbs Medications: lipitor, regular insulin, lopressor, zofran, protonix Medical History: 77 y/o woman with dyspnea and chest pain and recent subacute OH, recent GIB. Target HR: 142 bpm Resting ECG: RSR, ASMI, NSSTW changes Resting Heart Rate: 97 bpm Resting Blood Pressure: 116/66mmHg Submaximum (85%): 121 bpm PROCEDURE Pharmacologic stress testing was performed using 0.4mg per 5ml of regadenoson given intravenously over 7-10 seconds. POST EXERCISE Reason for Termination: Protocol completed Target HR: No Max HR: 98 bpm 71% of Maximum Predicted HR: 142 bpm Exercise duration: 05:08 min:sec, 0 Stage Exercise capacity: 1.0METs Max Blood Pressure: 116/66mmHg Blood Pressure response to exercise: normal Heart Rate response to exercise: normal Chest Pain: No, none Angina index: 0 Arrhythmia: No, none ST Change: No, none Deviation: 0 mm TEST SUMMARY [id number]. INFUSIONDOSE 101:000.00.01.0101/.4.00:27 Vilma inj over 10 sec, Al inj at 25 sec. INFUSIONDOSE 201:[id number]/68.0. INFUSIONDOSE 301:[id number]/68.0. INFUSIONDOSE 401:000.00.01.099/.0. INFUSIONDOSE 501:000.00.01.098/.0. INFUSIONDOSE 600:080.00.01.098/.0. INTERPRETATION Stress EKG Conclusion: Lexiscan nuclear stress test which was negative for chest pain, ischemia and arrhythmia. Nuclear scans pending. Signed by Stew Gandhi Electronically Approved: 02/19/2018 12:48:36 EXAM: Myocardial Perfusion REST/STRESS Stress Test Type: Pharmacologic Imaging Protocol The imaging protocol used to acquire images was Rest Tc-99m/stress Tc-99m 1 day Rest Spect myocardial perfusion imaging was performed in supine position 120 minutes following the injection of 29.3 mCi of Tc-99 Myoview. At peak stress, the patient was injected intravenously with 10.3mCi of Tc-99 tetrofosmin after an infusion time of minutes and 10 seconds. Gated Stress Spect was performed 57 minutes after intravenous Tc-99 Myoview injection. The images were gated to evaluate regional wall motion and calculate ventricular ejection fraction.Images were reconstructed using backfilter projection method in short horizontal and verticle long axis. Spect slices were generated. LV Perfusion The quality of the study is good. The left ventricle is moderately enlarged in size. The right ventricle is unremarkable. The lung uptake is within normal limits. The distribution of tracer reveals a large area of severely decreased perfusion in the mid to distal anterior, most of septal, apical and mid to basal inferior simeon on the stress study. The remainder of the LV myocardium is unremarkable. The rest myocardial perfusion study shows slight improvement of edges of the defects. Wall Motion Wall motion study shows diffuse akinesis excpet the base. LVEF = 10%. Conclusion 1. Abnormal SPECT myocardial perfusion study. 2. Slight reversible change in the edges of the large size defects (anterior, septal, apical and inferior) are suggestive of mild zain-infarct ischemia sperimposed with infarction. 3. Severe LV dysfunctioin with diffuse akiensis except the base.
--- NOTE | 2018-02-20 00:52 | CP.PCM.PN ---
Subjective - Date & Time of Evaluation Date of Evaluation: 02/19/18 Time of Evaluation: 23:58 - Subjective Subjective: Pt seen at the request of her RN who stated pt was admitted on the 17 february for Myocardial infarction and CHF A few mins ago a rhythm strip on her cardiac moniter showed a ST depression which was not seen on prior rhythm strips.Pt is asymptomatic at this time. Stress test done earlier today was positive. Since she was recently admitted for a GI bleed,Cardiac Cath and /or antiplatelet therapy has been deferred until GI evaluation and the cause of her GI bleed is determined. Vital signs are stable. PMH:CAD,Hyperlipidemia,HTN,GI Bleed,DM Objective - Vital Signs/Intake and Output Vital Signs (last 24 hours): Temp Pulse Resp BP Pulse Ox 98.0 F 78 18 99/65 L 98 02/20/18 00:13 02/20/18 00:13 02/20/18 00:13 02/20/18 00:13 02/20/18 00:13 Intake and Output: 02/19/18 02/20/18 18:59 06:59 Intake Total 120 Output Total 0 Balance 120 - Medications Medications: Current Medications Atorvastatin Calcium (Lipitor) 40 mg PO DIN [facility] Last Admin: 02/19/18 18:32 Dose: 40 mg Furosemide (Lasix) 20 mg PO DAILY [facility] Last Admin: 02/19/18 14:15 Dose: 20 mg Insulin Human Regular (Humulin R Low) 0 units SC ACHS [facility] PRN Reason: Protocol Last Admin: 02/19/18 21:36 Dose: Not Given Isosorbide Mononitrate (Imdur Er) 30 mg PO DAILY [facility] Last Admin: 02/19/18 14:15 Dose: 30 mg Metoprolol Tartrate (Lopressor) 25 mg PO BRKDIN [facility] Last Admin: 02/19/18 18:33 Dose: 25 mg Ondansetron HCl (Zofran Inj) 4 mg IVP Q4H PRN PRN Reason: Nausea/Vomiting Last Admin: 02/18/18 01:44 Dose: 4 mg Pantoprazole Sodium (Protonix Ec Tab) 40 mg PO ACB [facility] Last Admin: 02/19/18 14:15 Dose: 40 mg - Labs Labs: 02/19/18 07:00 02/19/18 07:00 PT 13.5 SECONDS (9.4-12.5) H 02/17/18 13:07 INR 1.17 (0.93-1.08) H 02/17/18 13:07 APTT 33.5 Seconds (25.1-36.5) 02/17/18 13:07 - Constitutional Appears: No Acute Distress - Head Exam Head Exam: ATRAUMATIC, NORMAL INSPECTION, NORMOCEPHALIC - Eye Exam Eye Exam: PERRL - ENT Exam ENT Exam: Mucous Membranes Moist - Respiratory Exam Respiratory Exam: Clear to Ausculation Bilateral - Cardiovascular Exam Cardiovascular Exam: REGULAR RHYTHM - GI/Abdominal Exam GI & Abdominal Exam: Soft, Normal Bowel Sounds. absent: Tenderness - Extremities Exam Extremities Exam: Normal Inspection. absent: Calf Tenderness - Neurological Exam Neurological Exam: Alert, Awake, Oriented x3 - Psychiatric Exam Psychiatric exam: Normal Affect - Skin Skin Exam: Dry, Warm Assessment and Plan - Assessment and Plan (Free Text) Assessment: Cardiac ischemia Transient Ischemic change in rhythm strip. Plan: EKG done stat shows NSR,low voltage,Q waves in 11,111 and AVF,poor progression of the R wave in the V leads,suggestive of VA age undetermined. Troponin 1 ordered stat .
[2018-02-20 07:14] LABS: BASO # 0.02 K/mm3 (0.0-2.0); BASO % 0.3 % (0.0-3.0); EOS # 0.1 (0.0-0.7); GRAN # 5.08 (1.4-6.5); GRAN % 73.3 % (50.0-68.0); HEMOGLOBIN 9.9 g/dL (12.0-16.0); LYMPH % 14.4 % (22.0-35.0); MEAN CORPUSCULAR HEMOGLOBIN 28.3 pg (25.0-35.0); MEAN CORPUSCULAR HGB CONC 32.1 g/dl (31.0-37.0); MEAN PLATELET VOLUME 11.5 fl (7.0-11.0); MONO # 0.7 (0.1-0.6); RBC 3.5 10^6/uL (3.5-6.1); RED CELL DISTRIBUTION WIDTH 14.7 % (11.5-14.5); WHITE BLOOD COUNT 6.9 10^3/ul (4.5-11.0)
[2018-02-20] MEDS: Insulin Reg-LOW-Coverage SC SCH ×4 (07:30→22:18)
[2018-02-20] MEDS: Pantoprazole 40 mg EC Tab PO SCH (07:30)
[2018-02-20 07:31] LABS: ALB/GLOB RATIO 1.1 (1.1-1.8); ALBUMIN 3.4 g/dL (3.0-4.8); CALCIUM 8.4 mg/dL (8.4-10.5)
--- NOTE | 2018-02-20 08:55 | CP.PCM.PN ---
Subjective - Date & Time of Evaluation Date of Evaluation: 02/20/18 Time of Evaluation: 07:00 - Subjective Subjective: Stable on 2R. She feels OK. Colonoscopy planned for later today. V/S noted. RSR/S. Tachy. PE: Lungs: rhonchi Cor.: S1S2 Abd.: soft Ext.: no edema Neuro.: alert Labs noted: H/H 9.9/30.8, CMP OK, trop 0.35 Echo: Sev. LVD, EF ~ 20 - 25% with global severe HK. The septum appears thinned and echo dense c/w PA. Moderate MR and TR. Mild to mod. PH. See report. ECGs noted. Nuclear stress test noted: multiple large, mostly fixed defects with zain- infarction ischemia, LV EF 10% Objective - Vital Signs/Intake and Output Vital Signs (last 24 hours): Temp Pulse Resp BP Pulse Ox 97.9 F 87 18 101/63 100 02/20/18 06:00 02/20/18 06:00 02/20/18 06:00 02/20/18 06:00 02/20/18 06:00 Intake and Output: 02/20/18 02/20/18 06:59 18:59 Intake Total 240 Balance 240 - Medications Medications: Current Medications Atorvastatin Calcium (Lipitor) 40 mg PO DIN [facility] Last Admin: 02/19/18 18:32 Dose: 40 mg Furosemide (Lasix) 20 mg PO DAILY [facility] Last Admin: 02/19/18 14:15 Dose: 20 mg Insulin Human Regular (Humulin R Low) 0 units SC ACHS [facility] PRN Reason: Protocol Last Admin: 02/19/18 21:36 Dose: Not Given Isosorbide Mononitrate (Imdur Er) 30 mg PO DAILY [facility] Last Admin: 02/19/18 14:15 Dose: 30 mg Metoprolol Tartrate (Lopressor) 25 mg PO BRKDIN [facility] Last Admin: 02/19/18 18:33 Dose: 25 mg Ondansetron HCl (Zofran Inj) 4 mg IVP Q4H PRN PRN Reason: Nausea/Vomiting Last Admin: 02/18/18 01:44 Dose: 4 mg Pantoprazole Sodium (Protonix Ec Tab) 40 mg PO ACB [facility] Last Admin: 02/19/18 14:15 Dose: 40 mg - Labs Labs: 02/20/18 06:00 02/20/18 06:00 PT 13.5 SECONDS (9.4-12.5) H 02/17/18 13:07 INR 1.17 (0.93-1.08) H 02/17/18 13:07 APTT 33.5 Seconds (25.1-36.5) 02/17/18 13:07 Assessment and Plan - Assessment and Plan (Free Text) Assessment: Chest Pain and SOB + trops c/w subacute PA and abn nuclear scan c/w large infarct(s) and EF 10% CAD/PCIs GIB/Anemia PAD/PVIs HBP Diabetes PUD/GIBs/Trabsfusions Diverticulosis Gastric Bypass surgery Former Smoker Plan: GI Evaluation and F/U with endoscopies planned: colonoscopy later today. Continue metoprolol and atorvastatin. Add lasix 20/day and Isosorbide 30/day. Hold antiplatelet agents in view of GIB hx., pending GI evaluation. Increased cardiac risk for GI procedures given recent PA and CAD. She should be considered high cardiac risk due to CAD/recent PA(s) and severe LVD. Will follow.
--- NOTE | 2018-02-20 11:29 | CP.PCM.PN ---
<Sujey Tafoya - Last Filed: 02/20/18 15:57> Subjective - Date & Time of Evaluation Date of Evaluation: 02/20/18 Time of Evaluation: 10:00 - Subjective Subjective: Seen and examined at the bedside earlier this morning, chart review. Patient reported to not be drinking GoLYTELY preparation and had refused yesterday. Currently noted, patient drank a bit more than half of GoLYTELY but BM are not clear, rectal exam done and palpate soft formed stool high up in rectum. No bleeding noted, patient denies nausea, vomiting, abdominal discomfort, no complaints of shortness of breath or chest pain. Patient did have stress test yesterday, which was abnormal, showed mild zain-infarct ischemia superimposed with infarct. LV EF 10%. Objective - Vital Signs/Intake and Output Vital Signs (last 24 hours): Temp Pulse Resp BP Pulse Ox 97.9 F 87 18 101/63 100 02/20/18 06:00 02/20/18 06:00 02/20/18 06:00 02/20/18 06:00 02/20/18 06:00 Intake and Output: 02/20/18 02/20/18 06:59 18:59 Intake Total 240 Balance 240 - Medications Medications: Current Medications Atorvastatin Calcium (Lipitor) 40 mg PO DIN [facility] Last Admin: 02/19/18 18:32 Dose: 40 mg Furosemide (Lasix) 20 mg PO DAILY [facility] Last Admin: 02/19/18 14:15 Dose: 20 mg Insulin Human Regular (Humulin R Low) 0 units SC ACHS [facility] PRN Reason: Protocol Last Admin: 02/19/18 21:36 Dose: Not Given Isosorbide Mononitrate (Imdur Er) 30 mg PO DAILY [facility] Last Admin: 02/19/18 14:15 Dose: 30 mg Metoprolol Tartrate (Lopressor) 25 mg PO BRKDIN [facility] Last Admin: 02/19/18 18:33 Dose: 25 mg Ondansetron HCl (Zofran Inj) 4 mg IVP Q4H PRN PRN Reason: Nausea/Vomiting Last Admin: 02/18/18 01:44 Dose: 4 mg Pantoprazole Sodium (Protonix Ec Tab) 40 mg PO ACB [facility] Last Admin: 02/19/18 14:15 Dose: 40 mg - Labs Labs: 02/20/18 06:00 02/20/18 06:00 PT 13.5 SECONDS (9.4-12.5) H 02/17/18 13:07 INR 1.17 (0.93-1.08) H 02/17/18 13:07 APTT 33.5 Seconds (25.1-36.5) 02/17/18 13:07 - Constitutional Appears: No Acute Distress - Head Exam Head Exam: NORMOCEPHALIC - Eye Exam Eye Exam: Normal appearance. absent: Scleral icterus - ENT Exam ENT Exam: Mucous Membranes Moist - Neck Exam Neck Exam: Normal Inspection - Respiratory Exam Respiratory Exam: Rhonchi, NORMAL BREATHING PATTERN. absent: Wheezes, Respiratory Distress - Cardiovascular Exam Cardiovascular Exam: +S1, +S2 - GI/Abdominal Exam GI & Abdominal Exam: Soft, Normal Bowel Sounds. absent: Guarding, Tenderness, Organomegaly, Rebound - Rectal Exam Rectal Exam: absent: Black Stool, Bloody Stool Additional comments: (+) formed stool high up rectum - Extremities Exam Extremities Exam: absent: Calf Tenderness, Pedal Edema - Neurological Exam Neurological Exam: Alert, Awake, Oriented x3 - Skin Skin Exam: Dry, Warm Assessment and Plan - Assessment and Plan (Free Text) Assessment: Assessment: Myocardial infarctionatenolol, s/p stress test:abnormal, showed mild zain- infarct ischemia superimposed with infarct. LV EF 10%. CHF History of GI bleed/jejunal ulcer with visible vessel status post clips Anemia Hypertension Insulin-dependent diabetes mellitus Plan: resume diet heart healthy/mod carb Trend H&H and monitor for overt GI bleed Continue PPI as per Cardiology, appreciate recommendations. Colonoscopy canceled for today, patient reluctant to take prep last night and did note that tolerate more than half but patient not prepped properly, rectal exam done and palpated formed stool high up and rectum, diet resumed. Seen and discussed with Dr. Yoder. <Paige Yoder V - Last Filed: 02/20/18 23:41> Objective - Vital Signs/Intake and Output Vital Signs (last 24 hours): Temp Pulse Resp BP Pulse Ox 97 F L 93 H 18 115/89 100 02/20/18 17:34 02/20/18 18:41 02/20/18 17:34 02/20/18 18:41 02/20/18 06:00 - Medications Medications: Current Medications Atorvastatin Calcium (Lipitor) 40 mg PO DIN [facility] Last Admin: 02/20/18 18:41 Dose: 40 mg Furosemide (Lasix) 20 mg PO DAILY [facility] Last Admin: 02/20/18 10:00 Dose: Not Given Insulin Human Regular (Humulin R Low) 0 units SC ACHS [facility] PRN Reason: Protocol Last Admin: 02/20/18 22:18 Dose: Not Given Isosorbide Mononitrate (Imdur Er) 30 mg PO DAILY [facility] Last Admin: 02/20/18 10:00 Dose: Not Given Metoprolol Tartrate (Lopressor) 25 mg PO BRKDIN [facility] Last Admin: 02/20/18 18:41 Dose: 25 mg Ondansetron HCl (Zofran Inj) 4 mg IVP Q4H PRN PRN Reason: Nausea/Vomiting Last Admin: 02/18/18 01:44 Dose: 4 mg Pantoprazole Sodium (Protonix Ec Tab) 40 mg PO ACB [facility] Last Admin: 02/20/18 07:30 Dose: Not Given Risperidone (Risperdal Tab) 0.25 mg PO DAILY [facility] Last Admin: 02/20/18 18:41 Dose: 0.25 mg - Labs Labs: 02/20/18 06:00 02/20/18 06:00 PT 13.5 SECONDS (9.4-12.5) H 02/17/18 13:07 INR 1.17 (0.93-1.08) H 02/17/18 13:07 APTT 33.5 Seconds (25.1-36.5) 02/17/18 13:07 Attending/Attestation - Attestation I have personally seen and examined this patient.: Yes I have fully participated in the care of the patient.: Yes I have reviewed all pertinent clinical information, including history, physical exam and plan: Yes Notes (Text): This is an addendum to GI progress report dictated by the Sujey Tafoya APN.The patient was seen and examined earlier. Medical records, lab studies, imagings were reviewed. Last 24 hours events reviewed. Agreed with the above treatment plan as outlined in Sujey Tafoya's notes the with the addition of the following 02/20/18 23:39
--- NOTE | 2018-02-20 19:02 | CARD ---
APPROVED REPORT EKG Measurement Heart [id number] <Conclusion> Normal sinus rhythm Left axis deviation Low voltage QRS Inferior infarct, age undetermined Possible Anterolateral infarct, age undetermined Prolonged QT Abnormal ECG
--- NOTE | 2018-02-21 00:23 | PN ---
DATE: 02/20/2018 SUBJECTIVE: This 77-year-old female was examined on the cardiac boyd at her bedside in the presence of her nurse. The patient was scheduled earlier today for upper endoscopy and colonoscopy. Unfortunately, she failed to cooperate with the bowel prep and the procedure was canceled due to incomplete prep. I did review her myocardial stress test and this was discussed with Dr. Stew Gandhi from Cardiology. This study revealed slight reversible changes in the edges of the large-size defect involving anterior, septal, apical and inferior simeon suggestive of zain-infarct ischemia superimposed with infarction. Her gated wall study showed severe left ventricular dysfunction with diffuse akinesis except for the base of her cardiac muscle. Her wall motion study has left ventricular ejection fraction of approximately 10%. PHYSICAL EXAMINATION: VITAL SIGNS: At the present time, the patient remains in normal sinus rhythm. Temperature was 98, respirations 18, pulse 91 and blood pressure 115/80 with a pulse ox of 100% on room air. HEENT: Head, normocephalic and atraumatic. Eyes, no icterus. Ears, clear. Throat, noninjected. NECK: Supple. HEART: S1, S2. LUNGS: Clear. ABDOMEN: Soft. EXTREMITIES: No edema. SKIN: Without rash. NEUROLOGIC: Intact. PSYCHOLOGIC: Alert and oriented. VASCULAR: Legs warm to touch. LABORATORY DATA: White count 6900, hemoglobin 9.9, hematocrit 30.8, platelets 334,000. PT/INR 1.17 and PTT 33.5. Sodium 140, K 4.2, chloride 103, bicarb 27, BUN 13, creatinine 1.2, random blood sugar 166. Bilirubin 0.5, AST 28, ALT 30 and alk phos 96. IMPRESSION: A 77-year-old female with three admissions to the [facility] in the past 2 weeks. The previous 2 admissions ended with the patient leaving against medical advice from Intensive Care, now with multiple medical problems including cardiomyopathy status post myocardial infarction, gastrointestinal bleeding recently experienced and felt to be life-threatening where patient was intubated and required blood transfusion and emergency endoscopy where clipping and cauterization of bleeding of abdominal blood vessels were repaired. Also with comorbidities of insulin-dependent diabetes mellitus, previous atherosclerotic heart disease with coronary artery stents, chronic hypertension, hyperlipidemia, peptic ulcer disease with gastroesophageal reflux disease, degenerative arthritis, now with periods of behavioral disturbance, felt to be a turbulent behavior pattern on previous psychiatric evaluation by Dr. Perales from Psychiatry. PLAN: The plan at present is to maintain the patient on the Cardiac Unit. She will continue on regular low-dose Humulin coverage a.c. meals and at bedtime., Imdur 30 mg p.o. daily, Lasix 20 mg p.o. daily, Lipitor 40 mg p.o. at dinner time, Lopressor 25 mg p.o. b.i.d., Protonix 40 mg daily and patient has been started on Risperdal 0.25 mg p.o. daily. She is ordered to be reevaluated by Dr. Preales from Psychiatry today to determine if this patient is indeed competent. The nursing staff reports that she does have periods of confusion where she seems unaware of her surroundings and outlined instructions. Also upon further discussion with co-consultants, it is felt that, it is necessary that the patient to receive adequate medical care and diagnostic workup given her multiple medical comorbidities especially the need for followup endoscopy and colonoscopy, so that cardiac medication including anticoagulation can be properly outlined for this patient. I have asked the nursing staff to fulfill an order that if the patient should try to leave against medical advice to immediately place a one-to-one sitter with this patient and to call Dr. Perales from Psychiatry for further instructions. He will be evaluating her medical competency and a greater than 60 minutes was spent in the care management, review of labs, orders, x-rays and discussion of this patient with GI, Cardiology, Cardiac Nursing and the patient. All questions were answered. Jacqueline Thomas MD MARTY
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
[2018-02-21] MEDS: Insulin Reg-LOW-Coverage SC SCH ×4 (08:30→22:57)
[2018-02-21] MEDS: Pantoprazole 40 mg EC Tab PO SCH (08:31)
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
--- NOTE | 2018-02-22 00:48 | PCM.RRT ---
Addendum entered and electronically signed by Cristy Mathis DO 02/22/18 01:10 : tele strip showed normal rhythm prior to fall Original Note: <Cristy Mathis - Last Filed: 02/22/18 01:08> ASH HANDLER Nurse Assessment - Situation Date: 02/22/18 Time ASH HANDLER was called: 12:33 (Code star) ASH HANDLER Responder Arrival Time: 12:33 ASH HANDLER Location:: [address] [place] [address] Room Number: 274-1 ASH HANDLER Called By: RN - Respiratory Oxygen Delivery Method: Room Air - Vital Signs Vital Sign: BS 159 T 98.1 HR 101, RR 20 BP 122/85, 97%RA I.Reason for ASH HANDLER - A) Acute Change in Patient: Subjective: PGY-[address] Sinclair RN heard a thumb. She was found on the floor, on right side. She was assisted to a chair by RN. 77-year-old female with a past medical history of diabetes mellitus, GI bleed, hypertension. admitted for NSTEMI, but delayed cardiac cath due to recent clippings of nonbleeding jejunal ulcer with visible vessel on 01/29/18. On the patient returned to the emergency room with complaints of rectal bleeding became hypotensive was intubated and in ICU. She was extubated and status improved and transferred out. She had a repeat endoscopy on 02/06 found to have GI bleed, the patient was to be scheduled for colonoscopy for further evaluation and patient abdomen again on leaving left AMA on 02/11/2018. Patient endorsed that she fell at home, no LOC, rib xray was negative for fracture and ct head was negative for bleed or infarct. PMH: HLD, HTN, DM, chronic anemia, CAD s/p stent, marginal ulcer, gastric bypass , Hx falls Surg: Gastric bypass (2006), cardiac catherization, EGD/colonscopy - Constitutional Appears: No Acute Distress - Head Head Exam: ATRAUMATIC, NORMAL INSPECTION, NORMOCEPHALIC - Eyes Eye Exam: EOMI, Normal appearance, PERRL. absent: Scleral icterus - Respiratory Exam Respiratory Exam: Clear to Ausculation Bilateral. absent: Rales, Rhonchi, Wheezes - Cardiovascular Exam Cardiovascular Exam: REGULAR RHYTHM, +S1, +S2 - GI/Abdominal Exam GI & Abdominal Exam: Soft. absent: Guarding, Rigid, Tenderness - Neurological Exam Neurological Exam: Alert, Awake, Oriented x3 Additional exam: Not following command. 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 LV EF 10%. CHF History of GI bleed/jejunal ulcer with visible vessel status post clips Anemia Had ruled out orthostatic hypotension: Lying HR 100 129/84 Sitting 101 122/85 Standing 89 120/84 - CT head stat - EKG now, and AM EKG. - CBC, CMP, Cardiac Emzyme now and am - neuro check q2 for 24 hours - Physical therapy - Hold risperiodone (for fall risk for tonight. Defer to psych to restart) - Son, Mr Sarmiento, notified - Dr Thomas notified <Addison Sinclair - Last Filed: 02/22/18 01:49> Attending/Attestation - Attestation I have personally seen and examined this patient.: Yes I have fully participated in the care of the patient.: Yes I have reviewed all pertinent clinical information, including history, physical exam and plan: Yes Notes (Text): 02/22/18 01:46 Agree with documentation. Patient was seen by me. scalp no contusion noted. Minimal tenfderness R side of forehead.
[2018-02-22 01:10] LABS: BASO # 0.03 K/mm3 (0.0-2.0); BASO % 0.4 % (0.0-3.0); EOS # 0.1 (0.0-0.7); EOS % 1.3 % (1.5-5.0); GRAN # 4.76 (1.4-6.5); GRAN % 66.2 % (50.0-68.0); HEMOGLOBIN 9.7 g/dL (12.0-16.0); LYMPH # 1.6 (1.2-3.4); LYMPH % 21.8 % (22.0-35.0); MEAN CELL VOLUME 87.5 fl (80.0-105.0); MEAN CORPUSCULAR HEMOGLOBIN 28.3 pg (25.0-35.0); MEAN CORPUSCULAR HGB CONC 32.3 g/dl (31.0-37.0); MEAN PLATELET VOLUME 10.9 fl (7.0-11.0); MONO # 0.7 (0.1-0.6); MONO % 10.3 % (1.0-6.0); RBC 3.43 10^6/uL (3.5-6.1); RED CELL DISTRIBUTION WIDTH 14.6 % (11.5-14.5); WHITE BLOOD COUNT 7.2 10^3/ul (4.5-11.0)
[2018-02-22 01:25] LABS: ALB/GLOB RATIO 1.2 (1.1-1.8); ALBUMIN 3.7 g/dL (3.0-4.8); CALCIUM 8.7 mg/dL (8.4-10.5)
--- NOTE | 2018-02-22 02:06 | CT ---
EXAM: CT Head Without Intravenous Contrast CLINICAL HISTORY: 77 years old, female; Injury or trauma; Fall; Initial encounter; Abrasion; Head, generalized; Additional info: S/P fall from bed. TECHNIQUE: Axial computed tomography images of the head/brain without intravenous contrast. All CT scans at this facility use one or more dose reduction techniques, viz.: automated exposure control; ma/kV adjustment per patient size (including targeted exams where dose is matched to indication; i.e. head); or iterative reconstruction technique. 337 images are submitted. Axial images are submitted in brain and bone windows. Coronal and sagittal reformatted images were created and reviewed. Axial reformatted images were created and reviewed. COMPARISON: CT - HEAD W/O CONTRAST 2018-02-17 14:46 FINDINGS: Brain: Physiologic bilateral basal ganglia calcifications. Cerebral and cerebellar volume loss. Patchy hypodensity is seen in the periventricular and subcortical white matter. No hemorrhage. Ventricles: Ventriculomegaly. Bones/joints: Possible maxillary torus exostosis. No acute fracture. Soft tissues: Unremarkable. Vasculature: Vascular calcifications. Sinuses: Right maxillary sinus fluid level. Patchy sinus disease. Mastoid air cells: Unremarkable. No mastoid effusion. Orbits: The globes and lens are intact. There is evidence of bilateral eye surgery. IMPRESSION: 1.No evidence of intracranial hemorrhage, midline shift or mass effect is noted.
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
[2018-02-22 08:45] LABS: TROPONIN I 0.24 ng/mL
[2018-02-22] MEDS: Pantoprazole 40 mg EC Tab PO SCH (09:17)
[2018-02-22] MEDS: Insulin Reg-LOW-Coverage SC SCH ×2 (09:17→17:40)
--- NOTE | 2018-02-22 15:18 | PN ---
DATE: 02/22/2018 SUBJECTIVE: The patient is seen lying in bed on telemetry. She is currently comfortable. She denies any chest pain or dyspnea. CURRENT MEDICATIONS: Include Imdur 30 mg daily, Lasix 20 mg daily, Lipitor 40 mg daily, metoprolol 25 mg b.i.d., Risperdal, Zofran and Protonix. OBJECTIVE: GENERAL: She is an elderly woman who appears comfortable at the present time. She appears mildly confused. VITAL SIGNS: Her blood pressure is 100/60 with a pulse of 100, respirations are 16. She is afebrile. HEENT: No JVD. CHEST: Few scattered rhonchi with diminished breath sounds at the bases. HEART: PMI displaced laterally with soft tones noted. ABDOMEN: Soft and nontender. Normoactive bowel sounds. EXTREMITIES: No edema. DIAGNOSTIC DATA: Morning blood work is pending except for troponin of 0.24. IMPRESSION: 1. Recent gastrointestinal bleeding, appears clinically stable at present. 2. Known coronary artery disease, status post recent large anterior myocardial fraction. 3. Severe left ventricular systolic dysfunction. 4. Status post remote percutaneous coronary intervention. 5. Status post bariatric surgery. 6. Confusion and paranoia, appears improved on Risperdal. 7. Status post recent fall, clinically stable. RECOMMENDATIONS: Continue conservative management appears most appropriate at this time. Current medications will be continued and antithrombotic and anticoagulant therapy is being withheld given her high risk of recurrent bleeding during multiple major GI bleeds in the recent past. We will continue to follow and make further recommendations as appropriate. Wesley Sanchez MD
--- NOTE | 2018-02-22 15:36 | CARD ---
APPROVED REPORT EKG Measurement Heart [id number] <Conclusion> Sinus rhythm with premature atrial complexes Left axis deviation Inferior infarct, age undetermined Anterolateral infarct, age undetermined Abnormal ECG
--- NOTE | 2018-02-22 15:37 | CARD ---
APPROVED REPORT EKG Measurement Heart [id number] <Conclusion> Sinus tachycardia Left axis deviation Anterolateral infarct, age undetermined Abnormal ECG
--- NOTE | 2018-02-23 00:56 | PN ---
DATE: 02/22/2018 CARDIAC UNIT PROGRESS NOTE SUBJECTIVE: This 77-year-old female was examined at the bedside. She still has periods of confusion. Earlier this morning was found on her bathroom floor and has no recollection of that event. It was documented by the house doctor and nursing staff that at approximately 12:30 a.m. this morning, she was found lying on the floor, with no injury noted. The patient has no recollection of this event. She was examined by Dr. Sinclair, and no injury or trauma was noted. CT of the head was reportedly unremarkable. PHYSICAL EXAMINATION: VITAL SIGNS: On physical exam, temperature is 98.6, respirations 20, pulse 82, blood pressure 116/63. She is in a normal sinus rhythm on the cardiac rehabilitation program director. HEENT: Head is normocephalic, atraumatic. Eyes: No icterus. Ears: Clear. Throat: Noninjected. NECK: Supple. HEART: Regular S1 and S2. LUNGS: Clear. ABDOMEN: Soft. EXTREMITIES: No edema. SKIN: Without rash. NEUROLOGICAL: Grossly intact. PSYCHOLOGICAL: Alert and oriented x3 at present. VASCULAR: Legs warm to touch. LABORATORY DATA: White count 7200, hemoglobin 9.7, hematocrit 30, platelets 364,000. PT/INR 1.17, PTT 33.5. Sodium 142, potassium 4.4, chloride 103, bicarb 28, BUN 15, creatinine 1.4, random blood sugar 142. Bilirubin 0.6, AST 41, ALT 29, and alk phos 103. Troponin was 0.27. Head CT was reviewed; it showed no evidence of intracranial hemorrhage. No skull fractures, nor evidence of stroke. An EKG was reviewed. It showed sinus rhythm with left axis deviation and nonspecific ST-T wave changes, unchanged from previous. IMPRESSION: A 77-year-old female with multiple medical problems including recent gastrointestinal bleeding secondary to hemorrhagic shock state, for which she was hospitalized, intubated and placed in intensive care secondary to bleeding gastric blood vessels that required cauterization and clipping, also now with coronary artery disease and status post a large anterior wall myocardial infarction leaving the patient with severe left ventricular systolic dysfunction and now with metabolic encephalopathy secondary to confusional paranoia being followed by Dr. Perales from Psychiatry. PLAN: The plan at present is to continue her medications as outlined including Haldol, insulin, Imdur, Lasix, Lipitor, Lopressor, Protonix and Zofran. The patient will need to be reevaluated by Dr. Perales for competency. She needs to be followed by GI for endoscopy to decide proper anticoagulation for this patient. I suspect she will need cardiac rehab and will need to be assessed regarding whether she is safe for independent living or requires 24 hours supervision. Greater than 35 minutes was spent in the care management, review of labs, orders and x-rays, counseling with this patient today and discussion of her case with Cardiology and Gastroenterology as well as Psychiatry and Nursing. All questions were answered. Jacqueline Thomas MD
[2018-02-23] MEDS: Insulin Reg-LOW-Coverage SC SCH ×5 (01:51→21:44)
--- NOTE | 2018-02-23 06:31 | CON ---
DATE: HISTORY OF PRESENT ILLNESS: The patient is a 77-year-old -[place] female who has been seen by Psychiatry due to delirium-related symptoms including confusion and delusion, and disorientation as well as paranoia. Dr. Perales has met with the patient on a few occasions and determined that she competence to make her own decisions when she is symptomatic. I am following up with the patient at her medical team's request disorientation on the unit. I met with her at the bedside . She is aware that she is at [facility] and that it is 02/2018. indicate that she has attempted to leave her room to leave the hospital on multiple occasions. She indicates to me that she does not have any plan to leave the hospital. She wants to continue with her medical care. The patient reports that she trusts her doctors and she trusts the staff; however, within a minute, the patient becomes paranoid and indicates that she sees herself in the nursing station and believes that the staff members have removed half the belongings. The patient is not angry. She does not appear or fearful. As a matter of fact . The patient denies any depression. She denies hallucinations and does not ; however, she may be visually hallucinating . She has a superficial understanding that while she is in the hospital . Earlier when I was interviewing her, she indicated that she has no idea when her surgery was going to be done. The patient is confused. She is delusional. She is paranoid. She is hallucinating. Regarding her capacity to leave, she does not have capacity, cannot appreciate consequences of making this decision, and does not provide a good reason for leaving according to the staff's notes that I have been reviewing. Fortunately, the patient as of my visit, indicates that she has no plan to request discharge. Her insight and judgment are poor due to her current psychosis and intermittent confusion. Her vitals signs reviewed and labs reviewed by this provider. Relevant psychiatric medications only included Risperdal 0.25 mg p.o. daily. IMPRESSION: The patient is likely suffering from delirium, probably with background of dementia as well. This is currently active and associated with hallucinations, delusions and paranoia. The patient has not shown agitation on the unit. RECOMMENDATIONS: I would discontinue Risperdal in favor of Haldol twice daily to help the patient with her psychotic symptoms. Psychiatry will continue to follow up with the patient and monitor her behavior and thought process. As mentioned in the nursing staff notes, it is very important to continue to reassure and re-orient the patient frequently throughout the day. Colton Nascimento MD
--- NOTE | 2018-02-23 06:33 | PN ---
DATE: 02/22/2018 SUBJECTIVE: This patient was seen and evaluated earlier today. Patient is comfortable. PHYSICAL EXAMINATION: GENERAL: On examination, he is comfortable. No bleeding per rectum. No vomiting and tolerating the liquid diet. VITAL SIGNS: Temperature is 98.2, pulse 83, blood pressure is 116/63. HEENT: Atraumatic, anicteric. NECK: Supple. HEART: S1 and S2 heard. LUNGS: Bilateral air entry present. ABDOMEN: Soft. There is no mass palpable. No tenderness. EXTREMITIES: No edema. LABORATORY DATA: Hemoglobin 9.7, stable. Hematocrit 30. WBC 7.2, platelets 364. Chemistry shows BUN 15, creatinine 1.4. Troponin 0.24. IMPRESSION: Status post gastrointestinal bleeding. The patient has a large marginal ulceration and status post clipping done. Now, admitted with syncopal episode, had . Close followup of the hemoglobin and hematocrit. Thank you very much for allowing us to participate in the care of the patient. Paige Yoder MD
[2018-02-23] MEDS: Pantoprazole 40 mg EC Tab PO SCH (08:23)
[2018-02-23] MEDS ORDERED: Peg-Electrolyte Oral Soln 4L (Golytely) PO ONE (10:36)
--- NOTE | 2018-02-23 11:51 | CP.PCM.PN ---
<Ai Clayton - Last Filed: 02/23/18 11:45> Subjective - Date & Time of Evaluation Date of Evaluation: 02/23/18 Time of Evaluation: 07:00 - Subjective Subjective: GI Progress Note for Marcell Kennedy PGY2 Patient seen and examined at bedside. There were no acute overnight events as per nursing staff. Patient was started on Haldol BID by psychiatry and her mentation has improved. Patient is still in and out of confusion, but is A&O x 3. She denies chest pain, shortness of breath, nausea/vomiting/diarrhea, fever/ chills, numbness/tingling, dysuria or hematuria. Objective - Vital Signs/Intake and Output Vital Signs (last 24 hours): Temp Pulse Resp BP Pulse Ox 98.2 F 96 H 20 105/57 L 93 L 02/22/18 18:00 02/22/18 22:00 02/22/18 18:00 02/23/18 10:46 02/21/18 08:00 Intake and Output: 02/23/18 02/23/18 06:59 18:59 Intake Total 360 Output Total 0 Balance 360 - Medications Medications: Current Medications Atorvastatin Calcium (Lipitor) 40 mg PO DIN [facility] Last Admin: 02/22/18 17:41 Dose: 40 mg Furosemide (Lasix) 20 mg PO DAILY [facility] Last Admin: 02/23/18 10:46 Dose: 20 mg Haloperidol (Haldol) 0.25 mg PO AMHS [facility] PRN Reason: Protocol Last Admin: 02/23/18 10:46 Dose: 0.25 mg Insulin Human Regular (Humulin R Low) 0 units SC ACHS [facility] PRN Reason: Protocol Last Admin: 02/23/18 08:14 Dose: Not Given Isosorbide Mononitrate (Imdur Er) 30 mg PO DAILY [facility] Last Admin: 02/23/18 10:46 Dose: 30 mg Metoprolol Tartrate (Lopressor) 25 mg PO BRKDIN [facility] Last Admin: 02/23/18 08:15 Dose: Not Given Ondansetron HCl (Zofran Inj) 4 mg IVP Q4H PRN PRN Reason: Nausea/Vomiting Last Admin: 02/18/18 01:44 Dose: 4 mg Pantoprazole Sodium (Protonix Ec Tab) 40 mg PO ACB [facility] Last Admin: 02/23/18 08:23 Dose: 40 mg - Labs Labs: 02/22/18 01:00 02/22/18 01:00 PT 13.5 SECONDS (9.4-12.5) H 02/17/18 13:07 INR 1.17 (0.93-1.08) H 02/17/18 13:07 APTT 33.5 Seconds (25.1-36.5) 02/17/18 13:07 - Constitutional Appears: No Acute Distress - Head Exam Head Exam: ATRAUMATIC, NORMAL INSPECTION, NORMOCEPHALIC - Eye Exam Eye Exam: Normal appearance Pupil Exam: NORMAL ACCOMODATION - ENT Exam ENT Exam: Mucous Membranes Moist - Respiratory Exam Respiratory Exam: Clear to Ausculation Bilateral, NORMAL BREATHING PATTERN. absent: Rales, Rhonchi, Wheezes - Cardiovascular Exam Cardiovascular Exam: REGULAR RHYTHM, +S1, +S2. absent: Gallop, Rubs, Murmur - GI/Abdominal Exam GI & Abdominal Exam: Soft, Normal Bowel Sounds. absent: Tenderness, Mass, Rebound - Extremities Exam Extremities Exam: absent: Calf Tenderness, Pedal Edema - Neurological Exam Neurological Exam: Alert, Awake, CN II-XII Intact, Oriented x3 - Psychiatric Exam Psychiatric exam: Normal Affect, Normal Mood - Skin Skin Exam: Dry, Warm Assessment and Plan - Assessment and Plan (Free Text) Assessment: This is a 77yo female with past medical history of GI bleed s/p clips and cauterization, CAD, CHF who was admitted for 1. NSTEMI 2. Syncopal episode 3. Anemia (stable) 4. Hx of GI bleed from large marginal ulceration s/p clips 5. Delirium Plan: Patient will be prepped for EGD and Colonoscopy tomorrow morning. She will be on clear liquid diet and then NPO after midnight. Will continue PPI as well as Zofran prn. As far as patient's delirium, recommend frequent education and re- orientation. Will continue to monitor Hgb. She is hemodynamically stable at this time. Case seen, discussed and reviewed with Dr. Yoder. Marcell Clayton PGY2 <Paige Yoder V - Last Filed: 02/23/18 22:53> Objective - Vital Signs/Intake and Output Vital Signs (last 24 hours): Temp Pulse Resp BP Pulse Ox 98.6 F 88 19 106/69 93 L 02/23/18 18:07 02/23/18 22:00 02/23/18 18:07 02/23/18 18:07 02/21/18 08:00 - Medications Medications: Current Medications Atorvastatin Calcium (Lipitor) 40 mg PO DIN [facility] Last Admin: 02/23/18 17:57 Dose: 40 mg Furosemide (Lasix) 20 mg PO DAILY [facility] Last Admin: 02/23/18 10:46 Dose: 20 mg Insulin Human Regular (Humulin R Low) 0 units SC ACHS [facility] PRN Reason: Protocol Last Admin: 02/23/18 21:44 Dose: Not Given Isosorbide Mononitrate (Imdur Er) 30 mg PO DAILY [facility] Last Admin: 02/23/18 10:46 Dose: 30 mg Magnesium Citrate (Citrate Of Mag) 300 ml PO ONCE ONE Stop: 02/24/18 06:01 Metoprolol Tartrate (Lopressor) 25 mg PO BRKDIN [facility] Last Admin: 02/23/18 17:57 Dose: 25 mg Ondansetron HCl (Zofran Inj) 4 mg IVP Q4H PRN PRN Reason: Nausea/Vomiting Last Admin: 02/18/18 01:44 Dose: 4 mg Pantoprazole Sodium (Protonix Ec Tab) 40 mg PO ACB [facility] Last Admin: 02/23/18 08:23 Dose: 40 mg Risperidone (Risperdal Tab) 0.5 mg PO AMHS [facility] PRN Reason: Protocol Last Admin: 02/23/18 21:17 Dose: 0.5 mg - Labs Labs: 02/22/18 01:00 02/22/18 01:00 PT 13.5 SECONDS (9.4-12.5) H 02/17/18 13:07 INR 1.17 (0.93-1.08) H 02/17/18 13:07 APTT 33.5 Seconds (25.1-36.5) 02/17/18 13:07 Attending/Attestation - Attestation I have personally seen and examined this patient.: Yes I have fully participated in the care of the patient.: Yes I have reviewed all pertinent clinical information, including history, physical exam and plan: Yes Notes (Text): This is an addendum to GI followuphe was report dictated by the Ticket Broker the.The patient was seen and examined earlier. Medical records, lab studies, imagings were reviewed. Last 24 hours events reviewed. Agreed with the above treatment plan as outlined in Ticket Broker 's notes the with the addition of the following patient is now agreeable to the colonoscopy started the patient prep in the morning 02/23/18 22:30
--- NOTE | 2018-02-23 12:52 | PN ---
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 Her competency has been in question regarding her ability to cooperate and I will send her to her needed treatment. I have reviewed her situation with Nursing and have reviewed the note since I had seen her on 02/20. She is presently undergoing her colonoscopy without difficulty. She reportedly still has periods of confusion such that yesterday, she was found lying on the bathroom floor with no recollection of that event. CT scan of the head was reported as unremarkable. Blood pressure 105/57, pulse 96 yesterday. The patient has been switched to psychotropically from risperidone to Haldol, but this should make no difference. We will continue to monitor as needed. Estuardo Perales MD/ PhD
--- NOTE | 2018-02-23 14:57 | PN ---
DATE: 02/23/2018 SUBJECTIVE: This 77-year-old female remains hospitalized with multiple medical problems, most notably acute confusional state with acute paranoid delirium including episodes of forgetfulness and deconditioning where the patient is being found on the hospital floor surfaces of which she has no recollection. She recently sustained a myocardial infarction and near life-threatening gastrointestinal hemorrhage and now remains hospitalized with acute delirium. She is in a normal sinus rhythm on the auto hauler and denies any fever, chills, chest pain or shortness of breath. PHYSICAL EXAMINATION: VITAL SIGNS: Temperature 98.2, respirations 20, pulse 96 and blood pressure 105/57 with pulse ox 96%. HEENT: Head: Normocephalic, atraumatic. Eyes: No icterus. Ears: Clear. Throat: Noninjected. NECK: Supple. HEART: Regular S1, S2. LUNGS: Clear. ABDOMEN: Soft. EXTREMITIES: No edema. SKIN: Without rash. NEUROLOGICAL: Intact. PSYCHOLOGICAL: Alert and oriented at present. VASCULAR: Legs warm to touch. LABORATORY DATA: White count 7200, hemoglobin 9.7, hematocrit 30, platelets 264,000. Random blood sugar 186. 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 PLAN: At present is to discuss her further management incompetency with Dr. Perales from Psychiatry. She has been started on Haldol 0.25 mg p.o. a.m. and p.m. She continues on regular low-dose Humulin insulin coverage a.c. meals and at bedtime, Imdur 30 mg p.o. daily, Lasix 20 mg p.o. daily, Lipitor 40 mg p.o. at dinner time, Lopressor 25 mg p.o. b.i.d., Protonix 40 mg p.o. daily and Zofran 4 mg IV every 4 hours p.r.n. nausea and vomiting. She is scheduled for physical therapy for reconditioning and gait training and based on her clinical progress, disposition will need to be decided for this female. Greater than 35 minutes was spent in the care management, review of labs, orders, x-rays and discussion of her case with Cardiology, Gastroenterology and Psychiatry today. All questions were answered. Jacqueline Thomas MD MTDD
[2018-02-23] MEDS ORDERED: Bisacodyl 5mg EC Tab PO ONE (20:23)
[2018-02-23] MEDS ORDERED: Magnesium Citrate Oral SOL (300 ml) PO ONE (20:23)
[2018-02-24] MEDS ORDERED: Magnesium Citrate Oral SOL (300 ml) PO ONE (06:00)
[2018-02-24] MEDS: Insulin Reg-LOW-Coverage SC SCH ×4 (07:35→21:49)
[2018-02-24] MEDS: Pantoprazole 40 mg EC Tab PO SCH (08:21)
[2018-02-24] MEDS ORDERED: Sodium Chloride 0.9% 1,000 ML IV SCH (11:00)
[2018-02-24] MEDS ORDERED: Propofol 10 mg/ml Inj (20 ML) ONE ×2 (13:19→13:20)
[2018-02-24] MEDS ORDERED: ePHEDrine 50 mg/ml Inj ONE (14:05)
--- NOTE | 2018-02-24 15:10 | PN ---
DATE: 02/24/2018 SUBJECTIVE: This 77-year-old female was examined at her bedside and her case was reviewed in detail with nurse, Mariana Walker, registered nurse. The patient is awaiting elective colonoscopy. She remains hospitalized with multiple medical problems including acute delirium, episodes of paranoia secondary to metabolic encephalopathy, status post myocardial infarction. At present, she is alert and oriented, knows she is in [facility] awaiting a colonoscopy. PHYSICAL EXAMINATION VITAL SIGNS: Show temperature 97.6, respirations 18, pulse 76, blood pressure 105/70 with a pulse ox of 100%. HEENT: Head: Normocephalic, atraumatic. Eyes: No icterus. Ears: Clear. Throat: Noninjected. NECK: Supple. HEART: Regular S1, S2. LUNGS: Clear. ABDOMEN: Soft. EXTREMITIES: No edema. SKIN: Without rash. NEUROLOGICAL: Intact. PSYCHOLOGICAL: Alert and oriented today. VASCULAR: Legs warm to touch. LABORATORY DATA: White count 7200, hemoglobin 9.7, hematocrit 30, platelets 364,000. . IMPRESSION: A 77-year-old female with acute delirium, metabolic encephalopathy, status post myocardial infarction, now with cardiomyopathy, ejection fraction of approximately 10%, insulin-dependent diabetes mellitus, hypertension, hyperlipidemia, history of gastrointestinal bleeding requiring blood cell transfusion and anemia of chronic disease and acute paranoid psychosis. PLAN: The plan at present is to continue GI workup while continuing regular low-dose Humulin insulin coverage before meals and at bedtime, Imdur 30 mg p.o. daily, Lasix 20 mg p.o. daily, Lipitor 40 mg p.o. daily, Lopressor 25 mg b.i.d., Protonix 40 mg p.o. daily, Risperdal 0.5 mg p.o. b.i.d. and Zofran 4 mg IV every 4 hours p.r.n. nausea and vomiting. Once her GI workup is completed, anticoagulation therapy will be decided. For her atherosclerotic heart disease, diet will be advanced. She will receive physical therapy and social service is working on contacting family to provide 24-hour supervision for this patient upon discharge. Greater than 35 minutes was spent in the care management, review of labs, orders, x-rays, medications and discussion with nursing, social service, case management and co-consultants from Psychiatry, Gastroenterology and Cardiology. Jacqueline Thomas MD MARTY
--- NOTE | 2018-02-25 04:01 | PN ---
DATE: 02/24/2018 SUBJECTIVE: This patient was seen and evaluated earlier today and informed consent was obtained for colonoscopy. Colonoscopy showed a reddened colon. No colonic source of blood loss noticed. One hemoclip was noticed in the ascending colon. This is probably a dislodged clip from the anastomotic ulcer. The decision was made not to do an enteroscopy as this can further disrupt the anastomotic margins at the present time and the patient's hemoglobin has been stable. RECOMMENDATIONS: It may be reasonable to restart the anticoagulation with the high-dose PPI and close monitoring. If there is any recurrence of the bleeding, we will consider double enteroscopy to evaluate the bypassed stomach and also enteroscopy. Continue to closely monitoring the hemoglobin and hematocrit. Paige Yoder MD
[2018-02-25] MEDS: Insulin Reg-LOW-Coverage SC SCH ×4 (08:18→23:18)
[2018-02-25] MEDS: Pantoprazole 40 mg EC Tab PO SCH (08:19)
--- NOTE | 2018-02-25 13:39 | CP.PCM.PN ---
<Sujey Tafoya - Last Filed: 02/25/18 13:39> Subjective - Date & Time of Evaluation Date of Evaluation: 02/25/18 Time of Evaluation: 10:50 - Subjective Subjective: Seen and examined at the bedside earlier today, chart review. Patient had a colonoscopy yesterday and found to have a redundant colon and hemorrhoids. Patient denies nausea, vomiting, abdominal pain, shortness of breath or chest pain. No reports of overt GI bleeding. Tolerating oral intake. Objective - Vital Signs/Intake and Output Vital Signs (last 24 hours): Temp Pulse Resp BP Pulse Ox 98 F 63 18 80/41 L 98 02/25/18 12:00 02/25/18 12:00 02/25/18 12:00 02/25/18 12:00 02/25/18 06:00 Intake and Output: 02/25/18 02/25/18 06:59 18:59 Intake Total 100 Output Total 0 Balance 100 - Medications Medications: Current Medications Atorvastatin Calcium (Lipitor) 40 mg PO DIN [facility] Last Admin: 02/24/18 17:20 Dose: 40 mg Furosemide (Lasix) 20 mg PO DAILY [facility] Last Admin: 02/25/18 11:01 Dose: 20 mg Insulin Human Regular (Humulin R Low) 0 units SC ACHS [facility] PRN Reason: Protocol Last Admin: 02/25/18 12:37 Dose: 1 units Isosorbide Mononitrate (Imdur Er) 30 mg PO DAILY [facility] Last Admin: 02/25/18 11:01 Dose: 30 mg Losartan Potassium (Cozaar) 25 mg PO DAILY [facility] Metoprolol Tartrate (Lopressor) 25 mg PO BRKDIN [facility] Last Admin: 02/25/18 08:18 Dose: 25 mg Ondansetron HCl (Zofran Inj) 4 mg IVP Q4H PRN PRN Reason: Nausea/Vomiting Last Admin: 02/18/18 01:44 Dose: 4 mg Pantoprazole Sodium (Protonix Ec Tab) 40 mg PO ACB [facility] Last Admin: 02/25/18 08:19 Dose: 40 mg Risperidone (Risperdal Tab) 0.5 mg PO AMHS [facility] PRN Reason: Protocol Last Admin: 02/25/18 10:59 Dose: 0.5 mg - Labs Labs: 02/22/18 01:00 02/22/18 01:00 PT 13.5 SECONDS (9.4-12.5) H 02/17/18 13:07 INR 1.17 (0.93-1.08) H 02/17/18 13:07 APTT 33.5 Seconds (25.1-36.5) 02/17/18 13:07 - Constitutional Appears: No Acute Distress - Head Exam Head Exam: NORMOCEPHALIC - Eye Exam Eye Exam: Normal appearance. absent: Scleral icterus - ENT Exam ENT Exam: Mucous Membranes Moist - Respiratory Exam Respiratory Exam: NORMAL BREATHING PATTERN. absent: Respiratory Distress - Cardiovascular Exam Cardiovascular Exam: +S1, +S2 - GI/Abdominal Exam GI & Abdominal Exam: Soft, Normal Bowel Sounds. absent: Guarding, Tenderness, Organomegaly, Rebound - Extremities Exam Extremities Exam: absent: Calf Tenderness, Pedal Edema - Neurological Exam Neurological Exam: Alert, Awake, Oriented x3 (according to Dr. Camacho) - Skin Skin Exam: Warm. absent: Dry (cause) Assessment and Plan - Assessment and Plan (Free Text) Assessment: Assessment: Status post colonoscopy, found to have redundant colon/hemorrhoids Myocardial infarction, s/p stress test:abnormal, showed mild azin-infarct ischemia superimposed with infarct. LV EF 10%. CHF History of GI bleed/jejunal ulcer with visible vessel status post clips Anemia Hypertension Insulin-dependent diabetes mellitus Plan: heart healthy/mod carb Trend H&H and monitor for overt GI bleed Continue PPI From GI point of view maybe patient may start low-dose anticoagulant, closely follow H&H and for overt GI bleed. as per Cardiology Seen and discussed with Dr. Yoder. <Paige Yoder V - Last Filed: 02/28/18 02:43> Objective - Vital Signs/Intake and Output Vital Signs (last 24 hours): Temp Pulse Resp BP Pulse Ox 98.4 F 103 H 18 133/77 100 02/26/18 06:00 02/26/18 06:00 02/26/18 06:00 02/26/18 06:00 02/26/18 06:00 Intake and Output: 02/25/18 02/26/18 18:59 06:59 Intake Total 300 120 Output Total 600 0 Balance -300 120 - Medications Medications: Current Medications Atorvastatin Calcium (Lipitor) 40 mg PO DIN [facility] Last Admin: 02/25/18 17:27 Dose: Not Given Furosemide (Lasix) 20 mg PO DAILY [facility] Last Admin: 02/25/18 11:01 Dose: 20 mg Insulin Human Regular (Humulin R Low) 0 units SC ACHS [facility] PRN Reason: Protocol Last Admin: 02/25/18 23:18 Dose: Not Given Isosorbide Mononitrate (Imdur Er) 30 mg PO DAILY [facility] Last Admin: 02/25/18 11:01 Dose: 30 mg Losartan Potassium (Cozaar) 25 mg PO DAILY [facility] Metoprolol Tartrate (Lopressor) 25 mg PO BRKDIN [facility] Last Admin: 02/25/18 17:27 Dose: Not Given Ondansetron HCl (Zofran Inj) 4 mg IVP Q4H PRN PRN Reason: Nausea/Vomiting Last Admin: 02/18/18 01:44 Dose: 4 mg Pantoprazole Sodium (Protonix Ec Tab) 40 mg PO ACB [facility] Last Admin: 02/25/18 08:19 Dose: 40 mg Risperidone (Risperdal Tab) 0.5 mg PO [facility] PRN Reason: Protocol Last Admin: 02/25/18 23:18 Dose: Not Given - Labs Labs: 02/22/18 01:00 02/22/18 01:00 PT 13.5 SECONDS (9.4-12.5) H 02/17/18 13:07 INR 1.17 (0.93-1.08) H 02/17/18 13:07 APTT 33.5 Seconds (25.1-36.5) 02/17/18 13:07 Attending/Attestation - Attestation I have personally seen and examined this patient.: Yes I have fully participated in the care of the patient.: Yes I have reviewed all pertinent clinical information, including history, physical exam and plan: Yes Notes (Text): This is an addendum to GI progress report dictated by Sujey Tafoya APN.The patient was seen and examined earlier. Medical records, lab studies, imagings were reviewed. Last 24 hours events reviewed. Agreed with the above treatment plan as outlined in Sujey Tafoya APN's notes the with the addition of the following on examination abdomen was soft no tenderness Close follow-up of hemoglobin and hematocrit Need to follow up closely hemobin and hematocrit if low dose anticoagulation is started Would benefit from iron supplement on a regular basis Compliance of follow-up and medication were discussed with the patnt at length 02/26/18 06:19 02/28/18 02:39
--- NOTE | 2018-02-25 16:29 | CP.PCM.PN ---
Subjective - Date & Time of Evaluation Date of Evaluation: 02/25/18 Time of Evaluation: 12:30 - Subjective Subjective: Joaquínk reviewing case discussed with nursing The patient appears more confused today. He thinks she is in [place], cannot identify that this is a hospital, nor can she identified today's date. She does not appear to be responding to internal stimuli. Thus while not agitated or combative, the patient presently appears to confused to meaningfully consider herself capable of making decisions regarding her finances were her healthcare. I am not seeing any overt signs of paranoia at this specific time. Objective - Vital Signs/Intake and Output Vital Signs (last 24 hours): Temp Pulse Resp BP Pulse Ox 98 F 93 H 18 80/41 L 98 02/25/18 12:00 02/25/18 14:00 02/25/18 12:00 02/25/18 12:00 02/25/18 06:00 Intake and Output: 02/25/18 02/25/18 06:59 18:59 Intake Total 100 300 Output Total 0 600 Balance 100 -300 - Medications Medications: Current Medications Atorvastatin Calcium (Lipitor) 40 mg PO DIN [facility] Last Admin: 02/24/18 17:20 Dose: 40 mg Furosemide (Lasix) 20 mg PO DAILY [facility] Last Admin: 02/25/18 11:01 Dose: 20 mg Insulin Human Regular (Humulin R Low) 0 units SC ACHS [facility] PRN Reason: Protocol Last Admin: 02/25/18 12:37 Dose: 1 units Isosorbide Mononitrate (Imdur Er) 30 mg PO DAILY [facility] Last Admin: 02/25/18 11:01 Dose: 30 mg Losartan Potassium (Cozaar) 25 mg PO DAILY [facility] Metoprolol Tartrate (Lopressor) 25 mg PO BRKDIN [facility] Last Admin: 02/25/18 08:18 Dose: 25 mg Ondansetron HCl (Zofran Inj) 4 mg IVP Q4H PRN PRN Reason: Nausea/Vomiting Last Admin: 02/18/18 01:44 Dose: 4 mg Pantoprazole Sodium (Protonix Ec Tab) 40 mg PO ACB [facility] Last Admin: 02/25/18 08:19 Dose: 40 mg Risperidone (Risperdal Tab) 0.5 mg PO AMHS [facility] PRN Reason: Protocol Last Admin: 02/25/18 10:59 Dose: 0.5 mg - Labs Labs: 02/22/18 01:00 02/22/18 01:00 PT 13.5 SECONDS (9.4-12.5) H 02/17/18 13:07 INR 1.17 (0.93-1.08) H 02/17/18 13:07 APTT 33.5 Seconds (25.1-36.5) 02/17/18 13:07 - Constitutional Appears: Confused - Psychiatric Exam Psychiatric exam: Flat Affect (confused)
--- NOTE | 2018-02-25 17:19 | PN ---
DATE: 02/25/2018 SUBJECTIVE: The patient is seen lying in bed on telemetry. She is comfortable. She appears mildly confused. She is not belligerent. She denies any chest pain. CURRENT MEDICATIONS: Include Imdur 30 mg daily, Lasix 20 mg daily, Lipitor 40 mg daily, metoprolol 25 mg b.i.d., Protonix 40 mg daily, Risperdal 0.5 mg b.i.d. and Zofran p.r.n. PHYSICAL EXAMINATION GENERAL: She is an elderly woman who appears comfortable at rest. VITAL SIGNS: Blood pressure is 112/66 with a pulse of 100 and sinus, respirations are 16. She is afebrile. HEENT: No JVD. CHEST: Few scattered rhonchi heard. HEART: PMI displaced laterally with soft tones noted. ABDOMEN: Soft and nontender. Normoactive bowel sounds. EXTREMITIES: No edema. DIAGNOSTIC DATA: No blood work pending from this morning. IMPRESSION: 1. Probable recent anterior wall myocardial infarction, clinically stable at present. 2. Known coronary artery disease, status post remote percutaneous coronary intervention. 3. Severe left ventricular systolic dysfunction. 4. Status post bariatric surgery. 5. History of recent gastrointestinal bleeding. 6. Recent confusion and paranoia, improved. RECOMMENDATIONS: Her current conservative management will be continued at this time. Given her severe LV dysfunction, attempts at low-dose and low reduction therapy will be trialled. Losartan 25 mg will be initiated. Beta renée therapy will be continued for now. Antithrombotic and antiplatelet therapy is contraindicating given her recurrent gastrointestinal bleeding. We will continue to follow and make further recommendations as appropriate. Wesley Sanchez MD
--- NOTE | 2018-02-25 18:58 | PN ---
DATE: 02/25/2018 SUBJECTIVE: This 77-year-old female was examined on the cardiac boyd. She remains hospitalized with multiple problems including acute delirium, confusional state, metabolic encephalopathy, status post recent myocardial infarction, and subsequent cardiomyopathy with an ejection fraction of approximately 10%. The patient denies any active fever, chills, chest pain, or shortness of breath and completed a colonoscopy that was negative for colon cancer. PHYSICAL EXAMINATION: VITAL SIGNS: She is in a normal sinus rhythm on the library monitor. Temperature 98, respirations 18, pulse 63, blood pressure 113/66 with pulse ox 97% on room air. HEENT: Head: Normocephalic, atraumatic. Eyes: No icterus. Ears: Clear. Throat: Noninjected. NECK: Supple. HEART: Regular, S1 and S2. LUNGS: Clear. ABDOMEN: Soft. EXTREMITIES: No edema. SKIN: Without rashes. NEUROLOGIC: Intact. PSYCHOLOGIC: Confused. VASCULAR: Legs warm to touch. LABORATORY DATA: White count 7200, hemoglobin 9.7, hematocrit 30, and platelets 364,000. Random blood sugar 231. IMPRESSION: A 77-year-old female now with metabolic encephalopathy and confusional state, status post myocardial infarction, cardiomyopathy with recent gastrointestinal bleeding, insulin-dependent diabetes mellitus, hyperlipidemia, and anemia of chronic disease. PLAN: The plan at present is to continue Cozaar 25 mg p.o. daily, regular R Humulin insulin before meals and at bedtime low-dose protocol, Imdur 30 mg p.o. daily, Lasix 20 mg p.o. daily, Lipitor 40 mg p.o. daily, Lopressor 25 mg p.o. b.i.d., Protonix 40 mg p.o. daily, Risperdal 0.5 mg p.o. b.i.d., and Zofran 4 mg IV every 4 hours p.r.n. nausea and vomiting. The patient remains on the cardiac unit. She is ordered to have physical therapy for ambulation safety. She is ordered to have a heart-healthy diabetic diet and remains on neuro checks and fall precautions. Ultimate plan will be for discharge to home with 24 hours supervision given her confusional state and medications will be decided for discharge management after discussion with GI, Cardiology, and Psychiatry. Greater than 35 minutes was spent in the care management, review of labs, orders, x-rays, and discussion with social service, case management, and co-consultants this patient's status needs and disposition issues. Jacqueline Thomas MD MTDAwa
[2018-02-26 06:11] VITALS: O2SAT 100
[2018-02-26] MEDS: Insulin Reg-LOW-Coverage SC SCH ×3 (09:33→17:27)
[2018-02-26] MEDS: Pantoprazole 40 mg EC Tab PO SCH (09:40)
[2018-02-26 10:29] LABS: HEMOGLOBIN 10.9 g/dL (12.0-16.0); MEAN CELL VOLUME 87.7 fl (80.0-105.0); MEAN CORPUSCULAR HEMOGLOBIN 27.5 pg (25.0-35.0); MEAN CORPUSCULAR HGB CONC 31.3 g/dl (31.0-37.0); MEAN PLATELET VOLUME 11.3 fl (7.0-11.0); RBC 3.97 10^6/uL (3.5-6.1); RED CELL DISTRIBUTION WIDTH 14.5 % (11.5-14.5); WHITE BLOOD COUNT 5.1 10^3/ul (4.5-11.0)
[2018-02-26 10:48] LABS: ALB/GLOB RATIO 1.1 (1.1-1.8); ALBUMIN 3.5 g/dL (3.0-4.8); CALCIUM 8.5 mg/dL (8.4-10.5)
--- NOTE | 2018-02-26 11:17 | CP.PCM.PN ---
<Ai Clayton - Last Filed: 02/26/18 15:02> Subjective - Date & Time of Evaluation Date of Evaluation: 02/26/18 Time of Evaluation: 08:00 - Subjective Subjective: GI Progress Note for Marcell Kennedy PGY2 Patient seen and examined at bedside. No acute overnight events as per nursing staff. Patient is resting comfortably in bed. She denies chest pain, shortness of breath, abdominal pain, nausea/vomiting/diarrhea, fever or chills. Objective - Vital Signs/Intake and Output Vital Signs (last 24 hours): Temp Pulse Resp BP Pulse Ox 98.4 F 100 H 18 133/77 100 02/26/18 06:00 02/26/18 09:40 02/26/18 06:00 02/26/18 09:41 02/26/18 06:00 Intake and Output: 02/26/18 02/26/18 06:59 18:59 Intake Total 120 Output Total 0 Balance 120 - Medications Medications: Current Medications Atorvastatin Calcium (Lipitor) 40 mg PO DIN [facility] Last Admin: 02/25/18 17:27 Dose: Not Given Furosemide (Lasix) 20 mg PO DAILY [facility] Last Admin: 02/26/18 09:41 Dose: 20 mg Insulin Human Regular (Humulin R Low) 0 units SC ACHS [facility] PRN Reason: Protocol Last Admin: 02/26/18 09:33 Dose: Not Given Isosorbide Mononitrate (Imdur Er) 30 mg PO DAILY [facility] Last Admin: 02/26/18 09:36 Dose: 30 mg Losartan Potassium (Cozaar) 25 mg PO DAILY [facility] Last Admin: 02/26/18 09:40 Dose: 25 mg Metoprolol Tartrate (Lopressor) 25 mg PO BRKDIN [facility] Last Admin: 02/26/18 09:36 Dose: 25 mg Ondansetron HCl (Zofran Inj) 4 mg IVP Q4H PRN PRN Reason: Nausea/Vomiting Last Admin: 02/18/18 01:44 Dose: 4 mg Pantoprazole Sodium (Protonix Ec Tab) 40 mg PO ACB [facility] Last Admin: 02/26/18 09:40 Dose: 40 mg Risperidone (Risperdal Tab) 0.5 mg PO AMHS [facility] PRN Reason: Protocol Last Admin: 02/26/18 09:41 Dose: 0.5 mg - Labs Labs: 02/26/18 10:20 02/26/18 10:20 PT 13.5 SECONDS (9.4-12.5) H 02/17/18 13:07 INR 1.17 (0.93-1.08) H 02/17/18 13:07 APTT 33.5 Seconds (25.1-36.5) 02/17/18 13:07 - Constitutional Appears: No Acute Distress - Head Exam Head Exam: ATRAUMATIC, NORMAL INSPECTION, NORMOCEPHALIC - Eye Exam Eye Exam: Normal appearance, PERRL Pupil Exam: NORMAL ACCOMODATION - ENT Exam ENT Exam: Mucous Membranes Moist - Respiratory Exam Respiratory Exam: Clear to Ausculation Bilateral, NORMAL BREATHING PATTERN. absent: Rales, Rhonchi, Wheezes - Cardiovascular Exam Cardiovascular Exam: REGULAR RHYTHM, +S1, +S2. absent: Gallop, Rubs, Murmur - GI/Abdominal Exam GI & Abdominal Exam: Soft, Normal Bowel Sounds. absent: Tenderness - Extremities Exam Extremities Exam: Normal Inspection. absent: Calf Tenderness, Pedal Edema - Neurological Exam Neurological Exam: Alert, Awake, CN II-XII Intact - Skin Skin Exam: Dry, Warm Assessment and Plan - Assessment and Plan (Free Text) Assessment: This is a 77yo female with past medical history of GI bleed s/p clips and cauterization, CAD, CHF who was admitted for 1. NSTEMI s/p stress test with EF~10% with mild zain-infarct ischemia superimposed infarct 2. S/p colonoscopy (redundant colon and hemorrhoids) 3. Anemia (stable) 4. Hx of GI bleed from large marginal ulceration s/p clips 5. CHF 6. HTN 7. DM Plan: Continue PPI. Continue to monitor Hgb. There are no overt signs of bleeding. Cardio on consult for CHF. From GI standpoint, patient can be started on low- dose anticoagulant. Decision for anti-coagulation as per Cardiology. Case seen, discussed and reviewed with Dr. Beba Clayton PGY2 <Paige Yoder V - Last Filed: 02/28/18 02:37> Objective - Vital Signs/Intake and Output Vital Signs (last 24 hours): Temp Pulse Resp BP Pulse Ox 98.7 F 85 20 136/92 H 100 02/26/18 18:40 02/26/18 18:40 02/26/18 18:40 02/26/18 18:40 02/26/18 06:00 - Labs Labs: 02/26/18 10:20 02/26/18 10:20 PT 13.5 SECONDS (9.4-12.5) H 02/17/18 13:07 INR 1.17 (0.93-1.08) H 02/17/18 13:07 APTT 33.5 Seconds (25.1-36.5) 02/17/18 13:07 Attending/Attestation - Attestation I have personally seen and examined this patient.: Yes I have fully participated in the care of the patient.: Yes I have reviewed all pertinent clinical information, including history, physical exam and plan: Yes Notes (Text): This is a delayed addendum to GI progress report dictated by MedicalResident.The patient was seen and examined earlier. Medical records, lab studies, imagings were reviewed. Last 24 hours events reviewed. Agreed with the above treatment plan as outlined in Residents's notes the with the addition of the following the patient was seen here earlier with the resident. on examination abdomen was soft no tenderness. Patient was tolerating a diet Discussed with patient at length regarding the importance of comprehensive medication and follow-up If anticoagulation is resumed at a lower dose Hb need to be closely followed up continue high-dose PPI 02/28/18 02:36
[2018-02-26 17:35] VITALS: BP 136/92
[2018-02-26 18:41] VITALS: PULSE 85; RESP 20; TEMP 98.7
--- NOTE | 2018-02-27 00:33 | PN ---
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 Today, she appears to be somewhat bizarre, talking about people present that are not here, and indicated to me that I am aware of certain events that are taking place or have recently taken place, but which are not based on the fact. She is being maintained on Risperdal 0.5 mg a.m. and at bedtime along with Lipitor, Lasix, insulin, Imdur, Cozaar, Lopressor, Protonix. Blood pressure 133/77, pulse of 100, temperature 98.7, respiratory rate 20. Estuardo Perales MD/ PhD
--- NOTE | 2018-02-27 02:59 | DS ---
DATE OF EXAM: 02/26/2018 FINAL DIAGNOSES: Myocardial infarction, cardiomyopathy, ejection fraction approximately 10%, chronic hypertension, insulin-dependent diabetes mellitus, hyperlipidemia, confusional state, rule out dementia, paranoia, recent GI bleeding, anemia of chronic disease, anemia of GI bleeding. DISPOSITION: Home, with son Jim Sarmiento providing 24-hour supervision. DISCHARGE MEDICATIONS: Cozaar 25 mg p.o. daily; regular Humulin insulin protocol before meals, low-dose protocol; Imdur 30 mg p.o. daily; Lasix 20 mg p.o. daily; Lipitor 40 mg at dinner time; Lopressor 25 mg p.o. b.i.d.; Protonix 40 mg p.o. daily; Risperdal 0.5 mg p.o. b.i.d. SUMMARY: This 77-year-old female was admitted to [facility] after experiencing chest pain and was noted to have a myocardial infarction and workup that revealed cardiomyopathy with approximately 10% ejection fraction. The patient was followed during the hospital stay by Dr. Sanchez and Dr. Gandhi from Cardiology, Dr. Paige Yoder from GI and Dr. Perales from Psychiatry. The hospital course was complicated by confusional state and difficulty with the patient being prepped for a colonoscopy, which was necessary for workup of recent GI bleeding issues. At the time of her discharge, the patient remains alert but confused at periods of time and is in need of 24-hour supervision. Her discharge vital signs are temperature 98.4, respirations 18, pulse 100 and blood pressure 133/77 with a pulse ox of 100% on room air. The patient is independent in ambulation and cooperating with medical treatment. LABORATORY DATA: White count is 5100, hemoglobin 10.9, hematocrit 34.8, platelets 282,000. PT/INR 1.17, PTT 33.5. Sodium 143, K 4, chloride 105, bicarb 24, BUN 16, creatinine 1.3, random blood sugar 192. All liver function testing was normal including bilirubin 0.5, AST 21, ALT 22 and alk phos 96. The patient has been cleared for discharge to home by consultants from Cardiology, Gastroenterology and Psychiatry. I have had a lengthy discussion with the patient's son, Jim. He is aware that the patient must be monitored on a 24 hour basis given her confusional state and risks for complications. I have reviewed all of her medication and the need for compliance with the above. The patient is fully cognizant on the way to test her blood sugar and the family is aware that she will need insulin coverage as outlined. Hopefully, they will be compliant with treatment and medications as listed above. Greater than 35 minutes was spent in the care, review of meds, labs, orders and treatment plan with the son, Jim Sarmiento, phone number [phone], today. All questions were answered Jacqueline Thomas MD MTDD
== END 2018-02-26 20:53 | disposition home or self-care (01) | DRG 280 ==
LOC: ED 12:27 → ERH 13:44 → CCU 23:39 → 2RSO 02-18 22:07
PROVIDERS: ADMIT Internal Medicine; ATTEND Internal Medicine
PROC: 0DJD8ZZ Inspection of Lower Intestinal Tract, Via Natural or Artificial Opening Endoscopic (ICD-10-PCS; principal; 2018-02-24 13:15)
DX: I21.09 ST elevation (STEMI) myocardial infarction involving other coronary artery of anterior wall (principal); G93.41 Metabolic encephalopathy; I42.9 Cardiomyopathy, unspecified; I11.0 Hypertensive heart disease with heart failure; I50.9 Heart failure, unspecified; K28.9 Gastrojejunal ulcer, unspecified as acute or chronic, without hemorrhage or perforation; E78.00 Pure hypercholesterolemia, unspecified; E78.5 Hyperlipidemia, unspecified; D63.8 Anemia in other chronic diseases classified elsewhere; E11.51 Type 2 diabetes mellitus with diabetic peripheral angiopathy without gangrene; I25.10 Atherosclerotic heart disease of native coronary artery without angina pectoris; K21.9 Gastro-esophageal reflux disease without esophagitis; J45.909 Unspecified asthma, uncomplicated; K57.90 Diverticulosis of intestine, part unspecified, without perforation or abscess without bleeding; K27.7 Chronic peptic ulcer, site unspecified, without hemorrhage or perforation; F22 Delusional disorders; K64.9 Unspecified hemorrhoids; R55 Syncope and collapse; Z87.11 Personal history of peptic ulcer disease; Z79.4 Long term (current) use of insulin; Z87.891 Personal history of nicotine dependence; Z95.5 Presence of coronary angioplasty implant and graft; Z98.84 Bariatric surgery status